=== PATIENT | male | born 1965 | race Caucasian/White ===

== ENCOUNTER 2018-08-27 17:34 | Inpatient (IN) | payer OTHER ==
--- NOTE | 2018-08-27 17:59 | PDOC ---
Rapid Medical Evaluation Chief Complaint: Pain, Acute Time Seen by Provider: 08/27/18 17:55 Medical Evaluation: Allergies Allergy/AdvReac Type Severity Reaction Status Date / Time No Known Allergies Allergy Verified 08/27/18 17:45 Vital Signs Temp Pulse Resp BP Pulse Ox 99 F 107 H 20 157/105 H 99 08/27/18 17:43 08/27/18 17:43 08/27/18 17:43 08/27/18 17:43 08/27/18 17:43 08/27/18 17:55 Pt c/o: abd pain with nausea, went to [facility] w/u then d/c'd home. Pt states s/s continue and wants 2 nd opinion Pt on brief exam: afebrile, no abd tenderness Pt ordered for: cbc, comp, ua, lipase/amylase pt to proceed to the ED Discharge Disposition - Diagnosis Abdominal pain - Referrals Referrals: Roberto Ta MD [Primary Care Provider] - - Patient Instructions - Post Discharge Activity
[2018-08-27] MEDS ORDERED: LACTATED RINGERS SOLUTION 1,000 ML/1,000 ML INFUS.BAG IV STA (19:51)
[2018-08-27] MEDS ORDERED: MORPHINE SULFATE 2 MG/ML VIAL IVPUSH ONE (19:54)
[2018-08-27] MEDS ORDERED: LACTATED RINGERS SOLUTION 1,000 ML/1,000 ML INFUS.BAG IV SCH (20:00)
[2018-08-27] MEDS ORDERED: MORPHINE SULFATE 2 MG/ML VIAL ONE ×2 (20:09→23:16)
[2018-08-27 20:14] LABS: BASO % 0.5 % (0-2.0); HEMATOCRIT 36.2 % (35.4-49); HEMOGLOBIN 12.2 GM/dL (11.7-16.9); LYMPH % 21.2 % (8-40); MCH 26.6 pg (25.7-33.7); MCHC 33.8 g/dl (32.0-35.9); MEAN CELL VOLUME 78.5 fl (80-96); MEAN PLT VOLUME 6.9 fl (7.5-11.1); MONO % 13.3 % (3.8-10.2); PLATELET COUNT 105 K/MM3 (134-434); RBC 4.61 M/mm3 (4.00-5.60); RDW 16.6 % (11.9-15.9); WHITE BLOOD COUNT 7.3 K/mm3 (4.0-10.0)
[2018-08-27] MEDS ORDERED: ONDANSETRON 4 MG/2 ML VIAL IVPB ONE (20:22)
[2018-08-27] MEDS ORDERED: PANTOPRAZOLE SODIUM 40 MG in SODIUM CHLORIDE 100 ML IVPB ONE (20:22)
[2018-08-27 20:32] LABS: INR 1.03 (0.83-1.09); PROTHROMBIN TIME (PATIENT) 12.1 SEC (9.7-13.0)
--- NOTE | 2018-08-27 20:32 | PDOC ---
Attending Attestation - Resident Resident Name: [place] - ED Attending Attestation I have performed the following: I have examined & evaluated the patient, The case was reviewed & discussed with the resident, I agree w/resident's findings & plan, Exceptions are as noted - HPI HPI: 08/27/18 20:28 52 M with h/o chronic pancreatitis presenting to ED with lower abdominal pain. Pt states it started several days ago. It radiates across his lower abdomen and is associated with nausea but no vomiting .Endorses one episode of nonbloody diarrhea. Pt state sthis pain is consistent with his usual pancreatitis flares. Denies F/C. Denies CP/SOB. States that he was at [facility] yesterday but discharged this morning. No advanced imaging was done. Pt states they did bloodwork and sent him home in pain. - Physicial Exam PE: 08/27/18 20:32 "GENERAL: Awake, alert, and fully oriented, in no acute distress. HEAD: No signs of trauma EYES: PERRLA, EOMI, sclera anicteric, conjunctiva clear ENT: Auricles normal inspection, hearing grossly normal, nares patent, oropharynx clear without exudates. Moist mucosa NECK: Nontender, no stepoffs, Normal ROM, supple, no lymphadenopathy, JVD, or masses LUNGS: Breath sounds equal, clear to auscultation bilaterally. No wheezes, and no crackles HEART: Regular rate and rhythm, normal S1 and S2, no murmurs, rubs or gallops ABDOMEN: + epigastric TTP, normoactive bowel sounds. No guarding, no rebound. No masses EXTREMITIES: Normal range of motion, no edema. No clubbing or cyanosis. No cords, erythema, or tenderness NEUROLOGICAL: Cranial nerves II through XII intact. 5/5 strength and sensation in all extremities, Normal speech, normal gait, normal cerebellar function SKIN: Warm, Dry, normal turgor, no rashes or lesions noted. - Medical Decision Making 08/27/18 20:32 52 M with epigastric pain + nausea, consistent with prior pancreatitis flares. - Labs, lipase - CT - IVF, zofran, pain control 08/27/18 22:56 CT shows peripancreatic fat stranding, suggesting possible mild pancreatitis Lipase 600s Labs otherwise wnl 08/28/18 00:42 Pt continues to have pain, will order additional pain meds and fluids Pt made ED obs at this time 08/28/18 01:37 Pt failed PO trial Will admit for pancreatitis flare
[2018-08-27 20:39] LABS: ALBUMIN 3.8 g/dl (3.4-5.0); ALK PHOS 42 U/L (45-117); ANION GAP 13 MMOL/L (8-16); BILIRUBIN,DIRECT 0.3 mg/dL (0.0-0.2); BILIRUBIN,TOTAL 0.8 mg/dL (0.2-1); BLOOD UREA NITROGEN 12 mg/dL (7-18); CALCIUM 8.7 mg/dL (8.5-10.1); CHLORIDE 100 mmol/L (98-107); CO2 23 mmol/L (21-32); CREATININE 0.7 mg/dL (0.55-1.3); GLUCOSE,RANDOM 87 mg/dL (74-106); POTASSIUM 4.5 mmol/L (3.5-5.1); SGOT/AST 58 U/L (15-37); SGPT/ALT 37 U/L (13-61); SODIUM 136 mmol/L (136-145); TOT PROT 7.6 g/dl (6.4-8.2)
--- NOTE | 2018-08-27 20:44 | PDOC ---
History of Present Illness - General Chief Complaint: Pain, Acute Stated Complaint: ABD PAIN Time Seen by Provider: 08/27/18 17:55 History Source: Patient Exam Limitations: Clinical Condition - History of Present Illness Initial Comments: 08/27/18 20:21 Pt. is a 52 y.o. M w/ PMHx. 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 Pt. states that the abdominal pain, nausea and vomiting started around 6 days ago with no identifiable cause. Pt. states that the abdominal pain is in the LLQ, suprapubic and RLQ quadrants and is convinced that it is because of pancreatitis. Pt. states that the diarrhea started ~24 hours ago and he has had 5-6 non-bloody, green, loose bowel movements. Pt. was seen at [facility] last night for abdominal pain and was worked up without CT Scan because Pt. had received too many before. He was "discharged" quickly from the hospital and sent home. Pt. states that "they dislike him there because he has gone there too often for abdominal pain because of pancreatitis." He says that he has been to [facility] ~12 times last year for pancreatitis. Pt. endorses dizziness, lightheadedness, worsening of unsteady gait, dry cough,fever, chills, decreased PO intake( has not taken any of his medications for the last 6 days), and leg weakness. Pt. has had a total of 4 stent placements in his pancreas with the last being 2 months ago at [facility]. Pt. denies changes urinary habits. Pt. states he has not passed stool because he has not eaten. the smell of food makes him gag, liquids go down but quickly come back up. Pt. endorses the feeling of acid in his throat. Pt. states his last drink was yesterday. He had 2 beers that he was not able to keep down after hearing that a family member had just passed. Pt. denies any shortness of breath, chest pain or any recent antibiotic use. CBC, CMP, CT Abdomen and Pelvis w/ contrast, Lipase, Amylase, and alcohol level were sent to evaluate for pancreatitis. 08/27/18 23:00 CT-AP appreciated will continue to hydrate the Pt. and manage pain. Will monitor nausea and aim to treat nausea by addressing pain and hydration. 08/28/18 00:18 Case signed off to Dr. Fiore Timing/Duration: 1 week Associated Symptoms: reports: cough, diaphoresis, fever/chills, loss of appetite , nausea/vomiting, weakness. denies: chest pain, shortness of breath, syncope Aspirin Received prior to arrival: Yes: no aspirin today Beta Jeanine Contraindications(Core Measure): Yes: Not Prescribed Past History - Past Medical History Allergies/Adverse Reactions: Allergies Allergy/AdvReac Type Severity Reaction Status Date / Time No Known Allergies Allergy Verified 08/27/18 17:45 Home Medications: Ambulatory Orders Acamprosate Calcium [Campral -] 333 mg PO BID 08/27/18 Amantadine HCl [Amantadine] 100 mg PO QID 08/27/18 Buspirone HCl 15 mg PO HS 08/27/18 Cyclobenzaprine HCl [Flexeril 10 mg] 10 mg PO BID 08/27/18 Cyproheptadine [Periactin -] 4 mg PO Q12H 08/27/18 Doxazosin Mesylate [Cardura -] 2 mg PO HS 08/27/18 Ferrous Sulfate [Feosol] 325 mg PO TID 08/27/18 Folic Acid 1 mg PO DAILY 08/27/18 Lamotrigine [Lamictal -] 25 mg PO BID 08/27/18 Lamotrigine [Lamictal -] 100 mg PO HS 08/27/18 Lipase/Protease/Amylase [Erika Woods 36,000 Units Capsule] 2 each PO BID 08/27/18 Ranitidine [Zantac -] 150 mg PO DAILY 08/27/18 Venlafaxine HCl [Effexor -] 225 mg PO DAILY 08/27/18 Zolpidem Tartrate [Ambien] 10 mg PO HS 08/27/18 Anemia: Yes COPD: No GI Disorders: Yes (chr pancreatitis) Psychiatric Problems: Yes (chr depression, bipolar) Seizures: Yes (silent) Other medical history: cerebellar ataxia, Wernicke-Korsakoff syndrome - Surgical History Cholecystectomy: Yes (2003) GI Surgery: Yes (metal stent pancreas 06/03 (at [facility] - Suicide/Smoking/Psychosocial Hx Smoking History: Unknown if ever smoked Review of Systems - Review of Systems Able to Perform ROS?: Yes Is the patient limited Spanish proficient: No Constitutional: Yes: Chills, Diaphoresis, Fever, Loss of Appetite, Night Sweats , Weakness HEENTM: Yes: Difficulty Swallowing Respiratory: Yes: Cough. No: Shortness of Breath, Wheezing, Productive cough, Hemoptysis Cardiac (ROS): No: Symptoms Reported, Chest Pain, Edema, Lightheadedness, Palpitations, Chest Tightness ABD/GI: Yes: Symptoms Reported, Diarrhea, Difficulty Swallowing, Nausea, Poor Appetite, Poor Fluid Intake, Vomiting, Indigestion. No: Blood Streaked Bowels, Constipated, Rectal Bleeding, Tarry Stools : No: Symptoms Reported, Burning, Dysuria, Discharge, Frequency, Flank Pain, Hematuria, Incontinence, Pain, Urgency Musculoskeletal: No: Symptoms Reported Integumentary: No: Symptoms Reported Neurological: Yes: Pre-Existing Deficit, Tremors, Weakness, Unsteady Gait, Ataxia, Dizziness Psychiatric: Yes: Depression, Stressors Endocrine: No: Symptoms Reported Hematologic/Lymphatic: No: Symptoms Reported *Physical Exam - Vital Signs Last Vital Signs Temp Pulse Resp BP Pulse Ox 99 F 107 H 20 157/105 H 99 08/27/18 17:43 08/27/18 17:43 08/27/18 17:43 08/27/18 17:43 08/27/18 17:43 - Physical Exam General Appearance: Yes: Nourished, Appropriately Dressed, Apparent Distress, Moderate Distress, Obese. No: Alcohol on Breath HEENT: positive: MARK, Normal ENT Inspection, Normal Voice, Symmetrical, Pharynx Normal, Hearing Grossly Normal. negative: Pharyngeal Erythema, Tonsillar Exudate, Tonsillar Erythema, Rhinorrhea Neck: positive: Trachea midline, Supple. negative: Tender, Carotid bruit Respiratory/Chest: positive: Lungs Clear, Normal Breath Sounds. negative: Respiratory Distress, Accessory Muscle Use, Labored Respiration, Crackles, Rales , Wheezing Cardiovascular: positive: Regular Rhythm, Regular Rate, S1, S2. negative: Edema , JVD, Murmur Vascular Pulses: Dorsalis-Pedis (R): 2+ (2+ posterior tibial), Doralis-Pedis (L) : 2+ (2+ posterior tibial ) Gastrointestinal/Abdominal: positive: Normal Bowel Sounds, Tender (RUQ tenderness), Soft, Protuberent, Tenderness. negative: Distended Male Genitalia: negative: CVAT Rectal Exam: positive: deferred Musculoskeletal: positive: Normal Inspection. negative: CVA Tenderness, Vertebral Tenderness Extremity: positive: Normal Capillary Refill, Normal Inspection, Normal Range of Motion. negative: Tender, Swelling, Calf Tenderness, Erythema, Inflammation Integumentary: positive: Normal Color, Warm, Moist. negative: Jaundice, Petechiae Neurologic: positive: Fully Oriented, Alert, Normal Response, Respond to painful stimul, Responsive. negative: Disoriented Moderate Sedation - Procedure Monitoring Vital Signs: Procedure Monitoring Vital Signs Temperature 99 F 08/27/18 17:43 Pulse Rate 107 H 08/27/18 17:43 Respiratory Rate 20 08/27/18 17:43 Blood Pressure 157/105 H 08/27/18 17:43 O2 Sat by Pulse Oximetry (%) 99 08/27/18 17:43 ED Treatment Course - LABORATORY CBC & Chemistry Diagram: 08/27/18 20:04 08/27/18 20:04 - ADDITIONAL ORDERS Additional order review: 08/27/18 20:04 RBC 4.61 MCV 78.5 L MCHC 33.8 RDW 16.6 H MPV 6.9 L Neutrophils % 65.0 Lymphocytes % 21.2 Monocytes % 13.3 H Eosinophils % 0.0 Basophils % 0.5 - RADIOLOGY Radiology Studies Ordered: Category Date Time Status ABDOMEN & PELVIS CT WITH CONTR [CT] Stat CT Scan 08/27/18 19:49 Ordered CHEST X-RAY PORTABLE* [RAD] Stat Radiology 08/27/18 19:49 Ordered - Medications Given in the ED: ED Medications Discontinued Medications Generic Name Dose Route Start Last Admin Trade Name Dwayneq PRN Reason Stop Dose Admin Morphine Sulfate 2 mg 08/27/18 19:54 08/27/18 20:15 Morphine Sulfate IVPUSH 08/27/18 19:55 2 mg ONCE ONE Administration *DC/Admit/Observation/Transfer Diagnosis at time of Disposition: Abdominal pain - Referrals Referrals: Roberto Ta MD [Staff Physician] - - Patient Instructions - Post Discharge Activity
[2018-08-27 21:03] LABS: AMYLASE 252 U/L (25-115); LIPASE 665 U/L (73-393)
[2018-08-27] MEDS ORDERED: FOLIC ACID INJECTION - 1 MG, THIAMINE HCL 100 MG, MULTIVIT INJECTION ADULT 10 ML in SOD... IVPB ONE (22:33)
[2018-08-27] MEDS ORDERED: morphine CARPU-JECT 2 MG/1 ML DISP.SYRIN IVPUSH ONE (23:14)
[2018-08-27] MEDS ORDERED: morphine CARPU-JECT 4 MG/1 ML DISP.SYRIN IVPUSH ONE (23:57)
[2018-08-28] MEDS ORDERED: morphine SULFATE 4 MG/ML VIAL ONE (00:08)
--- NOTE | 2018-08-28 00:33 | PDOC ---
*Physical Exam - Vital Signs Last Vital Signs Temp Pulse Resp BP Pulse Ox 98.5 F 99 H 19 173/101 H 96 08/27/18 23:54 08/27/18 23:54 08/27/18 23:54 08/27/18 23:54 08/27/18 23:54 ED Treatment Course - LABORATORY CBC & Chemistry Diagram: 08/27/18 20:04 08/27/18 20:04 - ADDITIONAL ORDERS Additional order review: Laboratory Results 08/27/18 08/27/18 20:04 20:04 PT with INR 12.10 INR 1.03 Sodium 136 Potassium 4.5 Chloride 100 Carbon Dioxide 23 Anion Gap 13 BUN 12 Creatinine 0.7 Creat Clearance w eGFR > 60 Random Glucose 87 Calcium 8.7 Total Bilirubin 0.8 Direct Bilirubin 0.3 H AST 58 H ALT 37 Alkaline Phosphatase 42 L Total Protein 7.6 Albumin 3.8 Total Amylase 252 H Lipase 665 H Alcohol, Quantitative 28.3 H 08/27/18 20:04 RBC 4.61 MCV 78.5 L MCHC 33.8 RDW 16.6 H MPV 6.9 L Neutrophils % 65.0 Lymphocytes % 21.2 Monocytes % 13.3 H Eosinophils % 0.0 Basophils % 0.5 - Medications Given in the ED: ED Medications Discontinued Medications Generic Name Dose Route Start Last Admin Trade Name Freq PRN Reason Stop Dose Admin Lactated Ringer's 1,000 ml in 1,000 mls @ 1,000 mls/hr 08/27/18 19:51 20:08 Lactated Ringers Solution IV 08/27/18 20:50 1,000 mls/hr ONCE STA Administration Pantoprazole Sodium 40 mg/ 100 mls @ 200 mls/hr 08/27/18 20:22 08/27/18 20:30 Sodium Chloride IVPB 08/27/18 20:51 200 mls/hr ONCE ONE Administration Morphine Sulfate 2 mg 08/27/18 19:54 08/27/18 20:15 Morphine Sulfate IVPUSH 08/27/18 19:55 2 mg ONCE ONE Administration Morphine Sulfate 2 mg 08/27/18 23:14 08/27/18 23:21 Morphine Injection - IVPUSH 08/27/18 23:15 2 mg ONCE ONE Administration Morphine Sulfate 4 mg 08/27/18 23:57 08/28/18 00:12 Morphine Injection - IVPUSH 08/27/18 23:58 4 mg ONCE ONE Administration Ondansetron HCl 4 mg 08/27/18 20:22 08/27/18 20:30 Zofran Injection IVPB 08/27/18 20:23 4 mg ONCE ONE Administration Medical Decision Making - Medical Decision Making Patient with continued abdominal pain. Tender to palpation diffusely. Still endorsing nausea. 1 episode of vomiting while in the ED. Discussed case with inpatient team who accepted patient for admission under Dr. Keyes *DC/Admit/Observation/Transfer Diagnosis at time of Disposition: Abdominal pain, Pancreatitis, chronic, Intractable pain - Discharge Dispostion Condition at time of disposition: Guarded Decision to Admit order: Yes - Referrals - Patient Instructions - Post Discharge Activity
[2018-08-28] MEDS ORDERED: LORazepam 2 MG/ML SDV VIAL ONE ×2 (01:17→03:31)
--- NOTE | 2018-08-28 01:33 | HP ---
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 Pt. states that the abdominal pain, nausea and vomiting started around 6 days ago. He is convinced its pancreatitis because of similar episodes in the past. Patient states that the diarrhea started yesterday and he has had 5-6 non-bloody , green, loose bowel movements. He says he has worsening tremors, which occur when he vomits. He says the tremors could be that he may be withdrawing from alcohol. He went to [facility] yesterday for abdominal pain but discharged him in ED. He says that he has been to [facility] at least 12 times last year for pancreatitis. He also endorses dizziness, lightheadedness, worsening of unsteady gait, dry cough,fever, chills, decreased PO intake( has not taken any of his medications for the last 6 days), and leg weakness. Pt. has had a total of 4 stent placements in his pancreas with the last being 2 months ago at [facility]. He states he cut down significantly on his drinking over the last year but drank heavily during new years. His last drink was today. He says he had 2 beers. He denies any shortness of breath, chest pain. ER course was notable for: (1) Ct: pancreatic fat stranging, suggesting mild pancreatitis (2) Lipase 665 (3) IV fluids, Morphine 8mg Recent Travel: denies PAST MEDICAL HISTORY: per hpi Social History: Drinks alcohol. says he is on and off Family History: Allergies No Known Allergies Allergy (Verified 08/27/18 17:45) HOME MEDICATIONS: Home Medications Medication Instructions Recorded Acamprosate Calcium [Campral -] 333 mg PO BID 08/27/18 Amantadine HCl [Amantadine] 100 mg PO QID 08/27/18 Buspirone HCl 15 mg PO HS 08/27/18 Cyclobenzaprine HCl [Flexeril 10 10 mg PO BID 08/27/18 mg] Cyproheptadine [Periactin -] 4 mg PO Q12H 08/27/18 Doxazosin Mesylate [Cardura -] 2 mg PO HS 08/27/18 Ferrous Sulfate [Feosol] 325 mg PO TID 08/27/18 Folic Acid 1 mg PO DAILY 08/27/18 Lamotrigine [Lamictal -] 25 mg PO BID 08/27/18 Lamotrigine [Lamictal -] 100 mg PO HS 08/27/18 Lipase/Protease/Amylase [Creon Dr 2 each PO BID 08/27/18 36,000 Units Capsule] Ranitidine [Zantac -] 150 mg PO DAILY 08/27/18 Venlafaxine HCl [Effexor -] 225 mg PO DAILY 08/27/18 Zolpidem Tartrate [Ambien] 10 mg PO HS 08/27/18 REVIEW OF SYSTEMS CONSTITUTIONAL: Absent: fever, chills, diaphoresis, generalized weakness, malaise, loss of appetite, weight change CARDIOVASCULAR: Absent: chest pain, syncope, palpitations, irregular heart rate, lightheadedness , peripheral edema RESPIRATORY: Absent: cough, shortness of breath, dyspnea with exertion, orthopnea, wheezing, stridor, hemoptysis GASTROINTESTINAL: abdominal pain, nausea, vomiting, diarrhea Absent: abdominal distension, constipation, melena, hematochezia GENITOURINARY: Absent: dysuria, frequency, urgency, hesitancy, hematuria, flank pain, genital pain HEMATOLOGIC/IMMUNOLOGIC: Absent: easy bleeding, easy bruising, lymphadenopathy, frequent infections NEUROLOGIC: Absent: focal weakness or paresthesias, dizziness, seizure, mental status changes, bladder or bowel incontinence PSYCHIATRIC: Absent: anxiety, depression, suicidal or homicidal ideation, hallucinations. PHYSICAL EXAMINATION Vital Signs - 24 hr 08/27/18 08/27/18 17:43 23:54 Temperature 99 F 98.5 F Pulse Rate 107 H Pulse Rate [ 99 H Right Radial] Respiratory 20 19 Rate Blood Pressure 157/105 H Blood Pressure 173/101 H [Left Arm] O2 Sat by Pulse 99 96 Oximetry (%) GENERAL: anxious, tremors HEAD: Normal with no signs of trauma. EYES: Pupils equal, round and reactive to light, extraocular movements intact, sclera anicteric EARS, NOSE, THROAT: oropharynx clear without exudates. dry mucous membranes. NECK: supple without lymphadenopathy, JVD, or masses. LUNGS: Breath sounds equal, clear to auscultation bilaterally. HEART: Regular rate and rhythm, normal S1 and S2 without murmur, rub or gallop. ABDOMEN: +BS, tenderness to palpation in all quadrants, worse on LLQ. No hepatomegaly soft, non distended. LOWER EXTREMITIES: 2+ pulses, warm, well-perfused. No calf tenderness. No peripheral edema. NEUROLOGICAL: Cranial nerves II-XII intact. Normal speech. Laboratory Results - last 24 hr 08/27/18 08/27/18 08/27/18 20:04 20:04 20:04 WBC 7.3 RBC 4.61 Hgb 12.2 Hct 36.2 MCV 78.5 L MCH 26.6 MCHC 33.8 RDW 16.6 H Plt Count 105 L MPV 6.9 L Absolute Neuts (auto) 4.8 Neutrophils % 65.0 Lymphocytes % 21.2 Monocytes % 13.3 H Eosinophils % 0.0 Basophils % 0.5 Nucleated RBC % 0 PT with INR 12.10 INR 1.03 Sodium 136 Potassium 4.5 Chloride 100 Carbon Dioxide 23 Anion Gap 13 BUN 12 Creatinine 0.7 Creat Clearance w eGFR > 60 Random Glucose 87 Calcium 8.7 Total Bilirubin 0.8 Direct Bilirubin 0.3 H AST 58 H ALT 37 Alkaline Phosphatase 42 L Total Protein 7.6 Albumin 3.8 Total Amylase 252 H Lipase 665 H Alcohol, Quantitative 28.3 H ASSESSMENT/PLAN: 52 yo M w/ PMHx of cerebellar ataxia, peripheral neuropathy, GERD, chronic pancreatitis, 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 #Abdominal Pain/nausea/vomiting -secondary to Pancreatitis likely from alcohol abuse -NPO -IV fluids -GI consult: Dr. German -Metoclopramide for Nausea -repeat EKG in AM. QTC 473 -obtain records from [facility] (where he has his stents placed) #Uncontrolled HTN -Med-rec -Start PRN hydralazine -monitor #Hx of Alcohol Abuse -Calculated CIWA 9 -Ativan 1mg -Monitor for withdrawals -thiamine -folic acid #Hx of Seizures -cont. home meds -seizure precautions -med-rec #Thrombocytopenia -Likely from alcohol use #Hx of Bipolar -med rec -cont home meds #Cerebellar ataxia -cont. home meds #peripheral neuropathy -cont. home meds #DVT- scds - thrombocytopenic #FEN- LR @ 120 monitor julita NPO Dispo: Obs Visit type - Emergency Visit Emergency Visit: Yes Care time: The patient presented to the Emergency Department on the above date and was hospitalized for further evaluation of their emergent condition. - New Patient This patient is new to me today: Yes Date on this admission: 08/28/18 - Critical Care Critical Care patient: No
[2018-08-28] MEDS ORDERED: diazePAM CARPU-JECT 10 MG/2 ML DISP.SYRIN IVPUSH ONE (01:46)
--- NOTE | 2018-08-28 01:52 | PN ---
Teaching Attending Note Name of Resident: Zita Byers ATTENDING PHYSICIAN STATEMENT I saw and evaluated the patient. I reviewed the resident's note and discussed the case with the resident. I agree with the resident's findings and plan as documented. SUBJECTIVE: Seen and examined; please see resident note for further historical information. He is presenting to the medicine service with 6 days of nausea, vomiting, diarrhea, abdominal pain. He is coming to our service from [facility] and has been there nearly the 8 hours. He has had the sx for days with the pain, nausea, vomitting accompanied by anorexia. This is similar to the pain he gets with the chronic pancreatitis. He was at [facility] at least 12 times last year per the patient and he was there earlier this week and was sent home; he relays social issues surround his care at [facility] that complicate his followup. He follows with Dr. Betancourt from [facility] for pancreatic stenting; he has had multiple stents and the last one was back in may and is scheduled to be exchanged in mid-september. He tells me these symptoms were not like what drove him to get stents in the first place; they're aparently done 'because of stones. ' Furthermore the patient thinks that his symptoms are due to excessive EtOH consumption. He has been binging all week and his last drink was this AM. This feels like when he put himself into an episode of pancreatitis from alcohol before 10 sys ROS done and negative aside from HPI PMH and PSH reviewed Social history reviewed FH asked and noncontributory Medication list reviewed; he hasn't taken his home meds in almost a week and has questionable compliance at baseline. He is on calcium, amantadine, flexeril , cyproheptadine, iron, folic acid, lamotrigine, creon, ranitidine, venlafaxine , zolpidem OBJECTIVE: VS, labs, imaging reviewed NAD, AAO, Resting comfortably in bed RRR s1/2 no mgr NC AT EOMI PERRLA Lungs CTAB w/ sym exp Tender and mildly distended not tympanic with +BS CN2-12 wnl; slightly tremulous, no asterixis. No fnd Normal mood, appropriate behavior. Somewhat anxious. Labs show plts 105 with positive alcohol 28.3; lipase 665 elevated AST mildly at 58. Microcytosis without anemia noted. BMP unremarkable. EKG reviewed; QTc <[address] abdomen/pelvis shows biliary stent with .5x.3cm intraductal calcification intraductal vs. parynchymas with a .5cm dilation of the main duct. Mild acute pancreatitis noted with hepatic steatosis seen. ASSESSMENT AND PLAN: Presents with acute on chronic pancreatitis (has biliary stents in with Dr. Betancourt) after binge drinking; scheduled to have stents exchanged mid-Sep. 1) Acute on Chronic Pancreatitis -Evidenced by imaging with positive history, positive lipase. Likely triggered by EtOH. He has stenting done which is likely the explanation for the imaging findings and is scheduled for exchange of stent next month; he is a patient of Dr. Betancourt -Admit to med surg; NPO and IVF with LR@120cc/hr and monitoring BMP, strict Is and Os. Consulting GI. Advancing diet as tolerated. -Pain control with PRN Dilaudid, PRN IV APAP. -Obtain old records from [facility] 2) Uncontrolled HTN -No documented meds for BP but poor historian and we have to call the pharmacy to ensure; either way he hasn't taken his meds in days -PRN hydralazine to keep SBP <160; reconciliation of home meds pending 3) Alcohol Abuse -CIWA with PRN ativan; given 5 IV valium in the ER 4) Thrombocytopenia -Likely due to EtOH; checking HIV and HCV Ab to be complete -SCDs for DVT px 5) Cerebellar Ataxia -Continue home meds 6) Peripheral Neuropathy -Continue home meds; monitor for sx 7) GERD -IV PPI for now 8) Wernicke-Korsakoff Syndrome -Continue home supplements; at baseline. Monitor. On thiamine and folate with the CIWA protocol. 9) Vertigo -No sx; monitor 10) Hx Seizures -Reconcile home meds FENA -LR@120cc/hr -PRN replete -NPO -As tolerated Full Code
[2018-08-28] MEDS ORDERED: LORazepam 2 MG/ML SDV VIAL IVPUSH ONE (02:10)
[2018-08-28] MEDS ORDERED: hydrALAZINE HCL 20 MG/ML VIAL IVPUSH PRN (02:11)
[2018-08-28] MEDS: LACTATED RINGERS SOLUTION 1,000 ML/1,000 ML INFUS.BAG IV SCH ×3 (02:41→16:34)
[2018-08-28] MEDS ORDERED: LORazepam 2 MG/ML SDV VIAL IVPUSH PRN (06:00)
[2018-08-28] MEDS ORDERED: hydrALAZINE HCL 20 MG/ML VIAL ONE (06:34)
[2018-08-28] MEDS ORDERED: METOCLOPRAMIDE HCL INJECTION 10 MG/2 ML VIAL ONE ×2 (06:34→14:27)
[2018-08-28] MEDS: METOCLOPRAMIDE HCL INJECTION 10 MG/2 ML VIAL IVPUSH PRN ×3 (06:48→18:28)
[2018-08-28 07:49] LABS: ALBUMIN 3.3 g/dl (3.4-5.0); ALK PHOS 36 U/L (45-117); ANION GAP 10 MMOL/L (8-16); BLOOD UREA NITROGEN 7 mg/dL (7-18); CALCIUM 8.2 mg/dL (8.5-10.1); CHLORIDE 95 mmol/L (98-107); CO2 28 mmol/L (21-32); CREATININE 0.5 mg/dL (0.55-1.3); GLUCOSE,RANDOM 72 mg/dL (74-106); PHOSPHOROUS 1.9 mg/dL (2.5-4.9); POTASSIUM 3.3 mmol/L (3.5-5.1); SGOT/AST 39 U/L (15-37); SGPT/ALT 31 U/L (13-61); SODIUM 133 mmol/L (136-145); TOT PROT 6.5 g/dl (6.4-8.2)
[2018-08-28] MEDS: LIPASE/PROTEASE/AMYLASE 36,000 UNIT CAPSULE PO SCH ×2 (08:00→17:09)
[2018-08-28] MEDS: FERROUS SO4 325 MG TABLET (FP) PO SCH ×3 (08:00→17:09)
[2018-08-28 08:07] LABS: BASO % 0.2 % (0-2.0); HEMATOCRIT 34.4 % (35.4-49); HEMOGLOBIN 11.5 GM/dL (11.7-16.9); LYMPH % 18.1 % (8-40); MCH 26.7 pg (25.7-33.7); MCHC 33.5 g/dl (32.0-35.9); MEAN CELL VOLUME 79.6 fl (80-96); MEAN PLT VOLUME 7.8 fl (7.5-11.1); MONO % 11.5 % (3.8-10.2); NEUT % 70.2 % (42.8-82.8); PLATELET COUNT 87 K/MM3 (134-434); RBC 4.32 M/mm3 (4.00-5.60); RDW 16.4 % (11.9-15.9); WHITE BLOOD COUNT 7.4 K/mm3 (4.0-10.0)
--- NOTE | 2018-08-28 08:38 | EKG ---
Test Reason : Blood Pressure : / mmHG Vent. Rate : 111 BPM Atrial Rate : 111 BPM P-R Int : 140 ms QRS Dur : 074 ms QT Int : 348 ms P-R-T Axes : 034 035 039 degrees QTc Int : 473 ms SINUS TACHYCARDIA OTHERWISE NORMAL ECG WHEN COMPARED WITH ECG OF 03-APR-2007 17:42, NO SIGNIFICANT CHANGE WAS FOUND Confirmed by SCOTTY RENDON MD ([id number]) on 08/28/2018 8:37:58 AM Referred By: Confirmed By:SCOTTY RENDON MD
--- NOTE | 2018-08-28 08:42 | EKG ---
Test Reason : Blood Pressure : / mmHG Vent. Rate : 101 BPM Atrial Rate : 101 BPM P-R Int : 140 ms QRS Dur : 084 ms QT Int : 364 ms P-R-T Axes : 033 046 046 degrees QTc Int : 471 ms SINUS TACHYCARDIA OTHERWISE NORMAL ECG WHEN COMPARED WITH ECG OF 27-AUG-2018 20:24, NO SIGNIFICANT CHANGE WAS FOUND Confirmed by SCOTTY RENDON MD ([id number]) on 08/28/2018 8:42:38 AM Referred By: Confirmed By:SCOTTY RENDON MD
[2018-08-28] MEDS ORDERED: POTASSIUM PHOSPHATE 16 MM in SODIUM CHLORIDE 250 ML IVPB ONE (09:04)
[2018-08-28] MEDS: PANTOPRAZOLE SODIUM 40 MG VIAL IVPUSH SCH (10:03)
[2018-08-28] MEDS: ACAMPROSATE CALCIUM 333 MG TABLET.DR PO SCH ×2 (10:04→22:22)
[2018-08-28] MEDS: FOLIC ACID 1 MG TABLET (FP) PO SCH (10:04)
[2018-08-28] MEDS: AMANTADINE HCL 100 MG TABLET PO SCH ×4 (10:04→22:22)
[2018-08-28] MEDS: VENLAFAXINE HCL 75 MG E.R. CAPSULES (FP) PO SCH (10:04)
[2018-08-28] MEDS: THIAMINE HCL 200 MG/2 ML VIAL IVPB SCH (10:04)
--- NOTE | 2018-08-28 10:25 | CON.GI ---
Consult Consult Specialty:: GI: For Dr. Betancourt Referred by:: Hospitalist Service Reason for Consultation:: Abdominal pain - History of Present Illness Chief Complaint: Abdominal pain History of Present Illness: 52M admitted for evaluation of nausea and abdomional pain. Describes pain as starting this week, went to the [facility] ER for pain and was discharged. He states that he has been evaluated by Dr. Betancourt in office, who performed EGD/ Colonoscopy on him last year at [facility] for evaluation of anemia. He alludes to having multiple "pancreatic stents" placed in the past with Dr. Betancourt, the last being placed at [facility] this past June (metal stent). It is unclear why the stent was placed. Currently, CT scan in the ER revealed a biliary stent, a 5mm stone in the head of the pancreas (? intraductal vs. parenchymal) haziness around the head of the pancreas possibly consistent with mild acute pancreatitis , Dilated pancreatic duct and fatty liver. He is an alcoholic and has been drinking regularly this past week. He states that his last drink was yesterday and he had 2 beers. - History Source History Provided By: Patient, Medical Record Limitations to Obtaining History: Poor Historian - Past Medical History SMOKE CHASER: Yes: Other (Cerebellar ataxia) Gastrointestinal: Yes: GERD, Pancreatitis (acute and chronic) - Past Surgical History Additional Surgical History: Chlecystectomy, biliary stenting - Alcohol/Substance Use Hx Alcohol Use: Yes History of Substance Use: reports: None - Smoking History Smoking history: Never smoked - Social History Usual Living Arrangement: Alone Place of : [facility] History of Recent Travel: No Home Medications - Allergies Allergies/Adverse Reactions: Allergies Allergy/AdvReac Type Severity Reaction Status Date / Time No Known Allergies Allergy Verified 08/27/18 17:45 - Home Medications Home Medications: Ambulatory Orders Acamprosate Calcium [Campral -] 333 mg PO BID 08/27/18 Amantadine HCl [Amantadine] 100 mg PO QID 08/27/18 Buspirone HCl 15 mg PO HS 08/27/18 Cyclobenzaprine HCl [Flexeril 10 mg] 10 mg PO BID 08/27/18 Cyproheptadine [Periactin -] 4 mg PO Q12H 08/27/18 Doxazosin Mesylate [Cardura -] 2 mg PO HS 08/27/18 Ferrous Sulfate [Feosol] 325 mg PO TID 08/27/18 Folic Acid 1 mg PO DAILY 08/27/18 Lamotrigine [Lamictal -] 25 mg PO BID 08/27/18 Lamotrigine [Lamictal -] 100 mg PO HS 08/27/18 Lipase/Protease/Amylase [Erika Woods 36,000 Units Capsule] 2 each PO BID 08/27/18 Ranitidine [Zantac -] 150 mg PO DAILY 08/27/18 Venlafaxine HCl [Effexor -] 225 mg PO DAILY 08/27/18 Zolpidem Tartrate [Ambien] 10 mg PO HS 08/27/18 Family Disease History - Family Disease History Other Family History: Patient does not know biological family. He is an adoptee Review of Systems - Review of Systems Constitutional: denies: Fever Cardiovascular: denies: Chest Pain Respiratory: denies: SOB Gastrointestinal: reports: Abdominal Pain, Diarrhea, Indigestion, Nausea. denies: Dysphagia, Rectal Bleeding, Vomiting, Vomiting Blood Physical Exam-GI Vital Signs: Vital Signs Temperature 98.2 F 08/28/18 09:10 Pulse Rate 93 H 08/28/18 09:10 Respiratory Rate 18 08/28/18 09:10 Blood Pressure 140/81 08/28/18 09:10 O2 Sat by Pulse Oximetry (%) 99 08/28/18 06:32 Constitutional: Yes: Calm Eyes: Yes: Sclera Icterus Cardiovascular: Yes: Regular Rate and Rhythm Respiratory: Yes: CTA Bilaterally Gastrointestinal Inspection: No: Distention ...Auscultate: Yes: Normoactive Bowel Sounds ...Palpate: Yes: Soft, Tenderness (TTP mid abdomen). No: Guarding, Tenderness, Rebound ...Percussion: No: Tympanitic Edema: No (No LE edemaq) Labs: CBC, BMP 08/28/18 07:09 08/28/18 07:09 INR, PTT INR 1.03 (0.83-1.09) 08/27/18 20:04 Problem List - Problems (1) Abdominal pain Assessment/Plan: Possible acute on chronic pancreatitis. Explained this to Mr. Norwood. Advised that he needs to completely abstain from alcohol as part of the main part of his treatment. Unclear why a metal biliary stent was placed at [facility]. This will need to be investigated further. Dr. Betancourt may have records regarding this. It seems to be functioning based on blood work. For now: NPO IV hydration His PMD is Dr. Lam @ [facility]. Will need follow-up with him Is due to have stent ? removed (metal stents generally cannot be removed) at [facility] in 10/05 per the patient Drs. Betancourt/Daniel resume coverage 08/30/18 Code(s): R10.9 - UNSPECIFIED ABDOMINAL PAIN
[2018-08-28] MEDS: KCL 10 MEQ IVPB 10 MEQ/100 ML INFUS.BAG IVPB SCH ×2 (10:46→11:46)
--- NOTE | 2018-08-28 10:49 | PN ---
Progress Note, Physician Chief Complaint: Mr Norwood complains of abdominal pain. Denies cp, sob, n/v. - Current Medication List Current Medications: Active Medications Acamprosate (Campral -) 333 mg PO BID [facility] Last Admin: 08/28/18 10:04 Dose: Not Given Amantadine HCl (Symmetrel -) 100 mg PO QID [facility] Last Admin: 08/28/18 10:04 Dose: Not Given Doxazosin Mesylate (Cardura -) 2 mg PO HS [facility] Ferrous Sulfate (Feosol -) 325 mg PO TIDCM [facility] Last Admin: 08/28/18 08:00 Dose: Not Given Folic Acid (Folic Acid -) 1 mg PO DAILY [facility] Last Admin: 08/28/18 10:04 Dose: Not Given Hydralazine HCl (Apresoline Injection -) 10 mg IVPUSH Q6H PRN PRN Reason: HYPERTENSION Last Admin: 08/28/18 06:48 Dose: 10 mg Lactated Ringer's (Lactated Ringers Solution) 1,000 ml in 1,000 mls @ 120 mls/ hr IV ASDIR [facility] Last Admin: 08/28/18 02:41 Dose: 120 mls/hr Potassium Chloride (Potassium Chloride 10 Meq Premix Ivpb -) 10 meq in 100 mls @ 100 mls/hr IVPB Q60M [facility] Stop: 08/28/18 11:14 Potassium Phosphate 16 mm/ (Sodium Chloride) 255.3333 mls @ 62.5 mls/hr IVPB ONCE ONE Stop: 08/28/18 13:09 Lorazepam (Ativan Injection -) 1 mg IVPUSH Q6H PRN PRN Reason: ANXIETY Metoclopramide HCl (Reglan Injection -) 10 mg IVPUSH Q6H PRN PRN Reason: NAUSEA AND/OR VOMITING Last Admin: 08/28/18 06:48 Dose: 10 mg Morphine Sulfate (Morphine Injection -) 1 mg IVPUSH Q4H PRN PRN Reason: PAIN LEVEL 6-10 Pancrelipase (Creon Dr 36,000 Units Capsule) 2 cap PO BIDWM [facility] Last Admin: 08/28/18 08:00 Dose: Not Given Pantoprazole Sodium (Protonix Iv) 40 mg IVPUSH DAILY [facility] Last Admin: 08/28/18 10:03 Dose: 40 mg Thiamine HCl (Vitamin B1 Injection -) 200 mg IVPB DAILY [facility] Last Admin: 08/28/18 10:04 Dose: 200 mg Venlafaxine HCl (Effexor Xr -) 225 mg PO DAILY [facility] Last Admin: 08/28/18 10:04 Dose: Not Given - Objective Vital Signs: Vital Signs Temperature 36.8 C 08/28/18 09:10 Pulse Rate 93 H 08/28/18 09:10 Respiratory Rate 18 08/28/18 09:10 Blood Pressure 140/81 08/28/18 09:10 O2 Sat by Pulse Oximetry (%) 99 08/28/18 06:32 Constitutional: Yes: Well Nourished, No Distress, Calm Cardiovascular: Yes: Regular Rate and Rhythm. No: Gallop, Murmur, Rub Respiratory: Yes: Regular, CTA Bilaterally. No: Rales, Rhonchi, Wheezes Gastrointestinal: Yes: Normal Bowel Sounds, Soft, Tenderness (slight). No: Distention Extremities: Yes: WNL Edema: No Labs: CBC, BMP 08/28/18 07:09 08/28/18 07:09 INR, PTT INR 1.03 (0.83-1.09) 08/27/18 20:04 Problem List - Problems (1) Acute alcoholic pancreatitis Assessment/Plan: -appreciate GI assistance -continue npo -continue IVF -monitor lipase -pain control with morphine Code(s): K85.20 - ALCOHOL INDUCED ACUTE PANCREATITIS WITHOUT NECROSIS OR INFCT Qualifiers: Acute pancreatitis complication: no infection or necrosis Qualified Code(s) : K85.20 - Alcohol induced acute pancreatitis without necrosis or infection (2) Pancreatitis, chronic Assessment/Plan: -with stent placement, possible removal next month -npo currently -restart pancreatic enzymes when taking po -counselled on cessation of alcohol Code(s): K86.1 - OTHER CHRONIC PANCREATITIS Qualifiers: Pancreatitis type: alcohol induced Qualified Code(s): K86.0 - Alcohol- induced chronic pancreatitis (3) Alcohol dependence with withdrawal Assessment/Plan: -uncomplicated -continue hydration -continue prn ativan Code(s): F10.239 - ALCOHOL DEPENDENCE WITH WITHDRAWAL, UNSPECIFIED (4) HTN (hypertension) Assessment/Plan: -hydralazine prn while npo -restart cardura when tolerating po Code(s): I10 - ESSENTIAL (PRIMARY) HYPERTENSION (5) Hypophosphatemia Assessment/Plan: -replace Code(s): E83.39 - OTHER DISORDERS OF PHOSPHORUS METABOLISM (6) Hypokalemia Assessment/Plan: -replace Code(s): E87.6 - HYPOKALEMIA
[2018-08-28] MEDS ORDERED: MORPHINE SULFATE 2 MG/ML VIAL ONE (14:28)
[2018-08-28] MEDS: MORPHINE SULFATE 2 MG/ML VIAL IVPUSH PRN ×3 (14:40→22:29)
[2018-08-28] MEDS: DOXAZOSIN MESYLATE 2 MG TABLET (FP) PO SCH (22:22)
[2018-08-29] MEDS: LACTATED RINGERS SOLUTION 1,000 ML/1,000 ML INFUS.BAG IV SCH ×2 (02:43→20:00)
[2018-08-29] MEDS: MORPHINE SULFATE 2 MG/ML VIAL IVPUSH PRN ×5 (02:44→20:24)
[2018-08-29] MEDS: METOCLOPRAMIDE HCL INJECTION 10 MG/2 ML VIAL IVPUSH PRN ×3 (02:49→17:31)
[2018-08-29 08:32] LABS: BASO % 0.5 % (0-2.0); EOS % 0.1 % (0-4.5); HEMATOCRIT 33.6 % (35.4-49); HEMOGLOBIN 10.7 GM/dL (11.7-16.9); LYMPH % 13.1 % (8-40); MCH 25.4 pg (25.7-33.7); MCHC 31.7 g/dl (32.0-35.9); MEAN CELL VOLUME 80.1 fl (80-96); MEAN PLT VOLUME 7.9 fl (7.5-11.1); MONO % 8.8 % (3.8-10.2); NEUT % 77.5 % (42.8-82.8); PLATELET COUNT 73 K/MM3 (134-434); RDW 16.1 % (11.9-15.9)
[2018-08-29] MEDS: FERROUS SO4 325 MG TABLET (FP) PO SCH ×3 (08:35→17:30)
[2018-08-29] MEDS: LIPASE/PROTEASE/AMYLASE 36,000 UNIT CAPSULE PO SCH ×2 (08:35→17:30)
[2018-08-29 08:57] LABS: AMYLASE 711 U/L (25-115); LIPASE 10355 U/L (73-393)
[2018-08-29 09:17] LABS: ALBUMIN 2.9 g/dl (3.4-5.0); ALK PHOS 31 U/L (45-117); ANION GAP 11 MMOL/L (8-16); BILIRUBIN,DIRECT 0.3 mg/dL (0.0-0.2); BILIRUBIN,TOTAL 0.9 mg/dL (0.2-1); BLOOD UREA NITROGEN 7 mg/dL (7-18); CALCIUM 8.3 mg/dL (8.5-10.1); CHLORIDE 96 mmol/L (98-107); CO2 26 mmol/L (21-32); CREATININE 0.5 mg/dL (0.55-1.3); GLUCOSE,RANDOM 80 mg/dL (74-106); MAGNESIUM 1.9 mg/dL (1.8-2.4); SGOT/AST 35 U/L (15-37); SGPT/ALT 27 U/L (13-61); SODIUM 133 mmol/L (136-145)
[2018-08-29 09:19] LABS: POTASSIUM 2.9 mmol/L (3.5-5.1)
[2018-08-29] MEDS: ACAMPROSATE CALCIUM 333 MG TABLET.DR PO SCH ×3 (09:35→21:59)
[2018-08-29] MEDS: FOLIC ACID 1 MG TABLET (FP) PO SCH ×2 (09:35→11:26)
[2018-08-29] MEDS: VENLAFAXINE HCL 75 MG E.R. CAPSULES (FP) PO SCH ×2 (09:35→11:28)
[2018-08-29] MEDS: AMANTADINE HCL 100 MG TABLET PO SCH ×5 (09:35→22:00)
[2018-08-29] MEDS: PANTOPRAZOLE SODIUM 40 MG VIAL IVPUSH SCH (09:47)
[2018-08-29] MEDS ORDERED: PT OWN MED DRAWER 7, Y5N ONE ×5 (11:19→20:22)
[2018-08-29] MEDS: THIAMINE HCL 200 MG/2 ML VIAL IVPB SCH (11:24)
[2018-08-29] MEDS: KCL 10 MEQ IVPB 10 MEQ/100 ML INFUS.BAG IVPB SCH ×3 (11:36→14:26)
--- NOTE | 2018-08-29 12:16 | PN ---
Progress Note, Physician Chief Complaint: Mr Norwood says the pain is improving. No nausea and appetite is returning. Requesting trial of liquids. No cp or sob. - Current Medication List Current Medications: Active Medications Acamprosate (Campral -) 333 mg PO BID [facility] Last Admin: 08/29/18 11:28 Dose: 333 mg Amantadine HCl (Symmetrel -) 100 mg PO QID [facility] Last Admin: 08/29/18 11:27 Dose: 100 mg Doxazosin Mesylate (Cardura -) 2 mg PO HS [facility] Last Admin: 08/28/18 22:22 Dose: Not Given Ferrous Sulfate (Feosol -) 325 mg PO TIDCM [facility] Last Admin: 08/29/18 11:26 Dose: 325 mg Folic Acid (Folic Acid -) 1 mg PO DAILY [facility] Last Admin: 08/29/18 11:26 Dose: 1 mg Hydralazine HCl (Apresoline Injection -) 10 mg IVPUSH Q6H PRN PRN Reason: HYPERTENSION Last Admin: 08/28/18 06:48 Dose: 10 mg Lactated Ringer's (Lactated Ringers Solution) 1,000 ml in 1,000 mls @ 120 mls/ hr IV ASDIR [facility] Last Admin: 08/29/18 02:43 Dose: 120 mls/hr Potassium Chloride (Potassium Chloride 10 Meq Premix Ivpb -) 10 meq in 100 mls @ 100 mls/hr IVPB Q60M [facility] Stop: 08/29/18 13:59 Last Admin: 08/29/18 11:36 Dose: 100 mls/hr Lorazepam (Ativan Injection -) 1 mg IVPUSH Q6H PRN PRN Reason: ANXIETY Metoclopramide HCl (Reglan Injection -) 10 mg IVPUSH Q6H PRN PRN Reason: NAUSEA AND/OR VOMITING Last Admin: 08/29/18 09:48 Dose: 10 mg Morphine Sulfate (Morphine Sulfate) 1 mg IVPUSH Q4H PRN PRN Reason: PAIN LEVEL 6-10 Last Admin: 08/29/18 11:39 Dose: 1 mg Pancrelipase (Creon Dr 36,000 Units Capsule) 2 cap PO BIDWM [facility] Last Admin: 08/29/18 08:35 Dose: Not Given Pantoprazole Sodium (Protonix Iv) 40 mg IVPUSH DAILY [facility] Last Admin: 08/29/18 09:47 Dose: 40 mg Thiamine HCl (Vitamin B1 Injection -) 200 mg IVPB DAILY [facility] Last Admin: 08/29/18 11:24 Dose: 200 mg Venlafaxine HCl (Effexor Xr -) 225 mg PO DAILY [facility] Last Admin: 08/29/18 11:28 Dose: 225 mg - Objective Vital Signs: Vital Signs Temperature 37.0 C 08/29/18 08:48 Pulse Rate 86 08/29/18 08:48 Respiratory Rate 16 08/29/18 08:48 Blood Pressure 140/80 08/29/18 08:48 O2 Sat by Pulse Oximetry (%) 100 08/29/18 10:00 Constitutional: Yes: Well Nourished, No Distress, Calm Cardiovascular: Yes: Regular Rate and Rhythm. No: Gallop, Murmur, Rub Respiratory: Yes: Regular, CTA Bilaterally. No: Rales, Rhonchi, Wheezes Gastrointestinal: Yes: Normal Bowel Sounds, Soft. No: Distention, Tenderness Extremities: Yes: WNL Edema: No Labs: CBC, BMP 08/29/18 07:00 08/29/18 07:00 INR, PTT INR 1.03 (0.83-1.09) 08/27/18 20:04 Problem List - Problems (1) Acute alcoholic pancreatitis Code(s): K85.20 - ALCOHOL INDUCED ACUTE PANCREATITIS WITHOUT NECROSIS OR INFCT Qualifiers: Acute pancreatitis complication: no infection or necrosis Qualified Code(s) : K85.20 - Alcohol induced acute pancreatitis without necrosis or infection (2) Pancreatitis, chronic Code(s): K86.1 - OTHER CHRONIC PANCREATITIS Qualifiers: Pancreatitis type: alcohol induced Qualified Code(s): K86.0 - Alcohol- induced chronic pancreatitis (3) Alcohol dependence with withdrawal Code(s): F10.239 - ALCOHOL DEPENDENCE WITH WITHDRAWAL, UNSPECIFIED (4) HTN (hypertension) Code(s): I10 - ESSENTIAL (PRIMARY) HYPERTENSION (5) Hypophosphatemia Code(s): E83.39 - OTHER DISORDERS OF PHOSPHORUS METABOLISM (6) Hypokalemia Code(s): E87.6 - HYPOKALEMIA Assessment/Plan (1) Acute alcoholic pancreatitis Assessment/Plan: -lipase worsened, but clinically patient improving -case d/w GI -advance diet to clears -if tolerates today, advance further -continue IVF Code(s): K85.20 - ALCOHOL INDUCED ACUTE PANCREATITIS WITHOUT NECROSIS OR INFCT Qualifiers: Acute pancreatitis complication: no infection or necrosis Qualified Code(s) : K85.20 - Alcohol induced acute pancreatitis without necrosis or infection (2) Pancreatitis, chronic Assessment/Plan: -with stent placement, possible removal next month -as above Code(s): K86.1 - OTHER CHRONIC PANCREATITIS Qualifiers: Pancreatitis type: alcohol induced Qualified Code(s): K86.0 - Alcohol- induced chronic pancreatitis (3) Alcohol dependence with withdrawal Assessment/Plan: -uncomplicated -continue hydration -continue prn ativan Code(s): F10.239 - ALCOHOL DEPENDENCE WITH WITHDRAWAL, UNSPECIFIED (4) HTN (hypertension) Assessment/Plan: -restart cardura Code(s): I10 - ESSENTIAL (PRIMARY) HYPERTENSION (5) Hypophosphatemia Assessment/Plan: -replaced Code(s): E83.39 - OTHER DISORDERS OF PHOSPHORUS METABOLISM (6) Hypokalemia Assessment/Plan: -replace Code(s): E87.6 - HYPOKALEMIA
--- NOTE | 2018-08-29 12:35 | PN ---
GI Progress Note Subjective: Still with some pain, but overall states feeling much better - Objective Vital Signs: Vital Signs Temperature 98.6 F 08/29/18 08:48 Pulse Rate 86 08/29/18 08:48 Respiratory Rate 16 08/29/18 08:48 Blood Pressure 140/80 08/29/18 08:48 O2 Sat by Pulse Oximetry (%) 100 08/29/18 10:00 Constitutional: Calm Eyes: No: Sclera Icterus Cardiovascular: Yes: Regular Rate and Rhythm Respiratory: Yes: CTA Bilaterally Gastrointestinal Inspection: No: Distention ...Auscultate: Yes: Normoactive Bowel Sounds ...Palpate: Yes: Tenderness (mild TTP mid abdomen) ...Percussion: No: Tympanitic Edema: No (No LE edema) Neurological: Yes: Alert Labs: CBC, BMP 08/29/18 07:00 08/29/18 07:00 INR, PTT INR 1.03 (0.83-1.09) 08/27/18 20:04 Hepatic Panel Total Bilirubin 0.9 mg/dL (0.2-1) 08/29/18 07:00 Direct Bilirubin 0.3 mg/dL (0.0-0.2) H 08/29/18 07:00 AST 35 U/L (15-37) 08/29/18 07:00 ALT 27 U/L (13-61) 08/29/18 07:00 Alkaline Phosphatase 31 U/L (45-117) L 08/29/18 07:00 Albumin 2.9 g/dl (3.4-5.0) L 08/29/18 07:00 Problem List - Problems (1) Abdominal pain Assessment/Plan: Clinically improved: Suspect mild acute on chronic pancreatitis in setting of active etoh use Advanced to clears. Continue to monitor. If improved, advance diet further in AM Did discuss the biliary stent again with Mr. Norwood. He does recall being told that the stent was metal and that it was going to be removed in Sep at [facility] Dr. Sanchez resumes care 08/30 Code(s): R10.9 - UNSPECIFIED ABDOMINAL PAIN
[2018-08-29] MEDS: DOXAZOSIN MESYLATE 2 MG TABLET (FP) PO SCH (21:58)
[2018-08-30] MEDS: MORPHINE SULFATE 2 MG/ML VIAL IVPUSH PRN ×6 (00:32→23:03)
[2018-08-30] MEDS: METOCLOPRAMIDE HCL INJECTION 10 MG/2 ML VIAL IVPUSH PRN ×3 (00:33→19:05)
[2018-08-30] MEDS: LACTATED RINGERS SOLUTION 1,000 ML/1,000 ML INFUS.BAG IV SCH ×2 (03:00→15:32)
[2018-08-30 07:22] LABS: BASO % 0.2 % (0-2.0); EOS % 0.5 % (0-4.5); HEMATOCRIT 33.1 % (35.4-49); HEMOGLOBIN 10.6 GM/dL (11.7-16.9); MCH 25.3 pg (25.7-33.7); MONO % 7.1 % (3.8-10.2); NEUT % 74.2 % (42.8-82.8); PLATELET COUNT 74 K/MM3 (134-434); RBC 4.19 M/mm3 (4.00-5.60); RDW 15.8 % (11.9-15.9); WHITE BLOOD COUNT 8.4 K/mm3 (4.0-10.0)
[2018-08-30] MEDS ORDERED: PT OWN MED DRAWER 7, Y5N ONE ×4 (08:21→20:54)
[2018-08-30] MEDS: LIPASE/PROTEASE/AMYLASE 36,000 UNIT CAPSULE PO SCH ×2 (08:32→17:15)
[2018-08-30] MEDS: FERROUS SO4 325 MG TABLET (FP) PO SCH ×3 (08:32→17:15)
[2018-08-30 08:34] LABS: ALBUMIN 2.9 g/dl (3.4-5.0); ALK PHOS 31 U/L (45-117); ANION GAP 12 MMOL/L (8-16); BILIRUBIN,DIRECT 0.3 mg/dL (0.0-0.2); BILIRUBIN,TOTAL 0.8 mg/dL (0.2-1); BLOOD UREA NITROGEN 5 mg/dL (7-18); CALCIUM 8.3 mg/dL (8.5-10.1); CHLORIDE 93 mmol/L (98-107); CO2 26 mmol/L (21-32); CREATININE 0.4 mg/dL (0.55-1.3); GLUCOSE,RANDOM 78 mg/dL (74-106); LIPASE 4947 U/L (73-393); MAGNESIUM 1.6 mg/dL (1.8-2.4); PHOSPHOROUS 2.7 mg/dL (2.5-4.9); SGOT/AST 27 U/L (15-37); SGPT/ALT 23 U/L (13-61); SODIUM 131 mmol/L (136-145)
[2018-08-30 08:41] LABS: POTASSIUM 2.6 mmol/L (3.5-5.1)
[2018-08-30] MEDS: KCL 10 MEQ IVPB 10 MEQ/100 ML INFUS.BAG IVPB SCH ×4 (10:02→23:02)
[2018-08-30] MEDS: PANTOPRAZOLE SODIUM 40 MG VIAL IVPUSH SCH (10:07)
[2018-08-30] MEDS: FOLIC ACID 1 MG TABLET (FP) PO SCH (10:51)
[2018-08-30] MEDS: VENLAFAXINE HCL 75 MG E.R. CAPSULES (FP) PO SCH (10:52)
[2018-08-30] MEDS: ACAMPROSATE CALCIUM 333 MG TABLET.DR PO SCH ×2 (10:52→21:59)
[2018-08-30] MEDS: AMANTADINE HCL 100 MG TABLET PO SCH ×4 (10:53→21:58)
--- NOTE | 2018-08-30 11:45 | PN ---
GI Progress Note Subjective: GI NOte: Preston tells me that his pain got worse after he tried clear liquids today. He confirmed that Dr Carlin Ervin inserted his metallic stent at [facility] and his intent was to remove it in September. I reiterated the need to absolutely abstain from alcohol. He does belong to AA and I advised him to call his contact to update him as to his status. Amylase did rise yesterday but is coming down. - Objective Vital Signs: Vital Signs Temperature 98.6 F 08/30/18 06:46 Pulse Rate 91 H 08/30/18 06:46 Respiratory Rate 08/30/18 06:46 Blood Pressure 116/75 08/30/18 06:46 O2 Sat by Pulse Oximetry (%) 100 08/29/18 18:00 Laboratory Tests 08/27/18 08/29/18 08/30/18 20:04 07:00 06:45 WBC 8.4 Sodium Potassium Total Bilirubin Direct Bilirubin AST ALT Alkaline Phosphatase Albumin Lipase 665 H 08228 H 08/30/18 06:45 WBC Sodium 131 L Potassium 2.6 L* Total Bilirubin 0.8 Direct Bilirubin 0.3 H AST 27 ALT 23 Alkaline Phosphatase 31 L Albumin 2.9 L Lipase 4947 H Constitutional: Anxious Eyes: Yes: Conjunctiva Clear Gastrointestinal Inspection: Yes: Distention ...Auscultate: Yes: Hypoactive Bowel Sounds ...Palpate: Yes: Soft, Other (no localizing tenderness) Labs: CBC, BMP 08/30/18 06:45 08/30/18 06:45 INR, PTT INR 1.03 (0.83-1.09) 08/27/18 20:04 Problem List - Problems (1) Acute alcoholic pancreatitis Assessment/Plan: Given the pain will not advance diet as yet. Will check CRP tomorrow. KCl being replaced Code(s): K85.20 - ALCOHOL INDUCED ACUTE PANCREATITIS WITHOUT NECROSIS OR INFCT Qualifiers: Acute pancreatitis complication: no infection or necrosis Qualified Code(s) : K85.20 - Alcohol induced acute pancreatitis without necrosis or infection (2) Abdominal pain Code(s): R10.9 - UNSPECIFIED ABDOMINAL PAIN (3) Alcohol dependence with withdrawal Code(s): F10.239 - ALCOHOL DEPENDENCE WITH WITHDRAWAL, UNSPECIFIED (4) Pancreatitis, chronic Code(s): K86.1 - OTHER CHRONIC PANCREATITIS Qualifiers: Pancreatitis type: alcohol induced Qualified Code(s): K86.0 - Alcohol- induced chronic pancreatitis (5) Ataxia Code(s): R27.0 - ATAXIA, UNSPECIFIED (6) Bipolar 1 disorder Code(s): F31.9 - BIPOLAR DISORDER, UNSPECIFIED (7) Seizure Code(s): R56.9 - UNSPECIFIED CONVULSIONS (8) Wernicke-Korsakoff syndrome (alcoholic) Code(s): F10.96 - ALCOHOL USE, UNSP W ALCOH-INDUCE PERSIST AMNESTIC DISORDER (9) Depression Code(s): F32.9 - MAJOR DEPRESSIVE DISORDER, SINGLE EPISODE, UNSPECIFIED (10) History of biliary stent insertion Code(s): Z98.890 - OTHER SPECIFIED POSTPROCEDURAL STATES
[2018-08-30] MEDS ORDERED: MAGNESIUM 2GM/50ML STERILE WATER IVPB IVPB ONE (14:00)
[2018-08-30] MEDS: THIAMINE HCL 200 MG/2 ML VIAL IVPB SCH (14:03)
[2018-08-30] MEDS ORDERED: MAGNESIUM SULF 50% (8.12 MEQ/2 ML-1 GM VIAL) IVPB ONE ×2 (15:15→15:30)
--- NOTE | 2018-08-30 16:24 | PN ---
Progress Note, Physician Chief Complaint: Mr Norwood complains of abdominal pain with eating. Denies cp or sob. - Current Medication List Current Medications: Active Medications Acamprosate (Campral -) 333 mg PO BID [facility] Last Admin: 08/30/18 10:52 Dose: 333 mg Amantadine HCl (Symmetrel -) 100 mg PO QID [facility] Last Admin: 08/30/18 15:06 Dose: 100 mg Doxazosin Mesylate (Cardura -) 2 mg PO HS [facility] Last Admin: 08/29/18 21:58 Dose: 2 mg Ferrous Sulfate (Feosol -) 325 mg PO TIDCM [facility] Last Admin: 08/30/18 11:47 Dose: Not Given Folic Acid (Folic Acid -) 1 mg PO DAILY [facility] Last Admin: 08/30/18 10:51 Dose: 1 mg Hydralazine HCl (Apresoline Injection -) 10 mg IVPUSH Q6H PRN PRN Reason: HYPERTENSION Last Admin: 08/28/18 06:48 Dose: 10 mg Lactated Ringer's (Lactated Ringers Solution) 1,000 ml in 1,000 mls @ 120 mls/ hr IV ASDIR [facility] Last Admin: 08/30/18 15:32 Dose: 120 mls/hr Lorazepam (Ativan Injection -) 1 mg IVPUSH Q6H PRN PRN Reason: ANXIETY Metoclopramide HCl (Reglan Injection -) 10 mg IVPUSH Q6H PRN PRN Reason: NAUSEA AND/OR VOMITING Last Admin: 08/30/18 08:55 Dose: 10 mg Morphine Sulfate (Morphine Sulfate) 1 mg IVPUSH Q4H PRN PRN Reason: PAIN LEVEL 6-10 Last Admin: 08/30/18 14:03 Dose: 1 mg Pancrelipase (Creon Dr 36,000 Units Capsule) 2 cap PO BIDWM [facility] Last Admin: 08/30/18 08:32 Dose: Not Given Pantoprazole Sodium (Protonix Iv) 40 mg IVPUSH DAILY [facility] Last Admin: 08/30/18 10:07 Dose: 40 mg Thiamine HCl (Vitamin B1 Injection -) 200 mg IVPB DAILY [facility] Last Admin: 08/30/18 14:03 Dose: 200 mg Venlafaxine HCl (Effexor Xr -) 225 mg PO DAILY [facility] Last Admin: 08/30/18 10:52 Dose: 225 mg - Objective Vital Signs: Vital Signs Temperature 36.9 C 08/30/18 14:25 Pulse Rate 86 08/30/18 14:25 Respiratory Rate 20 08/30/18 10:00 Blood Pressure 119/77 08/30/18 14:25 O2 Sat by Pulse Oximetry (%) 100 08/29/18 18:00 Constitutional: Yes: Well Nourished, No Distress, Calm Cardiovascular: Yes: Regular Rate and Rhythm. No: Gallop, Murmur, Rub Respiratory: Yes: Regular, CTA Bilaterally. No: Rales, Rhonchi, Wheezes Gastrointestinal: Yes: Normal Bowel Sounds, Soft, Distention. No: Tenderness Extremities: Yes: WNL Edema: No Labs: CBC, BMP 08/30/18 06:45 08/30/18 06:45 INR, PTT INR 1.03 (0.83-1.09) 08/27/18 20:04 Problem List - Problems (1) Acute alcoholic pancreatitis Code(s): K85.20 - ALCOHOL INDUCED ACUTE PANCREATITIS WITHOUT NECROSIS OR INFCT Qualifiers: Acute pancreatitis complication: no infection or necrosis Qualified Code(s) : K85.20 - Alcohol induced acute pancreatitis without necrosis or infection (2) Pancreatitis, chronic Code(s): K86.1 - OTHER CHRONIC PANCREATITIS Qualifiers: Pancreatitis type: alcohol induced Qualified Code(s): K86.0 - Alcohol- induced chronic pancreatitis (3) Alcohol dependence with withdrawal Code(s): F10.239 - ALCOHOL DEPENDENCE WITH WITHDRAWAL, UNSPECIFIED (4) HTN (hypertension) Code(s): I10 - ESSENTIAL (PRIMARY) HYPERTENSION (5) Hypophosphatemia Code(s): E83.39 - OTHER DISORDERS OF PHOSPHORUS METABOLISM (6) Hypokalemia Code(s): E87.6 - HYPOKALEMIA Assessment/Plan (1) Acute alcoholic pancreatitis Assessment/Plan: -lipase improved, but clinically worsened -appreciate GI assistance -made npo again -continue IVF currently -monitor for improvement Code(s): K85.20 - ALCOHOL INDUCED ACUTE PANCREATITIS WITHOUT NECROSIS OR INFCT Qualifiers: Acute pancreatitis complication: no infection or necrosis Qualified Code(s) : K85.20 - Alcohol induced acute pancreatitis without necrosis or infection (2) Pancreatitis, chronic Assessment/Plan: -with stent placement, possible removal next month -as above Code(s): K86.1 - OTHER CHRONIC PANCREATITIS Qualifiers: Pancreatitis type: alcohol induced Qualified Code(s): K86.0 - Alcohol- induced chronic pancreatitis (3) Alcohol dependence with withdrawal Assessment/Plan: -uncomplicated -continue hydration -continue prn ativan Code(s): F10.239 - ALCOHOL DEPENDENCE WITH WITHDRAWAL, UNSPECIFIED (4) HTN (hypertension) Assessment/Plan: -restarted cardura Code(s): I10 - ESSENTIAL (PRIMARY) HYPERTENSION (5) Hypophosphatemia Assessment/Plan: -replaced Code(s): E83.39 - OTHER DISORDERS OF PHOSPHORUS METABOLISM (6) Hypokalemia Assessment/Plan: -replace -check potassium this evening -replace further if needed Code(s): E87.6 - HYPOKALEMIA
[2018-08-30 21:19] LABS: ANION GAP 12 MMOL/L (8-16); BLOOD UREA NITROGEN 6 mg/dL (7-18); CALCIUM 8.2 mg/dL (8.5-10.1); CHLORIDE 96 mmol/L (98-107); CO2 25 mmol/L (21-32); CREATININE 0.4 mg/dL (0.55-1.3); GLUCOSE,RANDOM 82 mg/dL (74-106); SODIUM 133 mmol/L (136-145)
[2018-08-30 21:50] LABS: POTASSIUM 2.8 mmol/L (3.5-5.1)
[2018-08-30] MEDS: DOXAZOSIN MESYLATE 2 MG TABLET (FP) PO SCH (21:58)
[2018-08-30] MEDS ORDERED: KCL 10 MEQ IVPB 10 MEQ/100 ML INFUS.BAG IVPB SCH (22:30)
[2018-08-31] MEDS: KCL 10 MEQ IVPB 10 MEQ/100 ML INFUS.BAG IVPB SCH ×5 (01:00→13:18)
[2018-08-31] MEDS: LACTATED RINGERS SOLUTION 1,000 ML/1,000 ML INFUS.BAG IV SCH ×2 (02:00→13:57)
[2018-08-31] MEDS ORDERED: MORPHINE SULFATE 2 MG/ML VIAL IVPUSH ONE (02:00)
[2018-08-31] MEDS: MORPHINE SULFATE 2 MG/ML VIAL IVPUSH PRN ×4 (04:17→16:18)
[2018-08-31] MEDS: METOCLOPRAMIDE HCL INJECTION 10 MG/2 ML VIAL IVPUSH PRN ×2 (04:18→16:15)
[2018-08-31] MEDS: FERROUS SO4 325 MG TABLET (FP) PO SCH ×3 (08:06→16:38)
[2018-08-31] MEDS: LIPASE/PROTEASE/AMYLASE 36,000 UNIT CAPSULE PO SCH ×2 (08:06→16:38)
[2018-08-31 08:31] LABS: BASO % 0.1 % (0-2.0); EOS % 0.3 % (0-4.5); HEMATOCRIT 31.1 % (35.4-49); HEMOGLOBIN 10.6 GM/dL (11.7-16.9); LYMPH % 10.9 % (8-40); MCH 26.9 pg (25.7-33.7); MCHC 34.2 g/dl (32.0-35.9); MEAN CELL VOLUME 78.8 fl (80-96); MEAN PLT VOLUME 7.9 fl (7.5-11.1); MONO % 9.6 % (3.8-10.2); NEUT % 79.1 % (42.8-82.8); PLATELET COUNT 120 K/MM3 (134-434); RBC 3.95 M/mm3 (4.00-5.60); RDW 15.9 % (11.9-15.9); WHITE BLOOD COUNT 6.8 K/mm3 (4.0-10.0)
[2018-08-31 09:18] LABS: ALBUMIN 2.7 g/dl (3.4-5.0); ALK PHOS 31 U/L (45-117); AMYLASE 345 U/L (25-115); ANION GAP 12 MMOL/L (8-16); BILIRUBIN,TOTAL 0.6 mg/dL (0.2-1); BLOOD UREA NITROGEN 7 mg/dL (7-18); CALCIUM 8.5 mg/dL (8.5-10.1); CHLORIDE 96 mmol/L (98-107); CO2 25 mmol/L (21-32); CREATININE 0.5 mg/dL (0.55-1.3); GLUCOSE,RANDOM 83 mg/dL (74-106); LIPASE 4946 U/L (73-393); MAGNESIUM 1.9 mg/dL (1.8-2.4); SGOT/AST 18 U/L (15-37); SGPT/ALT 20 U/L (13-61); SODIUM 132 mmol/L (136-145); TOT PROT 6.2 g/dl (6.4-8.2)
[2018-08-31] MEDS ORDERED: PT OWN MED DRAWER 7, Y5N ONE ×2 (09:24→21:43)
[2018-08-31] MEDS: PANTOPRAZOLE SODIUM 40 MG VIAL IVPUSH SCH (09:27)
[2018-08-31] MEDS: VENLAFAXINE HCL 75 MG E.R. CAPSULES (FP) PO SCH (09:27)
[2018-08-31] MEDS: AMANTADINE HCL 100 MG TABLET PO SCH ×3 (09:27→17:11)
[2018-08-31] MEDS: THIAMINE HCL 200 MG/2 ML VIAL IVPB SCH (09:27)
[2018-08-31] MEDS: ACAMPROSATE CALCIUM 333 MG TABLET.DR PO SCH ×2 (09:27→21:45)
[2018-08-31] MEDS: FOLIC ACID 1 MG TABLET (FP) PO SCH (09:27)
--- NOTE | 2018-08-31 13:59 | PN ---
Physical Exam: SUBJECTIVE: Patient seen and examined by me at bedside. Patient unable to tolerate PO. Reports took sips of water with his medications and still had midepigastric pain. Requesting something for the pain with the morphine. Otherwise, patient denies any diarrhea, fever, chills, nausea, vomiting, chest pain, shortness of breath, dysuria, hematuria. OBJECTIVE: Vital Signs Period Temp Pulse Resp BP Sys/Barfield Pulse Ox Last 24 Hr 98.2 F-98.6 F 86-93 20-20 106-119/64-78 97 GENERAL: The patient is awake, alert, and fully oriented, in no acute distress. EYES: Sclera anicteric, conjunctiva clear. ENT: Moist mucous membranes. LUNGS: Breath sounds equal, clear to auscultation bilaterally, no wheezes, no crackles, no accessory muscle use. HEART: Regular rate and rhythm, S1, S2 without murmur, rub or gallop. ABDOMEN: Soft, mild tenderness upon palpation of midepigastric region, nondistended, normoactive bowel sounds, no guarding or rebound EXTREMITIES: No peripheral edema. Laboratory Results - last 24 hr 08/30/18 08/31/18 08/31/18 19:30 07:38 07:38 WBC 6.8 RBC 3.95 L Hgb 10.6 L Hct 31.1 L MCV 78.8 L MCH 26.9 MCHC 34.2 RDW 15.9 Plt Count 120 L D MPV 7.9 Absolute Neuts (auto) 5.4 Neutrophils % 79.1 Lymphocytes % 10.9 D Monocytes % 9.6 Eosinophils % 0.3 Basophils % 0.1 Nucleated RBC % 0 Sodium 133 L 132 L Potassium 2.8 L* 3.0 L Chloride 96 L 96 L Carbon Dioxide 25 25 Anion Gap 12 12 BUN 6 L 7 Creatinine 0.4 L 0.5 L Creat Clearance w eGFR > 60 > 60 Random Glucose 82 83 Calcium 8.2 L 8.5 Phosphorus 3.0 Magnesium 1.9 Total Bilirubin 0.6 AST 18 ALT 20 Alkaline Phosphatase 31 L C-Reactive Protein 14.7 H Total Protein 6.2 L Albumin 2.7 L Total Amylase 345 H Lipase 4946 H Active Medications Generic Name Dose Route Start Last Admin Trade Name Freq PRN Reason Stop Dose Admin Acamprosate 333 mg 08/28/18 10:00 08/31/18 09:27 Campral - PO 333 mg BID JUNE Administration Amantadine HCl 100 mg 08/28/18 10:00 08/31/18 09:27 Symmetrel - PO 100 mg QID JUNE Administration Doxazosin Mesylate 2 mg 08/28/18 22:00 08/30/18 21:58 Cardura - PO 2 mg HS JUNE Administration Ferrous Sulfate 325 mg 08/28/18 08:00 08/31/18 12:10 Feosol - PO Not Given TIDCM JUNE Folic Acid 1 mg 08/28/18 10:00 08/31/18 09:27 Folic Acid - PO 1 mg DAILY [facility]E Administration Hydralazine HCl 10 mg 08/28/18 02:11 08/28/18 06:48 Apresoline Injection - IVPUSH 10 mg Q6H PRN Administration HYPERTENSION Lactated Ringer's 1,000 ml in 1,000 mls @ 120 mls/hr 08/28/18 01:44 08/31/18 02:00 Lactated Ringers Solution IV 120 mls/hr ASDIR JUNE Administration Potassium Chloride 10 meq in 100 mls @ 100 mls/hr 08/31/18 11:15 08/31/18 13: 18 Potassium Chloride 10 Meq Premix Ivpb - IVPB 08/31/18 14:14 100 mls/hr Q60M JUNE Administration Lorazepam 1 mg 08/28/18 06:00 Ativan Injection - IVPUSH Q6H PRN ANXIETY Metoclopramide HCl 10 mg 08/28/18 01:43 08/31/18 04:18 Reglan Injection - IVPUSH 10 mg Q6H PRN Administration NAUSEA AND/OR VOMITING Morphine Sulfate 1 mg 08/28/18 10:43 08/31/18 12:14 Morphine Sulfate IVPUSH 1 mg Q4H PRN Administration PAIN LEVEL 6-10 Pancrelipase 2 cap 08/28/18 08:00 08/31/18 08:06 Erika Woods 36,000 Units Capsule PO Not Given BIDWM [facility]UNE Pantoprazole Sodium 40 mg 08/28/18 10:00 08/31/18 09:27 Protonix Iv IVPUSH 40 mg DAILY [facility] Administration Thiamine HCl 200 mg 08/28/18 10:00 08/31/18 09:27 Vitamin B1 Injection - IVPB 200 mg DAILY [facility]E Administration Venlafaxine HCl 225 mg 08/28/18 10:00 08/31/18 09:27 Effexor Xr - PO 225 mg DAILY [facility] Administration ASSESSMENT/PLAN: Patient is a 52 year old male with a significant PMHx of EtOH abuse and chronic pancreatitis who presented with diffuse abdominal pain associated with nausea, vomiting, and diarrhea. Patient was found to have Acute Pancreatitis. Patient admitted for further monitoring and management. #Acute Alcoholic Pancreatitis -Patient still unable to tolerate PO -Will remain NPO -Continue IV hydration with LR @120mls/hr -Reglan for Nausea and vomiting -Continue Morphine Sulfate Q4H PRN for pain -Continue Creon -Lipase Improving from initial presentation but remains stable today -CRP ordered today and it's elevated. Will continue to monitor #HypoKalemia -Improved today to 3.0 -Will continue with potassium chloride. Was given three runs of potassium today. #Chronic Pancreatitis -Currently has Stent placed from [facility] by Dr. Carlin Ervin. Scheduled to have it removed there in September -Counseled the patient on the importance for alcohol cessation. #Alcohol Abuse -Continue Campral 333mg BID -Continue to monitor for any withdrawal activities. Ativan PRN -Continue Thiamine and Folic Acid -Will need rehab once patient is discharged #HTN -Currently controlled -Continue Cardura 2mg HS -Continue Hydralazine PRN -Continue to monitor BP F/E/N -IV LR @120mls/hr -Hypokalemia. Replete and repeat -NPO Prophylaxis -SCD's for DVT -Protonix 40mg IV for GI Disposition -Full code -Still unable to tolerate PO. Will remain inpatient until patient can tolerate PO. Meaghan Byers [id number] Visit type - Emergency Visit Emergency Visit: Yes ED Registration Date: 08/29/18 Care time: The patient presented to the Emergency Department on the above date and was hospitalized for further evaluation of their emergent condition. - New Patient This patient is new to me today: Yes Date on this admission: 08/31/18 - Critical Care Critical Care patient: No
--- NOTE | 2018-08-31 16:56 | PN ---
Teaching Attending Note Name of Resident: Meaghan Byers ATTENDING PHYSICIAN STATEMENT I saw and evaluated the patient. I reviewed the resident's note and discussed the case with the resident. I agree with the resident's findings and plan as documented. SUBJECTIVE: Mr Norwood complains of abdominal pain. Denies cp and sob. Asks why morphine was decreased when he only takes it when he needs it and refuses it when he doesn't, but morphine is prn and he states nursing comes and asks him every four hours if he needs it. Nursing is not asking patient if he needs it and while d/w RN patient called and asked when he was due for his next dose. Staff says patient does this quite frequently. OBJECTIVE: Last Vital Signs Temp Pulse Resp BP Pulse Ox 37.1 C 84 20 113/78 97 08/31/18 14:39 08/31/18 14:39 08/31/18 08:53 08/31/18 08:53 08/30/18 21:00 Gen: nad Pulm: ctab w/o w/r/r CV: rrr w/o m/r/g Abd: +bs, soft, distention, tenderness to palpation in epigastric region. More pronounced when patient is not distracted Ext: no c/c/e CBC, BMP 08/31/18 07:38 08/31/18 07:38 ASSESSMENT AND PLAN: (1) Acute alcoholic pancreatitis Assessment/Plan: -lipase is currently stable, but still elevated -patient complains of pain that is unchanged -also note some discrepancies in physical exam -still concerned that patient has active pancreatitis so will maintain npo and IVF -continue morphine at current rate, will not increase -will be cognizant of possibility of secondary gain -will follow GI recommendations on advancing diet Code(s): K85.20 - ALCOHOL INDUCED ACUTE PANCREATITIS WITHOUT NECROSIS OR INFCT Qualifiers: Acute pancreatitis complication: no infection or necrosis Qualified Code(s) : K85.20 - Alcohol induced acute pancreatitis without necrosis or infection (2) Pancreatitis, chronic Assessment/Plan: -with stent placement, possible removal next month -as above Code(s): K86.1 - OTHER CHRONIC PANCREATITIS Qualifiers: Pancreatitis type: alcohol induced Qualified Code(s): K86.0 - Alcohol- induced chronic pancreatitis (3) Alcohol dependence with withdrawal Assessment/Plan: -uncomplicated -continue hydration -can stop ativan Code(s): F10.239 - ALCOHOL DEPENDENCE WITH WITHDRAWAL, UNSPECIFIED (4) HTN (hypertension) Assessment/Plan: -continue cardura Code(s): I10 - ESSENTIAL (PRIMARY) HYPERTENSION (5) Hypophosphatemia Assessment/Plan: -replaced Code(s): E83.39 - OTHER DISORDERS OF PHOSPHORUS METABOLISM (6) Hypokalemia Assessment/Plan: -replace -closely follow Code(s): E87.6 - HYPOKALEMIA Problem List - Problems (1) Acute alcoholic pancreatitis Code(s): K85.20 - ALCOHOL INDUCED ACUTE PANCREATITIS WITHOUT NECROSIS OR INFCT Qualifiers: Acute pancreatitis complication: no infection or necrosis Qualified Code(s) : K85.20 - Alcohol induced acute pancreatitis without necrosis or infection (2) Pancreatitis, chronic Code(s): K86.1 - OTHER CHRONIC PANCREATITIS Qualifiers: Pancreatitis type: alcohol induced Qualified Code(s): K86.0 - Alcohol- induced chronic pancreatitis (3) Alcohol dependence with withdrawal Code(s): F10.239 - ALCOHOL DEPENDENCE WITH WITHDRAWAL, UNSPECIFIED (4) HTN (hypertension) Code(s): I10 - ESSENTIAL (PRIMARY) HYPERTENSION (5) Hypophosphatemia Code(s): E83.39 - OTHER DISORDERS OF PHOSPHORUS METABOLISM (6) Hypokalemia Code(s): E87.6 - HYPOKALEMIA
[2018-08-31 18:20] VITALS: BMI 26.3
--- NOTE | 2018-08-31 20:33 | PN ---
GI Progress Note Subjective: GI NOte: I retrieved some data from previous ERCPs and placed them into the chart. Preston now tells me that the metallic stent was placed to dilate his pancreatic duct and that there were no new pancreatic or bile duet stones removed by Dr Ervin ( the CT suggest that it is in the common bile duct however). I believe his pain may be stent related rather than pancreatitis at ths point. He is hungry and would like to eat. I have told him that I will stop his parenteral analgesic and start Percocet and attempt to advance his diet. If his pain flares then a CT max be repeated to exclude pancreatic necrosis or pseudocyst or stent migration. If so he will need ot be transferred to [facility]. I also advised him to got to the [facility] ER should he flare in niesha future as he requires more sophisticated measures that only a tertiary care center can provide. I have also reiterated the need to absolutely abstain from alcohol. - Objective Vital Signs: Vital Signs Temperature 98.7 F 08/31/18 14:39 Pulse Rate 84 08/31/18 14:39 Respiratory Rate 20 08/31/18 08:53 Blood Pressure 113/78 08/31/18 08:53 O2 Sat by Pulse Oximetry (%) 97 08/30/18 21:00 Laboratory Tests 08/29/18 08/30/18 08/31/18 07:00 06:45 07:38 Total Bilirubin 0.6 C-Reactive Protein 14.7 H Total Amylase 711 H 345 H Lipase 75980 H 4947 H 4946 H Constitutional: Calm ...Auscultate: Yes: Normoactive Bowel Sounds ...Palpate: Yes: Soft, Other (nontender !!) Labs: CBC, BMP 08/31/18 07:38 08/31/18 07:38 INR, PTT INR 1.03 (0.83-1.09) 08/27/18 20:04 Assessment/Plan Resolved acute alcoholic pancreatitis superimposed on chronic pancreatitis vs pseudocyst, necrosis or stent migration Will stop parenteral narcotics and start clear liquids. If tolerated can advance diet, If pain flares then repeat CT Problem List - Problems (1) Acute alcoholic pancreatitis Code(s): K85.20 - ALCOHOL INDUCED ACUTE PANCREATITIS WITHOUT NECROSIS OR INFCT Qualifiers: Acute pancreatitis complication: no infection or necrosis Qualified Code(s) : K85.20 - Alcohol induced acute pancreatitis without necrosis or infection (2) Abdominal pain Code(s): R10.9 - UNSPECIFIED ABDOMINAL PAIN (3) Alcohol dependence with withdrawal Code(s): F10.239 - ALCOHOL DEPENDENCE WITH WITHDRAWAL, UNSPECIFIED (4) Pancreatitis, chronic Code(s): K86.1 - OTHER CHRONIC PANCREATITIS Qualifiers: Pancreatitis type: alcohol induced Qualified Code(s): K86.0 - Alcohol- induced chronic pancreatitis (5) Ataxia Code(s): R27.0 - ATAXIA, UNSPECIFIED (6) Bipolar 1 disorder Code(s): F31.9 - BIPOLAR DISORDER, UNSPECIFIED (7) Seizure Code(s): R56.9 - UNSPECIFIED CONVULSIONS (8) Wernicke-Korsakoff syndrome (alcoholic) Code(s): F10.96 - ALCOHOL USE, UNSP W ALCOH-INDUCE PERSIST AMNESTIC DISORDER (9) Depression Code(s): F32.9 - MAJOR DEPRESSIVE DISORDER, SINGLE EPISODE, UNSPECIFIED (10) History of biliary stent insertion Code(s): Z98.890 - OTHER SPECIFIED POSTPROCEDURAL STATES
[2018-08-31] MEDS: PANTOPRAZOLE 40 MG TABLET (FP) PO SCH (21:45)
[2018-08-31] MEDS: DOXAZOSIN MESYLATE 2 MG TABLET (FP) PO SCH (21:45)
[2018-09-01] MEDS: METOCLOPRAMIDE HCL INJECTION 10 MG/2 ML VIAL IVPUSH PRN (04:36)
[2018-09-01 07:34] LABS: BASO % 0.2 % (0-2.0); EOS % 0.2 % (0-4.5); HEMATOCRIT 31.4 % (35.4-49); HEMOGLOBIN 10.8 GM/dL (11.7-16.9); LYMPH % 8.4 % (8-40); MCH 27.1 pg (25.7-33.7); MCHC 34.2 g/dl (32.0-35.9); MEAN CELL VOLUME 79.1 fl (80-96); MEAN PLT VOLUME 7.3 fl (7.5-11.1); MONO % 13.6 % (3.8-10.2); NEUT % 77.6 % (42.8-82.8); PLATELET COUNT 145 K/MM3 (134-434); RBC 3.98 M/mm3 (4.00-5.60); RDW 16.4 % (11.9-15.9); WHITE BLOOD COUNT 8.2 K/mm3 (4.0-10.0)
[2018-09-01] MEDS ORDERED: PT OWN MED DRAWER 7, Y5N ONE ×6 (07:57→21:54)
[2018-09-01] MEDS: LIPASE/PROTEASE/AMYLASE 36,000 UNIT CAPSULE PO SCH ×2 (07:58→18:06)
[2018-09-01 08:16] LABS: ALBUMIN 2.8 g/dl (3.4-5.0); ALBUMIN 2.9 g/dl (3.4-5.0); ALK PHOS 35 U/L (45-117); ANION GAP 11 MMOL/L (8-16); BILIRUBIN,DIRECT 0.3 mg/dL (0.0-0.2); BILIRUBIN,TOTAL 0.7 mg/dL (0.2-1); BLOOD UREA NITROGEN 8 mg/dL (7-18); CALCIUM 8.7 mg/dL (8.5-10.1); CHLORIDE 93 mmol/L (98-107); CO2 25 mmol/L (21-32); CREATININE 0.4 mg/dL (0.55-1.3); GLUCOSE,RANDOM 85 mg/dL (74-106); MAGNESIUM 1.8 mg/dL (1.8-2.4); PHOSPHOROUS 3.6 mg/dL (2.5-4.9); SGOT/AST 16 U/L (15-37); SGPT/ALT 21 U/L (13-61); SODIUM 129 mmol/L (136-145); TOT PROT 6.5 g/dl (6.4-8.2); TOT PROT 6.6 g/dl (6.4-8.2)
[2018-09-01] MEDS ORDERED: MAGNESIUM SULF 50% (8.12 MEQ/2 ML-1 GM VIAL) IVPB ONE (08:30)
[2018-09-01] MEDS: KCL 10 MEQ IVPB 10 MEQ/100 ML INFUS.BAG IVPB SCH ×3 (09:27→11:28)
[2018-09-01] MEDS ORDERED: THIAMINE HCL 100 MG TABLET (FP) PO SCH (10:00)
[2018-09-01] MEDS: ACAMPROSATE CALCIUM 333 MG TABLET.DR PO SCH ×2 (10:15→21:55)
[2018-09-01] MEDS: VENLAFAXINE HCL 75 MG E.R. CAPSULES (FP) PO SCH (10:15)
[2018-09-01] MEDS: FOLIC ACID 1 MG TABLET (FP) PO SCH (10:15)
[2018-09-01] MEDS: PANTOPRAZOLE 40 MG TABLET (FP) PO SCH ×2 (10:16→21:55)
[2018-09-01] MEDS: LACTATED RINGERS SOLUTION 1,000 ML/1,000 ML INFUS.BAG IV SCH ×2 (10:17→18:10)
[2018-09-01] MEDS: AMANTADINE HCL 100 MG TABLET PO SCH ×4 (10:19→21:52)
--- NOTE | 2018-09-01 12:31 | PN ---
Progress Note (short form) - Note Progress Note: GI NOte: Nursing informs me that pain recurred after lunch and . Labs are improving however. NO vomiting. NO fever but CRP is up. Will order CT scan to look for pancreatitis, pseudocyst, necrosis, abscess and stent migration to guide further management. Problem List - Problems (1) Acute alcoholic pancreatitis Code(s): K85.20 - ALCOHOL INDUCED ACUTE PANCREATITIS WITHOUT NECROSIS OR INFCT Qualifiers: Acute pancreatitis complication: no infection or necrosis Qualified Code(s) : K85.20 - Alcohol induced acute pancreatitis without necrosis or infection (2) Abdominal pain Code(s): R10.9 - UNSPECIFIED ABDOMINAL PAIN (3) Alcohol dependence with withdrawal Code(s): F10.239 - ALCOHOL DEPENDENCE WITH WITHDRAWAL, UNSPECIFIED (4) Pancreatitis, chronic Code(s): K86.1 - OTHER CHRONIC PANCREATITIS Qualifiers: Pancreatitis type: alcohol induced Qualified Code(s): K86.0 - Alcohol- induced chronic pancreatitis (5) Ataxia Code(s): R27.0 - ATAXIA, UNSPECIFIED (6) Bipolar 1 disorder Code(s): F31.9 - BIPOLAR DISORDER, UNSPECIFIED (7) Seizure Code(s): R56.9 - UNSPECIFIED CONVULSIONS (8) Wernicke-Korsakoff syndrome (alcoholic) Code(s): F10.96 - ALCOHOL USE, UNSP W ALCOH-INDUCE PERSIST AMNESTIC DISORDER (9) Depression Code(s): F32.9 - MAJOR DEPRESSIVE DISORDER, SINGLE EPISODE, UNSPECIFIED (10) History of biliary stent insertion Code(s): Z98.890 - OTHER SPECIFIED POSTPROCEDURAL STATES
--- NOTE | 2018-09-01 13:25 | PN ---
Teaching Attending Note Name of Resident: Meaghan Byers ATTENDING PHYSICIAN STATEMENT I saw and evaluated the patient. I reviewed the resident's note and discussed the case with the resident. I agree with the resident's findings and plan as documented with exceptions below. SUBJECTIVE: patient seen and examined. intermittent abdominal pain, had some pain and nausea with liquids this AM but able to keep it down. OBJECTIVE: Vital Signs Period Temp Pulse Resp BP Sys/Barfield Pulse Ox Last 24 Hr 98.3 F-98.7 F 81-94 20-20 106-156/69-99 Intake & Output 08/29/18 08/30/18 08/31/18 09/01/18 23:59 23:59 23:59 23:59 Intake Total 2950 3535 2040 250 Output Total 2000 700 700 600 Balance 950 2835 1340 -350 Weight 163 lb General: sitting in bed in no acute distress Chest: CTAB, no rales or wheezing Abdomen:Soft, NT throughout, ND, positive bowel sounds Extremities: no edema Home Medications Medication Instructions Recorded Acamprosate Calcium [Campral -] 333 mg PO BID 08/27/18 Amantadine HCl [Amantadine] 100 mg PO QID 08/27/18 Buspirone HCl 15 mg PO HS 08/27/18 Cyclobenzaprine HCl [Flexeril 10 10 mg PO BID 08/27/18 mg] Cyproheptadine [Periactin -] 4 mg PO Q12H 08/27/18 Doxazosin Mesylate [Cardura -] 2 mg PO HS 08/27/18 Ferrous Sulfate [Feosol] 325 mg PO TID 08/27/18 Folic Acid 1 mg PO DAILY 08/27/18 Lamotrigine [Lamictal -] 25 mg PO BID 08/27/18 Lamotrigine [Lamictal -] 100 mg PO HS 08/27/18 Lipase/Protease/Amylase [Creon Dr 2 each PO BID 08/27/18 36,000 Units Capsule] Ranitidine [Zantac -] 150 mg PO DAILY 08/27/18 Venlafaxine HCl [Effexor -] 225 mg PO DAILY 08/27/18 Zolpidem Tartrate [Ambien] 10 mg PO HS 08/27/18 Active Medications Acamprosate (Campral -) 333 mg PO BID [facility] Last Admin: 09/01/18 10:15 Dose: 333 mg Amantadine HCl (Symmetrel -) 100 mg PO QID [facility] Last Admin: 09/01/18 10:19 Dose: 100 mg Doxazosin Mesylate (Cardura -) 2 mg PO HS [facility] Last Admin: 08/31/18 21:45 Dose: 2 mg Folic Acid (Folic Acid -) 1 mg PO DAILY [facility] Last Admin: 09/01/18 10:15 Dose: 1 mg Hydralazine HCl (Apresoline Injection -) 10 mg IVPUSH Q6H PRN PRN Reason: HYPERTENSION Last Admin: 08/28/18 06:48 Dose: 10 mg Lactated Ringer's (Lactated Ringers Solution) 1,000 ml in 1,000 mls @ 120 mls/ hr IV ASDIR [facility] Last Admin: 09/01/18 10:17 Dose: 120 mls/hr Metoclopramide HCl (Reglan Injection -) 10 mg IVPUSH Q6H PRN PRN Reason: NAUSEA AND/OR VOMITING Last Admin: 09/01/18 04:36 Dose: 10 mg Oxycodone/Acetaminophen (Percocet 5/325 -) 2 combo PO Q4H PRN PRN Reason: PAIN LEVEL 4 - 6 Last Admin: 09/01/18 10:19 Dose: 2 combo Pancrelipase (Creon Dr 36,000 Units Capsule) 2 cap PO BIDWM [facility] Last Admin: 09/01/18 07:58 Dose: 2 cap Pantoprazole Sodium (Protonix -) 40 mg PO BID [facility] Last Admin: 09/01/18 10:16 Dose: 40 mg Thiamine HCl (Vitamin B1 -) 100 mg PO DAILY [facility] Last Admin: 09/01/18 10:14 Dose: 100 mg Venlafaxine HCl (Effexor Xr -) 225 mg PO DAILY [facility] Last Admin: 09/01/18 10:15 Dose: 225 mg Laboratory Results - last 24 hr 08/28/18 08/31/18 09/01/18 09:40 07:38 06:00 WBC RBC Hgb Hct MCV MCH MCHC RDW Plt Count MPV Absolute Neuts (auto) Neutrophils % Lymphocytes % Monocytes % Eosinophils % Basophils % Nucleated RBC % Sodium 129 L Potassium 3.0 L Chloride 93 L Carbon Dioxide 25 Anion Gap 11 BUN 8 Creatinine 0.4 L Creat Clearance w eGFR > 60 Random Glucose 85 Calcium 8.7 Phosphorus 3.6 Magnesium 1.8 Total Bilirubin 0.7 Direct Bilirubin AST 16 ALT 21 Alkaline Phosphatase 35 L C-Reactive Protein Total Protein 6.6 Albumin 2.8 L Total Amylase Lipase Tumor Marker AFP 1.9 Hep C Ab Diagnostic <0.1 HIV Genotype Non reactive 09/01/18 09/01/18 06:00 06:00 WBC 8.2 RBC 3.98 L Hgb 10.8 L Hct 31.4 L MCV 79.1 L MCH 27.1 MCHC 34.2 RDW 16.4 H Plt Count 145 D MPV 7.3 L Absolute Neuts (auto) 6.4 Neutrophils % 77.6 Lymphocytes % 8.4 D Monocytes % 13.6 H Eosinophils % 0.2 Basophils % 0.2 Nucleated RBC % 0 Sodium Potassium Chloride Carbon Dioxide Anion Gap BUN Creatinine Creat Clearance w eGFR Random Glucose Calcium Phosphorus Magnesium Total Bilirubin 1.0 Direct Bilirubin 0.3 H AST 12 L ALT 20 Alkaline Phosphatase 35 L C-Reactive Protein 16.4 H Total Protein 6.5 Albumin 2.9 L Total Amylase 227 H Lipase 3187 H Tumor Marker AFP Hep C Ab Diagnostic HIV Genotype CT A/P results noted ASSESSMENT AND PLAN: 52 yo M w/ PMHx of cerebellar ataxia, peripheral neuropathy, GERD, chronic pancreatitis, 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 -Wenicke/korsakoff syndrome -Peripheral neuropathy -Cerebellar ataxia -Depression -Bipolar disorder -Seizure disorder Plan: GI input noted. for repeat CT A/P supportive treatment with IVF, pain control, anti-emetics. Replete K/Mg. NO further s/s concerning for withdrawal, d/c ativan. Folate/thiamine Continue venlafaxine/amantadine. Resume lamictal. Continue doxazocin. Seizure precautions. DVTPPX SCDs, start heparin if platelets continue to improve over next 24-48 hours. Dispo possible transfer to [facility] pending repeat CT A/P and clinical course. Plan discussed with patient in detail, all questions answered.
[2018-09-01] MEDS ORDERED: HYDROCHLOROTHIAZIDE 25 MG TABLET (FP) PO SCH (15:45)
--- NOTE | 2018-09-01 15:47 | PN ---
Physical Exam: SUBJECTIVE: Patient seen and examined by me at bedside. No acute events overnight. Patient still reports abdominal pain after PO intake. However, no vomiting. Otherwise, patient denies any diarrhea, fever, chills, nausea, vomiting, chest pain, shortness of breath, dysuria, hematuria. OBJECTIVE: Vital Signs Period Temp Pulse Resp BP Sys/Barfield Pulse Ox Last 24 Hr 98.2 F-98.6 F 81-94 20-20 106-156/69-99 GENERAL: The patient is awake, alert, and fully oriented, in no acute distress. EYES: Sclera anicteric, conjunctiva clear. ENT: Moist mucous membranes. LUNGS: Breath sounds equal, clear to auscultation bilaterally, no wheezes, no crackles, no accessory muscle use. HEART: Regular rate and rhythm, S1, S2 without murmur, rub or gallop. ABDOMEN: Soft, non-tender, nondistended, normoactive bowel sounds, no guarding or rebound EXTREMITIES: No peripheral edema. Laboratory Results - last 24 hr 09/01/18 06:00 09/01/18 06:00 Active Medications Generic Name Dose Route Start Last Admin Trade Name Freq PRN Reason Stop Dose Admin Acamprosate 333 mg 08/28/18 10:00 09/01/18 10:15 Campral - PO 333 mg BID JUNE Administration Amantadine HCl 100 mg 08/28/18 10:00 09/01/18 14:27 Symmetrel - PO 100 mg QID JUNE Administration Doxazosin Mesylate 2 mg 08/28/18 22:00 08/31/18 21:45 Cardura - PO 2 mg HS JUNE Administration Folic Acid 1 mg 08/28/18 10:00 09/01/18 10:15 Folic Acid - PO 1 mg DAILY JUNE Administration Hydralazine HCl 10 mg 08/28/18 02:11 08/28/18 06:48 Apresoline Injection - IVPUSH 10 mg Q6H PRN Administration HYPERTENSION Hydrochlorothiazide 25 mg 09/02/18 10:00 Hctz - PO DAILY JUNE Lactated Ringer's 1,000 ml in 1,000 mls @ 120 mls/hr 08/28/18 01:44 09/01/18 10:17 Lactated Ringers Solution IV 120 mls/hr ASDIR JUNE Administration Lamotrigine 25 mg 09/01/18 22:00 Lamictal - PO BID JUNE Lamotrigine 100 mg 09/01/18 22:00 Lamictal - PO HS JUNE Metoclopramide HCl 10 mg 08/28/18 01:43 09/01/18 04:36 Reglan Injection - IVPUSH 10 mg Q6H PRN Administration NAUSEA AND/OR VOMITING Non-Formulary Medication 15 mg 09/01/18 22:00 Buspirone Hcl [Buspirone Hcl] PO HS JUNE Oxycodone/Acetaminophen 2 combo 08/31/18 20:42 09/01/18 10:19 Percocet 5/325 - PO 2 combo Q4H PRN Administration PAIN LEVEL 4 - 6 Pancrelipase 2 cap 08/28/18 08:00 09/01/18 07:[address] 36,000 Units Capsule PO 2 cap BIDWM JUNE Administration Pantoprazole Sodium 40 mg 08/31/18 22:00 09/01/18 10:16 Protonix - PO 40 mg BID JUNE Administration Ropinirole HCl 0.25 mg 09/01/18 14:15 Requip - PO DAILY JUNE Thiamine HCl 100 mg 09/01/18 10:00 09/01/18 10:14 Vitamin B1 - PO 100 mg DAILY JUNE Administration Venlafaxine HCl 225 mg 08/28/18 10:00 09/01/18 10:15 Effexor Xr - PO 225 mg DAILY JUNE Administration ASSESSMENT/PLAN: Patient is a 52 year old male with a significant PMHx of EtOH abuse and chronic pancreatitis who presented with diffuse abdominal pain associated with nausea, vomiting, and diarrhea. Patient was found to have Acute Pancreatitis. Patient admitted for further monitoring and management. #Acute Alcoholic Pancreatitis -Still reports abdominal pain with liquid diet but no vomiting -CRP worsening -Appreciate GI input. Repeat CT A/P ordered to rule out pancreatitis, necrosis , pseudocyst, or abscess -Continue IV hydration with LR @120mls/hr -Reglan for Nausea and vomiting -Continue Morphine Sulfate Q4H PRN for pain -Continue Creon -Lipase Improving #HypoKalemia -Stable to 3.0 -Magnesium repleted -3 runs of potassium ordered #Chronic Pancreatitis -Currently has Stent placed from [facility] by Dr. Carlin Ervin. Scheduled to have it removed there in September -Counseled the patient on the importance for alcohol cessation. -Repeat CT A/P #Alcohol Abuse -Continue Campral 333mg BID -Continue to monitor for any withdrawal activities. -Continue Thiamine and Folic Acid -Will need rehab once patient is discharged #Seizure Disorder -Medications reconciled -Resume home medication Lamictal 125mg BID #HTN -Currently controlled -Continue Cardura 2mg HS -Continue Hydralazine PRN -Continue to monitor BP F/E/N -IV LR @120mls/hr -Hypokalemia. Replete and repeat -Liquid diet Prophylaxis -SCD's for DVT -Protonix 40mg IV for GI Disposition -Full code -Still unable to tolerate PO. Will remain inpatient until patient can tolerate PO. Meaghan Byers [id number] Visit type - Emergency Visit Emergency Visit: Yes ED Registration Date: 08/29/18 Care time: The patient presented to the Emergency Department on the above date and was hospitalized for further evaluation of their emergent condition. - New Patient This patient is new to me today: No - Critical Care Critical Care patient: No
[2018-09-01] MEDS: rOPINIRole HCL 0.25 MG TABLET PO SCH (18:08)
[2018-09-01] MEDS: DOXAZOSIN MESYLATE 2 MG TABLET (FP) PO SCH (21:55)
[2018-09-01] MEDS ORDERED: lamoTRIgine 100 MG TABLET (FP) PO SCH (22:00)
[2018-09-01] MEDS ORDERED: busPIRone HCL 5 MG TABLET PO SCH (22:00)
[2018-09-01] MEDS ORDERED: MEROPENEM 1 GM in DEXTROSE 5%-WATER 100 ML IVPB ONE (23:41)
--- NOTE | 2018-09-01 23:49 | CONSULT ---
Consult Consult Specialty:: General Surgery - History Source History Provided By: Patient, Medical Record Limitations to Obtaining History: No Limitations - Past Medical History ANALYTICS ARCHITECT: Yes: Other (Cerebellar ataxia) Gastrointestinal: Yes: GERD, Pancreatitis (acute and chronic) - Past Surgical History Additional Surgical History: Chlecystectomy, biliary stenting - Alcohol/Substance Use Hx Alcohol Use: Yes History of Substance Use: reports: None - Smoking History Smoking history: Never smoked - Social History Usual Living Arrangement: Alone History of Recent Travel: No Home Medications - Allergies Allergies/Adverse Reactions: Allergies Allergy/AdvReac Type Severity Reaction Status Date / Time No Known Allergies Allergy Verified 08/27/18 17:45 - Home Medications Home Medications: Ambulatory Orders Acamprosate Calcium [Campral -] 333 mg PO BID 08/27/18 Amantadine HCl [Amantadine] 120 mg PO QID 08/27/18 Buspirone HCl 15 mg PO HS 08/27/18 Cyclobenzaprine HCl [Flexeril 10 mg] 10 mg PO BID 08/27/18 Cyproheptadine [Periactin -] 4 mg PO Q12H 08/27/18 Doxazosin Mesylate [Cardura -] 2 mg PO HS 08/27/18 Ferrous Sulfate [Feosol] 325 mg PO TID 08/27/18 Folic Acid 1 mg PO DAILY 08/27/18 Lamotrigine [Lamictal -] 25 mg PO BID 08/27/18 Lamotrigine [Lamictal -] 100 mg PO HS 08/27/18 Lipase/Protease/Amylase [Erika Dr 36,000 Units Capsule] 2 each PO BID 08/27/18 Ranitidine [Zantac -] 150 mg PO BID 08/27/18 Venlafaxine HCl [Effexor -] 225 mg PO DAILY 08/27/18 Zolpidem Tartrate [Ambien] 10 mg PO HS 08/27/18 Hydrochlorothiazide [Hctz -] 25 mg PO DAILY 09/01/18 Pantoprazole Sodium [Protonix] 40 mg PO DAILY 09/01/18 Ropinirole HCl 0.25 mg PO DAILY 09/01/18 Family Disease History - Family Disease History Other Family History: Patient does not know biological family. He is an adoptee Physical Exam Vital Signs: Vital Signs Temperature 98.2 F 09/01/18 22:21 Pulse Rate 81 09/01/18 22:21 Respiratory Rate 20 09/01/18 22:21 Blood Pressure 148/84 09/01/18 22:21 O2 Sat by Pulse Oximetry (%) 97 08/30/18 21:00 Labs: CBC, BMP 09/01/18 06:00 09/01/18 06:00 Problem List - Problems (1) Acute alcoholic pancreatitis Assessment/Plan: 52yo male pancreatitis which is chemically resolving new imaging was reviewed, pseudocyst is identified but has no stigmata to suggest that is is infected. I would recommended that he be monitored by CT for 12months. no acute surgical intervention is indicated alcohol cessation NPO and IVF hydration serial exams serial labs Thank you for the opportunity to participate in the care of this patient. Code(s): K85.20 - ALCOHOL INDUCED ACUTE PANCREATITIS WITHOUT NECROSIS OR INFCT Qualifiers: Acute pancreatitis complication: no infection or necrosis Qualified Code(s) : K85.20 - Alcohol induced acute pancreatitis without necrosis or infection (2) Alcohol dependence with withdrawal Code(s): F10.239 - ALCOHOL DEPENDENCE WITH WITHDRAWAL, UNSPECIFIED (3) Depression Code(s): F32.9 - MAJOR DEPRESSIVE DISORDER, SINGLE EPISODE, UNSPECIFIED (4) HTN (hypertension) Code(s): I10 - ESSENTIAL (PRIMARY) HYPERTENSION (5) Wernicke-Korsakoff syndrome (alcoholic) Code(s): F10.96 - ALCOHOL USE, UNSP W ALCOH-INDUCE PERSIST AMNESTIC DISORDER
[2018-09-02 05:24] LABS: HBSAG SCREEN Negative (Negative); HEP B CORE AB, TOT Positive (Negative); HEPATITIS B CORE ANTIBODY,IGM Negative (Negative)
[2018-09-02] MEDS ORDERED: oxyCODONE HCL 5 MG TABLET PO PRN (05:30)
[2018-09-02] MEDS ORDERED: ACETAMINOPHEN 325 MG TABLET (FP) PO PRN (05:30)
[2018-09-02] MEDS ORDERED: lamoTRIgine 25 MG TABLET PO SCH (06:00)
[2018-09-02] MEDS ORDERED: PT OWN MED DRAWER 7, Y5N ONE ×2 (06:05→09:49)
[2018-09-02 07:21] LABS: BASO % 0.2 % (0-2.0); EOS % 0.8 % (0-4.5); HEMATOCRIT 31.6 % (35.4-49); HEMOGLOBIN 10.7 GM/dL (11.7-16.9); LYMPH % 14.2 % (8-40); MCH 26.8 pg (25.7-33.7); MCHC 33.8 g/dl (32.0-35.9); MEAN CELL VOLUME 79.2 fl (80-96); MEAN PLT VOLUME 7.3 fl (7.5-11.1); NEUT % 65.8 % (42.8-82.8); PLATELET COUNT 191 K/MM3 (134-434); RBC 3.99 M/mm3 (4.00-5.60); RDW 16.2 % (11.9-15.9); WHITE BLOOD COUNT 6.9 K/mm3 (4.0-10.0)
[2018-09-02 07:39] LABS: ALBUMIN 2.9 g/dl (3.4-5.0); ALK PHOS 33 U/L (45-117); AMYLASE 115 U/L (25-115); ANION GAP 12 MMOL/L (8-16); BILIRUBIN,TOTAL 0.5 mg/dL (0.2-1); BLOOD UREA NITROGEN 6 mg/dL (7-18); CALCIUM 8.6 mg/dL (8.5-10.1); CHLORIDE 94 mmol/L (98-107); CO2 26 mmol/L (21-32); CREATININE 0.5 mg/dL (0.55-1.3); GLUCOSE,RANDOM 80 mg/dL (74-106); LIPASE 1193 U/L (73-393); MAGNESIUM 1.7 mg/dL (1.8-2.4); PHOSPHOROUS 3.2 mg/dL (2.5-4.9); SGOT/AST 16 U/L (15-37); SGPT/ALT 18 U/L (13-61); SODIUM 132 mmol/L (136-145); TOT PROT 6.6 g/dl (6.4-8.2)
[2018-09-02] MEDS ORDERED: MAGNESIUM SULF 50% (8.12 MEQ/2 ML-1 GM VIAL) IVPB SCH (07:52)
[2018-09-02] MEDS ORDERED: KCL 10 MEQ IVPB 10 MEQ/100 ML INFUS.BAG IVPB SCH (08:00)
[2018-09-02] MEDS: FOLIC ACID 1 MG TABLET (FP) PO SCH (09:50)
[2018-09-02] MEDS: rOPINIRole HCL 0.25 MG TABLET PO SCH (09:50)
[2018-09-02] MEDS: PANTOPRAZOLE 40 MG TABLET (FP) PO SCH (09:51)
[2018-09-02] MEDS: ACAMPROSATE CALCIUM 333 MG TABLET.DR PO SCH (09:52)
[2018-09-02] MEDS: VENLAFAXINE HCL 75 MG E.R. CAPSULES (FP) PO SCH (09:52)
[2018-09-02] MEDS: LIPASE/PROTEASE/AMYLASE 36,000 UNIT CAPSULE PO SCH (09:55)
[2018-09-02] MEDS: AMANTADINE HCL 100 MG TABLET PO SCH (09:58)
[2018-09-02] MEDS ORDERED: HYDROCHLOROTHIAZIDE 25 MG TABLET (FP) PO SCH (10:00)
--- NOTE | 2018-09-02 12:19 | DS ---
Physical Exam: SUBJECTIVE: Patient seen and examined by me at bedside. No acute events overnight. Patient still reports some abdominal pain after PO intake but is tolerating it better Otherwise, patient denies any diarrhea, fever, chills, nausea, vomiting, chest pain, shortness of breath, dysuria, hematuria. OBJECTIVE: Vital Signs Period Temp Pulse Resp BP Sys/Barfield Pulse Ox Last 24 Hr 98.2 F-98.2 F 75-86 20-20 119-148/75-84 PHYSICAL EXAM GENERAL: The patient is awake, alert, and fully oriented, in no acute distress. EYES: Sclera anicteric, conjunctiva clear. ENT: Moist mucous membranes. LUNGS: Breath sounds equal, clear to auscultation bilaterally, no wheezes, no crackles, no accessory muscle use. HEART: Regular rate and rhythm, S1, S2 without murmur, rub or gallop. ABDOMEN: Soft, non-tender, nondistended, normoactive bowel sounds, no guarding or rebound EXTREMITIES: No peripheral edema. LABS Laboratory Results - last 24 hr 09/01/18 09/02/18 09/02/18 06:00 06:30 06:30 WBC 6.9 RBC 3.99 L Hgb 10.7 L Hct 31.6 L MCV 79.2 L MCH 26.8 MCHC 33.8 RDW 16.2 H Plt Count 191 D MPV 7.3 L Absolute Neuts (auto) 4.5 Neutrophils % 65.8 Lymphocytes % 14.2 D Monocytes % 19.0 H Eosinophils % 0.8 D Basophils % 0.2 Nucleated RBC % 0 Sodium 132 L Potassium 3.0 L Chloride 94 L Carbon Dioxide 26 Anion Gap 12 BUN 6 L Creatinine 0.5 L Creat Clearance w eGFR > 60 Random Glucose 80 Calcium 8.6 Phosphorus 3.2 Magnesium 1.7 L Total Bilirubin 0.5 AST 16 ALT 18 Alkaline Phosphatase 33 L C-Reactive Protein 17.6 H Total Protein 6.6 Albumin 2.9 L Total Amylase 115 Lipase 1193 H Hepatitis A Ab Total Negative Hep Bs Antigen Negative Hep Bs Antibody Non reactive Hep B Core Total Ab Positive H Hep B Core IgM Ab Negative Home Medications Medication Instructions Recorded Acamprosate Calcium [Campral -] 333 mg PO BID 08/27/18 Amantadine HCl [Amantadine] 120 mg PO QID 08/27/18 Buspirone HCl 15 mg PO HS 08/27/18 Cyproheptadine [Periactin -] 4 mg PO Q12H 08/27/18 Doxazosin Mesylate [Cardura -] 2 mg PO HS 08/27/18 Ferrous Sulfate [Feosol] 325 mg PO TID 08/27/18 Folic Acid 1 mg PO DAILY 08/27/18 Lamotrigine [LaMICtal -] 100 mg PO HS 08/27/18 Lamotrigine [Lamictal -] 25 mg PO BID 08/27/18 Lipase/Protease/Amylase [Creon Dr 2 each PO BID 08/27/18 36,000 Units Capsule] Ranitidine [Zantac -] 150 mg PO BID 08/27/18 Venlafaxine HCl [Effexor -] 225 mg PO DAILY 08/27/18 Pantoprazole Sodium [Protonix] 40 mg PO DAILY 09/01/18 Ropinirole HCl 0.25 mg PO DAILY 09/01/18 Acetaminophen [Tylenol .Regular 650 mg PO Q4H PRN tablet 09/02/18 Strength -] Metoclopramide HCl Injection 10 mg IVPUSH Q6H PRN vial 09/02/18 [Reglan Injection -] Thiamine HCl [Vitamin B1 -] 100 mg PO DAILY tablet 09/02/18 hydrALAZINE INJECTION [Apresoline 10 mg IVPUSH Q6H PRN vial 09/02/18 Injection -] Active Medications Generic Name Dose Route Start Last Admin Trade Name Freq PRN Reason Stop Dose Admin Acamprosate 333 mg 08/28/18 10:00 09/02/18 09:52 Campral - PO 333 mg BID JUNE Administration Acetaminophen 650 mg 09/02/18 05:30 09/02/18 05:59 Tylenol - PO 09/05/18 05:29 650 mg Q4H PRN Administration PAIN LEVEL 4 - 6 Amantadine HCl 100 mg 08/28/18 10:00 09/02/18 09:58 Symmetrel - PO 100 mg QID JUNE Administration Buspirone HCl 15 mg 09/01/18 22:00 09/01/18 22:00 Buspar - PO 15 mg HS JUNE Administration Doxazosin Mesylate 2 mg 08/28/18 22:00 09/01/18 21:55 Cardura - PO 2 mg HS JUNE Administration Folic Acid 1 mg 08/28/18 10:00 09/02/18 09:50 Folic Acid - PO 1 mg DAILY JUNE Administration Hydralazine HCl 10 mg 08/28/18 02:11 08/28/18 06:48 Apresoline Injection - IVPUSH 10 mg Q6H PRN Administration HYPERTENSION Lactated Ringer's 1,000 ml in 1,000 mls @ 120 mls/hr 08/28/18 01:44 09/01/18 18:10 Lactated Ringers Solution IV 120 mls/hr ASDIR JUNE Administration Lamotrigine 25 mg 09/02/18 06:00 09/02/18 06:18 Lamictal - PO 25 mg 0600,1400 JUNE Administration Lamotrigine 100 mg 09/01/18 22:00 09/01/18 21:55 Lamictal - PO 100 mg HS JUNE Administration Metoclopramide HCl 10 mg 08/28/18 01:43 09/01/18 04:36 Reglan Injection - IVPUSH 10 mg Q6H PRN Administration NAUSEA AND/OR VOMITING Oxycodone HCl 10 mg 09/02/18 05:30 09/02/18 06:00 Roxicodone - PO 10 mg Q4H PRN Administration PAIN LEVEL 4 - 6 Pancrelipase 2 cap 08/28/18 08:00 09/02/18 09:55 Erika Woods 36,000 Units Capsule PO 2 cap BIDWM JUNE Administration Pantoprazole Sodium 40 mg 08/31/18 22:00 09/02/18 09:51 Protonix - PO 40 mg BID JUNE Administration Ropinirole HCl 0.25 mg 09/01/18 14:15 09/02/18 09:50 Requip - PO 0.25 mg DAILY JUNE Administration Thiamine HCl 100 mg 09/01/18 10:00 09/01/18 10:14 Vitamin B1 - PO 100 mg DAILY JUNE Administration Venlafaxine HCl 225 mg 08/28/18 10:00 09/02/18 09:52 Effexor Xr - PO 225 mg DAILY JUNE Administration PRE-HOSPITAL COURSE: Patient is a 52 year old male with a PMHx of chronic pancreatitis, alcohol abuse , cerebellar ataxia, peripheral neuropathy, GERD, wernicke-Korsakoff syndrome(2/ 2 EtOH abuse), bipolar disorder, vertigo, silent seizures and depression who presented to the ED with diffuse abdominal pain associated with nausea, vomiting , and diarrhea. Patient reports the symptoms started 6 days prior and it was similar symptoms to his previous pancreatitis episodes. In the ED, CT Abdomen was done and revealed pancreatic fat stranging with Lipase level >10,000, suggesting pancreatitis. Patient was then admitted for further monitoring and management. Of note, patient reports having multiple "pancreatic stents" placed in the past at [facility] and scheduled to have them removed at [facility] September 2018. HOSPITAL COURSE: Patient was started on IV Lactated Ringers, placed on NPO and was given pain medications. Patient however did not improve and was unable to tolerate PO. Further lab work was done which revealed elevated CRP and continues to increase despite management. Patient also continued to complain of abdominal pain. CT Abdomen done and revealed a fluid collection at the pancreatic head with edema, concerning for possible forming abscess vs. Pseudocyst. GI was made aware of the findings and spoke to patient's GI physician at [facility] and recommended transfer to [facility]. Patient was accepted for [facility] by Dr. Carlin Ervin for further evaluation, monitoring and management. Date of Admission:08/29/18 Date of Discharge: 09/02/18 Minutes to complete discharge: 45 Discharge Summary Reason For Visit: INTRACTABLE PAIN CHRONIC PANCREATITIS ABD PAIN Current Active Problems Abdominal pain (Acute) Acute alcoholic pancreatitis (Acute) Alcohol dependence with withdrawal (Acute) Ataxia (Acute) Bipolar 1 disorder (Acute) Depression (Acute) HTN (hypertension) (Acute) History of biliary stent insertion (Acute) Hypokalemia (Acute) Hypophosphatemia (Acute) Intractable pain (Acute) Pancreatitis, chronic (Acute) Seizure (Acute) Wernicke-Korsakoff syndrome (alcoholic) (Acute) Condition: Guarded - Instructions Diet, Activity, Other Instructions: RECOMMENDATIONS: -You were seen here for abdominal pain and found to have inflammation and infection of the pancreas. Your symptoms minimally improved and Cat scan revealed a possible infectious cause. You will be transferred to a tertiary center ([facility]) and will be seen by the specialist, Dr. Carlin Ervin, for further management. Referrals: Roberto Ta MD [Staff Physician] - Disposition: TRANSFER ACUTE CARE/OTHER HOSP - Home Medications Comprehensive Discharge Medication List: Ambulatory Orders Acamprosate Calcium [Campral -] 333 mg PO BID 08/27/18 Amantadine HCl [Amantadine] 120 mg PO QID 08/27/18 Buspirone HCl 15 mg PO HS 08/27/18 Cyproheptadine [Periactin -] 4 mg PO Q12H 08/27/18 Doxazosin Mesylate [Cardura -] 2 mg PO HS 08/27/18 Ferrous Sulfate [Feosol] 325 mg PO TID 08/27/18 Folic Acid 1 mg PO DAILY 08/27/18 Lamotrigine [LaMICtal -] 100 mg PO HS 08/27/18 Lamotrigine [Lamictal -] 25 mg PO BID 08/27/18 Lipase/Protease/Amylase [Erika Dr 36,000 Units Capsule] 2 each PO BID 08/27/18 Ranitidine [Zantac -] 150 mg PO BID 08/27/18 Venlafaxine HCl [Effexor -] 225 mg PO DAILY 08/27/18 Pantoprazole Sodium [Protonix] 40 mg PO DAILY 09/01/18 Ropinirole HCl 0.25 mg PO DAILY 09/01/18 Acetaminophen [Tylenol .Regular Strength -] 650 mg PO Q4H PRN tablet 09/02/18 Metoclopramide HCl Injection [Reglan Injection -] 10 mg IVPUSH Q6H PRN vial Thiamine HCl [Vitamin B1 -] 100 mg PO DAILY tablet 09/02/18 hydrALAZINE INJECTION [Apresoline Injection -] 10 mg IVPUSH Q6H PRN vial This patient is new to me today: Yes Date on this admission: 09/02/18 Emergency Visit: No Critical Care patient: No - Discharge Referral Referred to [facility] Med P.C.: No
[2018-09-02] MEDS ORDERED: LACTATED RINGERS SOLUTION 1,000 ML/1,000 ML INFUS.BAG IV SCH (12:30)
--- NOTE | 2018-09-02 12:34 | PN ---
Teaching Attending Note Name of Resident: Meaghan Byers ATTENDING PHYSICIAN STATEMENT I saw and evaluated the patient. I reviewed the resident's note and discussed the case with the resident. I agree with the resident's findings and plan as documented with exceptions below. SUBJECTIVE: Patient seen and examined. Intermittent abdominal pain, no new fevers/chills. OBJECTIVE: Vital Signs Period Temp Pulse Resp BP Sys/Barfield Pulse Ox Last 24 Hr 98.2 F-98.2 F 75-86 20-20 119-148/75-84 Intake & Output 08/30/18 08/31/18 09/01/18 09/02/18 23:59 23:59 23:59 23:59 Intake Total 3535 2040 2085 0 Output Total 378 926 8227 Balance 2835 1340 985 0 Weight 163 lb General: sitting in bed in no acute distress Chest: CTAB, no rales or wheezing Abdomen:soft, NT currently no voluntary or involuntary guarding or rigidity Extremities: no edema Home Medications Medication Instructions Recorded Acamprosate Calcium [Campral -] 333 mg PO BID 08/27/18 Amantadine HCl [Amantadine] 120 mg PO QID 08/27/18 Buspirone HCl 15 mg PO HS 08/27/18 Cyproheptadine [Periactin -] 4 mg PO Q12H 08/27/18 Doxazosin Mesylate [Cardura -] 2 mg PO HS 08/27/18 Ferrous Sulfate [Feosol] 325 mg PO TID 08/27/18 Folic Acid 1 mg PO DAILY 08/27/18 Lamotrigine [LaMICtal -] 100 mg PO HS 08/27/18 Lamotrigine [Lamictal -] 25 mg PO BID 08/27/18 Lipase/Protease/Amylase [Creon Dr 2 each PO BID 08/27/18 36,000 Units Capsule] Ranitidine [Zantac -] 150 mg PO BID 08/27/18 Venlafaxine HCl [Effexor -] 225 mg PO DAILY 08/27/18 Pantoprazole Sodium [Protonix] 40 mg PO DAILY 09/01/18 Ropinirole HCl 0.25 mg PO DAILY 09/01/18 Acetaminophen [Tylenol .Regular 650 mg PO Q4H PRN tablet 09/02/18 Strength -] Metoclopramide HCl Injection 10 mg IVPUSH Q6H PRN vial 09/02/18 [Reglan Injection -] Thiamine HCl [Vitamin B1 -] 100 mg PO DAILY tablet 09/02/18 Active Medications Acamprosate (Campral -) 333 mg PO BID [facility] Last Admin: 09/02/18 09:52 Dose: 333 mg Acetaminophen (Tylenol -) 650 mg PO Q4H PRN PRN Reason: PAIN LEVEL 4 - 6 Stop: 09/05/18 05:29 Last Admin: 09/02/18 05:59 Dose: 650 mg Amantadine HCl (Symmetrel -) 100 mg PO QID [facility] Last Admin: 09/02/18 09:58 Dose: 100 mg Buspirone HCl (Buspar -) 15 mg PO [facility] Last Admin: 09/01/18 22:00 Dose: 15 mg Doxazosin Mesylate (Cardura -) 2 mg PO [facility] Last Admin: 09/01/18 21:55 Dose: 2 mg Folic Acid (Folic Acid -) 1 mg PO DAILY [facility] Last Admin: 09/02/18 09:50 Dose: 1 mg Hydralazine HCl (Apresoline Injection -) 10 mg IVPUSH Q6H PRN PRN Reason: HYPERTENSION Last Admin: 08/28/18 06:48 Dose: 10 mg Lactated Ringer's (Lactated Ringers Solution) 1,000 ml in 1,000 mls @ 120 mls/ [facility] Lamotrigine (Lamictal -) 25 mg PO 0600,1400 [facility] Last Admin: 09/02/18 06:18 Dose: 25 mg Lamotrigine (Lamictal -) 100 mg PO [facility] Last Admin: 09/01/18 21:55 Dose: 100 mg Metoclopramide HCl (Reglan Injection -) 10 mg IVPUSH Q6H PRN PRN Reason: NAUSEA AND/OR VOMITING Last Admin: 09/01/18 04:36 Dose: 10 mg Oxycodone HCl (Roxicodone -) 10 mg PO Q4H PRN PRN Reason: PAIN LEVEL 4 - 6 Last Admin: 09/02/18 06:00 Dose: 10 mg Pancrelipase (Creon Dr 36,000 Units Capsule) 2 cap PO BIDWM [facility] Last Admin: 09/02/18 09:55 Dose: 2 cap Pantoprazole Sodium (Protonix -) 40 mg PO BID [facility] Last Admin: 09/02/18 09:51 Dose: 40 mg Ropinirole HCl (Requip -) 0.25 mg PO DAILY [facility] Last Admin: 09/02/18 09:50 Dose: 0.25 mg Thiamine HCl (Vitamin B1 -) 100 mg PO DAILY [facility] Last Admin: 09/01/18 10:14 Dose: 100 mg Venlafaxine HCl (Effexor Xr -) 225 mg PO DAILY [facility] Last Admin: 09/02/18 09:52 Dose: 225 mg Laboratory Results - last 24 hr 09/01/18 09/02/18 09/02/18 06:00 06:30 06:30 WBC 6.9 RBC 3.99 L Hgb 10.7 L Hct 31.6 L MCV 79.2 L MCH 26.8 MCHC 33.8 RDW 16.2 H Plt Count 191 D MPV 7.3 L Absolute Neuts (auto) 4.5 Neutrophils % 65.8 Lymphocytes % 14.2 D Monocytes % 19.0 H Eosinophils % 0.8 D Basophils % 0.2 Nucleated RBC % 0 Sodium 132 L Potassium 3.0 L Chloride 94 L Carbon Dioxide 26 Anion Gap 12 BUN 6 L Creatinine 0.5 L Creat Clearance w eGFR > 60 Random Glucose 80 Calcium 8.6 Phosphorus 3.2 Magnesium 1.7 L Total Bilirubin 0.5 AST 16 ALT 18 Alkaline Phosphatase 33 L C-Reactive Protein 17.6 H Total Protein 6.6 Albumin 2.9 L Total Amylase 115 Lipase 1193 H Hepatitis A Ab Total Negative Hep Bs Antigen Negative Hep Bs Antibody Non reactive Hep B Core Total Ab Positive H Hep B Core IgM Ab Negative ASSESSMENT AND PLAN: 52 yo M w/ PMHx of cerebellar ataxia, peripheral neuropathy, GERD, chronic pancreatitis, 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 -Wenicke/korsakoff syndrome -Peripheral neuropathy -Cerebellar ataxia -Depression -Bipolar disorder -Seizure disorder Plan: GI input noted. Repeat CT A/p Noted, overnight patient received meropenem, was NPO and surgery consult placed. Discussed with Dr. Sanchez, he discussed the case with Dr. Carlin Ervin at [facility], patient accepted for transfer. transfer arranged. Plan for transfer to [facility] for further work up. Discussed with patient in detail, all questions answered. Patient agreable with the transfer.
[2018-09-02 12:39] VITALS: BP 127/78; PULSE 80; TEMP 98.4
== END 2018-09-02 14:46 | disposition short-term general hospital (02) | DRG 282 ==
LOC: JER 17:34 → JERBED 08-28 00:33 → J6S 08-28 15:28 → OBSVTOIN 08-29 11:47
PROVIDERS: ADMIT Internal Medicine; ATTEND Hospitalist
DX: K85.20 Alcohol induced acute pancreatitis without necrosis or infection (principal); I10 Essential (primary) hypertension; F10.239 Alcohol dependence with withdrawal, unspecified; K21.9 Gastro-esophageal reflux disease without esophagitis; E87.6 Hypokalemia; K86.0 Alcohol-induced chronic pancreatitis; F32.9 Major depressive disorder, single episode, unspecified; F31.9 Bipolar disorder, unspecified; G40.909 Epilepsy, unspecified, not intractable, without status epilepticus; E83.39 Other disorders of phosphorus metabolism; D69.6 Thrombocytopenia, unspecified; G62.9 Polyneuropathy, unspecified; R42 Dizziness and giddiness; Z98.890 Other specified postprocedural states; R27.0 Ataxia, unspecified; G31.2 Degeneration of nervous system due to alcohol
CPT/HCPCS: 36415; 71045-TC-FY; 74170-TC; 74177-TC; 80048; 80053; 80076; 80307; 82105; 82150; 82248; 83690; 83735; 84100; 85025; 85610; 86140; 86704; 86705; 86706; 86708; 86803; 87040; 87340; 87389; 87902; 93005; 93010; 99285-25; G0378; J7030; Q9967

== ENCOUNTER 2019-05-12 16:17 | Inpatient (IN) | payer OTHER ==
--- NOTE | 2019-05-12 16:26 | PDOC ---
Rapid Medical Evaluation Chief Complaint: Pain, Acute Time Seen by Provider: 05/12/19 16:23 Medical Evaluation: Allergies Allergy/AdvReac Type Severity Reaction Status Date / Time No Known Allergies Allergy Verified 08/27/18 17:45 05/12/19 16:24 53 year old male c/o abdominal pain reports has been drinking for the last 4 days. history of pancreatitis/ PE: patient alert ox3 A: abdominal pain P: labs patient to the ER for further management of care,. Discharge Disposition - Diagnosis Abdominal pain Qualifiers: Abdominal location: unspecified location Qualified Code(s): R10.9 - Unspecified abdominal pain - Referrals Referrals: Danny Lam [Primary Care Provider] - - Patient Instructions - Post Discharge Activity
[2019-05-12] MEDS ORDERED: LACTATED RINGERS SOLUTION 1000 ML INFUS.BAG IV ONE (16:44)
[2019-05-12] MEDS ORDERED: ONDANSETRON 4 MG/2 ML VIAL IVPUSH ONE ×2 (17:03→19:35)
[2019-05-12] MEDS ORDERED: FAMOTIDINE 20 MG/50 ML IVPB 20 MG/50 ML MG IVPB ONE ×3 (17:03→17:56)
--- NOTE | 2019-05-12 17:11 | PDOC ---
History of Present Illness - General Chief Complaint: Pain, Acute Stated Complaint: DIZZINESS AND STOMACH PAIN Time Seen by Provider: 05/12/19 16:23 History Source: Patient Exam Limitations: No Limitations - History of Present Illness Initial Comments: 05/12/19 17:05 Preston Norwood is a 53yM w PMHx pancreatitis, pseudogout, bipolar, depression, cerebellar ataxia, silent seizures, presenting w AB pain. Has progressively worsening RLQ/LLQ pain radiating to back bilaterally for past 4 days. Pain started after he started drinking 6 beers/day after 2 year abstinence after family difficulties. Associated nausea/non-bloody vomiting, subjective fevers/chills. Unable to take any meds for past 4 days. Had numerous stents placed in pancreatic duct in past for numerous past pancreatitis episodes. Denies chest pain/SOB, urinary/bowel movement changes. Denies suicidal /homicidal ideation. Past History - Past Medical History Allergies/Adverse Reactions: Allergies Allergy/AdvReac Type Severity Reaction Status Date / Time No Known Allergies Allergy Verified 05/12/19 16:27 Home Medications: Ambulatory Orders Acamprosate Calcium [Campral -] 333 mg PO BID 08/27/18 Amantadine HCl [Amantadine] 120 mg PO QID 08/27/18 Buspirone HCl 15 mg PO HS 08/27/18 Cyproheptadine [Periactin -] 4 mg PO Q12H 08/27/18 Doxazosin Mesylate [Cardura -] 2 mg PO HS 08/27/18 Ferrous Sulfate [Feosol] 325 mg PO TID 08/27/18 Folic Acid 1 mg PO DAILY 08/27/18 Lamotrigine [LaMICtal -] 100 mg PO HS 08/27/18 Lamotrigine [Lamictal -] 25 mg PO BID 08/27/18 Lipase/Protease/Amylase [Erika Woods 36,000 Units Capsule] 2 each PO BID 08/27/18 Ranitidine [Zantac -] 150 mg PO BID 08/27/18 Venlafaxine HCl [Effexor -] 225 mg PO DAILY 08/27/18 Pantoprazole Sodium [Protonix] 40 mg PO DAILY 09/01/18 Ropinirole HCl 0.25 mg PO DAILY 09/01/18 Acetaminophen [Tylenol .Regular Strength -] 650 mg PO Q4H PRN tablet 09/02/18 Metoclopramide HCl Injection [Reglan Injection -] 10 mg IVPUSH Q6H PRN vial Thiamine HCl [Vitamin B1 -] 100 mg PO DAILY tablet 09/02/18 Anemia: Yes Asthma: No Cancer: No Cardiac Disorders: No CVA: No COPD: No CHF: No Dementia: No Diabetes: No GI Disorders: Yes (Ch pancreatitis, GERD) Disorders: No HTN: No Hypercholesterolemia: No Liver Disease: No Psychiatric Problems: Yes (DEPRESSION,BIPOLAR) Seizures: Yes (silent) Thyroid Disease: No Other medical history: PERIPHERAL NEUROPATHY,CEREBELLAR ATAXIA,VERTIGO - Surgical History Abdominal Surgery: No Appendectomy: No Cardiac Surgery: No Cholecystectomy: Yes (2003) GI Surgery: Yes (metal stent pancreas 06/03 (at [facility])) Lung Surgery: No Neurologic Surgery: No Orthopedic Surgery: No - Immunization History Immunization Up to Date: Yes - Psycho Social/Smoking Cessation Hx Smoking History: Never smoked Have you smoked in the past 12 months: No Information on smoking cessation initiated: No Hx Alcohol Use: Yes Drug/Substance Use Hx: No Review of Systems - Review of Systems Constitutional: Yes: Chills, Fever HEENTM: No: Eye Pain, Nose Pain, Throat Pain, Mouth Pain Respiratory: No: Cough, Shortness of Breath Cardiac (ROS): No: Chest Pain, Palpitations, Syncope ABD/GI: Yes: Nausea, Vomiting. No: Abdominal Distended, Constipated, Diarrhea : No: Burning, Dysuria, Discharge, Flank Pain, Hematuria, Incontinence Musculoskeletal: No: Back Pain, Joint Pain, Muscle Pain, Muscle Weakness Integumentary: No: Bruising, Flushing, Lesions Neurological: No: Headache, Numbness, Paresthesia, Seizure, Tingling Psychiatric: Yes: Stressors. No: Anxiety, Depression Endocrine: No: Excessive Sweating, Flushing, Intolerance to Cold, Intolerance to Heat Hematologic/Lymphatic: No: Anemia, Blood Clots *Physical Exam - Vital Signs Last Vital Signs Temp Pulse Resp BP Pulse Ox 98.7 F 118 H 20 162/99 98 05/12/19 16:21 05/12/19 16:21 05/12/19 16:21 05/12/19 16:21 05/12/19 16:21 - Physical Exam General Appearance: Yes: Nourished, Appropriately Dressed, Mild Distress HEENT: positive: EOMI, MARK, Normal Voice, Hearing Grossly Normal. negative: Scleral Icterus (R), Scleral Icterus (L), Nasal Congestion, Rhinorrhea Respiratory/Chest: positive: Lungs Clear, Normal Breath Sounds. negative: Chest Tender, Respiratory Distress, Crackles, Rales, Rhonchi, Stridor, Wheezing Cardiovascular: positive: Regular Rhythm, S1, S2, Tachycardia. negative: Edema , Murmur Gastrointestinal/Abdominal: positive: Normal Bowel Sounds, Tender (mild tenderness RUQ LUQ), Flat, Soft. negative: Guarding, Mass Male Genitalia: positive: normal genitalia Musculoskeletal: negative: CVA Tenderness (R), CVA Tenderness (L) Extremity: positive: Delayed Capillary Refill (4s). negative: Pedal Edema, Swelling Integumentary: positive: Normal Color, Dry Neurologic: positive: Fully Oriented, Alert, Normal Mood/Affect, Normal Response , Responsive. negative: Sensory Deficit, Confused, Disoriented ED Treatment Course - LABORATORY CBC & Chemistry Diagram: 05/12/19 16:42 05/12/19 16:42 - RADIOLOGY Radiology Studies Ordered: Category Date Time Status ABDOMEN & PELVIS CT W/O CONTR [CT] Stat CT Scan 05/12/19 17:04 Ordered - Medications Given in the ED: ED Medications Discontinued Medications Generic Name Dose Route Start Last Admin Trade Name Freq PRN Reason Stop Dose Admin Lactated Ringer's 1,000 ml 05/12/19 16:44 05/12/19 17:04 Lactated Ringers Solution IV 05/12/19 16:45 1,000 ml ONCE ONE Administration Medical Decision Making - Medical Decision Making 05/12/19 17:41 CBC CMP lipase trop serum osmo CT AB 1L LR, 1L NS, 8 zofran, pepcid, 6 morphine, 2 ativan, folic acid, 10 reglan, 50mcg fentanyl WBC 10.7, Na 125, Cl 88, K 3.3 w normal Mg neg trop, normal lipase 135 EKG sinus tachycardia, HR 106, QTc 441, no ST changes Replete Na w fluids for hypovolemic hyponatremia (delayed cap refill, dry despite normal sOSMO 284), [address] shows pneumobilia in central intrahepatic bile ducts, mild stranding around pancreatic head, dilation of pancreatic duct w air pockets Preston Norwood is a 53yM w PMHx pancreatitis, pseudogout, bipolar, depression, cerebellar ataxia, silent seizures, presenting w AB pain after drinking likely d/t chronic pancreatitis (mild pancreas stranding on CT, dilated pancreatic duct w air despite normal lipase). ACS ruled out (no ST changes, neg trop). Given 1L LR, 2L NS, 8 zofran, pepcid, 6 morphine, 2 ativan, folic acid, 10 reglan, 50mcg fentanyl with minimal AB relief. Low Na 125 - hypovolemic hyponatremia d/t vomiting, K 3.3 w normal Mg - repleted electrolytes w 2L NS and [address] shows pneumobilia in central intrahepatic bile ducts, mild stranding around pancreatic head, dilation of pancreatic duct w air pockets Consulted Dr Chandler Jones general surgery - low concern for emergent surgery to address pancreatic stranding, air in pancreatic ducts given complicated hx pancreatic sx Consulted Dr Mulligan internal combustion engineer for Dr Arcadio Jones pancreas/biliary - chart review revealed pneumobilia is new, many ERCP/ stents in past, no past hx spincterotomy, past air in dilated pancreatic duct. Low concern for any emergent intervention, advised to call Dr Carlin Ervin tomorrow 9am for his input , primarily managed [place]) Admitted Dr Chantal hinds for chronic pancreatitis with mild pancreatic head stranding causing intractable abdominal pain and inability to maintain oral hydration, pneumobilia, hyponatremia (severe electrolyte abnormalities) 2/2 dehydration, alcohol withdrawal Discharge - Discharge Information Problems reviewed: Yes Clinical Impression/Diagnosis: Hyponatremia, Pneumobilia Abdominal pain Qualifiers: Abdominal location: upper abdomen, unspecified Qualified Code(s): R10.10 - Upper abdominal pain, unspecified Alcohol withdrawal Qualifiers: Complication of substance-induced condition: uncomplicated Qualified Code(s): F10.230 - Alcohol dependence with withdrawal, uncomplicated Pancreatitis, chronic Qualifiers: Pancreatitis type: alcohol induced Qualified Code(s): K86.0 - Alcohol-induced chronic pancreatitis Condition: Improved - Follow up/Referral Referrals: Danny Lam [Primary Care Provider] - - Patient Discharge Instructions - Post Discharge Activity
[2019-05-12 17:14] LABS: BASO % 0.1 % (0-2.0); HEMOGLOBIN 13.8 GM/dL (11.7-16.9); LYMPH % 12.5 % (8-40); MCH 27.2 pg (25.7-33.7); MEAN CELL VOLUME 82.7 fl (80-96); MEAN PLT VOLUME 8.2 fl (7.5-11.1); MONO % 9.1 % (3.8-10.2); NEUT % 78.3 % (42.8-82.8); PLATELET COUNT 134 K/MM3 (134-434); RBC 5.08 M/mm3 (4.00-5.60); RDW 17.1 % (11.9-15.9); WHITE BLOOD COUNT 10.7 K/mm3 (4.0-10.0)
[2019-05-12] MEDS ORDERED: morphine CARPU-JECT 4 MG/1 ML DISP.SYRIN IVPUSH ONE ×2 (17:23→19:35)
[2019-05-12] MEDS ORDERED: SODIUM CHLORIDE 0.9% 1000 ML INFUS.BAG IV ONE (17:23)
--- NOTE | 2019-05-12 17:34 | PDOC ---
Documentation entered by Mi Barahona SCRIBE, acting as scribe for Eulalia Gupta DO. Eulalia Gupta DO: This documentation has been prepared by the erick, Mi Barahona SCRIBE, under my direction and personally reviewed by me in its entirety. I confirm that the documentation accurately reflects all work, treatment, procedures, and medical decision making performed by me. Attending Attestation - Resident Resident Name: JarrettJosef - ED Attending Attestation I have performed the following: I have examined & evaluated the patient, The case was reviewed & discussed with the resident, I agree w/resident's findings & plan, Exceptions are as noted - HPI HPI: 05/12/19 18:26 The patient is a 53-year-old male with a past medical history significant for Cerebellar ataxia, peripheral neuropathy, Chronic pancreatitis, Wernicke Korsakoff syndrome, depression (f/u with Psychiatrist), silent seizures who presents to the emergency department with abdominal pain and vomiting. The patient reports 2 years sobriety from alcohol. The patient reports 4 days ago he went to visit family in [place], which he described as a stressful event. The patient reports since the trip, hes been drinking 6 packs a day. The patient reports associated symptoms of abdominal pain and vomiting. The patient reports hes been having episodes of watery/yellowish emesis, secondary to which hes hasnt been compliant with his medications. The patient reports he hasnt been to sleep laying down secondary to acid reflux. Denies suicidal or homicidal ideation. Allergies: NKDA PCP: Dr. Danny Lam GI: Sara Madrigal NP GI: Dr. Carlin Ervin. - Physicial Exam PE: 05/12/19 18:26 Constitutional: Awake, alert, oriented. No acute distress. Head: Normocephalic. Atraumatic Eyes: PERRL. EOMI. Conjunctivae are not pale. ENT: +Tongue fasciculation. Mucous membranes are dry and intact. Posterior pharynx without exudate or erythema. Uvula midline. Neck: Supple. Full ROM. No lymphadenopathy. Cardiovascular: Regular rate. +tachycardia. S1, S2 regular. Pulmonary/Chest: No evidence of respiratory distress. Clear to auscultation bilaterally No wheezing, rales or rhonchi. Abdominal: +epigastric and periumbilical tenderness. No peritoneal signs. Soft and nondistended. No rebound, guarding or rigidity. Good bowel sounds. Back: No CVA tenderness. Musculoskeletal: No edema. No cyanosis. No clubbing. Full range of motion in all extremities. Skin: Skin is warm and dry. No petechiae. No purpura. Neurological: +Hand tremors. Alert and oriented to person, place, and time. Cranial nerves II-XII are grossly intact. Normal speech. Strength is grossly symmetric. No sensory deficits. Psychiatric: Good eye contact. Normal interaction, affect and behavior. - Critical Care Time Total Critical Care Time: 35 Critical Care Statement: The care of this patient involved high complexity decision making to prevent further life threatening deterioration of the patient 's condition and/or to evaluate & treat vital organ system(s) failure or risk of failure. - Medical Decision Making 05/12/19 17:25 I, Dr. Eulalia Gupta, DO, attest that this document has been prepared under my direction and personally reviewed by me in its entirety. I further attest, that it accurately reflects all work, treatment, procedures and medical decision -making performed by me. a/p: 53yo male with hx of chronic pancreatitis and alcohol abuse -pt states family issues recently - after a fam visit to [place] and stress he returned early from his trip to drink a six pack a day for 4 days -states he has not been taking his meds -when he doesn't drink he has nausea and vomiting, when he lays flat feels acid in the back of his mouth -pt c/o abd pain -states hx pmd, pancreatitis gi specialist are at [facility] -no seizures -pt also with mild alcohol withdrawal -concern for pancreatitis, alcohol abuse, gastritis -will send labs, ekg, cxr, ct abd/pelvis -lipase -ativan, ivf hydration, banana bag, pain control, nausea control 05/12/19 18:30 sodium 125 cl 88 k 3.3 mag added lipase pending 05/12/19 18:49 trop neg lipase 135 05/12/19 20:[address] Carlin Ervin ([facility]) at [phone]. 05/12/19 20:36 Waiting for call back from Dr. Marcy Mulligan. 05/12/19 20:42 ct findings of air in pancreas and pneumobilia discussed with Dr. Astudillo - states if pt had sphincterotomy he may have chronic pneumobilia call placed to pts gi Dr. Ervin to discuss air in pancreas given hx of stents in pancreas will replace K 05/12/19 21:28 resident discussed the case with GI from [facility]- no hx of pneumobilia not concerned about air in pancreas- seen on prior ct imaging pt with hyponatremia, pt with pneumobilia, pt with etoh withdrawal, abd pain, chronic pancreatitis - will admit here will have surgery and gi eval patient in the AM 05/12/19 22:59 resident discussed the case with [facility] pt with intractable abd pain pt with nausea, etoh withdrawal 05/12/19 23:00 pt will be admitted to [facility] Heart Score/ECG Review - ECG Intrepretation Comment:: 05/12/19 17:34 sinus tach at 106, nl axis, nl interval, no acute st/t wave findings
[2019-05-12] MEDS ORDERED: FOLIC ACID INJECTION - 1 MG, THIAMINE HCL 100 MG, MULTIVIT INJECTION ADULT 10 ML in SOD... IVPB ONE (17:35)
[2019-05-12] MEDS ORDERED: ONDANSETRON 4 MG/2 ML VIAL ONE ×2 (17:42→19:40)
[2019-05-12] MEDS ORDERED: morphine SULFATE 4 MG/ML VIAL ONE (17:42)
[2019-05-12] MEDS ORDERED: LORazepam 2 MG/ML SDV VIAL ONE (17:42)
[2019-05-12 17:59] LABS: ALBUMIN 3.9 g/dl (3.4-5.0); ALK PHOS 42 U/L (45-117); ANION GAP 13 MMOL/L (8-16); BILIRUBIN,TOTAL 0.8 mg/dL (0.2-1); BLOOD UREA NITROGEN 7.3 mg/dL (7-18); CALCIUM 9.2 mg/dL (8.5-10.1); CHLORIDE 88 mmol/L (98-107); CO2 25 mmol/L (21-32); CREATININE 0.7 mg/dL (0.55-1.3); GLUCOSE,RANDOM 107 mg/dL (74-106); POTASSIUM 3.3 mmol/L (3.5-5.1); SGOT/AST 52 U/L (15-37); SGPT/ALT 45 U/L (13-61); SODIUM 125 mmol/L (136-145); TOT PROT 7.8 g/dl (6.4-8.2)
[2019-05-12 18:33] LABS: LIPASE 135 U/L (73-393)
[2019-05-12] MEDS ORDERED: MORPHINE SULFATE 2 MG/ML VIAL ONE (19:40)
[2019-05-12] MEDS ORDERED: KCL 10 MEQ IVPB 10 MEQ/100 ML INFUS.BAG IVPB SCH (20:45)
[2019-05-12] MEDS ORDERED: KCL 10 MEQ IVPB 10 MEQ/100 ML INFUS.BAG IVPB ONE (21:29)
[2019-05-12] MEDS ORDERED: SODIUM CHLORIDE 0.9% 500 ML INFUS.BAG IV ONE (21:47)
[2019-05-12] MEDS ORDERED: METOCLOPRAMIDE HCL INJECTION 10 MG/2 ML VIAL IVPB ONE (22:03)
[2019-05-12] MEDS ORDERED: fentaNYL CITRATE/PF 1,000 MCG/20 ML AMPUL IVPUSH ONE (22:03)
[2019-05-12] MEDS ORDERED: METOCLOPRAMIDE HCL INJECTION 10 MG/2 ML VIAL ONE (22:36)
--- NOTE | 2019-05-12 22:59 | PN ---
Teaching Attending Note Name of Resident: Eneida Heredia ATTENDING PHYSICIAN STATEMENT I saw and evaluated the patient. I reviewed the resident's note and discussed the case with the resident. I agree with the resident's findings and plan as documented. SUBJECTIVE: Patient is a 53 year old man with a PMH of Cerebellar ataxia, Pseudogout, Peripheral neuropathy, Chronic pancreatitis, Wernicke Korsakoff syndrome, Depression (f/u with Psychiatrist) and Silent seizures who presents to the ER with abdominal pain and vomiting. The patient reports 2 years of sobriety from alcohol. The patient reports 4 days ago he went to visit family in [place], which he described as a stressful event. The patient reports since the trip, he s been drinking 6 packs a day. The patient reports associated symptoms of abdominal pain and vomiting. The patient reports hes been having episodes of watery/yellowish emesis, secondary to which hes hasnt been compliant with his medications. Had numerous stents placed in pancreatic duct in past for numerous past pancreatitis episodes. Denies chest pain/SOB, urinary/bowel movement changes. The patient reports he hasnt been able to sleep laying down secondary to acid reflux. Denies suicidal or homicidal ideation. OBJECTIVE: Alert and tremulous Vital Signs Period Temp Pulse Resp BP Sys/Barfield Pulse Ox Last 24 Hr 98.5 F-98.7 F 89-118 20 137-162/87-99 95-99 HEENT: No Jaundice, eye redness or discharge, PERRLA, EOMI. Tongue fasciculations; Normocephalic, atraumatic. External ears are normal and hearing is grossly intact. No nasal discharge. Neck: Supple, nontender. No palpable adenopathy or thyromegaly. No JVD Chest: Good effort. Clear to auscultation and percussion. Heart: Regular. No S3, rub or murmur Abdomen: Not distended, soft, epigastric and periumblical tenderness; no HSM. No rebound or guarding. Normal bowel sounds. Ext: Peripheral pulses intact. No leg edema. Skin: Warm and dry. No petechiae, rash or ecchymosis. Neuro: Alert. Oriented x3. Tremulous; CN 2-12 grossly intact. Sensation grossly intact in all four extremities and DTR are symmetric. Psych: Appropriate mood and affect. Good insight. Current Medications Generic Name Dose Route Start Last Admin Trade Name Freq PRN Reason Stop Dose Admin Folic Acid 1 mg/ Thiamine HCl 1,000 mls @ 125 mls/hr 05/12/19 17:35 05/12/19 18:18 100 mg/ Multivitamins/Minerals IVPB 05/13/19 01:34 Not Given 10 ml/ Sodium Chloride ONCE ONE Home Medications Medication Instructions Recorded Acamprosate Calcium [Campral -] 333 mg PO BID 08/27/18 Amantadine HCl [Amantadine] 120 mg PO QID 08/27/18 Buspirone HCl 15 mg PO HS 08/27/18 Cyproheptadine [Periactin -] 4 mg PO Q12H 08/27/18 Doxazosin Mesylate [Cardura -] 2 mg PO HS 08/27/18 Ferrous Sulfate [Feosol] 325 mg PO TID 08/27/18 Folic Acid 1 mg PO DAILY 08/27/18 Lamotrigine [LaMICtal -] 100 mg PO HS 08/27/18 Lamotrigine [Lamictal -] 25 mg PO BID 08/27/18 Lipase/Protease/Amylase [Creon Dr 2 each PO BID 08/27/18 36,000 Units Capsule] Ranitidine [Zantac -] 150 mg PO BID 08/27/18 Venlafaxine HCl [Effexor -] 225 mg PO DAILY 08/27/18 Pantoprazole Sodium [Protonix] 40 mg PO DAILY 09/01/18 Ropinirole HCl 0.25 mg PO DAILY 09/01/18 Acetaminophen [Tylenol .Regular 650 mg PO Q4H PRN tablet 09/02/18 Strength -] Metoclopramide HCl Injection 10 mg IVPUSH Q6H PRN vial 09/02/18 [Reglan Injection -] Thiamine HCl [Vitamin B1 -] 100 mg PO DAILY tablet 09/02/18 Abnormal Lab Results 05/12/19 05/12/19 16:42 16:42 WBC 10.7 H RDW 17.1 H Absolute Neuts (auto) 8.3 H Sodium 125 L Potassium 3.3 L Chloride 88 L Random Glucose 107 H AST 52 H Alkaline Phosphatase 42 L ASSESSMENT AND PLAN: 1. Exacerbation of chronic pancreatitis - CT scan of abdomen/pelvis with IV contrast showed pneumobilia in central intrahepatic bile ducts, mild stranding around pancreatic head, dilation of pancreatic duct with air pockets. ER staff consulted Dr Chandler Jones general surgery - low concern for emergent surgery to address pancreatic stranding, air in pancreatic ducts given complicated history of pancreatic surgery. ER staff also consulted Dr Mulligan extrusion die template maker for Dr Arcadio Jones pancreas/biliary - chart review revealed pneumobilia is new. Patient has had many ERCP/stents in past, no past hx spincterotomy, past air in dilated pancreatic duct. Low concern for any emergent intervention - were advised to call Dr Carlin Ervin tomorrow 9am for his input ([phone], primarily managed [place]). No acute abnormality on CXR. EKG shows sinus tachyardia with no significant ST-T wave changes. Will continue IV LR after banana bag, protonix IV, IV zofran and use morphine for pain control. Hyponatremia likely multifactorial including excess free water ingestion from beer with no commensurate solute intake and ADH secretion induced by nausea and vomiting. Will continue IV sodium replacement and monitor serum sodium q 4 hours to avoid rapid correction. Hypokalemia likely due to vomiting - will give IV KCL and check Mg+. 2. Alcohol withdrawal - Will implement [facility] librium alcohol withdrawal protocol and do neurochecks. Implement seizure, fall and aspiration precautions. Treat with thiamine and folic acid and monitor electrolytes (Ca,Mg,K,P). Counseled patient about abstaining from alcohol. Will consult correctional casework specialist and refer to alcohol detox upon discharge. Will continue comprehensive care for all of patients comorbid conditions. 3. DVT prophylaxis - Lovenox 40 mg SQ q 24 hours. 4. Advance directives - Full code
[2019-05-13] MEDS ORDERED: LORazepam 1 MG TABLET PO PRN ×2 (00:37→02:47)
[2019-05-13] MEDS ORDERED: FOLIC ACID 1 MG TABLET (FP) PO ONE (00:54)
--- NOTE | 2019-05-13 01:47 | HP ---
CHIEF COMPLAINT: abdominal pain PCP:Dr. Lam HISTORY OF PRESENT ILLNESS: 53 y.o. M PMH chronic pancreatitis 2/2 chronic EtOH abuse, pseudogout, bipolar d /o, depression, cerebellar ataxia, seizure d/o, peripheral neuropathy, Wernicke korsikoff, GERD presenting with 8/10 midepigastric pain radiating to his back. Pain has been present for about 4 days and started as a 2/10 in intensity. The patient says he was visiting family in [place] 4 days ago when he had a fight with his family members- pt booked a flight home early because he was so upset and subsequently started drinking on the plane. He had 2 [place] iced teas on the flight and then had a 6 pack of beers when he got home later that day. He then kept drinking a 6 pack of beer per day however he says he was in so much pain that he could not eat, drink any water, or swallow his medications. Patient has also had severe nausea and NBNB emesis, 6-7 episodes per day for the last 4 days. On ROS denies CP/ SOB/ PIZANO/ fevers/ chills/ diaphoresis/ myalgias/ changes in bowel movements. ER course was notable for: (1) reglan 10mg, zofran 4mg, pepcid 20mg IV (2) fentanyl 50mcg, morphine 2mg, ativan 2mg (3) 1L NS bolus, 1 banana bag, 1L LR; KCl 10mEQ IV Recent Travel: [place] returned 4 days ago PAST MEDICAL HISTORY: as per HPI PAST SURGICAL HISTORY: cholecystectomy, ERCP x 5 pancreatic stent placements Social History: Lives w/ roommates. No great support system. On disability. Smoking:denies Alcohol: says he hasnt drank in 2 years and only started 4d ago d/t family stressors Drugs: Denies Allergies No Known Allergies Allergy (Verified 05/12/19 16:27) HOME MEDICATIONS: Home Medications Medication Instructions Recorded Acamprosate Calcium [Campral -] 333 mg PO BID 08/27/18 Amantadine HCl [Amantadine] 120 mg PO QID 08/27/18 Buspirone HCl 15 mg PO HS 08/27/18 Cyproheptadine [Periactin -] 4 mg PO Q12H 08/27/18 Doxazosin Mesylate [Cardura -] 2 mg PO HS 08/27/18 Ferrous Sulfate [Feosol] 325 mg PO TID 08/27/18 Folic Acid 1 mg PO DAILY 08/27/18 Lamotrigine [LaMICtal -] 100 mg PO HS 08/27/18 Lamotrigine [Lamictal -] 25 mg PO BID 08/27/18 Lipase/Protease/Amylase [Creon Dr 2 each PO BID 08/27/18 36,000 Units Capsule] Ranitidine [Zantac -] 150 mg PO BID 08/27/18 Venlafaxine HCl [Effexor -] 225 mg PO DAILY 08/27/18 Pantoprazole Sodium [Protonix] 40 mg PO DAILY 09/01/18 Ropinirole HCl 0.25 mg PO DAILY 09/01/18 Acetaminophen [Tylenol .Regular 650 mg PO Q4H PRN tablet 09/02/18 Strength -] Metoclopramide HCl Injection 10 mg IVPUSH Q6H PRN vial 09/02/18 [Reglan Injection -] Thiamine HCl [Vitamin B1 -] 100 mg PO DAILY tablet 09/02/18 REVIEW OF SYSTEMS CONSTITUTIONAL: Absent: fever, chills, diaphoresis, generalized weakness, malaise, loss of appetite, weight change HEENT: Absent: rhinorrhea, nasal congestion, throat pain, throat swelling, difficulty swallowing, mouth swelling, ear pain, eye pain, visual changes CARDIOVASCULAR: Absent: chest pain, syncope, palpitations, irregular heart rate, lightheadedness , peripheral edema RESPIRATORY: Absent: cough, shortness of breath, dyspnea with exertion, orthopnea, wheezing, stridor, hemoptysis GASTROINTESTINAL: Absent: abdominal pain, abdominal distension, nausea, vomiting, diarrhea, constipation, melena, hematochezia GENITOURINARY: Absent: dysuria, frequency, urgency, hesitancy, hematuria, flank pain, genital pain MUSCULOSKELETAL: Absent: myalgia, arthralgia, joint swelling, back pain, neck pain SKIN: Absent: rash, itching, pallor HEMATOLOGIC/IMMUNOLOGIC: Absent: easy bleeding, easy bruising, lymphadenopathy, frequent infections ENDOCRINE: Absent: unexplained weight gain, unexplained weight loss, heat intolerance, cold intolerance NEUROLOGIC: Absent: headache, focal weakness or paresthesias, dizziness, unsteady gait, seizure, mental status changes, bladder or bowel incontinence PSYCHIATRIC: Absent: anxiety, depression, suicidal or homicidal ideation, hallucinations. PHYSICAL EXAMINATION Vital Signs - 24 hr 05/12/19 05/12/19 05/12/19 16:21 17:05 21:16 Temperature 98.7 F 98.5 F Pulse Rate 118 H Pulse Rate [ 89 Right Apical] Respiratory 20 Rate Blood Pressure 162/99 Blood Pressure 137/87 [Left Arm] O2 Sat by Pulse 98 99 95 Oximetry (%) GENERAL: AOX3. In mild distress d/t pain. HEENT: NCAT. MMM. No scleral icterus. No conjunctival injection. LUNGS: Breath sounds equal, clear to auscultation bilaterally. No wheezes, and no crackles. No accessory muscle use. HEART: Regular rate and rhythm, normal S1 and S2 without murmur, rub or gallop. ABDOMEN: + tenderness in all quadrants. Soft, not distended, normoactive bowel sounds. No organomegaly. EXTR: 2+ pulses present b/l UE & LE. No LE edema present. NEUROLOGICAL: Cranial nerves II-XII intact. Motor strength 5/5. Sensory intact b/l UE & LE. PSYCHIATRIC: Good mood affect appropriate to stated mood. Denies AVH. Denies suicidal/ homicidal ideations. SKIN: No rashes/ lesions present on skin Laboratory Results - last 24 hr 05/12/19 05/12/19 05/12/19 16:42 16:42 19:30 WBC 10.7 H RBC 5.08 Hgb 13.8 Hct 42.0 D MCV 82.7 MCH 27.2 MCHC 33.0 RDW 17.1 H Plt Count 134 D MPV 8.2 D Absolute Neuts (auto) 8.3 H Neutrophils % 78.3 Lymphocytes % 12.5 Monocytes % 9.1 Eosinophils % 0.0 D Basophils % 0.1 Nucleated RBC % 0 Sodium 125 L Potassium 3.3 L Chloride 88 L Carbon Dioxide 25 Anion Gap 13 BUN 7.3 Creatinine 0.7 Est GFR (CKD-EPI)AfAm 124.00 Est GFR (CKD-EPI)NonAf 106.99 Random Glucose 107 H Serum Osmolality 284 Calcium 9.2 Magnesium 2.0 Total Bilirubin 0.8 AST 52 H ALT 45 Alkaline Phosphatase 42 L Creatine Kinase 284 Creatine Kinase Index CK-MB (CK-2) 2.8 Troponin I < 0.02 Total Protein 7.8 Albumin 3.9 Lipase 135 ASSESSMENT/PLAN: 53 y.o. M PMH chronic pancreatitis 2/2 chronic EtOH abuse, pseudogout, bipolar d /o, depression, cerebellar ataxia, seizure d/o, peripheral neuropathy, Wernicke korsikoff, GERD presenting with abdominal pain. #Acute on chronic pancreatitis -Tachycardic, mild leukocytosis -CT abd/ pel w/ contrast shows pneumobilia within the central intrahepatic bile ducts, mesenteric straing surrounding pancreatic head and fatty liver -Pain controlled w/ morphine -Consulted Dr. Astudillo- no immediate need for surgical intervention at this time -F/u Dr. Betancourt (GI) recs -C/w zofran PRN for nausea -NPO #EtOH withdrawal -S/p 1 banana bag in ED -Thiamine, folic acid supplementation -S/p 2mg ativan in ED -Daily CIWAs (CIWA 6, post- ativan administration) -Librium protocol -Fall precautions, aspiration precautions #Hyponatremia -Patient has been nauseous, vomiting 6-7x/ day -Received 1L bolus NS in ED -Trend BMP q4h to monitor Na #Hypokalemia -Patient has been vomiting -Received 10mEQ KCL IV -Trend BMP -Mg 2.0 #FEN -No standing fluids -Hyponatremic, hypokalemic- repleted -NPO #DVT PPX -LVX 40mg SQ daily Visit type - Emergency Visit Emergency Visit: Yes ED Registration Date: 05/12/19 Care time: The patient presented to the Emergency Department on the above date and was hospitalized for further evaluation of their emergent condition. - New Patient This patient is new to me today: Yes Date on this admission: 05/13/19 - Critical Care Critical Care patient: No ATTENDING PHYSICIAN STATEMENT I saw and evaluated the patient. I reviewed the resident's note and discussed the case with the resident. I agree with the resident's findings and plan as documented. SUBJECTIVE: OBJECTIVE: ASSESSMENT AND PLAN:
[2019-05-13 02:25] LABS: BLOOD UREA NITROGEN 4.4 mg/dL (7-18); CALCIUM 7.9 mg/dL (8.5-10.1); CREATININE 0.6 mg/dL (0.55-1.3); POTASSIUM 3.1 mmol/L (3.5-5.1)
[2019-05-13 03:01] VITALS: BMI 28.5
[2019-05-13] MEDS: MORPHINE SULFATE 2 MG/ML VIAL IM PRN ×2 (03:18→10:23)
[2019-05-13] MEDS: ONDANSETRON 4 MG/2 ML VIAL IVPUSH PRN ×3 (03:19→20:08)
[2019-05-13] MEDS ORDERED: chlordiazePOXIDE HCL 25 MG CAPSULE PO PRN (03:54)
[2019-05-13] MEDS: chlordiazePOXIDE HCL 25 MG CAPSULE PO SCH ×2 (06:13→10:22)
[2019-05-13] MEDS ORDERED: PNEUMOC 13-VAL CONJ-DIP CRM/PF 0.5 ML DISP.SYRIN IM ONE (06:14)
[2019-05-13] MEDS: KCL 10 MEQ IVPB 10 MEQ/100 ML INFUS.BAG IVPB SCH ×3 (09:13→13:41)
[2019-05-13] MEDS: ENOXAPARIN NA (PORCINE) 40 MG/0.4 ML DISP.SYRIN SQ SCH (09:16)
[2019-05-13] MEDS: THIAMINE HCL 200 MG/2 ML VIAL IVPB SCH (09:18)
[2019-05-13] MEDS ORDERED: CALCIUM GLUCONATE 10% - 1,000 MG/10 ML VIAL IVPB ONE (09:29)
[2019-05-13] MEDS ORDERED: PT OWN MED DRAWER 7, Y5N ONE ×2 (10:49→21:36)
[2019-05-13] MEDS ORDERED: FLU VACCINE QUAD 60 MCG/0.5 ML (MDV 19-20) IM ONE (11:00)
[2019-05-13] MEDS ORDERED: PNEUMOCOCCAL 23 VACCINE 0.5 ML VIAL IM ONE (11:00)
[2019-05-13] MEDS ORDERED: chlordiazePOXIDE HCL 10 MG CAPSULE PO PRN (11:36)
[2019-05-13] MEDS ORDERED: MORPHINE SULFATE 2 MG/ML VIAL IVPUSH PRN (11:43)
--- NOTE | 2019-05-13 12:07 | PN ---
Teaching Attending Note Name of Resident: Chidi Avery ATTENDING PHYSICIAN STATEMENT I saw and evaluated the patient. I reviewed the resident's note and discussed the case with the resident. I agree with the resident's findings and plan as documented with exceptions below. SUBJECTIVE: Patient seen and examined. abdominal pain better. Reports binge drinking after returning from [place], 6 packs of beer daily. reports being clean prior to the same for 2 years. Currently abdominal pain better. reports some hunger. OBJECTIVE: Vital Signs Period Temp Pulse Resp BP Sys/Barfield Pulse Ox Last 24 Hr 98.2 F-98.7 F 69-118 20-22 130-162/86-99 95-99 Intake & Output 05/10/19 05/11/19 05/12/19 05/13/19 23:59 23:59 23:59 23:59 Intake Total 2100 10 Balance 2099 10 Weight 175 lb 177 lb General: sitting in bed in no acute distress Neck: soft, supple Chest: CTAb, no rales or wheezing Abdomen:Soft, RMQ paraumbilical, epigastric and minimal LUQ tenderness, no voluntary or involuntary guarding or rigidity, obese, pos bowel sounds Extremities: no edema Home Medications Medication Instructions Recorded Acamprosate Calcium [Campral -] 333 mg PO BID 08/27/18 Amantadine HCl [Amantadine] 120 mg PO QID 08/27/18 Buspirone HCl 15 mg PO HS 08/27/18 Cyproheptadine [Periactin -] 4 mg PO Q12H 08/27/18 Doxazosin Mesylate [Cardura -] 2 mg PO HS 08/27/18 Ferrous Sulfate [Feosol] 325 mg PO TID 08/27/18 Folic Acid 1 mg PO DAILY 08/27/18 Lamotrigine [LaMICtal -] 100 mg PO HS 08/27/18 Lamotrigine [Lamictal -] 25 mg PO BID 08/27/18 Lipase/Protease/Amylase [Creon Dr 2 each PO BID 08/27/18 36,000 Units Capsule] Ranitidine [Zantac -] 150 mg PO BID 08/27/18 Venlafaxine HCl [Effexor -] 225 mg PO DAILY 08/27/18 Pantoprazole Sodium [Protonix] 40 mg PO DAILY 09/01/18 Ropinirole HCl 0.25 mg PO DAILY 09/01/18 Acetaminophen [Tylenol .Regular 650 mg PO Q4H PRN tablet 09/02/18 Strength -] Metoclopramide HCl Injection 10 mg IVPUSH Q6H PRN vial 09/02/18 [Reglan Injection -] Thiamine HCl [Vitamin B1 -] 100 mg PO DAILY tablet 09/02/18 Active Medications Chlordiazepoxide HCl (Librium -) 10 mg PO Q4H PRN PRN Reason: WITHDRAWAL(CONT SUBST) Stop: 05/16/19 00:00 Enoxaparin Sodium (Lovenox -) 40 mg SQ DAILY [facility] Last Admin: 05/13/19 09:16 Dose: 40 mg Lamotrigine (Lamictal -) 25 mg PO BID [facility] Morphine Sulfate (Morphine Sulfate) 2 mg IVPUSH Q4H PRN PRN Reason: PAIN LEVEL 6-10 Ondansetron HCl (Zofran Injection) 4 mg IVPUSH Q4H PRN PRN Reason: NAUSEA AND/OR VOMITING Last Admin: 05/13/19 10:26 Dose: 4 mg Thiamine HCl (Vitamin B1 Injection -) 200 mg IVPB DAILY [facility] Last Admin: 05/13/19 09:18 Dose: 200 mg Laboratory Results - last 24 hr 05/12/19 05/12/19 05/12/19 16:42 16:42 19:30 WBC 10.7 H RBC 5.08 Hgb 13.8 Hct 42.0 D MCV 82.7 MCH 27.2 MCHC 33.0 RDW 17.1 H Plt Count 134 D MPV 8.2 D Absolute Neuts (auto) 8.3 H Neutrophils % 78.3 Lymphocytes % 12.5 Monocytes % 9.1 Eosinophils % 0.0 D Basophils % 0.1 Nucleated RBC % 0 PT with INR INR Sodium 125 L Potassium 3.3 L Chloride 88 L Carbon Dioxide 25 Anion Gap 13 BUN 7.3 Creatinine 0.7 Est GFR (CKD-EPI)AfAm 124.00 Est GFR (CKD-EPI)NonAf 106.99 Random Glucose 107 H Serum Osmolality 284 Calcium 9.2 Magnesium 2.0 Total Bilirubin 0.8 AST 52 H ALT 45 Alkaline Phosphatase 42 L Creatine Kinase 284 Creatine Kinase Index CK-MB (CK-2) 2.8 Troponin I < 0.02 Total Protein 7.8 Albumin 3.9 Lipase 135 05/13/19 05/13/19 01:50 12:30 WBC RBC Hgb Hct MCV MCH MCHC RDW Plt Count MPV Absolute Neuts (auto) Neutrophils % Lymphocytes % Monocytes % Eosinophils % Basophils % Nucleated RBC % PT with INR 12.90 INR 1.09 Sodium 138 Potassium 3.1 L Chloride 101 Carbon Dioxide 28 Anion Gap 9 BUN 4.4 L Creatinine 0.6 Est GFR (CKD-EPI)AfAm 132.11 Est GFR (CKD-EPI)NonAf 113.99 Random Glucose 100 Serum Osmolality Calcium 7.9 L Magnesium Total Bilirubin AST ALT Alkaline Phosphatase Creatine Kinase Creatine Kinase Index CK-MB (CK-2) Troponin I Total Protein Albumin Lipase CT A/P results reviewed ASSESSMENT AND PLAN: 52 yo M w/ PMHx of cerebellar ataxia, peripheral neuropathy, GERD, chronic pancreatitis, 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), bipolar disorder, vertigo, seizure disorder and depression, h/o biliary stent, S/p ?removal in 2018 at [facility] admitted with epigastric pain in the setting of alcohol binge -Acute on chronic pancreatitis, likely alcoholic -ETOH abuse/Binge, denies dependence -HYponatremia, suspect from hypovolumia with beer binge/lack of solute -Pancreatic ductal dilatation/Pneumobilia intrahepatic biliary duct -reported Biliary stent removal 08/2018 -Cerebellar ataxia -Peripheral neuropathy -GERD -Chronic pancreatitis -Wernicke/Korsakoff syndrome -Bipolar disorder -Seizure disorder -Depression Plan: Clinically improved, na stable. Start D5-1/2 NS with K. GI input/surgery input. Pain control Folate/thiamine. patient reports ETOH binge, but no dependence and being abstinent for last 2 years. Currently with no concerns for ETOH withdrawal. Place on librium prn. Will initiate detox protocol if withdrawal concerns noted inhouse. Seizure precautions, lamotrigine. DVTPPX lovenox Dispo pending clinical improvement. Discussed with patient.
[2019-05-13 12:57] LABS: INR 1.09 (0.83-1.09); PROTHROMBIN TIME (PATIENT) 12.9 SEC (9.7-13.0)
[2019-05-13 13:07] LABS: ALBUMIN 3.2 g/dl (3.4-5.0); BILIRUBIN,TOTAL 0.7 mg/dL (0.2-1); BLOOD UREA NITROGEN 5.3 mg/dL (7-18); CALCIUM 8.2 mg/dL (8.5-10.1); CREATININE 0.7 mg/dL (0.55-1.3); POTASSIUM 3.3 mmol/L (3.5-5.1); TOT PROT 6.4 g/dl (6.4-8.2)
[2019-05-13] MEDS: lamoTRIgine 25 MG TABLET PO SCH ×2 (13:43→22:04)
[2019-05-13] MEDS: FOLIC ACID 1 MG TABLET (FP) PO SCH (13:44)
--- NOTE | 2019-05-13 14:12 | EKG ---
Test Reason : Blood Pressure : / mmHG Vent. Rate : 106 BPM Atrial Rate : 106 BPM P-R Int : 144 ms QRS Dur : 076 ms QT Int : 332 ms P-R-T Axes : 043 023 049 degrees QTc Int : 441 ms POOR DATA QUALITY, INTERPRETATION MAY BE ADVERSELY AFFECTED SINUS TACHYCARDIA WHEN COMPARED WITH ECG OF 28-AUG-2018 07:01, NO SIGNIFICANT CHANGE WAS FOUND Confirmed by JOANNA HURTADO MD ([id number]) on 05/13/2019 2:12:17 PM Referred By: Confirmed By:JOANNA HURTADO MD
--- NOTE | 2019-05-13 14:27 | CON.GI ---
Consult Consult Specialty:: Gastroenterology Referred by:: Dr Josef Farias Reason for Consultation:: Pancreatitis - History of Present Illness Chief Complaint: abdominal pain History of Present Illness: 53M developed epigastric pain and vomiting after starting a alcohol binge of drinking a six pack of beer daily. He tells me that he returned from a tumultuous trip to meet with family in [place] to discuss a will which he had to terminate abruptly. He fell into depression and chose alcohol as a means by which to cope. He is bipolar and has chronic depression for which he is disabled. He has abused alcohol since the age of 12 but tells me that he has never developed alcoholic liver disease. He has a h/o chronic alcoholic pancreatitis and had been undergoing serial pancreatic stent insertions with my associate Dr Bteancourt. He had a metallic stent with Dr Ervin at [facility] after which his pancreatic duct was reported as being dilated enough that he would not require further stenting. He has been hospitalized at [facility] for pancreatitis x 3 within the past year since that stent was removed. He has had pseudocysts in the past. He denies any episodes of biliary pancreatitis but did have a lap choly. He reports that he has had several EGDs and colonoscopies with Dr Betancourt which were normal. The last colonoscopy was in 2017. 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, Seizure, Other (Cerebellar ataxia) Cardio/Vascular: Yes: HTN Gastrointestinal: Yes: GERD, Pancreatitis (acute and chronic alcoholic pancreatitis, s/p multiple PD stenting) Psych: Yes: Addictions (alcohol), Bipolar, Depression - Past Surgical History Past Surgical History: Yes: Cholecystectomy (laparoscopic), Colonoscopy, Upper Endoscopy - Alcohol/Substance Use Hx Alcohol Use: Yes (6 pack beer daily) History of Substance Use: reports: None - Smoking History Smoking history: Never smoked Have you smoked in the past 12 months: No - Social History Usual Living Arrangement: Alone ADL: Independent 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 Place of : [employer] History of Recent Travel: No Home Medications - Allergies Allergies/Adverse Reactions: Allergies Allergy/AdvReac Type Severity Reaction Status Date / Time No Known Allergies Allergy Verified 05/12/19 16:27 - Home Medications Home Medications: Ambulatory Orders Acamprosate Calcium [Campral -] 333 mg PO BID 08/27/18 Amantadine HCl [Amantadine] 120 mg PO QID 08/27/18 Buspirone HCl 15 mg PO HS 08/27/18 Cyproheptadine [Periactin -] 4 mg PO Q12H 08/27/18 Doxazosin Mesylate [Cardura -] 2 mg PO HS 08/27/18 Ferrous Sulfate [Feosol] 325 mg PO TID 08/27/18 Folic Acid 1 mg PO DAILY 08/27/18 Lamotrigine [LaMICtal -] 100 mg PO HS 08/27/18 Lamotrigine [Lamictal -] 25 mg PO BID 08/27/18 Lipase/Protease/Amylase [Creon Dr 36,000 Units Capsule] 2 each PO BID 08/27/18 Ranitidine [Zantac -] 150 mg PO BID 08/27/18 Venlafaxine HCl [Effexor -] 225 mg PO DAILY 08/27/18 Pantoprazole Sodium [Protonix] 40 mg PO DAILY 09/01/18 Ropinirole HCl 0.25 mg PO DAILY 09/01/18 Acetaminophen [Tylenol .Regular Strength -] 650 mg PO Q4H PRN tablet 09/02/18 Metoclopramide HCl Injection [Reglan Injection -] 10 mg IVPUSH Q6H PRN vial Thiamine HCl [Vitamin B1 -] 100 mg PO DAILY tablet 09/02/18 Family Medical History Other Family History: adopted Review of Systems - Review of Systems Constitutional: reports: No Symptoms Eyes: reports: No Symptoms HENT: reports: No Symptoms Neck: reports: No Symptoms Cardiovascular: reports: No Symptoms Respiratory: reports: No Symptoms Gastrointestinal: reports: Abdominal Pain, Vomiting Genitourinary: reports: No Symptoms Musculoskeletal: reports: No Symptoms Psychiatric: reports: Anxiety, Depression Physical Exam-GI Vital Signs: Vital Signs Temperature 97.8 F 05/13/19 13:45 Pulse Rate 96 H 05/13/19 13:45 Respiratory Rate 18 05/13/19 13:45 Blood Pressure 134/86 05/13/19 13:45 O2 Sat by Pulse Oximetry (%) 96 05/13/19 03:01 CBC,CMP WBC 10.7 K/mm3 (4.0-10.0) H 05/12/19 16:42 RBC 5.08 M/mm3 (4.00-5.60) 05/12/19 16:42 Hgb 13.8 GM/dL (11.7-16.9) 05/12/19 16:42 Hct 42.0 % (35.4-49) D 05/12/19 16:42 MCV 82.7 fl (80-96) 05/12/19 16:42 MCH 27.2 pg (25.7-33.7) 05/12/19 16:42 MCHC 33.0 g/dl (32.0-35.9) 05/12/19 16:42 RDW 17.1 % (11.9-15.9) H 05/12/19 16:42 Plt Count 134 K/MM3 (134-434) D 05/12/19 16:42 MPV 8.2 fl (7.5-11.1) D 05/12/19 16:42 Absolute Neuts (auto) 8.3 K/mm3 (1.5-8.0) H 05/12/19 16:42 Neutrophils % 78.3 % (42.8-82.8) 05/12/19 16:42 Lymphocytes % 12.5 % (8-40) 05/12/19 16:42 Monocytes % 9.1 % (3.8-10.2) 05/12/19 16:42 Eosinophils % 0.0 % (0-4.5) D 05/12/19 16:42 Basophils % 0.1 % (0-2.0) 05/12/19 16:42 Nucleated RBC % 0 % (0-0) 05/12/19 16:42 Sodium 137 mmol/L (136-145) 05/13/19 12:30 Potassium 3.3 mmol/L (3.5-5.1) L 05/13/19 12:30 Chloride 98 mmol/L (98-107) 05/13/19 12:30 Carbon Dioxide 31 mmol/L (21-32) 05/13/19 12:30 Anion Gap 8 MMOL/L (8-16) 05/13/19 12:30 BUN 5.3 mg/dL (7-18) L 05/13/19 12:30 Creatinine 0.7 mg/dL (0.55-1.3) 05/13/19 12:30 Est GFR (CKD-EPI)AfAm 124.00 05/13/19 12:30 Est GFR (CKD-EPI)NonAf 106.99 05/13/19 12:30 Random Glucose 86 mg/dL (74-106) 05/13/19 12:30 Serum Osmolality 284 mosm/kg (278-305) 05/12/19 19:30 Calcium 8.2 mg/dL (8.5-10.1) L 05/13/19 12:30 Magnesium 2.0 mg/dL (1.8-2.4) 05/12/19 16:42 Total Bilirubin 0.7 mg/dL (0.2-1) 05/13/19 12:30 AST 33 U/L (15-37) 05/13/19 12:30 ALT 35 U/L (13-61) 05/13/19 12:30 Alkaline Phosphatase 35 U/L (45-117) L 05/13/19 12:30 Creatine Kinase 284 U/L (26-308) 05/12/19 16:42 Creatine Kinase Index % (0.0-5.0) 05/12/19 16:42 CK-MB (CK-2) 2.8 ng/mL (0.5-3.6) 05/12/19 19:30 Troponin I < 0.02 ng/ml (0.00-0.05) 05/12/19 16:42 Total Protein 6.4 g/dl (6.4-8.2) 05/13/19 12:30 Albumin 3.2 g/dl (3.4-5.0) L 05/13/19 12:30 Lipase 135 U/L (73-393) 05/12/19 16:42 Current Medications Generic Name Dose Route Start Last Admin Trade Name Freq PRN Reason Stop Dose Admin Chlordiazepoxide HCl 10 mg 05/13/19 11:36 Librium - PO 05/16/19 00:00 Q4H PRN WITHDRAWAL(CONT SUBST) Enoxaparin Sodium 40 mg 05/13/19 10:00 05/13/19 09:16 Lovenox - SQ 40 mg DAILY UJ[facility] Administration Folic Acid 1 mg 05/13/19 13:15 05/13/19 13:44 Folic Acid - PO 1 mg DAILY JUNE Administration Potassium Chloride/Dextrose/Sod Cl 20 meq in 1,000 mls @ 100 mls/hr 05/13/19 13:15 D5-1/2ns+20 Meq Kcl - IV ASDIR JUNE Lamotrigine 25 mg 05/13/19 11:45 05/13/19 13:43 Lamictal - PO 25 mg BID JUNE Administration Morphine Sulfate 2 mg 05/13/19 11:43 Morphine Sulfate IVPUSH Q4H PRN PAIN LEVEL 6-10 Ondansetron HCl 4 mg 05/13/19 02:48 05/13/19 10:26 Zofran Injection IVPUSH 4 mg Q4H PRN Administration NAUSEA AND/OR VOMITING Pantoprazole Sodium 40 mg 05/13/19 13:15 Protonix Iv IVPUSH DAILY JUNE Thiamine HCl 200 mg 05/13/19 10:00 05/13/19 09:18 Vitamin B1 Injection - IVPB 200 mg DAILY JUNE Administration Constitutional: Yes: Anxious Eyes: Yes: Conjunctiva Clear HENT: Yes: Atraumatic Neck: Yes: Supple Cardiovascular: Yes: Regular Rate and Rhythm Respiratory: Yes: CTA Bilaterally Gastrointestinal Inspection: Yes: Scars (healed lap choly incisions) ...Auscultate: Yes: Normoactive Bowel Sounds ...Palpate: Yes: Soft, Other (nontender) ...Rectal Exam: Yes: Guaiac Negative (1+ prostate, brown g negative stool) Edema: No Peripheral Pulses WNL: Yes Neurological: Yes: Alert, Oriented Labs: CBC, BMP 05/12/19 16:42 05/13/19 12:30 INR, PTT INR 1.09 (0.83-1.09) 05/13/19 12:30 Laboratory Tests 05/12/19 05/13/19 16:42 12:30 Total Bilirubin 0.8 0.7 AST 52 H 33 ALT 45 35 Alkaline Phosphatase 42 L 35 L Lipase 135 Problem List - Problems (1) Chronic alcoholic pancreatitis Code(s): K86.0 - ALCOHOL-INDUCED CHRONIC PANCREATITIS (2) History of cholecystectomy Code(s): Z90.49 - ACQUIRED ABSENCE OF OTHER SPECIFIED PARTS OF DIGESTIVE TRACT (3) Abdominal pain Code(s): R10.9 - UNSPECIFIED ABDOMINAL PAIN Qualifiers: Abdominal location: upper abdomen, unspecified Qualified Code(s): R10.10 - Upper abdominal pain, unspecified (4) Hyponatremia Code(s): E87.1 - HYPO-OSMOLALITY AND HYPONATREMIA (5) Pneumobilia Code(s): K83.8 - OTHER SPECIFIED DISEASES OF BILIARY TRACT (6) Alcohol dependence with withdrawal Code(s): F10.239 - ALCOHOL DEPENDENCE WITH WITHDRAWAL, UNSPECIFIED (7) Ataxia Code(s): R27.0 - ATAXIA, UNSPECIFIED (8) Bipolar 1 disorder Code(s): F31.9 - BIPOLAR DISORDER, UNSPECIFIED (9) Depression Code(s): F32.9 - MAJOR DEPRESSIVE DISORDER, SINGLE EPISODE, UNSPECIFIED (10) HTN (hypertension) Code(s): I10 - ESSENTIAL (PRIMARY) HYPERTENSION (11) Seizure Code(s): R56.9 - UNSPECIFIED CONVULSIONS Assessment/Plan Assessment: - No imaging or chemical evidence of pancreatitis. Given the rapid resolution of symptoms I suspect that he has alcoholic gastritis rather than pancreatitis - Alcohol abuse. No signs of withdrawal at this point but must be watched. He did have a seizure in the past. Plan: - Clear liquids. Can advance diet as tolerated - If diet is tolerated can discharge. - Should be referred for alcoholism counseling. He has already attended many of these and can help to choose a site - He will followup with Dr Ervin at [facility] Dr Darline Call will be covering this weekend.
--- NOTE | 2019-05-13 14:45 | CONSULT ---
- Consultation REQUESTING PROVIDER: CONSULT REQUEST: We have been asked to surgically evaluate this patient for pancreatitis PCP:Khurram Jung MD HISTORY OF PRESENT ILLNESS: 53yo M presented to the ED with complaints abd pain with n/v x 4 days after "going on a 4 day alcohol dixon". Pt was found to have pancreatitis on CT scan. Pt has had multiple episodes of pancreatitis in the past, last episode was 6 months ago. Pt describes epigastric pain radiating to the back, but is improved with morphine. PMHx: Bipolar disorder, Depression, seizure disorder, etoh abuse, GERD PSHx: Cholecystectomy 2013 Home Medications Medication Instructions Recorded Acamprosate Calcium [Campral -] 333 mg PO BID 08/27/18 Amantadine HCl [Amantadine] 120 mg PO QID 08/27/18 Buspirone HCl 15 mg PO HS 08/27/18 Cyproheptadine [Periactin -] 4 mg PO Q12H 08/27/18 Doxazosin Mesylate [Cardura -] 2 mg PO HS 08/27/18 Ferrous Sulfate [Feosol] 325 mg PO TID 08/27/18 Folic Acid 1 mg PO DAILY 08/27/18 Lamotrigine [LaMICtal -] 100 mg PO HS 08/27/18 Lamotrigine [Lamictal -] 25 mg PO BID 08/27/18 Lipase/Protease/Amylase [Creon Dr 2 each PO BID 08/27/18 36,000 Units Capsule] Ranitidine [Zantac -] 150 mg PO BID 08/27/18 Venlafaxine HCl [Effexor -] 225 mg PO DAILY 08/27/18 Pantoprazole Sodium [Protonix] 40 mg PO DAILY 09/01/18 Ropinirole HCl 0.25 mg PO DAILY 09/01/18 Acetaminophen [Tylenol .Regular 650 mg PO Q4H PRN tablet 09/02/18 Strength -] Metoclopramide HCl Injection 10 mg IVPUSH Q6H PRN vial 09/02/18 [Reglan Injection -] Thiamine HCl [Vitamin B1 -] 100 mg PO DAILY tablet 09/02/18 Allergies Allergy/AdvReac Type Severity Reaction Status Date / Time No Known Allergies Allergy Verified 05/12/19 16:27 REVIEW OF SYSTEMS: CONSTITUTIONAL: Absent: fever, chills, diaphoresis, generalized weakness, malaise, loss of appetite, weight change CARDIOVASCULAR: Absent: chest pain, syncope, palpitations, irregular heart rate, lightheadedness , peripheral edema RESPIRATORY: Absent: cough, shortness of breath, dyspnea with exertion, wheezing, stridor, hemoptysis GASTROINTESTINAL: Absent: vomiting, diarrhea, constipation, melena, hematochezia PHYSICAL EXAM: GENERAL: Awake, alert, and fully oriented, in no acute distress. HEAD: Normal with no signs of trauma. EYES: PERRL, sclera anicteric, conjunctiva clear. NECK: Normal ROM ABDOMEN: Soft, nontender, not distended, normoactive bowel sounds, no guarding, no rebound, no masses. No organomegaly. NEUROLOGICAL: Normal speech, gait not observed. PSYCH: Cooperative. Good eye contact. Appropriate mood and affect. SKIN: Warm, dry, normal turgor, no rashes or lesions noted. Vital Signs Temperature 97.8 F 05/13/19 13:45 Pulse Rate 96 H 05/13/19 13:45 Respiratory Rate 18 05/13/19 13:45 Blood Pressure 134/86 05/13/19 13:45 O2 Sat by Pulse Oximetry (%) 96 05/13/19 03:01 Lab Results WBC 10.7 K/mm3 (4.0-10.0) H 05/12/19 16:42 RBC 5.08 M/mm3 (4.00-5.60) 05/12/19 16:42 Hgb 13.8 GM/dL (11.7-16.9) 05/12/19 16:42 Hct 42.0 % (35.4-49) D 05/12/19 16:42 MCV 82.7 fl (80-96) 05/12/19 16:42 MCHC 33.0 g/dl (32.0-35.9) 05/12/19 16:42 RDW 17.1 % (11.9-15.9) H 05/12/19 16:42 Plt Count 134 K/MM3 (134-434) D 05/12/19 16:42 Sodium 137 mmol/L (136-145) 05/13/19 12:30 Potassium 3.3 mmol/L (3.5-5.1) L 05/13/19 12:30 Chloride 98 mmol/L (98-107) 05/13/19 12:30 Carbon Dioxide 31 mmol/L (21-32) 05/13/19 12:30 Anion Gap 8 MMOL/L (8-16) 05/13/19 12:30 BUN 5.3 mg/dL (7-18) L 05/13/19 12:30 Creatinine 0.7 mg/dL (0.55-1.3) 05/13/19 12:30 Random Glucose 86 mg/dL (74-106) 05/13/19 12:30 Calcium 8.2 mg/dL (8.5-10.1) L 05/13/19 12:30 INR 1.09 (0.83-1.09) 05/13/19 12:30 A/P: Acute on chronic pancreatitis -no acute surgical intervention at this time. -medical management with IVF, NPO -GI consult Please contact surgical team if any changes.
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
[2019-05-13] MEDS ORDERED: ACETAMINOPHEN 325 MG TABLET (FP) PO PRN (15:10)
[2019-05-13] MEDS: PANTOPRAZOLE SODIUM 40 MG VIAL IVPUSH SCH (15:18)
[2019-05-13 15:55] LABS: URINE APPEARANCE CLEAR; URINE BILIRUBIN NEGATIVE (NEGATIVE); URINE COLOR YELLOW; URINE GLUCOSE (UA) NEGATIVE (NEGATIVE); URINE KETONE TRACE (NEGATIVE); URINE LEUK ESTERASE NEGATIVE (NEGATIVE); URINE NITRITE NEGATIVE (NEGATIVE); URINE PROTEIN NEGATIVE (NEGATIVE); URINE UROBILINOGEN 0.2 mg/dL (0.2-1.0)
[2019-05-13] MEDS: D5-1/2NS+20 MEQ KCL - 20 MEQ/1,000 ML INFUS.BAG IV SCH (17:10)
[2019-05-13 17:24] LABS: BLOOD UREA NITROGEN 5.3 mg/dL (7-18); CALCIUM 8.5 mg/dL (8.5-10.1); CREATININE 0.7 mg/dL (0.55-1.3); POTASSIUM 3.4 mmol/L (3.5-5.1)
[2019-05-13] MEDS ORDERED: chlordiazePOXIDE 5 MG CAPSULE ONE (20:06)
[2019-05-13] MEDS ORDERED: MORPHINE SULFATE 2 MG/ML VIAL IVPUSH ONE (22:11)
[2019-05-14] MEDS ORDERED: chlordiazePOXIDE HCL 25 MG CAPSULE PO SCH (05:00)
[2019-05-14] MEDS ORDERED: PT OWN MED DRAWER 7, Y5N ONE ×3 (06:25→10:02)
[2019-05-14 07:13] LABS: HEMOGLOBIN 13.3 GM/dL (11.7-16.9); MCHC 33.2 g/dl (32.0-35.9); MEAN CELL VOLUME 84.4 fl (80-96); MEAN PLT VOLUME 8.4 fl (7.5-11.1); PLATELET COUNT 105 K/MM3 (134-434); RBC 4.74 M/mm3 (4.00-5.60); RDW 17.1 % (11.9-15.9); WHITE BLOOD COUNT 4.6 K/mm3 (4.0-10.0)
[2019-05-14 07:44] LABS: ALBUMIN 3.3 g/dl (3.4-5.0); BILIRUBIN,TOTAL 0.8 mg/dL (0.2-1); BLOOD UREA NITROGEN 5.6 mg/dL (7-18); CALCIUM 8.5 mg/dL (8.5-10.1); CREATININE 0.7 mg/dL (0.55-1.3); MAGNESIUM 1.9 mg/dL (1.8-2.4); TOT PROT 6.7 g/dl (6.4-8.2)
--- NOTE | 2019-05-14 09:43 | PN ---
Physical Exam: SUBJECTIVE: Patient seen and examined, abdominal pain improved, did well with clears, want to have solid food. OBJECTIVE: Vital Signs Period Temp Pulse Resp BP Sys/Barfield Pulse Ox Last 24 Hr 97.8 F-98.5 F 69-96 18-20 115-136/83-93 99 Intake & Output 05/11/19 05/12/19 05/13/19 05/14/19 23:59 23:59 23:59 23:59 Intake Total 2100 460 1000 Output Total 1400 Balance 2100 -940 1000 Weight 175 lb 177 lb General: sitting in bed in no acute distress Neck: soft, supple CVS: S1S2 regular Chest: CTAb, no rales or wheezing Abdomen:Soft, non tender currently, non distended, no voluntary or involuntary guarding or rigidity, pos bowel sounds Extremities: no edema Psych: pleasant, co-operative Laboratory Results - last 24 hr 05/13/19 05/13/19 05/13/19 12:30 12:30 15:30 WBC RBC Hgb Hct MCV MCH MCHC RDW Plt Count MPV PT with INR 12.90 INR 1.09 Sodium 137 Potassium 3.3 L Chloride 98 Carbon Dioxide 31 Anion Gap 8 BUN 5.3 L Creatinine 0.7 Est GFR (CKD-EPI)AfAm 124.00 Est GFR (CKD-EPI)NonAf 106.99 Random Glucose 86 Calcium 8.2 L Phosphorus Magnesium Total Bilirubin 0.7 AST 33 ALT 35 Alkaline Phosphatase 35 L C-Reactive Protein Total Protein 6.4 Albumin 3.2 L Total Amylase Urine Color Yellow Urine Appearance Clear Urine pH 8.0 Ur Specific [place] 1.009 L Urine Protein Negative Urine Glucose (UA) Negative Urine Ketones Trace H Urine Blood Negative Urine Nitrite Negative Urine Bilirubin Negative Urine Urobilinogen 0.2 Ur Leukocyte Esterase Negative 05/13/19 05/14/19 05/14/19 16:00 06:15 06:15 WBC 4.6 RBC 4.74 Hgb 13.3 Hct 40.0 MCV 84.4 MCH 28.0 MCHC 33.2 RDW 17.1 H Plt Count 105 L D MPV 8.4 PT with INR INR Sodium 136 138 Potassium 3.4 L 3.0 L Chloride 98 100 Carbon Dioxide 31 29 Anion Gap 6 L 8 BUN 5.3 L 5.6 L Creatinine 0.7 0.7 Est GFR (CKD-EPI)AfAm 124.00 124.00 Est GFR (CKD-EPI)NonAf 106.99 106.99 Random Glucose 81 89 Calcium 8.5 8.5 Phosphorus 3.0 Magnesium 1.9 Total Bilirubin 0.8 AST 32 ALT 38 Alkaline Phosphatase 36 L C-Reactive Protein Total Protein 6.7 Albumin 3.3 L Total Amylase Urine Color Urine Appearance Urine pH Ur Specific [place] Urine Protein Urine Glucose (UA) Urine Ketones Urine Blood Urine Nitrite Urine Bilirubin Urine Urobilinogen Ur Leukocyte Esterase 05/14/19 06:15 WBC RBC Hgb Hct MCV MCH MCHC RDW Plt Count MPV PT with INR INR Sodium Potassium Chloride Carbon Dioxide Anion Gap BUN Creatinine Est GFR (CKD-EPI)AfAm Est GFR (CKD-EPI)NonAf Random Glucose Calcium Phosphorus Magnesium Total Bilirubin AST ALT Alkaline Phosphatase C-Reactive Protein 2.5 H Total Protein Albumin Total Amylase 59 Urine Color Urine Appearance Urine pH Ur Specific [place] Urine Protein Urine Glucose (UA) Urine Ketones Urine Blood Urine Nitrite Urine Bilirubin Urine Urobilinogen Ur Leukocyte Esterase Active Medications Generic Name Dose Route Start Last Admin Trade Name Freq PRN Reason Stop Dose Admin Acetaminophen 650 mg 05/13/19 15:10 05/13/19 20:08 Tylenol - PO 650 mg Q6H PRN Administration PAIN Chlordiazepoxide HCl 10 mg 05/13/19 11:36 05/13/19 20:09 Librium - PO 05/16/19 00:00 10 mg Q4H PRN Administration WITHDRAWAL(CONT SUBST) Enoxaparin Sodium 40 mg 05/13/19 10:00 05/13/19 09:16 Lovenox - SQ 40 mg DAILY JUNE Administration Folic Acid 1 mg 05/13/19 13:15 05/13/19 13:44 Folic Acid - PO 1 mg DAILY JUNE Administration Potassium Chloride/Dextrose/Sod Cl 20 meq in 1,000 mls @ 100 mls/hr 05/13/19 13:15 05/13/19 17:10 D5-1/2ns+20 Meq Kcl - IV 100 mls/hr ASDIR JUNE Administration Lamotrigine 25 mg 05/13/19 11:45 05/13/19 22:04 Lamictal - PO 25 mg BID JUNE Administration Ondansetron HCl 4 mg 05/13/19 02:48 05/13/19 20:08 Zofran Injection IVPUSH 4 mg Q4H PRN Administration NAUSEA AND/OR VOMITING Pantoprazole Sodium 40 mg 05/13/19 13:15 05/13/19 15:18 Protonix Iv IVPUSH 40 mg DAILY JUNE Administration Potassium Chloride 40 meq 05/14/19 09:38 K-Dur - PO 05/14/19 09:39 ONCE ONE Potassium Chloride 40 meq 05/14/19 12:00 K-Dur - PO 05/14/19 12:01 ONCE ONE Thiamine HCl 200 mg 05/13/19 10:00 05/13/19 09:18 Vitamin B1 Injection - IVPB 200 mg DAILY JUNE Administration ASSESSMENT/PLAN: 52 yo M w/ PMHx of cerebellar ataxia, peripheral neuropathy, GERD, chronic pancreatitis, 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), bipolar disorder, vertigo, seizure disorder and depression, h/o biliary stent, S/p ?removal in 2018 at [facility] admitted with epigastric pain in the setting of alcohol binge -Acute on chronic pancreatitis, likely alcoholic -ETOH abuse/Binge, denies dependence -HYponatremia, suspect from hypovolumia with beer binge/lack of solute -Hypokalemia -Pancreatic ductal dilatation/Pneumobilia intrahepatic biliary duct -Reported Biliary stent removal 08/2018 -Cerebellar ataxia -Peripheral neuropathy -GERD -Chronic pancreatitis -Wernicke/Korsakoff syndrome -Bipolar disorder -Seizure disorder -Depression Plan: Clinically improved, na stable. GI input/surgery input noted Advance to solid diet. Off morphine. No concerns for withdrawal. Dc prn librium Replete K. ETOH cessation counseling provided, patients reports having resources in the community and follow up with the same. Seizure precautions, lamotrigine. DVTPPX lovenox Dispo dc later today if tolerating diet well and no new concerns. Discussed with patient and nursing. Visit type - Emergency Visit Emergency Visit: Yes ED Registration Date: 05/12/19 Care time: The patient presented to the Emergency Department on the above date and was hospitalized for further evaluation of their emergent condition. - New Patient This patient is new to me today: No - Critical Care Critical Care patient: No - Discharge Referral Referred to [facility] Med P.C.: No
[2019-05-14] MEDS ORDERED: POTASSIUM CHLORIDE TABS 20 MEQ TABLET.ER (FP) PO ONE ×2 (09:45→14:00)
[2019-05-14] MEDS: THIAMINE HCL 200 MG/2 ML VIAL IVPB SCH (09:54)
[2019-05-14] MEDS: ENOXAPARIN NA (PORCINE) 40 MG/0.4 ML DISP.SYRIN SQ SCH (09:54)
[2019-05-14] MEDS: lamoTRIgine 25 MG TABLET PO SCH (09:55)
[2019-05-14] MEDS: FOLIC ACID 1 MG TABLET (FP) PO SCH (09:55)
[2019-05-14] MEDS: D5-1/2NS+20 MEQ KCL - 20 MEQ/1,000 ML INFUS.BAG IV SCH ×2 (09:56→13:36)
[2019-05-14] MEDS: PANTOPRAZOLE SODIUM 40 MG VIAL IVPUSH SCH (09:56)
[2019-05-14 13:11] VITALS: BP 137/74; PULSE 85; TEMP 98
--- NOTE | 2019-05-14 14:41 | DS ---
Physical Exam: SUBJECTIVE: Patient seen and examined, tolerating diet well, no abdominal pain or concerns overnight. OBJECTIVE: Vital Signs Period Temp Pulse Resp BP Sys/Barfield Pulse Ox Last 24 Hr 97.8 F-98.1 F 70-85 18-20 115-137/74-93 95-99 Intake & Output 05/11/19 05/12/19 05/13/19 05/14/19 23:59 23:59 23:59 23:59 Intake Total 2100 460 1240 Output Total 1400 Balance 2100 -940 1240 Weight 175 lb 177 lb PHYSICAL EXAM General: sitting in bed in no acute distress Neck: soft, supple CVS: S1S2 regular Chest: CTAb, no rales or wheezing Abdomen:Soft, non tender currently, non distended, no voluntary or involuntary guarding or rigidity, pos bowel sounds Extremities: no edema Psych: pleasant, co-operative LABS Laboratory Results - last 24 hr 05/13/19 05/13/19 05/14/19 15:30 16:00 06:15 WBC 4.6 RBC 4.74 Hgb 13.3 Hct 40.0 MCV 84.4 MCH 28.0 MCHC 33.2 RDW 17.1 H Plt Count 105 L D MPV 8.4 Sodium 136 Potassium 3.4 L Chloride 98 Carbon Dioxide 31 Anion Gap 6 L BUN 5.3 L Creatinine 0.7 Est GFR (CKD-EPI)AfAm 124.00 Est GFR (CKD-EPI)NonAf 106.99 Random Glucose 81 Calcium 8.5 Phosphorus Magnesium Total Bilirubin AST ALT Alkaline Phosphatase C-Reactive Protein Total Protein Albumin Total Amylase Urine Color Yellow Urine Appearance Clear Urine pH 8.0 Ur Specific [place] 1.009 L Urine Protein Negative Urine Glucose (UA) Negative Urine Ketones Trace H Urine Blood Negative Urine Nitrite Negative Urine Bilirubin Negative Urine Urobilinogen 0.2 Ur Leukocyte Esterase Negative 05/14/19 05/14/19 06:15 06:15 WBC RBC Hgb Hct MCV MCH MCHC RDW Plt Count MPV Sodium 138 Potassium 3.0 L Chloride 100 Carbon Dioxide 29 Anion Gap 8 BUN 5.6 L Creatinine 0.7 Est GFR (CKD-EPI)AfAm 124.00 Est GFR (CKD-EPI)NonAf 106.99 Random Glucose 89 Calcium 8.5 Phosphorus 3.0 Magnesium 1.9 Total Bilirubin 0.8 AST 32 ALT 38 Alkaline Phosphatase 36 L C-Reactive Protein 2.5 H Total Protein 6.7 Albumin 3.3 L Total Amylase 59 Urine Color Urine Appearance Urine pH Ur Specific [place] Urine Protein Urine Glucose (UA) Urine Ketones Urine Blood Urine Nitrite Urine Bilirubin Urine Urobilinogen Ur Leukocyte Esterase CT A/p: Comparison: Prior CT scan of the abdomen pelvis dated 09/01/2018 and 08/27/2018 There are residual minimal atelectatic changes in the dependent portion of the lower lobes and minimal pleural thickening. The heart is within normal limits in size. The liver is within normal limits in size with diffuse decreased attenuation. Interval removal of previously visualized biliary stent. Patient is status post cholecystectomy. Mild pneumobilia is present. Common bile duct is within normal limits in size without gross evidence of stone. The pancreas is within normal limits in size. Dilatation of the pancreatic duct measuring 6 mm with tiny air pockets seen at the level of the pancreatic body. Slightly heterogeneous enhancement of the pancreatic head without gross evidence of a collection or discrete mass on this exam. Previously noted small calcific density in the pancreatic head is no longer seen. Residual mild stranding around the pancreatic head is present. Partially distended stomach without wall thickening. Mild dilatation of the distal esophagus with an air-fluid level. The spleen and both adrenal glands appear unremarkable. Both kidneys are within normal limits in size and enhancement. There is mild dilatation of the renal pelvis, bilaterally likely an extrarenal pelvis. Mild dilatation of the right ureter without evidence of an obstructing stone. There is no evidence of small bowel obstruction. Normal-appearing terminal ileum and appendix. Limited evaluation of the colon due to lack of oral contrast and poor distention without gross wall thickening. Slightly over distended urinary bladder without wall thickening, measuring 13.9 cm in craniocaudal length. Perirectal and pericecal fat are clear. Normal size prostate gland. No free air, free fluid or gross enlarged lymph nodes are identified. Normal size and enhancement of the abdominal aorta down through its bifurcation Visualized osseous structures appear intact with moderate degenerative disc disease at L5-S1 level Impression : Fatty liver. Status post cholecystectomy. Pneumobilia within the central intrahepatic bile ducts. Interval removal of previously visualized biliary stent. The common bile duct is within normal limits in size without gross evidence of intraluminal stones. Previously visualized focal low-attenuation density in the pancreatic head is no longer seen. There remains mild mesenteric stranding around the pancreatic head that may be chronic. Please correlate with pancreatic enzymes to rule out pancreatitis. Dilatation of the pancreatic duct again seen with interval couple of air pockets seen within the duct at the level of the pancreatic body which is nonspecific. Mild dilatation of the right ureter without evidence of obstructing stone. There is no evidence of small bowel obstruction. Slightly over distended urinary bladder without intraluminal stones or wall thickening. L5-S1 moderate degenerative disc disease HOSPITAL COURSE: Date of Admission:05/12/19 Date of Discharge: 05/14/19 Minutes to complete discharge: 42 Discharge Summary Problems reviewed: Yes Reason For Visit: ALCOHOL WITHDRAWAL SYNDROME,HYPONATREMIA, -Acute on chronic pancreatitis, likely alcoholic -ETOH abuse/Binge, denies dependence -HYponatremia, suspect from hypovolumia with beer binge/lack of solute -Hypokalemia -Pancreatic ductal dilatation/Pneumobilia intrahepatic biliary duct -Reported Biliary stent removal 08/2018 -Cerebellar ataxia -Peripheral neuropathy -GERD -Chronic pancreatitis -Wernicke/Korsakoff syndrome -Bipolar disorder -Seizure disorder -Depression Hospital Course: 52 yo M w/ PMHx of cerebellar ataxia, peripheral neuropathy, GERD, chronic pancreatitis, 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 He was felt to have alcoholic gastritis rather than pancreatitis given no imaging or chemical evidence of pancreatitis. He was placed on aggressive fluids and pain control with rapid resolution of his symptoms. He is tolerating diet well prior to discharge. He was seen by surgery and gastroenterology with recommendations for conservative management. He was also noted hyponatremic that resolved with hydration. He will be discharged home in stable condition with outpatient PCP and gastroenterology follow up. Condition: Stable - Instructions Diet, Activity, Other Instructions: You were admitted with pancreatitis, which was likely from your alcohol. You improved with fluids and supportive treatment. you were seen by gastroenterology and surgery. MEDICATIONS: Continue all your home medications as before INSTRUCTIONS: Strictly advise alcohol cessation FOLLOW UP: With primary care physician in 1 week With your dietetics director in 1-2 weeks if you notice new fevers, severe pain, or any new concerns, please call 911 or come to the ED. Referrals: Danny Lam [Primary Care Provider] - Disposition: HOME - Home Medications Comprehensive Discharge Medication List: Ambulatory Orders Acamprosate Calcium [Campral -] 333 mg PO BID 08/27/18 Amantadine HCl [Amantadine] 120 mg PO QID 08/27/18 Buspirone HCl 15 mg PO HS 08/27/18 Cyproheptadine [Periactin -] 4 mg PO Q12H 08/27/18 Doxazosin Mesylate [Cardura -] 2 mg PO HS 08/27/18 Ferrous Sulfate [Feosol] 325 mg PO TID 08/27/18 Folic Acid 1 mg PO DAILY 08/27/18 Lamotrigine [LaMICtal -] 100 mg PO HS 08/27/18 Lamotrigine [Lamictal -] 25 mg PO BID 08/27/18 Lipase/Protease/Amylase [Erika Dr 36,000 Units Capsule] 3 each PO QID 08/27/18 Ranitidine [Zantac -] 150 mg PO BID 08/27/18 Venlafaxine HCl [Effexor -] 225 mg PO DAILY 08/27/18 Pantoprazole Sodium [Protonix] 40 mg PO DAILY 09/01/18 Ropinirole HCl 0.25 mg PO DAILY 09/01/18 Acetaminophen [Tylenol .Regular Strength -] 650 mg PO Q4H PRN tablet 09/02/18 Thiamine HCl [Vitamin B1 -] 100 mg PO DAILY tablet 09/02/18 Docusate Sodium [Colace] 100 mg PO TID PRN 05/14/19 Polyethylene Glycol 3350 [Miralax 119 gm Btl -] 17 gm PO DAILY PRN 05/14/19 This patient is new to me today: No Emergency Visit: Yes ED Registration Date: 05/12/19 Care time: The patient presented to the Emergency Department on the above date and was hospitalized for further evaluation of their emergent condition. Critical Care patient: No - Discharge Referral Referred to [facility] Med P.C.: No
[2019-05-15] MEDS ORDERED: chlordiazePOXIDE HCL 10 MG CAPSULE PO PRN
[2019-05-15] MEDS ORDERED: chlordiazePOXIDE HCL 10 MG CAPSULE PO SCH (05:00)
[2019-05-16] MEDS ORDERED: chlordiazePOXIDE HCL 10 MG CAPSULE PO SCH (05:00)
[2019-05-17] MEDS ORDERED: chlordiazePOXIDE HCL 10 MG CAPSULE PO ONE (05:00)
== END 2019-05-14 14:06 | disposition home or self-care (01) | DRG 282 ==
LOC: JER 16:17 → JERBED 21:30 → J4W 05-13 02:24
PROVIDERS: ADMIT Internal Medicine; ATTEND Hospitalist
DX: K85.20 Alcohol induced acute pancreatitis without necrosis or infection (principal); G62.9 Polyneuropathy, unspecified; F31.9 Bipolar disorder, unspecified; M11.20 Other chondrocalcinosis, unspecified site; E87.1 Hypo-osmolality and hyponatremia; K86.0 Alcohol-induced chronic pancreatitis; F10.230 Alcohol dependence with withdrawal, uncomplicated; F04 Amnestic disorder due to known physiological condition; K21.9 Gastro-esophageal reflux disease without esophagitis; E87.6 Hypokalemia; G40.909 Epilepsy, unspecified, not intractable, without status epilepticus; G11.9 Hereditary ataxia, unspecified; K86.89 Other specified diseases of pancreas
CPT/HCPCS: 36415; 71045-TC-FY; 74177-TC; 80048; 80053; 81003; 82150; 82550; 82553; 83690; 83735; 83930; 84100; 84484; 85025; 85027; 85610; 86140; 90732; 93005; 93010; 99284-25; G0008; G0009; J7030; Q2036

== ENCOUNTER 2019-07-15 13:52 | Inpatient (IN) | payer OTHER ==
[2019-07-15] MEDS ORDERED: SODIUM CHLORIDE 1,000 ML IV STA (14:10)
--- NOTE | 2019-07-15 14:10 | PDOC ---
Rapid Medical Evaluation Chief Complaint: Pain Time Seen by Provider: 07/15/19 14:08 Medical Evaluation: Allergies Allergy/AdvReac Type Severity Reaction Status Date / Time No Known Allergies Allergy Verified 07/15/19 14:06 Vital Signs Temp Pulse Resp BP Pulse Ox 98.5 F 102 H 18 149/96 98 07/15/19 14:02 07/15/19 14:02 07/15/19 14:02 07/15/19 14:02 07/15/19 14:02 07/15/19 14:09 Pt c/o: ruq pain x 1 week, no other complaints, hx pancreatitis, no etoh use recently Pt on brief exam: + tenderness to ruq, no cva tenderness, vss Pt ordered for: labs, urine, toradol, Pt to proceed to the ED Discharge Disposition - Diagnosis Abdominal pain - Referrals Referrals: Danny Lam [Primary Care Provider] - - Patient Instructions - Post Discharge Activity
[2019-07-15] MEDS ORDERED: MAG HYDROX/AL HYDROX/SIMETH 30 ML UNIT-DOSE CUP PO ONE (15:20)
[2019-07-15] MEDS ORDERED: FAMOTIDINE 20 MG/50 ML IVPB 20 MG/50 ML MG IVPB ONE ×2 (15:20→16:01)
[2019-07-15] MEDS ORDERED: ONDANSETRON 4 MG/2 ML VIAL IVPUSH ONE (15:32)
[2019-07-15] MEDS ORDERED: morphine CARPU-JECT 4 MG/1 ML DISP.SYRIN IVPUSH ONE ×2 (15:32→17:48)
[2019-07-15 15:35] LABS: BASO % 0.5 % (0-2.0); EOS % 0.5 % (0-4.5); HEMATOCRIT 40.9 % (35.4-49); HEMOGLOBIN 13.5 GM/dL (11.7-16.9); LYMPH % 15.7 % (8-40); MCH 27.5 pg (25.7-33.7); MEAN CELL VOLUME 83.2 fl (80-96); MEAN PLT VOLUME 7.3 fl (7.5-11.1); MONO % 7.1 % (3.8-10.2); NEUT % 76.2 % (42.8-82.8); PLATELET COUNT 297 K/MM3 (134-434); RBC 4.91 M/mm3 (4.00-5.60); RDW 15.7 % (11.9-15.9); WHITE BLOOD COUNT 11.2 K/mm3 (4.0-10.0)
[2019-07-15 15:36] LABS: PH,URINE 5.5 (5.0-8.0); URINE APPEARANCE CLEAR; URINE BILIRUBIN NEGATIVE (NEGATIVE); URINE COLOR YELLOW; URINE GLUCOSE (UA) NEGATIVE (NEGATIVE); URINE KETONE NEGATIVE (NEGATIVE); URINE LEUK ESTERASE NEGATIVE (NEGATIVE); URINE NITRITE NEGATIVE (NEGATIVE); URINE PROTEIN NEGATIVE (NEGATIVE); URINE UROBILINOGEN 0.2 mg/dL (0.2-1.0)
[2019-07-15] MEDS ORDERED: morphine SULFATE 4 MG/ML VIAL ONE ×2 (16:00→19:41)
[2019-07-15] MEDS ORDERED: ONDANSETRON 4 MG/2 ML VIAL ONE (16:01)
[2019-07-15] MEDS ORDERED: MAG HYDROX/AL HYDROX/SIMETH 30 ML UNIT-DOSE CUP ONE (16:01)
[2019-07-15 16:03] LABS: ALBUMIN 4.1 g/dl (3.4-5.0); BILIRUBIN,TOTAL 0.4 mg/dL (0.2-1); BLOOD UREA NITROGEN 8.2 mg/dL (7-18); CALCIUM 9.4 mg/dL (8.5-10.1); CREATININE 0.9 mg/dL (0.55-1.3); POTASSIUM 4.2 mmol/L (3.5-5.1)
--- NOTE | 2019-07-15 16:48 | PDOC ---
Documentation entered by Danielle Nash SCRIBE, acting as scribe for Romelia Obrien MD. Romelia Obrien MD: This documentation has been prepared by the Saad suarez Xhesika, SCRIBE, under my direction and personally reviewed by me in its entirety. I confirm that the documentation accurately reflects all work, treatment, procedures, and medical decision making performed by me. Attending Attestation - Resident Resident Name: Mic Harringtontte - HPI HPI: 07/15/19 16:13 The patient is a 53 year old male with a past medical history significant for etoh abuse, Cerebellar ataxia, peripheral neuropathy, Chronic pancreatitis, Wernicke Korsakoff syndrome, depression (f/u with Psychiatrist), silent seizures who presents to the emergency department with 3 days of RUQ and epigastric abdominal pain. The patient describes his abdominal pain as intermittent, sharp, pressure like sensation, associated with nausea, worsened with PO intake and exacerbated yesterday while eating Thanksgiving food. Patient reports his pain initially lasted 30 minutes before self resolving, however, since 3pm today the pain has been lasting 1hr before resolving then recurring again after 5 minutes. Patient notes he took Tylenol with no relief of symptoms. Patient reports no etoh abuse recently. Allergies: NKDA PCP: Dr. 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 No wheezes, and no crackles HEART: Regular rate and rhythm, normal S1 and S2, no murmurs, rubs or gallops ABDOMEN: + Right quadrant TTP worsened in the upper epigastrium. Soft, nondistended, normoactive bowel sounds. No guarding, no rebound. No masses EXTREMITIES: Normal range of motion, no edema. No clubbing or cyanosis. No cords, erythema, or tenderness NEUROLOGICAL: Cranial nerves II through XII grossly intact. Normal speech, normal gait SKIN: Warm, Dry, normal turgor, no rashes or lesions noted. - Medical Decision Making 07/18/19 07:11 Pt presents to the ED complaining of epigastric pain with nausea but without vomiting. + tenderness in the RUQ and epigastrium. Differential includes cholecystitis, pancreatitis, other biliary disease, less likely gastritis. Will check labs including LFT and lipase, check RUQ US and reassess. 07/18/19 07:11 07/18/19 07:12
--- NOTE | 2019-07-15 16:48 | PDOC ---
History of Present Illness - General Chief Complaint: Pain Stated Complaint: ABD PAIN Time Seen by Provider: 07/15/19 14:08 - History of Present Illness Initial Comments: 07/15/19 16:45 Mr. Norwood is a 53 y/o man with a pmhx of alcohol abuse, pseudogout, bipolar disorder, depression, cerebellar ataxia, seizure disorder, peripheral neuropathy , Wernicke korsikoff, GERD and chronic pancreatitis who presents to the ED today complaining of epigastric and RUQ abdominal pain. Per the pt he was just hospitalized recently (at the end of April) for an acute episode of pancreatitis. The patient states his abdominal pain feels exactly like his last episode of pancreatitis. He states the pain is worse with eating or drinking. The patient denies having drunk any alcoholic beverages in the recent past and attibuted his most recent bouts of pancreatitis to "stones" On ROS denies CP/ SOB/ PIZANO/ fevers/ chills/ diaphoresis/ myalgias/ changes in bowel movements. 07/15/19 16:52 Past History - Travel Traveled outside of the country in the last 30 days: No Close contact w/someone who was outside of country & ill: No - Past Medical History Allergies/Adverse Reactions: Allergies Allergy/AdvReac Type Severity Reaction Status Date / Time No Known Allergies Allergy Verified 07/15/19 14:06 Home Medications: Ambulatory Orders Acamprosate Calcium [Campral -] 333 mg PO BID 08/27/18 Amantadine HCl [Amantadine] 100 mg PO QID 08/27/18 Buspirone HCl 15 mg PO HS 08/27/18 Cyproheptadine [Periactin -] 4 mg PO Q12H 08/27/18 Doxazosin Mesylate [Cardura -] 2 mg PO HS 08/27/18 Ferrous Sulfate [Feosol] 325 mg PO TID 08/27/18 Folic Acid 1 mg PO DAILY 08/27/18 Lamotrigine [LaMICtal -] 100 mg PO HS 08/27/18 Lamotrigine [Lamictal -] 50 mg PO BID 08/27/18 Ranitidine [Zantac -] 150 mg PO DAILY 08/27/18 Venlafaxine HCl [Effexor -] 225 mg PO DAILY 08/27/18 Amlodipine Besylate [Norvasc -] 5 mg PO DAILY 07/15/19 Cyclobenzaprine HCl 10 mg PO BID PRN 07/15/19 Lipase/Protease/Amylase [Erika Woods 36,000 Units Capsule] 108,000 units PO TID Zolpidem Tartrate 10 mg PO HS PRN 07/15/19 Anemia: Yes Asthma: No Cancer: No Cardiac Disorders: No CVA: No COPD: No CHF: No Dementia: No Diabetes: No GI Disorders: Yes (Ch pancreatitis, GERD) Disorders: No HTN: No Hypercholesterolemia: No Liver Disease: No Psychiatric Problems: Yes (DEPRESSION,BIPOLAR) Seizures: Yes (silent) Thyroid Disease: No - Surgical History Abdominal Surgery: No Appendectomy: No Cardiac Surgery: No Cholecystectomy: Yes (2003) GI Surgery: Yes (metal stent pancreas 06/03 (at [facility])) Lung Surgery: No Neurologic Surgery: No Orthopedic Surgery: No - Immunization History Immunization Up to Date: Yes - Psycho Social/Smoking Cessation Hx Smoking History: Never smoked Have you smoked in the past 12 months: No Hx Alcohol Use: Yes (6 pack beer daily) Drug/Substance Use Hx: No Substance Use Type: Alcohol Hx Substance Use Treatment: No Review of Systems - Review of Systems Able to Perform ROS?: Yes Is the patient limited Faroese proficient: No Constitutional: Yes: Loss of Appetite, Malaise. No: Chills, Diaphoresis, Fever , Night Sweats, Weakness HEENTM: No: Eye Pain, Blurred Vision, Recent change in vision, Nose Pain, Throat Pain Respiratory: No: Cough, Orthopnea, Shortness of Breath Cardiac (ROS): No: Chest Pain, Irregular Heart Rate, Palpitations, Syncope ABD/GI: Yes: Other (epigastric and RUQ abdominal pain). No: Abdominal Distended : No: Burning, Dysuria Musculoskeletal: No: Back Pain, Muscle Weakness Integumentary: No: Bruising, Rash Neurological: No: Headache, Numbness, Tingling Endocrine: No: Flushing, Intolerance to Cold, Intolerance to Heat All Other Systems: Reviewed and Negative *Physical Exam - Vital Signs Last Vital Signs Temp Pulse Resp BP Pulse Ox 98.5 F 102 H 18 149/96 98 07/15/19 14:02 07/15/19 14:02 07/15/19 14:02 07/15/19 14:02 07/15/19 14:02 - Physical Exam General Appearance: Yes: Nourished, Appropriately Dressed. No: Apparent Distress HEENT: positive: EOMI, MARK, Normal ENT Inspection Neck: positive: Trachea midline, Supple. negative: Tender Respiratory/Chest: positive: Lungs Clear, Normal Breath Sounds. negative: Chest Tender, Respiratory Distress Cardiovascular: positive: Regular Rhythm, Regular Rate, S1, S2. negative: JVD, Murmur Gastrointestinal/Abdominal: positive: Normal Bowel Sounds, Tender, Soft, Guarding Musculoskeletal: positive: Normal Inspection. negative: CVA Tenderness Extremity: positive: Normal Capillary Refill, Normal Inspection, Normal Range of Motion Integumentary: positive: Normal Color, Dry Neurologic: positive: roofer metal II-XII NML intact, Fully Oriented, Alert, Normal Mood/ Affect, Motor Strength 12/19 ED Treatment Course - LABORATORY CBC & Chemistry Diagram: 07/15/19 15:00 07/15/19 15:00 - ADDITIONAL ORDERS Additional order review: Laboratory Results 07/15/19 07/15/19 07/15/19 15:00 15:00 15:00 Sodium 137 Potassium 4.2 Chloride 104 Carbon Dioxide 25 Anion Gap 7 L BUN 8.2 Creatinine 0.9 Est GFR (CKD-EPI)AfAm 111.83 Est GFR (CKD-EPI)NonAf 96.49 Random Glucose 86 Calcium 9.4 Total Bilirubin 0.4 AST 17 ALT 14 Alkaline Phosphatase 46 Total Protein 8.0 Albumin 4.1 Lipase 325 Urine Color Yellow Urine Appearance Clear Urine pH 5.5 D Ur Specific Rogers 1.004 L Urine Protein Negative Urine Glucose (UA) Negative Urine Ketones Negative Urine Blood Negative Urine Nitrite Negative Urine Bilirubin Negative Urine Urobilinogen 0.2 Ur Leukocyte Esterase Negative 07/15/19 15:00 RBC 4.91 MCV 83.2 MCHC 33.0 RDW 15.7 MPV 7.3 L D Neutrophils % 76.2 Lymphocytes % 15.7 D Monocytes % 7.1 Eosinophils % 0.5 D Basophils % 0.5 D - Medications Given in the ED: ED Medications Discontinued Medications Generic Name Dose Route Start Last Admin Trade Name Freq PRN Reason Stop Dose Admin Al Hydroxide/Mg Hydroxide 30 ml 07/15/19 15:20 07/15/19 16:22 Mylanta Oral Suspension - PO 07/15/19 15:21 30 ml ONCE ONE Administration Sodium Chloride 1,000 mls @ 1,000 mls/hr 07/15/19 14:10 07/15/19 15:00 Normal Saline - IV 07/15/19 15:09 1,000 mls/hr ASDIR STA Administration Famotidine/Sodium Chloride 20 mg in 50 mls @ 100 mls/hr 07/15/19 15:20 16:23 Pepcid 20 Mg Premixed Ivpb - IVPB 07/15/19 15:49 100 mls/hr ONCE ONE Administration Morphine Sulfate 4 mg 07/15/19 15:32 07/15/19 16:23 Morphine Injection - IVPUSH 07/15/19 15:33 4 mg ONCE ONE Administration Ondansetron HCl 4 mg 07/15/19 15:32 07/15/19 16:23 Zofran Injection IVPUSH 07/15/19 15:33 4 mg ONCE ONE Administration Medical Decision Making - Medical Decision Making 07/15/19 17:11 Mr. Norwood is a 53 y/o man with a pmhx of alcohol abuse, pseudogout, bipolar disorder, depression, cerebellar ataxia, seizure disorder, peripheral neuropathy , Wernicke korsikoff, GERD and chronic pancreatitis who presents to the ED today complaining of epigastric and RUQ abdominal pain. Sx likely due to acute pancreatitis, will order basic labs including lipase and abdominal CT - NPO - morphine for pain Discharge - Discharge Information Clinical Impression/Diagnosis: Abdominal pain - Follow up/Referral Referrals: Danny Lam [Primary Care Provider] - - Patient Discharge Instructions - Post Discharge Activity
--- NOTE | 2019-07-15 18:58 | HP ---
<Ray Gilliam - Last Filed: 07/15/19 20:36> CHIEF COMPLAINT: Right sided abdominal pain. PCP: Dr Lam-[facility] HISTORY OF PRESENT ILLNESS: 53 y/o man with a pmhx of alcohol abuse, HTNm pseudogout, bipolar disorder, depression, cerebellar ataxia, seizure disorder, peripheral neuropathy, Wernicke korsikoff, GERD and chronic pancreatitis who presented to [facility] for acute right sided abdominal pain. Pt endorses pain began abruptly 3 days ago. Pain is located along his right abdomen and is intermittent in nature. Describes pain as a "little stabbing sensation" and can range to a 10/10 in pain severity. Pain began after consuming Thanksgiving dinner. Pt states he had an Oxycodone prescription left over from a previous Pancreatitis attack and took 1 pill while he was in pain; this mitigated his pain. However, once medication wore off, pt decided to come to Emergency Department. Pt states he has had numerous stents placed in his pancreas to open his ducts and prevent blockage from stones. Currently, he is stent free. These were performed at [facility]. Denies chest pain, LOC, vomiting, lightheadedness. Endorses SOB and Nausea. ER course was notable for: (1) CTAP--> Acute/Subacute pancreatitis (2) (3) PAST MEDICAL HISTORY: as above PAST SURGICAL HISTORY: Multiple pancreatic stents, cholecystectomy Social History: Smoking: Denies Alcohol: denies Drugs: denies Allergies No Known Allergies Allergy (Verified 07/15/19 14:06) HOME MEDICATIONS: Home Medications Medication Instructions Recorded Acamprosate Calcium [Campral -] 333 mg PO BID 08/27/18 Amantadine HCl [Amantadine] 100 mg PO QID 08/27/18 Buspirone HCl 15 mg PO HS 08/27/18 Cyproheptadine [Periactin -] 4 mg PO Q12H 08/27/18 Doxazosin Mesylate [Cardura -] 2 mg PO HS 08/27/18 Ferrous Sulfate [Feosol] 325 mg PO TID 08/27/18 Folic Acid 1 mg PO DAILY 08/27/18 Lamotrigine [LaMICtal -] 100 mg PO HS 08/27/18 Lamotrigine [Lamictal -] 50 mg PO BID 08/27/18 Ranitidine [Zantac -] 150 mg PO DAILY 08/27/18 Venlafaxine HCl [Effexor -] 225 mg PO DAILY 08/27/18 Amlodipine Besylate [Norvasc -] 5 mg PO DAILY 07/15/19 Cyclobenzaprine HCl 10 mg PO BID PRN 07/15/19 Lipase/Protease/Amylase [Jennyon Dr 108,000 units PO TID 07/15/19 36,000 Units Capsule] Zolpidem Tartrate 10 mg PO HS PRN 07/15/19 REVIEW OF SYSTEMS CONSTITUTIONAL: Absent: fever, chills, diaphoresis, generalized weakness, malaise, loss of appetite, weight change HEENT: Absent: rhinorrhea, nasal congestion, throat pain, throat swelling, difficulty swallowing, mouth swelling, ear pain, eye pain, visual changes CARDIOVASCULAR: Absent: chest pain, syncope, palpitations, irregular heart rate, lightheadedness , peripheral edema RESPIRATORY: Absent: cough, shortness of breath, dyspnea with exertion, orthopnea, wheezing, stridor, hemoptysis GASTROINTESTINAL: present abdominal pain, nausea GENITOURINARY: Absent: dysuria, frequency, urgency, hesitancy, hematuria, flank pain, genital pain MUSCULOSKELETAL: Absent: myalgia, arthralgia, joint swelling, back pain, neck pain SKIN: Absent: rash, itching, pallor HEMATOLOGIC/IMMUNOLOGIC: Absent: easy bleeding, easy bruising, lymphadenopathy, frequent infections ENDOCRINE: Absent: unexplained weight gain, unexplained weight loss, heat intolerance, cold intolerance NEUROLOGIC: Absent: headache, focal weakness or paresthesias, dizziness, unsteady gait, seizure, mental status changes, bladder or bowel incontinence PSYCHIATRIC: Absent: anxiety, depression, suicidal or homicidal ideation, hallucinations. PHYSICAL EXAMINATION Vital Signs - 24 hr 07/15/19 07/15/19 14:02 15:00 Temperature 98.5 F 98 F Pulse Rate 102 H Pulse Rate [ 70 Left Radial] Respiratory 18 18 Rate Blood Pressure 149/96 Blood Pressure 120/88 [Left Arm] O2 Sat by Pulse 98 100 Oximetry (%) GENERAL: NAD HEAD: Normal with no signs of trauma. EYES: No scleral icterus, EOMI. EARS, NOSE, THROAT: MMM. NECK: Supple LUNGS: CTA b/l HEART: RRR S1S2 ABDOMEN: Tenderness to palpation right abdomen. + bowel sounds. No guarding or rigidity. MUSCULOSKELETAL: FROM throughout UPPER EXTREMITIES: 2+ pulses, warm, well-perfused. No cyanosis. No clubbing. No peripheral edema. LOWER EXTREMITIES: No CCE NEUROLOGICAL: Cranial nerves II-XII intact. Normal speech. PSYCHIATRIC: Cooperative. Good eye contact. Appropriate mood and affect. SKIN: Laboratory Results - last 24 hr 07/15/19 07/15/19 07/15/19 15:00 15:00 15:00 WBC 11.2 H RBC 4.91 Hgb 13.5 Hct 40.9 MCV 83.2 MCH 27.5 MCHC 33.0 RDW 15.7 Plt Count 297 D MPV 7.3 L D Absolute Neuts (auto) 8.5 H Neutrophils % 76.2 Lymphocytes % 15.7 D Monocytes % 7.1 Eosinophils % 0.5 D Basophils % 0.5 D Nucleated RBC % 0 Sodium 137 Potassium 4.2 Chloride 104 Carbon Dioxide 25 Anion Gap 7 L BUN 8.2 Creatinine 0.9 Est GFR (CKD-EPI)AfAm 111.83 Est GFR (CKD-EPI)NonAf 96.49 Random Glucose 86 Calcium 9.4 Total Bilirubin 0.4 AST 17 ALT 14 Alkaline Phosphatase 46 Total Protein 8.0 Albumin 4.1 Lipase 325 Urine Color Urine Appearance Urine pH Ur Specific Rudolph Urine Protein Urine Glucose (UA) Urine Ketones Urine Blood Urine Nitrite Urine Bilirubin Urine Urobilinogen Ur Leukocyte Esterase 07/15/19 15:00 WBC RBC Hgb Hct MCV MCH MCHC RDW Plt Count MPV Absolute Neuts (auto) Neutrophils % Lymphocytes % Monocytes % Eosinophils % Basophils % Nucleated RBC % Sodium Potassium Chloride Carbon Dioxide Anion Gap BUN Creatinine Est GFR (CKD-EPI)AfAm Est GFR (CKD-EPI)NonAf Random Glucose Calcium Total Bilirubin AST ALT Alkaline Phosphatase Total Protein Albumin Lipase Urine Color Yellow Urine Appearance Clear Urine pH 5.5 D Ur Specific Rudolph 1.004 L Urine Protein Negative Urine Glucose (UA) Negative Urine Ketones Negative Urine Blood Negative Urine Nitrite Negative Urine Bilirubin Negative Urine Urobilinogen 0.2 Ur Leukocyte Esterase Negative ASSESSMENT/PLAN: 53 y/o man with a pmhx of alcohol abuse, HTN, pseudogout, bipolar disorder, depression, cerebellar ataxia, seizure disorder, peripheral neuropathy, Wernicke korsikoff, GERD and chronic pancreatitis who presented to [facility] for acute right sided abdominal pain. # Acute Pancreatitis -U/s abdomen -Dilaudid 1mg q2 prn -LR at 125 npo -hold off on psych -GI Consult -US abdomen # Bipolar Disorder -Continue home meds Lamotrigene #Chronic Depression -Will hold off on psych meds as may cause nausea #HTN -C/w Amlodipine 5 daily N: <Ayden Keyes - Last Filed: 07/16/19 12:36> CHIEF COMPLAINT: PCP: HISTORY OF PRESENT ILLNESS: ER course was notable for: (1) (2) (3) Recent Travel: PAST MEDICAL HISTORY: PAST SURGICAL HISTORY: Social History: Smoking: Alcohol: Drugs: Allergies No Known Allergies Allergy (Verified 07/15/19 14:06) HOME MEDICATIONS: Home Medications Medication Instructions Recorded Acamprosate Calcium [Campral -] 333 mg PO BID 08/27/18 Amantadine HCl [Amantadine] 100 mg PO QID 08/27/18 Buspirone HCl 15 mg PO HS 08/27/18 Cyproheptadine [Periactin -] 4 mg PO Q12H 08/27/18 Doxazosin Mesylate [Cardura -] 2 mg PO HS 08/27/18 Ferrous Sulfate [Feosol] 325 mg PO TID 08/27/18 Folic Acid 1 mg PO DAILY 08/27/18 Lamotrigine [LaMICtal -] 100 mg PO HS 08/27/18 Lamotrigine [Lamictal -] 50 mg PO BID 08/27/18 Ranitidine [Zantac -] 150 mg PO DAILY 08/27/18 Venlafaxine HCl [Effexor -] 225 mg PO DAILY 08/27/18 Amlodipine Besylate [Norvasc -] 5 mg PO DAILY 07/15/19 Cyclobenzaprine HCl 10 mg PO BID PRN 07/15/19 Lipase/Protease/Amylase [Creon Dr 108,000 units PO TID 07/15/19 36,000 Units Capsule] Zolpidem Tartrate 10 mg PO HS PRN 07/15/19 REVIEW OF SYSTEMS CONSTITUTIONAL: Absent: fever, chills, diaphoresis, generalized weakness, malaise, loss of appetite, weight change HEENT: Absent: rhinorrhea, nasal congestion, throat pain, throat swelling, difficulty swallowing, mouth swelling, ear pain, eye pain, visual changes CARDIOVASCULAR: Absent: chest pain, syncope, palpitations, irregular heart rate, lightheadedness , peripheral edema RESPIRATORY: Absent: cough, shortness of breath, dyspnea with exertion, orthopnea, wheezing, stridor, hemoptysis GASTROINTESTINAL: Absent: abdominal pain, abdominal distension, nausea, vomiting, diarrhea, constipation, melena, hematochezia GENITOURINARY: Absent: dysuria, frequency, urgency, hesitancy, hematuria, flank pain, genital pain MUSCULOSKELETAL: Absent: myalgia, arthralgia, joint swelling, back pain, neck pain SKIN: Absent: rash, itching, pallor HEMATOLOGIC/IMMUNOLOGIC: Absent: easy bleeding, easy bruising, lymphadenopathy, frequent infections ENDOCRINE: Absent: unexplained weight gain, unexplained weight loss, heat intolerance, cold intolerance NEUROLOGIC: Absent: headache, focal weakness or paresthesias, dizziness, unsteady gait, seizure, mental status changes, bladder or bowel incontinence PSYCHIATRIC: Absent: anxiety, depression, suicidal or homicidal ideation, hallucinations. PHYSICAL EXAMINATION Vital Signs - 24 hr 07/15/19 07/15/19 07/15/19 14:02 15:00 17:49 Temperature 98.5 F 98 F 98.5 F Pulse Rate 102 H 85 Pulse Rate [ 70 Left Radial] Respiratory 18 18 18 Rate Blood Pressure 149/96 146/95 Blood Pressure 120/88 [Left Arm] O2 Sat by Pulse 98 100 100 Oximetry (%) 07/15/19 07/16/19 07/16/19 20:11 05:52 10:00 Temperature 98 F 97.9 F 98.4 F Pulse Rate 79 70 Pulse Rate [ 77 Left Radial] Respiratory 18 16 20 Rate Blood Pressure 125/85 128/79 Blood Pressure 131/77 [Left Arm] O2 Sat by Pulse 98 Oximetry (%) GENERAL: Awake, alert, and fully oriented, in no acute distress. HEAD: Normal with no signs of trauma. EYES: Pupils equal, round and reactive to light, extraocular movements intact, sclera anicteric, conjunctiva clear. No lid lag. EARS, NOSE, THROAT: Ears normal, nares patent, oropharynx clear without exudates. Moist mucous membranes. NECK: Normal range of motion, supple without lymphadenopathy, JVD, or masses. LUNGS: Breath sounds equal, clear to auscultation bilaterally. No wheezes, and no crackles. No accessory muscle use. HEART: Regular rate and rhythm, normal S1 and S2 without murmur, rub or gallop. ABDOMEN: Soft, nontender, not distended, normoactive bowel sounds, no guarding, no rebound, no masses. No hepatomegaly or splenomegaly. MUSCULOSKELETAL: Normal range of motion at all joints. No bony deformities or tenderness. No CVA tenderness. UPPER EXTREMITIES: 2+ pulses, warm, well-perfused. No cyanosis. No clubbing. No peripheral edema. LOWER EXTREMITIES: 2+ pulses, warm, well-perfused. No calf tenderness. No peripheral edema. NEUROLOGICAL: Cranial nerves II-XII intact. Normal speech. Normal gait. PSYCHIATRIC: Cooperative. Good eye contact. Appropriate mood and affect. SKIN: Warm, dry, normal turgor, no rashes or lesions noted, normal capillary refill. Laboratory Results - last 24 hr 07/15/19 07/15/19 07/15/19 15:00 15:00 15:00 WBC 11.2 H RBC 4.91 Hgb 13.5 Hct 40.9 MCV 83.2 MCH 27.5 MCHC 33.0 RDW 15.7 Plt Count 297 D MPV 7.3 L D Absolute Neuts (auto) 8.5 H Neutrophils % 76.2 Lymphocytes % 15.7 D Monocytes % 7.1 Eosinophils % 0.5 D Basophils % 0.5 D Nucleated RBC % 0 PT with INR INR PTT (Actin FS) Sodium 137 Potassium 4.2 Chloride 104 Carbon Dioxide 25 Anion Gap 7 L BUN 8.2 Creatinine 0.9 Est GFR (CKD-EPI)AfAm 111.83 Est GFR (CKD-EPI)NonAf 96.49 Random Glucose 86 Calcium 9.4 Phosphorus Magnesium Total Bilirubin 0.4 AST 17 ALT 14 Alkaline Phosphatase 46 Total Protein 8.0 Albumin 4.1 Triglycerides Lipase 325 Urine Color Urine Appearance Urine pH Ur Specific Rudolph Urine Protein Urine Glucose (UA) Urine Ketones Urine Blood Urine Nitrite Urine Bilirubin Urine Urobilinogen Ur Leukocyte Esterase 07/15/19 07/15/19 07/15/19 15:00 21:35 21:35 WBC RBC Hgb Hct MCV MCH MCHC RDW Plt Count MPV Absolute Neuts (auto) Neutrophils % Lymphocytes % Monocytes % Eosinophils % Basophils % Nucleated RBC % PT with INR INR PTT (Actin FS) Sodium Potassium Chloride Carbon Dioxide Anion Gap BUN Creatinine Est GFR (CKD-EPI)AfAm Est GFR (CKD-EPI)NonAf Random Glucose Calcium 9.2 Phosphorus Magnesium Total Bilirubin AST ALT Alkaline Phosphatase Total Protein Albumin Triglycerides 77 Lipase Urine Color Yellow Urine Appearance Clear Urine pH 5.5 D Ur Specific Rudolph 1.004 L Urine Protein Negative Urine Glucose (UA) Negative Urine Ketones Negative Urine Blood Negative Urine Nitrite Negative Urine Bilirubin Negative Urine Urobilinogen 0.2 Ur Leukocyte Esterase Negative 07/16/19 07/16/19 07/16/19 08:20 08:20 08:20 WBC 13.1 H RBC 4.42 Hgb 12.0 Hct 36.7 MCV 83.0 MCH 27.2 MCHC 32.8 RDW 15.6 Plt Count 290 MPV 7.3 L Absolute Neuts (auto) 9.9 H Neutrophils % 75.3 Lymphocytes % 15.5 Monocytes % 8.2 Eosinophils % 0.5 Basophils % 0.5 Nucleated RBC % 0 PT with INR 14.30 H INR 1.21 H PTT (Actin FS) 33.7 Sodium 138 Potassium 4.0 Chloride 106 Carbon Dioxide 25 Anion Gap 7 L BUN 9.2 Creatinine 0.9 Est GFR (CKD-EPI)AfAm 111.83 Est GFR (CKD-EPI)NonAf 96.49 Random Glucose 85 Calcium 9.1 Phosphorus 3.4 Magnesium 2.2 Total Bilirubin 0.6 AST 12 L ALT 15 Alkaline Phosphatase 39 L Total Protein 7.2 Albumin 3.5 Triglycerides Lipase Urine Color Urine Appearance Urine pH Ur Specific Rudolph Urine Protein Urine Glucose (UA) Urine Ketones Urine Blood Urine Nitrite Urine Bilirubin Urine Urobilinogen Ur Leukocyte Esterase ASSESSMENT/PLAN: ATTENDING PHYSICIAN STATEMENT I saw and evaluated the patient. I reviewed the resident's note and discussed the case with the resident. I agree with the resident's findings and plan as documented. SUBJECTIVE: OBJECTIVE: ASSESSMENT AND PLAN:
[2019-07-15] MEDS: HYDROmorphone HCl 2 MG/ML VIAL IVPUSH PRN (21:40)
[2019-07-15] MEDS: LACTATED RINGERS SOLUTION 1,000 ML/1,000 ML INFUS.BAG IV SCH (22:00)
[2019-07-15 22:55] VITALS: BMI 29.2
[2019-07-16] MEDS: HYDROmorphone HCl 2 MG/ML VIAL IVPUSH PRN ×5 (02:39→13:33)
--- NOTE | 2019-07-16 08:50 | CON.GI ---
Consult Consult Specialty:: coverage for Dr German - History of Present Illness History of Present Illness: The patient is a 53 year old male with a past medical history significant for etoh abuse, Cerebellar ataxia, peripheral neuropathy, Chronic pancreatitis, Wernicke Korsakoff syndrome, depression (f/u with Psychiatrist), silent seizures who presents to the emergency department with 3 days of RUQ and epigastric abdominal pain. The patient describes his abdominal pain as intermittent, sharp, pressure like sensation, associated with nausea, worsened with PO intake and exacerbated yesterday while eating Thanksgiving food. Patient reports his pain initially lasted 30 minutes before self resolving, however, since 3pm today the pain has been lasting 1hr before resolving then recurring again after 5 minutes. Patient notes he took Tylenol with no relief of symptoms. Patient reports no etoh abuse recently. 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[employer]: Yes: Peripheral Neuropathy, Seizure, Other (Cerebellar ataxia) Cardio/Vascular: Yes: HTN Gastrointestinal: Yes: GERD, Pancreatitis (acute and chronic alcoholic pancreatitis, s/p multiple PD stenting) Psych: Yes: Addictions (alcohol), Bipolar, Depression - Past Surgical History Past Surgical History: Yes: Cholecystectomy (laparoscopic), Colonoscopy, Upper Endoscopy - Alcohol/Substance Use Hx Alcohol Use: Yes (6 pack beer daily) History of Substance Use: reports: None - Smoking History Smoking history: Never smoked Have you smoked in the past 12 months: No - Social History Usual Living Arrangement: Alone ADL: Independent 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 History of Recent Travel: No Home Medications - Allergies Allergies/Adverse Reactions: Allergies Allergy/AdvReac Type Severity Reaction Status Date / Time No Known Allergies Allergy Verified 07/15/19 14:06 - Home Medications Home Medications: Ambulatory Orders Acamprosate Calcium [Campral -] 333 mg PO BID 08/27/18 Amantadine HCl [Amantadine] 100 mg PO QID 08/27/18 Buspirone HCl 15 mg PO HS 08/27/18 Cyproheptadine [Periactin -] 4 mg PO Q12H 08/27/18 Doxazosin Mesylate [Cardura -] 2 mg PO HS 08/27/18 Ferrous Sulfate [Feosol] 325 mg PO TID 08/27/18 Folic Acid 1 mg PO DAILY 08/27/18 Lamotrigine [LaMICtal -] 100 mg PO HS 08/27/18 Lamotrigine [Lamictal -] 50 mg PO BID 08/27/18 Ranitidine [Zantac -] 150 mg PO DAILY 08/27/18 Venlafaxine HCl [Effexor -] 225 mg PO DAILY 08/27/18 Amlodipine Besylate [Norvasc -] 5 mg PO DAILY 07/15/19 Cyclobenzaprine HCl 10 mg PO BID PRN 07/15/19 Lipase/Protease/Amylase [Erika Woods 36,000 Units Capsule] 108,000 units PO TID Zolpidem Tartrate 10 mg PO HS PRN 07/15/19 Physical Exam-GI Vital Signs: Vital Signs Temperature 97.9 F 07/16/19 05:52 Pulse Rate 79 07/16/19 05:52 Respiratory Rate 16 07/16/19 05:52 Blood Pressure 125/85 07/16/19 05:52 O2 Sat by Pulse Oximetry (%) 98 07/15/19 20:11 Labs: CBC, BMP 07/15/19 15:00 07/15/19 15:00 Problem List - Problems (1) Chronic alcoholic pancreatitis Assessment/Plan: history of chornic Pancreatitis secondary to alcohol abuse admitted with abdominal pain and new ctascan findings inflamed head of the ounces dilated CBD 1.2 cm (post cholecystectomyomy) dilated pancreatic duct associated with normal amylase and lipase rule out ampullary stenoses R>IV hydration IV Pantoprazole MRI of the pancreas with contrast and MRCP r/o pancreatic mass CeA ca19-9 Dr German will resume care Thursday Code(s): K86.0 - ALCOHOL-INDUCED CHRONIC PANCREATITIS
[2019-07-16 09:01] LABS: BASO % 0.5 % (0-2.0); EOS % 0.5 % (0-4.5); HEMATOCRIT 36.7 % (35.4-49); LYMPH % 15.5 % (8-40); MCH 27.2 pg (25.7-33.7); MCHC 32.8 g/dl (32.0-35.9); MEAN PLT VOLUME 7.3 fl (7.5-11.1); MONO % 8.2 % (3.8-10.2); NEUT % 75.3 % (42.8-82.8); PLATELET COUNT 290 K/MM3 (134-434); RBC 4.42 M/mm3 (4.00-5.60); RDW 15.6 % (11.9-15.9); WHITE BLOOD COUNT 13.1 K/mm3 (4.0-10.0)
[2019-07-16 09:09] LABS: INR 1.21 (0.83-1.09); PROTHROMBIN TIME (PATIENT) 14.3 SEC (9.7-13.0)
[2019-07-16 09:12] LABS: ACTIVATED PTT 33.7 SECONDS (25.2-36.5)
[2019-07-16 09:34] LABS: ALBUMIN 3.5 g/dl (3.4-5.0); BILIRUBIN,TOTAL 0.6 mg/dL (0.2-1); BLOOD UREA NITROGEN 9.2 mg/dL (7-18); CALCIUM 9.1 mg/dL (8.5-10.1); CREATININE 0.9 mg/dL (0.55-1.3); MAGNESIUM 2.2 mg/dL (1.8-2.4); PHOSPHOROUS 3.4 mg/dL (2.5-4.9); TOT PROT 7.2 g/dl (6.4-8.2)
[2019-07-16 10:50] VITALS: BP 128/79; PULSE 70; TEMP 98.4
[2019-07-16] MEDS: LACTATED RINGERS SOLUTION 1,000 ML/1,000 ML INFUS.BAG IV SCH (11:20)
--- NOTE | 2019-07-16 12:39 | PN ---
Physical Exam: SUBJECTIVE: Patient seen and examined. The patient has no new complaints, he is hemodynamically stable and afebrile. Abdominal pain and nausea persist, but there are no red flag symptoms noted. Discussed with Dr. Ervin and he is accepted to the hepatic biliary service. 10 item review of systems done; is negative aside from HPI OBJECTIVE: Vital Signs Period Temp Pulse Resp BP Sys/Barfield Pulse Ox Last 24 Hr 97.9 F-98.5 F 70-102 16-20 120-149/77-96 98-100 GENERAL: The patient is awake, alert, and fully oriented, in no acute distress. HEAD: Normal with no signs of trauma. EYES: PERRL, extraocular movements intact, sclera anicteric, conjunctiva clear. No ptosis. ENT: Ears normal, nares patent, oropharynx clear without exudates, NECK: Trachea midline, full range of motion, supple. LUNGS: Breath sounds equal, clear to auscultation bilaterally HEART: Regular rate and rhythm, S1, S2 without murmur, rub or gallop. ABDOMEN: Soft, tender throughout but no rebound or tenderness. EXTREMITIES: 2+ pulses, warm, well-perfused, no edema. NEUROLOGICAL: Cranial nerves II through XII grossly intact. No FNDs. PSYCH: Normal mood, normal affect. SKIN: Warm, dry, normal turgor, no rashes or lesions noted Laboratory Results - last 24 hr 07/15/19 07/15/19 07/15/19 15:00 15:00 15:00 WBC 11.2 H RBC 4.91 Hgb 13.5 Hct 40.9 MCV 83.2 MCH 27.5 MCHC 33.0 RDW 15.7 Plt Count 297 D MPV 7.3 L D Absolute Neuts (auto) 8.5 H Neutrophils % 76.2 Lymphocytes % 15.7 D Monocytes % 7.1 Eosinophils % 0.5 D Basophils % 0.5 D Nucleated RBC % 0 PT with INR INR PTT (Actin FS) Sodium 137 Potassium 4.2 Chloride 104 Carbon Dioxide 25 Anion Gap 7 L BUN 8.2 Creatinine 0.9 Est GFR (CKD-EPI)AfAm 111.83 Est GFR (CKD-EPI)NonAf 96.49 Random Glucose 86 Calcium 9.4 Phosphorus Magnesium Total Bilirubin 0.4 AST 17 ALT 14 Alkaline Phosphatase 46 Total Protein 8.0 Albumin 4.1 Triglycerides Lipase 325 Urine Color Urine Appearance Urine pH Ur Specific [place] Urine Protein Urine Glucose (UA) Urine Ketones Urine Blood Urine Nitrite Urine Bilirubin Urine Urobilinogen Ur Leukocyte Esterase 07/15/19 07/15/19 07/15/19 15:00 21:35 21:35 WBC RBC Hgb Hct MCV MCH MCHC RDW Plt Count MPV Absolute Neuts (auto) Neutrophils % Lymphocytes % Monocytes % Eosinophils % Basophils % Nucleated RBC % PT with INR INR PTT (Actin FS) Sodium Potassium Chloride Carbon Dioxide Anion Gap BUN Creatinine Est GFR (CKD-EPI)AfAm Est GFR (CKD-EPI)NonAf Random Glucose Calcium 9.2 Phosphorus Magnesium Total Bilirubin AST ALT Alkaline Phosphatase Total Protein Albumin Triglycerides 77 Lipase Urine Color Yellow Urine Appearance Clear Urine pH 5.5 D Ur Specific [place] 1.004 L Urine Protein Negative Urine Glucose (UA) Negative Urine Ketones Negative Urine Blood Negative Urine Nitrite Negative Urine Bilirubin Negative Urine Urobilinogen 0.2 Ur Leukocyte Esterase Negative 07/16/19 07/16/19 07/16/19 08:20 08:20 08:20 WBC 13.1 H RBC 4.42 Hgb 12.0 Hct 36.7 MCV 83.0 MCH 27.2 MCHC 32.8 RDW 15.6 Plt Count 290 MPV 7.3 L Absolute Neuts (auto) 9.9 H Neutrophils % 75.3 Lymphocytes % 15.5 Monocytes % 8.2 Eosinophils % 0.5 Basophils % 0.5 Nucleated RBC % 0 PT with INR 14.30 H INR 1.21 H PTT (Actin FS) 33.7 Sodium 138 Potassium 4.0 Chloride 106 Carbon Dioxide 25 Anion Gap 7 L BUN 9.2 Creatinine 0.9 Est GFR (CKD-EPI)AfAm 111.83 Est GFR (CKD-EPI)NonAf 96.49 Random Glucose 85 Calcium 9.1 Phosphorus 3.4 Magnesium 2.2 Total Bilirubin 0.6 AST 12 L ALT 15 Alkaline Phosphatase 39 L Total Protein 7.2 Albumin 3.5 Triglycerides Lipase Urine Color Urine Appearance Urine pH Ur Specific [place] Urine Protein Urine Glucose (UA) Urine Ketones Urine Blood Urine Nitrite Urine Bilirubin Urine Urobilinogen Ur Leukocyte Esterase Active Medications Generic Name Dose Route Start Last Admin Trade Name Freq PRN Reason Stop Dose Admin Hydromorphone HCl 1 mg 07/15/19 20:03 07/16/19 11:19 Dilaudid Vial - IVPUSH 1 mg Q2H PRN Administration PAIN LEVEL 6-10 Lactated Ringer's 1,000 ml in 1,000 mls @ 125 mls/hr 07/15/19 20:15 07/16/19 11:20 Lactated Ringers Solution IV 125 mls/hr ASDIR JUNE Administration ASSESSMENT/PLAN: Presents with acute pancreatitis; this is a patient of Dr. Ervin at [facility] and has had prior stenting etc. He has increased CBD dilation and dilation of the main pancreatic duct. The duct is currently at 1.2 cm. He is status post cholecystectomy. I spoke with Dr. Ervin at [facility] and he is willing to accept the patient to his service. Paperwork will be faxed to [phone]. Problems include: Acute pancreatitis (On scan with questionable features but negative lipase. NPO , PPI for GI ppx. Ring is noted and shows an ultrasound of dilation of the main duct and CBD with prominence of the pancreatic head compared to the May 12, 2019 scan that is consistent with acute to subacute pancreatitis. CT shows new CBD dilation to 1.2 compared to 1.0 in April with decreased pneumobilia and improved hepatic steatosis. IVF with isotonic fluids and monitor on floor) Pancreatic Head Increased size, r/o mass Pneumobilia (improved) Hx Stenting Celebellar Ataxia hx EtOH abuse hx (Claims remission, started on IV thiamine, folate) Wernicke-Korsakoff Syndrome Overweight (BMI=29) MRCP, CA 199, CEA ordered. We will follow-up with GI recommendations in the interim, but patient will need transfer to [facility] for definitive management. He may require EUS which is a service not available at the current institution. Given his complicated procedural history involving prior stenting , he will be best served by management on the hepatobiliary service at tertiary [facility]. Full Code Visit type - Emergency Visit Emergency Visit: Yes ED Registration Date: 07/15/19 Care time: The patient presented to the Emergency Department on the above date and was hospitalized for further evaluation of their emergent condition. - New Patient This patient is new to me today: No - Critical Care Critical Care patient: No
[2019-07-16] MEDS ORDERED: FOLIC ACID 5 MG/1 ML SQ ONE (12:42)
[2019-07-16] MEDS ORDERED: THIAMINE HCL 200 MG/2 ML VIAL IVPB SCH (12:45)
[2019-07-16] MEDS ORDERED: PANTOPRAZOLE SODIUM 40 MG VIAL IVPUSH SCH (12:45)
--- NOTE | 2019-07-16 12:55 | DS ---
Physical Exam: SUBJECTIVE: Patient seen and examined OBJECTIVE: Vital Signs Period Temp Pulse Resp BP Sys/Barfield Pulse Ox Last 24 Hr 97.9 F-98.5 F 70-102 16-20 120-149/77-96 98-100 PHYSICAL EXAM GENERAL: The patient is awake, alert, and fully oriented, in no acute distress. HEAD: Normal with no signs of trauma. EYES: PERRL, extraocular movements intact, sclera anicteric, conjunctiva clear. ENT: Ears normal, nares patent, oropharynx clear without exudates, moist mucous membranes. NECK: Trachea midline, full range of motion, supple. LUNGS: Breath sounds equal, clear to auscultation bilaterally, no wheezes, no crackles, no accessory muscle use. HEART: Regular rate and rhythm, S1, S2 without murmur, rub or gallop. ABDOMEN: Soft, nontender, nondistended, normoactive bowel sounds, no guarding, no rebound, no hepatosplenomegaly, no masses. EXTREMITIES: 2+ pulses, warm, well-perfused, no edema. NEUROLOGICAL: Cranial nerves II through XII grossly intact. Normal speech, gait not observed. PSYCH: Normal mood, normal affect. SKIN: Warm, dry, normal turgor, no rashes or lesions noted. LABS Laboratory Results - last 24 hr 07/15/19 07/15/19 07/15/19 15:00 15:00 15:00 WBC 11.2 H RBC 4.91 Hgb 13.5 Hct 40.9 MCV 83.2 MCH 27.5 MCHC 33.0 RDW 15.7 Plt Count 297 D MPV 7.3 L D Absolute Neuts (auto) 8.5 H Neutrophils % 76.2 Lymphocytes % 15.7 D Monocytes % 7.1 Eosinophils % 0.5 D Basophils % 0.5 D Nucleated RBC % 0 PT with INR INR PTT (Actin FS) Sodium 137 Potassium 4.2 Chloride 104 Carbon Dioxide 25 Anion Gap 7 L BUN 8.2 Creatinine 0.9 Est GFR (CKD-EPI)AfAm 111.83 Est GFR (CKD-EPI)NonAf 96.49 Random Glucose 86 Calcium 9.4 Phosphorus Magnesium Total Bilirubin 0.4 AST 17 ALT 14 Alkaline Phosphatase 46 Total Protein 8.0 Albumin 4.1 Triglycerides Lipase 325 Urine Color Urine Appearance Urine pH Ur Specific [place] Urine Protein Urine Glucose (UA) Urine Ketones Urine Blood Urine Nitrite Urine Bilirubin Urine Urobilinogen Ur Leukocyte Esterase 07/15/19 07/15/19 07/15/19 15:00 21:35 21:35 WBC RBC Hgb Hct MCV MCH MCHC RDW Plt Count MPV Absolute Neuts (auto) Neutrophils % Lymphocytes % Monocytes % Eosinophils % Basophils % Nucleated RBC % PT with INR INR PTT (Actin FS) Sodium Potassium Chloride Carbon Dioxide Anion Gap BUN Creatinine Est GFR (CKD-EPI)AfAm Est GFR (CKD-EPI)NonAf Random Glucose Calcium 9.2 Phosphorus Magnesium Total Bilirubin AST ALT Alkaline Phosphatase Total Protein Albumin Triglycerides 77 Lipase Urine Color Yellow Urine Appearance Clear Urine pH 5.5 D Ur Specific [place] 1.004 L Urine Protein Negative Urine Glucose (UA) Negative Urine Ketones Negative Urine Blood Negative Urine Nitrite Negative Urine Bilirubin Negative Urine Urobilinogen 0.2 Ur Leukocyte Esterase Negative 07/16/19 07/16/19 07/16/19 08:20 08:20 08:20 WBC 13.1 H RBC 4.42 Hgb 12.0 Hct 36.7 MCV 83.0 MCH 27.2 MCHC 32.8 RDW 15.6 Plt Count 290 MPV 7.3 L Absolute Neuts (auto) 9.9 H Neutrophils % 75.3 Lymphocytes % 15.5 Monocytes % 8.2 Eosinophils % 0.5 Basophils % 0.5 Nucleated RBC % 0 PT with INR 14.30 H INR 1.21 H PTT (Actin FS) 33.7 Sodium 138 Potassium 4.0 Chloride 106 Carbon Dioxide 25 Anion Gap 7 L BUN 9.2 Creatinine 0.9 Est GFR (CKD-EPI)AfAm 111.83 Est GFR (CKD-EPI)NonAf 96.49 Random Glucose 85 Calcium 9.1 Phosphorus 3.4 Magnesium 2.2 Total Bilirubin 0.6 AST 12 L ALT 15 Alkaline Phosphatase 39 L Total Protein 7.2 Albumin 3.5 Triglycerides Lipase Urine Color Urine Appearance Urine pH Ur Specific [place] Urine Protein Urine Glucose (UA) Urine Ketones Urine Blood Urine Nitrite Urine Bilirubin Urine Urobilinogen Ur Leukocyte Esterase HOSPITAL COURSE: Date of Admission:07/15/19 Date of Discharge: 07/16/19 Discharge Summary Reason For Visit: ACUTE PANCREATITIS Current Active Problems Abdominal pain (Acute) - Instructions Referrals: Danny Lam [Primary Care Provider] - - Home Medications Comprehensive Discharge Medication List: Ambulatory Orders Acamprosate Calcium [Campral -] 333 mg PO BID 08/27/18 Amantadine HCl [Amantadine] 100 mg PO QID 08/27/18 Buspirone HCl 15 mg PO HS 08/27/18 Cyproheptadine [Periactin -] 4 mg PO Q12H 08/27/18 Doxazosin Mesylate [Cardura -] 2 mg PO HS 08/27/18 Ferrous Sulfate [Feosol] 325 mg PO TID 08/27/18 Folic Acid 1 mg PO DAILY 08/27/18 Lamotrigine [LaMICtal -] 100 mg PO HS 08/27/18 Lamotrigine [Lamictal -] 50 mg PO BID 08/27/18 Ranitidine [Zantac -] 150 mg PO DAILY 08/27/18 Venlafaxine HCl [Effexor -] 225 mg PO DAILY 08/27/18 Amlodipine Besylate [Norvasc -] 5 mg PO DAILY 07/15/19 Cyclobenzaprine HCl 10 mg PO BID PRN 07/15/19 Lipase/Protease/Amylase [Erika Woods 36,000 Units Capsule] 108,000 units PO TID Zolpidem Tartrate 10 mg PO HS PRN 07/15/19
--- NOTE | 2019-07-18 11:35 | EKG ---
Test Reason : Blood Pressure : / mmHG Vent. Rate : 075 BPM Atrial Rate : 075 BPM P-R Int : 138 ms QRS Dur : 072 ms QT Int : 378 ms P-R-T Axes : 022 006 022 degrees QTc Int : 422 ms NORMAL SINUS RHYTHM NORMAL ECG WHEN COMPARED WITH ECG OF 12-MAY-2019 16:27, NO SIGNIFICANT CHANGE WAS FOUND Confirmed by KM BARROW MD ([id number]) on 07/18/2019 11:35:36 AM Referred By: Confirmed By:KM BARROW MD
== END 2019-07-16 16:30 | disposition short-term general hospital (02) | DRG 282 ==
LOC: JER 13:52 → JERBED 17:49 → J6S 21:16
PROVIDERS: ATTEND Internal Medicine
DX: K85.20 Alcohol induced acute pancreatitis without necrosis or infection (principal); G62.9 Polyneuropathy, unspecified; K21.9 Gastro-esophageal reflux disease without esophagitis; I10 Essential (primary) hypertension; F31.9 Bipolar disorder, unspecified; G11.9 Hereditary ataxia, unspecified; F04 Amnestic disorder due to known physiological condition; K86.0 Alcohol-induced chronic pancreatitis; F10.21 Alcohol dependence, in remission; G40.909 Epilepsy, unspecified, not intractable, without status epilepticus; K76.0 Fatty (change of) liver, not elsewhere classified; R10.11 Right upper quadrant pain; K82.8 Other specified diseases of gallbladder; E66.3 Overweight; Z68.29 Body mass index [BMI] 29.0-29.9, adult
CPT/HCPCS: 36415; 74177-TC; 76705-TC; 80053; 81003; 82310; 83690; 83735; 84100; 84478; 85025; 85610; 85730; 87086; 93005; 93010; 99284-25; J7030

== ENCOUNTER 2019-08-23 12:39 | Inpatient (IN) | payer OTHER ==
[2019-08-23] MEDS ORDERED: SODIUM CHLORIDE 0.9% 500 ML INFUS.BAG IV ONE ×4 (13:47→20:33)
[2019-08-23] MEDS ORDERED: morphine CARPU-JECT 4 MG/1 ML DISP.SYRIN IVPUSH ONE ×2 (13:48→17:14)
[2019-08-23] MEDS ORDERED: morphine SULFATE 4 MG/ML VIAL ONE ×2 (14:11→17:32)
[2019-08-23 14:58] LABS: BASO % 0.1 % (0-2.0); HEMATOCRIT 43.5 % (35.4-49); HEMOGLOBIN 14.6 GM/dL (11.7-16.9); LYMPH % 9.6 % (8-40); MCH 28.3 pg (25.7-33.7); MCHC 33.5 g/dl (32.0-35.9); MEAN CELL VOLUME 84.5 fl (80-96); MEAN PLT VOLUME 8.2 fl (7.5-11.1); NEUT % 83.3 % (42.8-82.8); PLATELET COUNT 118 K/MM3 (134-434); RBC 5.16 M/mm3 (4.00-5.60); RDW 15.8 % (11.9-15.9); WHITE BLOOD COUNT 9.9 K/mm3 (4.0-10.0)
[2019-08-23 15:11] LABS: INR 1.07 (0.83-1.09); PROTHROMBIN TIME (PATIENT) 12.6 SEC (9.7-13.0)
[2019-08-23] MEDS ORDERED: ONDANSETRON 4 MG/2 ML VIAL IVPUSH ONE (15:20)
--- NOTE | 2019-08-23 15:28 | EKG ---
Test Reason : Blood Pressure : / mmHG Vent. Rate : 107 BPM Atrial Rate : 107 BPM P-R Int : 142 ms QRS Dur : 080 ms QT Int : 352 ms P-R-T Axes : 046 054 056 degrees QTc Int : 469 ms SINUS TACHYCARDIA OTHERWISE NORMAL ECG WHEN COMPARED WITH ECG OF 15-JUL-2019 19:59, QT HAS LENGTHENED Confirmed by Abdelrahman Cordova ([id number]) on 08/23/2019 3:28:35 PM Referred By: Confirmed By:Abdelrahman Cordova
[2019-08-23 15:31] LABS: ALBUMIN 3.8 g/dl (3.4-5.0); ALK PHOS 34 U/L (45-117); AMYLASE 519 U/L (25-115); ANION GAP 20 MMOL/L (8-16); BILIRUBIN,TOTAL 0.6 mg/dL (0.2-1); BLOOD UREA NITROGEN 18.1 mg/dL (7-18); CALCIUM 8.1 mg/dL (8.5-10.1); CHLORIDE 94 mmol/L (98-107); CO2 19 mmol/L (21-32); CREATININE 0.8 mg/dL (0.55-1.3); GLUCOSE,RANDOM 102 mg/dL (74-106); LIPASE 1231 U/L (73-393); POTASSIUM 3.8 mmol/L (3.5-5.1); SGOT/AST 63 U/L (15-37); SGPT/ALT 56 U/L (13-61); SODIUM 133 mmol/L (136-145); TOT PROT 7.6 g/dl (6.4-8.2)
--- NOTE | 2019-08-23 15:39 | PDOC ---
History of Present Illness - General Chief Complaint: Nausea/Vomiting Stated Complaint: VOMITING/NAUSEA Time Seen by Provider: 08/23/19 15:03 History Source: Patient Exam Limitations: No Limitations - History of Present Illness Initial Comments: 53 M, pmh alcohol abuse, pseudogout, bipolar disorder, depression, cerebellar ataxia, seizure disorder, peripheral neuropathy, Wernicke korsikoff, GERD and chronic pancreatitis presents to the ED c/o of severe abdominal pain of 4 day duration that began while he was intoxicated and has since worsened, accompanied by nausea and nbnb vomiting. Pt reports he has vomited multiple times with 3 episodes today and unable to eat or tolerate liquid. Pt states that his last drink was 2 days ago and his symptoms have worsened since. Pt was admitted in June for similar symptoms which was dx as chronic pancreatitis and was transferred out to [facility]. Denies f/c/chest pain, sob, numbness or tingling, hematochezia, melena. 08/23/19 15:40 08/23/19 15:45 Associated Symptoms: reports: denies symptoms, nausea/vomiting. denies: chest pain, cough, fever/chills, shortness of breath Past History - Past Medical History Allergies/Adverse Reactions: Allergies Allergy/AdvReac Type Severity Reaction Status Date / Time No Known Allergies Allergy Verified 08/23/19 12:44 Home Medications: Ambulatory Orders Acamprosate Calcium [Campral -] 333 mg PO BID 08/27/18 Amantadine HCl [Amantadine] 100 mg PO QID 08/27/18 Buspirone HCl 15 mg PO HS 08/27/18 Cyproheptadine [Periactin -] 4 mg PO Q12H 08/27/18 Doxazosin Mesylate [Cardura -] 2 mg PO HS 08/27/18 Ferrous Sulfate [Feosol] 325 mg PO TID 08/27/18 Folic Acid 1 mg PO DAILY 08/27/18 Lamotrigine [LaMICtal -] 100 mg PO HS 08/27/18 Lamotrigine [Lamictal -] 50 mg PO BID 08/27/18 Ranitidine [Zantac -] 150 mg PO DAILY 08/27/18 Venlafaxine HCl [Effexor -] 225 mg PO DAILY 08/27/18 Amlodipine Besylate [Norvasc -] 5 mg PO DAILY 07/15/19 Cyclobenzaprine HCl 10 mg PO BID PRN 07/15/19 Lipase/Protease/Amylase [Erika Woods 36,000 Units Capsule] 108,000 units PO TID Zolpidem Tartrate 10 mg PO HS PRN 07/15/19 Anemia: Yes Asthma: No Cancer: No Cardiac Disorders: No CVA: No COPD: No CHF: No Dementia: No Diabetes: No GI Disorders: Yes (Ch pancreatitis, GERD) Disorders: No HTN: Yes Hypercholesterolemia: No Liver Disease: No Psychiatric Problems: Yes (DEPRESSION,BIPOLAR) Seizures: Yes (silent) Thyroid Disease: No - Surgical History Abdominal Surgery: No Appendectomy: No Cardiac Surgery: No Cholecystectomy: Yes (2003) GI Surgery: Yes (metal stent pancreas 06/03 (at [facility] Lung Surgery: No Neurologic Surgery: No Orthopedic Surgery: No - Immunization History Immunization Up to Date: Yes - Psycho Social/Smoking Cessation Hx Smoking History: Never smoked Have you smoked in the past 12 months: No Hx Alcohol Use: Yes (6 pack beer daily) Drug/Substance Use Hx: No Substance Use Type: Alcohol Hx Substance Use Treatment: No Review of Systems - Review of Systems Able to Perform ROS?: Yes Is the patient limited Japanese proficient: No Constitutional: Yes: Symptoms Reported, Weight Stable. No: Chills, Fever HEENTM: Yes: Symptoms Reported. No: Cataracts, Ear Pain Respiratory: Yes: Symptoms reported. No: Cough, Shortness of Breath, Wheezing Cardiac (ROS): Yes: Symptoms Reported. No: Chest Pain, Chest Tightness ABD/GI: Yes: Symptoms Reported, Abdominal Distended, Abd. Pain w/ defecation, Diarrhea, Nausea, Vomiting Neurological: Yes: Symptoms reported. No: Headache, Numbness *Physical Exam - Vital Signs Last Vital Signs Temp Pulse Resp BP Pulse Ox 98 F 122 H 18 129/94 98 08/23/19 12:41 08/23/19 12:41 08/23/19 12:41 08/23/19 12:41 08/23/19 12:41 - Physical Exam General Appearance: Yes: Nourished, Appropriately Dressed HEENT: positive: EOMI, MARK, Normal ENT Inspection, Pharynx Normal Neck: positive: Trachea midline, Normal Thyroid, Supple Respiratory/Chest: positive: Lungs Clear, Normal Breath Sounds. negative: Crackles, Wheezing Cardiovascular: positive: Regular Rhythm, Regular Rate, S1, S2. negative: Murmur, Gallop/S3, Gallop/S4 Vascular Pulses: Dorsalis-Pedis (R): 2+, Doralis-Pedis (L): 2+ Gastrointestinal/Abdominal: positive: Normal Bowel Sounds, Tender, Organomegaly (hepatomegaly palpated ), Distended, Guarding, Rebound, Tenderness, Hepatomegaly Neurologic: positive: Fully Oriented, Alert, Normal Mood/Affect ED Treatment Course - LABORATORY CBC & Chemistry Diagram: 08/24/19 05:30 08/24/19 05:30 - ADDITIONAL ORDERS Additional order review: Laboratory Results 08/23/19 08/23/19 14:18 14:18 PT with INR 12.60 INR 1.07 Sodium 133 L Potassium 3.8 Chloride 94 L Carbon Dioxide 19 L Anion Gap 20 H BUN 18.1 H Creatinine 0.8 Est GFR (CKD-EPI)AfAm 117.38 Est GFR (CKD-EPI)NonAf 101.27 Random Glucose 102 Calcium 8.1 L Total Bilirubin 0.6 AST 63 H ALT 56 Alkaline Phosphatase 34 L Creatine Kinase 96 Troponin I < 0.02 Total Protein 7.6 Albumin 3.8 Total Amylase 519 H Lipase 1231 H 08/23/19 14:18 RBC 5.16 MCV 84.5 MCHC 33.5 RDW 15.8 MPV 8.2 D Neutrophils % 83.3 H Lymphocytes % 9.6 D Monocytes % 7.0 Eosinophils % 0.0 D Basophils % 0.1 - RADIOLOGY Radiology Studies Ordered: Category Date Time Status ABDOMEN CT WITH CONTRAST* [CT] Stat CT Scan 08/23/19 13:35 Ordered - Medications Given in the ED: ED Medications Discontinued Medications Generic Name Dose Route Start Last Admin Trade Name Freq PRN Reason Stop Dose Admin Morphine Sulfate 4 mg 08/23/19 13:48 08/23/19 14:29 Morphine Injection - IVPUSH 08/23/19 13:49 4 mg ONCE ONE Administration Sodium Chloride 1,000 ml 08/23/19 13:47 08/23/19 14:29 Normal Saline - IV 08/23/19 13:48 1,000 ml ONCE ONE Administration Medical Decision Making - Medical Decision Making 53 M, pmh alcohol abuse, pseudogout, bipolar disorder, depression, cerebellar ataxia, seizure disorder, peripheral neuropathy, Wernicke korsikoff, GERD and chronic pancreatitis presents to the ED c/o of severe abdominal pain of 4 day duration that began while he was intoxicated and has since worsened, accompanied by nausea and nbnb vomiting #Abdominal pain likely 2/2 to chronic pancreatitis hx of chronic pancreatitis, PE consistent with Chronic pancreatitis CBC, CMP, lipase, amylase, lactic acid IVF NPO Zofran, morphine 4mg CT a/p w/ Contrast 08/23/19 15:47 08/23/19 15:49 Discharge - Discharge Information Problems reviewed: Yes Clinical Impression/Diagnosis: Chronic pancreatitis Qualifiers: Pancreatitis type: unspecified pancreatitis type Qualified Code(s): K86.1 - Other chronic pancreatitis Condition: Stable - Admission Yes - Follow up/Referral - Patient Discharge Instructions - Post Discharge Activity
[2019-08-23] MEDS ORDERED: ONDANSETRON 4 MG/2 ML VIAL ONE (16:52)
[2019-08-23] MEDS ORDERED: ACETAMINOPHEN 1000 MG/100 ML VIAL (NON FORMULARY) IVPB ONE (17:13)
--- NOTE | 2019-08-23 17:59 | PDOC ---
Documentation entered by Hawk Yadav SCRIBE, acting as scribe for Teja Henriquez MD. Teja Henriquez MD: This documentation has been prepared by the Leif suarez Daniel, SCRIBE, under my direction and personally reviewed by me in its entirety. I confirm that the documentation accurately reflects all work, treatment, procedures, and medical decision making performed by me. Attending Attestation - Resident Resident Name: Mikhail Ojeda - ED Attending Attestation I have performed the following: I have examined & evaluated the patient, The case was reviewed & discussed with the resident, I agree w/resident's findings & plan, Exceptions are as noted - HPI HPI: 08/23/19 16:23 The patient is a 53 year old male with a past medical history of alcohol abuse, pseudogout, bipolar disorder, depression, cerebellar ataxia, seizure disorder, peripheral neuropathy, Wernicke korsikoff, GERD and chronic pancreatitis here today for evaluation of abdominal pain. The patient reports that his abdominal pain began 4 days ago while he was intoxicated and notes several episodes of nbnb vomiting since then with poor PO intake. Denies drug use. Patient denies headache, lightheadedness, focal weakness/numbness. Denies fever , chills. Denies chest pain, shortness of breath. Denies diarrhea, urinary sxs, dark stools. Allergies: NKA PCP: Danny Lam - Physicial Exam PE: 08/23/19 16:23 GENERAL: Awake, alert, and fully oriented, in no acute distress HEAD: No signs of trauma EYES: PERRLA, EOMI, sclera anicteric, conjunctiva clear ENT: Oropharynx clear without exudates. Mildly dry mucosa NECK: Normal ROM, supple, no lymphadenopathy, JVD, or masses LUNGS: Breath sounds equal, clear to auscultation bilaterally. No wheezes, and no crackles HEART: Regular rate and rhythm, normal S1 and S2, no murmurs, rubs or gallops ABDOMEN: Soft, +epigastric ttp, no other ttp. Normoactive bowel sounds. No guarding, no rebound. No masses EXTREMITIES: Normal range of motion, no edema. No clubbing or cyanosis. No cords , erythema, or tenderness. 2+ peripheral pulses. WWP. BACK: No midline spinal tenderness in cervical/thoracic/lumbar region NEUROLOGICAL: Normal speech, cranial nerves intact, equals strength and sensation b/l SKIN: Warm, Dry, normal turgor, no rashes or lesions noted. - Medical Decision Making 08/23/19 17:57 53yo M hx etoh abuse, chronic pancreatitis presents to the ED with epigastric pain a/w N/V. Emesis NBNB Vitals with mild tachycardia likely 2/2 pain Exam with epigastric ttp Labs consistent with acute on chronic pancreatitis Plan for CTAP to r/o necrosis, pseudocyst, collections, also sxs control, fluids Anticipate admission Heart Score/ECG Review #1 08/23/19 17:57 EKG read and int by me: Sinus tachycardia, rate 107, normal axis and intervals. No TANYA or TWI.
--- NOTE | 2019-08-23 19:26 | PN ---
Teaching Attending Note Name of Resident: Ada Matute ATTENDING PHYSICIAN STATEMENT I saw and evaluated the patient. I reviewed the resident's note and discussed the case with the resident. I agree with the resident's findings and plan as documented. SUBJECTIVE: Patient is a 53 year old man with a PMH of Alcohol abuse, Pseudogout, Bipolar disorder, Depression, Cerebellar ataxia, Seizure disorder (insists it is not related to alcohol), Peripheral neuropathy, Wernicke korsikoff, GERD and Chronic pancreatitis who presents to the ER with complaint of severe abdominal pain of 4 days duration. It began while he was intoxicated and has since worsened, accompanied by nausea and vomiting. He has vomited multiple times with 3 episodes today and unable to eat or tolerate liquids. His last drink was 2 days ago and his symptoms have worsened since. He was admitted in June for similar symptoms which was diagnosed as chronic pancreatitis and he was transferred out to [facility]. Denies fever, chills, chest pain, SOB, numbness or tingling, hematochezia, melena, or dysuria. Patient is adopted so FH not available. OBJECTIVE: Alert Vital Signs Period Temp Pulse Resp BP Sys/Barfield Pulse Ox Last 24 Hr 98 F 122 18 129/94 98 HEENT: No Jaundice, eye redness or discharge, PERRLA, EOMI. Normocephalic, atraumatic. External ears are normal and hearing is grossly intact. No nasal discharge. Neck: Supple, nontender. No palpable adenopathy or thyromegaly. No JVD Chest: Good effort. Clear to auscultation and percussion. Heart: Regular. No S3, rub or murmur Abdomen: Not distended, soft, epigastric tenderness and no HSM. No rebound or guarding. Normal bowel sounds. Ext: Peripheral pulses intact. No leg edema. Skin: Warm and dry. No petechiae, rash or ecchymosis. Neuro: Alert. Oriented x3. CN 2-12 grossly intact. Sensation grossly intact in all four extremities and DTR are symmetric. Psych: Appropriate mood and affect. Good insight. Home Medications Medication Instructions Recorded Acamprosate Calcium [Campral -] 333 mg PO BID 08/27/18 Amantadine HCl [Amantadine] 100 mg PO QID 08/27/18 Buspirone HCl 15 mg PO HS 08/27/18 Cyproheptadine [Periactin -] 4 mg PO Q12H 08/27/18 Doxazosin Mesylate [Cardura -] 2 mg PO HS 08/27/18 Ferrous Sulfate [Feosol] 325 mg PO TID 08/27/18 Folic Acid 1 mg PO DAILY 08/27/18 Lamotrigine [LaMICtal -] 100 mg PO HS 08/27/18 Lamotrigine [Lamictal -] 50 mg PO BID 08/27/18 Ranitidine [Zantac -] 150 mg PO DAILY 08/27/18 Venlafaxine HCl [Effexor -] 225 mg PO DAILY 08/27/18 Amlodipine Besylate [Norvasc -] 5 mg PO DAILY 07/15/19 Cyclobenzaprine HCl 10 mg PO BID PRN 07/15/19 Lipase/Protease/Amylase [Creon Dr 108,000 units PO TID 07/15/19 36,000 Units Capsule] Zolpidem Tartrate 10 mg PO HS PRN 07/15/19 Abnormal Lab Results 08/23/19 08/23/19 08/23/19 14:18 14:18 16:15 Plt Count 118 L D Absolute Neuts (auto) 8.2 H Neutrophils % 83.3 H Sodium 133 L Chloride 94 L Carbon Dioxide 19 L Anion Gap 20 H BUN 18.1 H Lactic Acid 5.8 H* Calcium 8.1 L AST 63 H Alkaline Phosphatase 34 L Total Amylase 519 H Lipase 1231 H ASSESSMENT AND PLAN: 1. Chhronic pancreatitis - CT scan of abdomen/pelvis with IV contrast shows acute pancreatitis and fatty liver. Started on IV morphine, zofran and IV LR in the ER. Will continue on IV LR at 200 ml/hour, trend lactic acid and use IV morphine and oxycodone for pain control. Lactic acidosis likely type B - no other evidence of acute bacterial infection. Low platelets likely due to alcohol abuse - will monitor daily. UA and CXR pending. EKG shows sinus tachycardia at 106/minute and prolonged QTc, but no ST-T wave changes. Will avoid zofran and treat with IV protonix 40 mg bid since he may heave a component of alcoholic gastritis. Will continue comprehensive care for all of patients comorbid conditions including Lamictal for seizures. 2. Alcohol abuse - Implement [facility] alcohol withdrawal protocol and do neurochecks. Implement seizure, fall and aspiration precautions. Treat with thiamine and folic acid and monitor electrolytes (Ca,Mg,K,P). Counseled patient about abstaining from alcohol. Will consult computer security specialist and refer to alcohol detox upon discharge. 3. Hypertension - Restart suitable outpatient antihypertensive drugs when clinically appropriate. Revise regimen to ensure [id number] excellent BP control and public relations counselor patient on the injurious effects of uncontrolled hypertension. Nonpharmacologic measures to control hypertension like weight loss , salt restriction and exercise discussed. Importance of adherence to treatment regimen and attainment of normotension emphasized. 4. DVT prophylaxis - Lovenox 40 mg SQ q 24 hours. 5. Advance directives - Full code
[2019-08-23] MEDS ORDERED: LACTATED RINGERS SOLUTION 1,000 ML/1,000 ML INFUS.BAG IV SCH (19:30)
--- NOTE | 2019-08-23 19:49 | HP ---
CHIEF COMPLAINT: Severe abdominal pain PCP: Dr. Danny Lam HISTORY OF PRESENT ILLNESS: 53 year old man with a PMH of Alcohol abuse, Pseudogout, Bipolar disorder, HTN, Cerebellar ataxia, Seizure disorder, Peripheral neuropathy, Wernicke korsikoff, GERD and Chronic pancreatitis who presents to the ER with complaint of severe abdominal pain of 4 day duration. The pain is 10/10, diffuse and sharp but more severe in the epigastric and RUQ region. It is associated with multiple episodes of NBNB vomiting, nausea, loss of appetite secondary to sever pain . Despite the symptoms, pt admits to drinking 2-3 24oz beer cans 2 days ago. That was his last drink and his symptoms have worsened since. He denies any fever, chills, SOB, chest pain, change in urination. He had one episode of NB watery diarrhea yesterday. He has not taken his pancreatic enzyme supplements or any of his other medication due to his excessive vomiting. He was admitted in June for similar symptoms which was diagnosed as chronic pancreatitis and he was transferred out to [facility]. ER course was notable for: (1)VS with tachycardia 122, CBC thrombocytopenia 118, CMP with hyponatremia 133 , lactic acid 5.8, Ca 8.1, AST 63, ALT 56, ALP 34, Amylase 519, lipase 1231 (2) EKG Sinus tachy no ST or T wave abnormalities, trop neg, CT A/P acute pancreatitis and diffuse fatty liver changes (3) NS and LR, Morphine, orfimev, zofran Recent Travel: none PAST MEDICAL HISTORY: as above PAST SURGICAL HISTORY: cholecystectomy Social History: Smoking:denies Alcohol: active heavy drinker Drugs: denies Allergies No Known Allergies Allergy (Verified 08/23/19 12:44) HOME MEDICATIONS: Home Medications Medication Instructions Recorded Acamprosate Calcium [Campral -] 333 mg PO BID 08/27/18 Amantadine HCl [Amantadine] 100 mg PO QID 08/27/18 Buspirone HCl 15 mg PO HS 08/27/18 Cyproheptadine [Periactin -] 4 mg PO Q12H 08/27/18 Doxazosin Mesylate [Cardura -] 2 mg PO HS 08/27/18 Ferrous Sulfate [Feosol] 325 mg PO TID 08/27/18 Folic Acid 1 mg PO DAILY 08/27/18 Lamotrigine [LaMICtal -] 100 mg PO HS 08/27/18 Lamotrigine [Lamictal -] 50 mg PO BID 08/27/18 Ranitidine [Zantac -] 150 mg PO DAILY 08/27/18 Venlafaxine HCl [Effexor -] 225 mg PO DAILY 08/27/18 Amlodipine Besylate [Norvasc -] 5 mg PO DAILY 07/15/19 Cyclobenzaprine HCl 10 mg PO BID PRN 07/15/19 Lipase/Protease/Amylase [Creon Dr 108,000 units PO TID 07/15/19 36,000 Units Capsule] Zolpidem Tartrate 10 mg PO HS PRN 07/15/19 REVIEW OF SYSTEMS CONSTITUTIONAL: loss of appetite Absent: fever, chills, diaphoresis, generalized weakness, malaise, weight change HEENT: Absent: rhinorrhea, nasal congestion, throat pain, throat swelling, difficulty swallowing, mouth swelling, ear pain, eye pain, visual changes CARDIOVASCULAR: Absent: chest pain, syncope, palpitations, irregular heart rate, lightheadedness , peripheral edema RESPIRATORY: Absent: cough, shortness of breath, dyspnea with exertion, orthopnea, wheezing, stridor, hemoptysis GASTROINTESTINAL:abdominal pain, nausea, vomiting, diarrhea, Absent: constipation, melena, hematochezia GENITOURINARY: Absent: dysuria, frequency, urgency, hesitancy, hematuria, flank pain, genital pain MUSCULOSKELETAL: Absent: myalgia, arthralgia, joint swelling, back pain, neck pain SKIN: Absent: rash, itching, pallor HEMATOLOGIC/IMMUNOLOGIC: Absent: easy bleeding, easy bruising, lymphadenopathy, frequent infections ENDOCRINE: Absent: unexplained weight gain, unexplained weight loss, heat intolerance, cold intolerance NEUROLOGIC: Absent: headache, focal weakness or paresthesias, dizziness, unsteady gait, seizure, mental status changes, bladder or bowel incontinence PSYCHIATRIC: Absent: anxiety, depression, suicidal or homicidal ideation, hallucinations. PHYSICAL EXAMINATION Vital Signs - 24 hr 08/23/19 12:41 Temperature 98 F Pulse Rate 122 H Respiratory 18 Rate Blood Pressure 129/94 O2 Sat by Pulse 98 Oximetry (%) GENERAL: Awake, alert, and fully oriented, in mod distress. HEAD: Normal with no signs of trauma. EYES: Pupils equal, round and reactive to light, extraocular movements intact, sclera anicteric, conjunctiva clear. No lid lag. EARS, NOSE, THROAT: oropharynx clear without exudates. Moist mucous membranes. NECK: Normal range of motion, supple without lymphadenopathy, JVD, or masses. LUNGS: Breath sounds equal, clear to auscultation bilaterally. No wheezes, and no crackles. No accessory muscle use. HEART:tachy Regular rate and rhythm, normal S1 and S2 without murmur, rub or gallop. ABDOMEN: Soft, diffuse tenderness but more severe in epigastric region and RUQ, not distended, normoactive bowel sounds, no guarding, no rebound, no masses. No hepatomegaly or splenomegaly. MUSCULOSKELETAL: Normal range of motion at all joints. No bony deformities or tenderness. No CVA tenderness. UPPER EXTREMITIES: 2+ pulses, warm, well-perfused. No cyanosis. No clubbing. No peripheral edema. LOWER EXTREMITIES: 2+ pulses, warm, well-perfused. No calf tenderness. No peripheral edema. PSYCHIATRIC: Cooperative. Good eye contact. Appropriate mood and affect. SKIN: Warm, dry, normal turgor, no rashes or lesions noted, normal capillary refill. Laboratory Results - last 24 hr 08/23/19 08/23/19 08/23/19 14:18 14:18 14:18 WBC 9.9 RBC 5.16 Hgb 14.6 Hct 43.5 D MCV 84.5 MCH 28.3 MCHC 33.5 RDW 15.8 Plt Count 118 L D MPV 8.2 D Absolute Neuts (auto) 8.2 H Neutrophils % 83.3 H Lymphocytes % 9.6 D Monocytes % 7.0 Eosinophils % 0.0 D Basophils % 0.1 Nucleated RBC % 0 PT with INR 12.60 INR 1.07 Sodium 133 L Potassium 3.8 Chloride 94 L Carbon Dioxide 19 L Anion Gap 20 H BUN 18.1 H Creatinine 0.8 Est GFR (CKD-EPI)AfAm 117.38 Est GFR (CKD-EPI)NonAf 101.27 Random Glucose 102 Lactic Acid Calcium 8.1 L Total Bilirubin 0.6 AST 63 H ALT 56 Alkaline Phosphatase 34 L Creatine Kinase 96 Troponin I < 0.02 Total Protein 7.6 Albumin 3.8 Total Amylase 519 H Lipase 1231 H 08/23/19 16:15 WBC RBC Hgb Hct MCV MCH MCHC RDW Plt Count MPV Absolute Neuts (auto) Neutrophils % Lymphocytes % Monocytes % Eosinophils % Basophils % Nucleated RBC % PT with INR INR Sodium Potassium Chloride Carbon Dioxide Anion Gap BUN Creatinine Est GFR (CKD-EPI)AfAm Est GFR (CKD-EPI)NonAf Random Glucose Lactic Acid 5.8 H* Calcium Total Bilirubin AST ALT Alkaline Phosphatase Creatine Kinase Troponin I Total Protein Albumin Total Amylase Lipase ASSESSMENT/PLAN: 53 year old man with a PMH of Alcohol abuse, Pseudogout, Bipolar disorder, HTN, Cerebellar ataxia, Seizure disorder, Peripheral neuropathy, Wernicke korsikoff, GERD and Chronic pancreatitis who presents to the ER with complaint of severe abdominal pain of 4 day duration associated with N/V/diarrhea Acute pancreatitis on chronic pancreatitis 2/2 heavy alcohol abuse severe abdominal pain with N/V/D, amylase and lipase 519 & 1231, elevated AST and ALT 63 &56, Lactic Acid 5.8 CT with e/o acute pancreatitis and fatty liver changes CXR no acute pathology Deena's criteria 0 severe pancreatitis unlikely Started on IV morphine, zofran and IV NS in the ER Will continue on IV LR at 200 cc/h trend lactic acid until normal will continue pain control with morphine 2mg Q4h zofran 2mg Q6h in the setting of QTC of 469 f/u labs closely NPO except meds. advance diet as tolerated Pancreatic enzyme supplements? AUD with evidence of alcohol withdrawal CIWA 15 ativan protocol with abnormal LFTs banana bag once will give MTV, thiamine and folate Addiction medicine Dr Machado consulted fall and seizure precautions neurochecks Thrombocytopenia most like due to acute and chronic alcohol abuse plts 118 will monitor with daily CBC Lactic acidosis -resolved initial 5.8 -> 3.2 -> 1.2 most likely type B- in the setting of alcohol intoxication no other evidence of acute bacterial infection received 2 bags of NS in ED started on LR @ 200 cc/h Hypertension currently normotensive amlodipine 5mg daily once able to tolerate PO if becomes hypertensive consider give norvasc 5 if tolerating PO Seizure and bipolar disorder cont with lamotrigine and venlafaxine once able tolerate PO GERD with possible acute alcohol gastritis in the setting of severe epigastric pain IV protonix 40 daily DVT ppx Lovenox daily admit to med surge Visit type - Emergency Visit Emergency Visit: Yes ED Registration Date: 08/23/19 Care time: The patient presented to the Emergency Department on the above date and was hospitalized for further evaluation of their emergent condition. - New Patient This patient is new to me today: No - Critical Care Critical Care patient: No ATTENDING PHYSICIAN STATEMENT I saw and evaluated the patient. I reviewed the resident's note and discussed the case with the resident. I agree with the resident's findings and plan as documented. SUBJECTIVE: OBJECTIVE: ASSESSMENT AND PLAN:
[2019-08-23] MEDS ORDERED: ONDANSETRON 4 MG/2 ML VIAL IVPUSH PRN (20:31)
[2019-08-23] MEDS ORDERED: LORazepam 1 MG TABLET PO PRN (20:40)
[2019-08-23] MEDS ORDERED: LORazepam 2 MG/ML SDV VIAL ONE (20:42)
[2019-08-23] MEDS ORDERED: FAMOTIDINE 20 MG/50 ML IVPB 20 MG/50 ML MG IVPB ONE (21:48)
[2019-08-23] MEDS ORDERED: FOLIC ACID INJECTION - 1 MG, THIAMINE HCL 100 MG, MULTIVIT INJECTION ADULT 10 ML in SOD... IVPB ONE (21:48)
[2019-08-23] MEDS ORDERED: FOLIC ACID 1 MG TABLET (FP) PO ONE (21:49)
[2019-08-23] MEDS ORDERED: FAMOTIDINE 20 MG/50 ML IVPB 20 MG/50 ML MG IVPB SCH (22:00)
[2019-08-23] MEDS ORDERED: LORazepam 0.5 MG TABLET ONE (23:41)
[2019-08-23] MEDS ORDERED: PANTOPRAZOLE SODIUM 40 MG VIAL ONE (23:42)
[2019-08-23] MEDS ORDERED: FOLIC ACID 1 MG TABLET (FP) ONE (23:42)
[2019-08-23] MEDS: LORazepam 2 MG TABLET PO SCH (23:50)
[2019-08-23] MEDS: PANTOPRAZOLE SODIUM 40 MG VIAL IVPUSH SCH (23:50)
[2019-08-24] MEDS ORDERED: MORPHINE SULFATE 2 MG/ML VIAL ONE ×4 (00:35→16:37)
[2019-08-24] MEDS: MORPHINE SULFATE 2 MG/ML VIAL IVPUSH PRN ×3 (00:45→13:21)
[2019-08-24] MEDS ORDERED: LORazepam 0.5 MG TABLET ONE ×3 (04:51→17:56)
[2019-08-24] MEDS: LORazepam 2 MG TABLET PO SCH ×3 (05:00→18:02)
[2019-08-24 05:53] LABS: BASO % 0.4 % (0-2.0); EOS % 0.2 % (0-4.5); HEMATOCRIT 33.7 % (35.4-49); HEMOGLOBIN 11.3 GM/dL (11.7-16.9); LYMPH % 18.1 % (8-40); MCH 28.3 pg (25.7-33.7); MCHC 33.5 g/dl (32.0-35.9); MEAN CELL VOLUME 84.4 fl (80-96); MEAN PLT VOLUME 7.8 fl (7.5-11.1); MONO % 10.3 % (3.8-10.2); PLATELET COUNT 69 K/MM3 (134-434); RDW 15.7 % (11.9-15.9); WHITE BLOOD COUNT 5.5 K/mm3 (4.0-10.0)
[2019-08-24 06:48] LABS: BILIRUBIN,TOTAL 0.8 mg/dL (0.2-1); BLOOD UREA NITROGEN 9.6 mg/dL (7-18); CREATININE 0.5 mg/dL (0.55-1.3); PHOSPHOROUS 1.5 mg/dL (2.5-4.9); POTASSIUM 3.2 mmol/L (3.5-5.1); TOT PROT 5.8 g/dl (6.4-8.2)
[2019-08-24 06:51] LABS: CALCIUM 6.7 mg/dL (8.5-10.1)
[2019-08-24] MEDS ORDERED: ONDANSETRON 4 MG/2 ML VIAL ONE (08:00)
[2019-08-24] MEDS ORDERED: POTASSIUM PHOSPHATE 30 MM in SODIUM CHLORIDE 500 ML IVPB ONE (08:08)
[2019-08-24] MEDS: ONDANSETRON 4 MG/2 ML VIAL IVPUSH PRN ×2 (08:11→22:13)
--- NOTE | 2019-08-24 08:16 | PN ---
Progress Note (short form) - Note Progress Note: Patient is feeling better c/o having abdominal pain but morphine is helping, he stated that he goes into Binge drinking and he has hx of chronic pancreatitis, goes into severe attack. states that he will stop drinking, since the pain is getting to him. Vital Signs Temperature 98.1 F 08/24/19 02:42 Pulse Rate 84 08/24/19 02:42 Respiratory Rate 16 08/24/19 02:42 Blood Pressure 146/88 08/24/19 02:42 O2 Sat by Pulse Oximetry (%) 95 08/24/19 02:42 GENERAL: The patient is awake, alert, and fully oriented, in no acute distress. HEAD: Normal with no signs of trauma. EYES: PERRL, extraocular movements intact, sclera anicteric, conjunctiva clear. ENT: Ears normal, oropharynx clear without exudates, moist mucous membranes. NECK: Trachea midline, full range of motion, supple. LUNGS: Breath sounds equal, clear to auscultation bilaterally, no wheezes, no crackles, no accessory muscle use. HEART: Regular rate and rhythm, S1, S2 without murmur, rub or gallop. ABDOMEN: Soft, midepigastric tenderness, mild distention, normoactive bowel sounds, no guarding, no rebound, no masses appreciated. EXTREMITIES: 2+ pulses, warm, well-perfused, no edema. NEUROLOGICAL: Cranial nerves II through XII grossly intact. Normal speech, gait not observed. PSYCH: Normal mood, normal affect. SKIN: Warm, dry, normal turgor, no rashes or lesions noted CBCD WBC 5.5 K/mm3 (4.0-10.0) 08/24/19 05:30 RBC 4.00 M/mm3 (4.00-5.60) 08/24/19 05:30 Hgb 11.3 GM/dL (11.7-16.9) L 08/24/19 05:30 Hct 33.7 % (35.4-49) L D 08/24/19 05:30 MCV 84.4 fl (80-96) 08/24/19 05:30 MCHC 33.5 g/dl (32.0-35.9) 08/24/19 05:30 RDW 15.7 % (11.9-15.9) 08/24/19 05:30 Plt Count 69 K/MM3 (134-434) L D 08/24/19 05:30 MPV 7.8 fl (7.5-11.1) 08/24/19 05:30 CMP Sodium 136 mmol/L (136-145) 08/24/19 05:30 Potassium 3.2 mmol/L (3.5-5.1) L 08/24/19 05:30 Chloride 102 mmol/L (98-107) 08/24/19 05:30 Carbon Dioxide 24 mmol/L (21-32) 08/24/19 05:30 Anion Gap 11 MMOL/L (8-16) 08/24/19 05:30 BUN 9.6 mg/dL (7-18) 08/24/19 05:30 Creatinine 0.5 mg/dL (0.55-1.3) L 08/24/19 05:30 Random Glucose 99 mg/dL (74-106) 08/24/19 05:30 Calcium 6.7 mg/dL (8.5-10.1) L* 08/24/19 05:30 Total Bilirubin 0.8 mg/dL (0.2-1) 08/24/19 05:30 AST 33 U/L (15-37) 08/24/19 05:30 ALT 37 U/L (13-61) 08/24/19 05:30 Alkaline Phosphatase 24 U/L (45-117) L 08/24/19 05:30 Total Protein 5.8 g/dl (6.4-8.2) L 08/24/19 05:30 Albumin 3.0 g/dl (3.4-5.0) L 08/24/19 05:30 CARDIAC ENZYMES Creatine Kinase 96 U/L (26-308) 08/23/19 14:18 Troponin I < 0.02 ng/ml (0.00-0.05) 08/23/19 14:18 Current Medications Generic Name Dose Route Start Last Admin Trade Name Freq PRN Reason Stop Dose Admin Acamprosate 333 mg 08/24/19 10:00 Campral - PO BID [facility] Amantadine HCl 100 mg 08/24/19 10:00 Symmetrel - PO QID JUNE Amlodipine Besylate 5 mg 08/24/19 10:00 Norvasc - PO DAILY JUNE Doxazosin Mesylate 2 mg 08/24/19 22:00 Cardura - PO HS JUNE Enoxaparin Sodium 40 mg 08/24/19 10:00 Lovenox - SQ DAILY JUNE Lactated Ringer's 1,000 ml in 1,000 mls @ 100 mls/hr 08/24/19 06:36 Lactated Ringers Solution IV ASDIR JUNE Potassium Phosphate 30 mm/ 510 mls @ 62.5 mls/hr 08/24/19 08:08 Sodium Chloride IVPB 08/24/19 16:17 ONCE ONE Lamotrigine 50 mg 08/24/19 10:00 Lamictal - PO BID JUNE Lamotrigine 100 mg 08/24/19 22:00 Lamictal - PO HS JUNE Lorazepam 2 mg 08/23/19 23:00 08/24/19 05:00 Ativan PO 08/24/19 23:01 2 mg 0500,1100,1700,2300 JUNE Administration Lorazepam 0.5 mg 08/26/19 05:00 Ativan - PO 08/26/19 23:01 Q6H JUNE Lorazepam 0.5 mg 08/26/19 00:00 Ativan - PO 08/26/19 23:59 Q4H PRN Symptoms of Withdrawal Lorazepam 0.5 mg 08/27/19 05:00 Ativan - PO 08/27/19 05:01 ONCE ONE Lorazepam 1 mg 08/25/19 05:00 Ativan - PO 08/25/19 23:01 0500,1100,1700,2300 JUNE Lorazepam 1 mg 08/23/19 20:40 Ativan - PO 08/25/19 23:59 Q4H PRN Symptoms of Withdrawal Morphine Sulfate 2 mg 08/23/19 20:31 08/24/19 04:48 Morphine Sulfate IVPUSH 2 mg Q4H PRN Administration PAIN LEVEL 6-10 Multivitamins/Minerals/Vitamin C 1 tab 08/24/19 10:00 Tab-A-Vit - PO DAILY [facility] Ondansetron HCl 2 mg 08/23/19 21:46 08/24/19 08:11 Zofran Injection IVPUSH 2 mg Q6H PRN Administration NAUSEA Pancrelipase 3 cap 08/24/19 08:00 Erika Woods 36,000 Units Capsule PO TIDCM [facility] Pantoprazole Sodium 40 mg 08/23/19 21:48 08/23/19 23:50 Protonix Iv IVPUSH 40 mg DAILY [facility] Administration Thiamine HCl 200 mg 08/24/19 10:00 Vitamin B1 - PO DAILY [facility] Venlafaxine HCl 225 mg 08/24/19 10:00 Effexor - PO DAILY [facility] Home Medications Medication Instructions Recorded Acamprosate Calcium [Campral -] 333 mg PO BID 08/27/18 Amantadine HCl [Amantadine] 100 mg PO QID 08/27/18 Buspirone HCl 15 mg PO HS 08/27/18 Cyproheptadine [Periactin -] 4 mg PO Q12H 08/27/18 Doxazosin Mesylate [Cardura -] 2 mg PO HS 08/27/18 Ferrous Sulfate [Feosol] 325 mg PO TID 08/27/18 Folic Acid 1 mg PO DAILY 08/27/18 Lamotrigine [LaMICtal -] 100 mg PO HS 08/27/18 Lamotrigine [Lamictal -] 50 mg PO BID 08/27/18 Ranitidine [Zantac -] 150 mg PO DAILY 08/27/18 Venlafaxine HCl [Effexor -] 225 mg PO DAILY 08/27/18 Amlodipine Besylate [Norvasc -] 5 mg PO DAILY 07/15/19 Cyclobenzaprine HCl 10 mg PO BID PRN 07/15/19 Lipase/Protease/Amylase [Creon Dr 108,000 units PO TID 07/15/19 36,000 Units Capsule] Zolpidem Tartrate 10 mg PO HS PRN 07/15/19 CXR: No acute pathology Ct abdomen and pelvis: decreased dilatation of the main pancreatic duct from , now 3.8mm previously 7mm decreased common bile duct dilataion with a current diameter of 1cm previously 1.2cm s/p cholecystectomy small amount of intrahepatic pneumobilia ; postprocedure in nature, marked diffuse hepatic steatosis Assessment and plan: Patient is a 53yom with a PMHx of Alcohol dependency, Pseudogout, Bipolar disorder, HTN, Cerebellar ataxia, Seizure disorder, Peripheral neuropathy, Wernicke korsikoff, GERD and Chronic pancreatitis who presents to the ER ,c/o severe abdominal pain x 4 day duration associated with N/V/diarrhea #Acute pancreatitis on chronic pancreatitis due to alcohol dependency on LR continue, morphine for pain and low dose zofran for nausea that he gets it with morphine, increased the interval of morphine to 2mg every 3 hrs. since he is becoming nauseas with morphine , the higher the dose the worse the nausea. GI consulted. #QTc is 463 today, will check the EKG in am , orderded. #Alcohol dependency r/o DTs on ativan protocol , consult addiction , on thimaine 200mg iv bid #Hx of cerebellar ataxia: due to etoh , PT , CT of head if needed #Thrombocytopenia 69k due to alcohol dependency, continue to monitor, hold lovenox ac for px #Lactic acidosis -resolved; initial 5.8 -> 3.2 -> 1.2, on IVF #Hx of HTN on amlodipine 5mg daily once able to tolerate PO # Hx of Seizure and bipolar disorder: cont with lamotrigine and venlafaxine once able tolerate PO #GERD due to alcohol dependency # severe epigastric pain due to alcohol use ,on IV protonix 40 daily DVT ppx : no AC since platelets are 69K , monitor admit to med surge Visit type - Emergency Visit Emergency Visit: Yes ED Registration Date: 08/23/19 Care time: The patient presented to the Emergency Department on the above date and was hospitalized for further evaluation of their emergent condition. - New Patient This patient is new to me today: Yes Date on this admission: 08/24/19 - Critical Care Critical Care patient: No - Discharge Referral Referred to [facility] Med [facility] No
[2019-08-24] MEDS: LIPASE/PROTEASE/AMYLASE 36,000 UNIT CAPSULE PO SCH ×3 (08:30→18:02)
[2019-08-24] MEDS ORDERED: ENOXAPARIN NA (PORCINE) 40 MG/0.4 ML DISP.SYRIN SQ SCH (10:00)
[2019-08-24] MEDS ORDERED: THIAMINE HCL 100 MG TABLET (FP) PO SCH (10:00)
[2019-08-24] MEDS: PANTOPRAZOLE SODIUM 40 MG VIAL IVPUSH SCH (10:55)
[2019-08-24] MEDS: ACAMPROSATE CALCIUM 333 MG TABLET.DR PO SCH ×2 (10:55→22:15)
[2019-08-24] MEDS: VENLAFAXINE HCL 75 MG TABLET PO SCH (10:55)
[2019-08-24] MEDS: lamoTRIgine 25 MG TABLET PO SCH ×2 (10:55→22:14)
[2019-08-24] MEDS: amLODIPine BESYLATE 5 MG TABLET (FP) PO SCH (10:55)
[2019-08-24] MEDS: MULTIVITAMINS (DAILY MVI) TABLET (FP) PO SCH (10:55)
[2019-08-24] MEDS: AMANTADINE HCL 100 MG TABLET PO SCH ×4 (10:55→22:16)
[2019-08-24] MEDS: THIAMINE HCL 200 MG/2 ML VIAL IVPB SCH ×2 (10:55→22:13)
[2019-08-24] MEDS ORDERED: THIAMINE HCL 200 MG/2 ML VIAL ONE (11:53)
[2019-08-24] MEDS: LACTATED RINGERS SOLUTION 1,000 ML/1,000 ML INFUS.BAG IV SCH (19:42)
[2019-08-24] MEDS ORDERED: LORazepam 1 MG TABLET PO SCH (20:58)
[2019-08-24] MEDS: lamoTRIgine 100 MG TABLET (FP) PO SCH (22:14)
[2019-08-24] MEDS: DOXAZOSIN MESYLATE 2 MG TABLET (FP) PO SCH (22:15)
[2019-08-24] MEDS ORDERED: MELATONIN 5 MG TABLETS PO ONE (23:01)
[2019-08-25] MEDS: MORPHINE SULFATE 2 MG/ML VIAL IVPUSH PRN ×5 (00:05→22:02)
[2019-08-25] MEDS: LACTATED RINGERS SOLUTION 1,000 ML/1,000 ML INFUS.BAG IV SCH ×2 (00:07→09:32)
[2019-08-25] MEDS: LORazepam 1 MG TABLET PO SCH ×3 (05:58→17:01)
--- NOTE | 2019-08-25 06:55 | EKG ---
Test Reason : Blood Pressure : / mmHG Vent. Rate : 086 BPM Atrial Rate : 086 BPM P-R Int : 142 ms QRS Dur : 078 ms QT Int : 416 ms P-R-T Axes : 042 042 043 degrees QTc Int : 497 ms POOR DATA QUALITY, INTERPRETATION MAY BE ADVERSELY AFFECTED NORMAL SINUS RHYTHM CANNOT RULE OUT ANTERIOR INFARCT , AGE UNDETERMINED ABNORMAL ECG WHEN COMPARED WITH ECG OF 23-AUG-2019 14:46, NO SIGNIFICANT CHANGE WAS FOUND Confirmed by SCOTTY RENDON MD ([id number]) on 08/24/2019 3:58:15 PM Referred By: Confirmed By:SCOTTY RENDON MD
[2019-08-25 08:54] LABS: EPI CELLS 1.1 /HPF (0-5/HPF); HYALINE CASTS 4 /lpf (0-8); PH,URINE 7.5 (5.0-8.0); URINE APPEARANCE CLEAR; URINE BACTERIA 8.4 /hpf (NEGATIVE); URINE BILIRUBIN NEGATIVE (NEGATIVE); URINE COLOR YELLOW; URINE GLUCOSE (UA) NEGATIVE (NEGATIVE); URINE KETONE 3+ (NEGATIVE); URINE LEUK ESTERASE NEGATIVE (NEGATIVE); URINE NITRITE NEGATIVE (NEGATIVE); URINE PROTEIN 1+ (NEGATIVE); URINE RBC 21 /hpf (0-4); URINE WBC 1 /hpf (0-5)
[2019-08-25] MEDS: LIPASE/PROTEASE/AMYLASE 36,000 UNIT CAPSULE PO SCH ×3 (09:32→17:59)
[2019-08-25] MEDS: THIAMINE HCL 200 MG/2 ML VIAL IVPB SCH ×2 (09:33→23:03)
[2019-08-25] MEDS: MULTIVITAMINS (DAILY MVI) TABLET (FP) PO SCH (09:34)
[2019-08-25] MEDS: amLODIPine BESYLATE 5 MG TABLET (FP) PO SCH (09:34)
[2019-08-25] MEDS: PANTOPRAZOLE SODIUM 40 MG VIAL IVPUSH SCH (09:34)
[2019-08-25] MEDS: ACAMPROSATE CALCIUM 333 MG TABLET.DR PO SCH ×2 (09:38→22:13)
[2019-08-25] MEDS: VENLAFAXINE HCL 75 MG TABLET PO SCH (09:38)
[2019-08-25] MEDS: AMANTADINE HCL 100 MG TABLET PO SCH ×4 (09:38→23:03)
[2019-08-25] MEDS: lamoTRIgine 25 MG TABLET PO SCH ×2 (09:39→22:13)
[2019-08-25 10:41] LABS: ALBUMIN 3.1 g/dl (3.4-5.0); BILIRUBIN,TOTAL 0.7 mg/dL (0.2-1); BLOOD UREA NITROGEN 8.7 mg/dL (7-18); CALCIUM 7.8 mg/dL (8.5-10.1); CREATININE 0.5 mg/dL (0.55-1.3); TOT PROT 6.2 g/dl (6.4-8.2)
[2019-08-25 11:21] LABS: POTASSIUM 2.7 mmol/L (3.5-5.1)
--- NOTE | 2019-08-25 12:45 | CONSULT ---
Consult Detox [facility] Reason for Current Admission/Consult: Patient has multiple medical problems and also alcohol dependence on Campral. Referred by:: Ada Matute - History History of Present Illness: 53 year old man with a PMH of Alcohol abuse, Pseudogout, Bipolar disorder, HTN, Cerebellar ataxia, Seizure disorder, Peripheral neuropathy, Wernicke korsikoff, GERD and Chronic pancreatitis who presents to the ER with complaint of severe abdominal pain of 4 day duration. The pain is 10/10, diffuse and sharp but more severe in the epigastric and RUQ region. It is associated with multiple episodes of NBNB vomiting, nausea, loss of appetite secondary to sever pain . Despite the symptoms, pt admits to drinking 2-3 24oz beer cans 2 days ago. That was his last drink and his symptoms have worsened since. He denies any fever, chills, SOB, chest pain, change in urination. He had one episode of NB watery diarrhea yesterday. He has not taken his pancreatic enzyme supplements or any of his other medication due to his excessive vomiting. He was admitted in June for similar symptoms which was diagnosed as chronic pancreatitis and he was transferred out to [facility]. Prior to this admission he admits that he was binging for 6 days up to 3.5 pints of tequila daily. The day before admission he was vomitting and nauseous. ER course was notable for: (1)VS with tachycardia 122, CBC thrombocytopenia 118, CMP with hyponatremia 133 , lactic acid 5.8, Ca 8.1, AST 63, ALT 56, ALP 34, Amylase 519, lipase 1231 (2) EKG Sinus tachy no ST or T wave abnormalities, trop neg, CT A/P acute pancreatitis and diffuse fatty liver changes (3) NS and LR, Morphine, orfimev, zofran - History Source History Provided By: Patient, Medical Record Limitations to Obtaining History: No Limitations - Alcohol/Substance Use Hx Alcohol Use: Yes (3.5 pints of tequila daily for 6 days prior to admission) Hx Substance Use: No Hx Substance Use Treatment: Yes (has had detox and rehab and has been on MAT in [place] in past) - Past Medical History [employer]: Yes: Peripheral Neuropathy, Seizure, Other (Cerebellar ataxia) Cardio/Vascular: Yes: HTN Gastrointestinal: Yes: GERD, Pancreatitis (acute and chronic alcoholic pancreatitis, s/p multiple PD stenting) Psych: Yes: Addictions (alcohol), Bipolar, Depression - Past Surgical History Past Surgical History: Yes: Cholecystectomy (laparoscopic), Colonoscopy, Upper Endoscopy - Significant Medical Findings: Patient was seen in bed and is currently NPO, but receiving IV fluids. He is still having abdominal pains but no vomitting or nausea at the present time. GENERAL: The patient is awake, alert, and fully oriented, in no acute distress. HEAD: Normal with no signs of trauma. EYES: PERRL, extraocular movements intact, sclera anicteric, conjunctiva clear. ENT: Ears normal, oropharynx clear without exudates, moist mucous membranes. NECK: Trachea midline, full range of motion, supple. LUNGS: Breath sounds equal, clear to auscultation bilaterally, no wheezes, no crackles, no accessory muscle use. HEART: Regular rate and rhythm, S1, S2 without murmur, rub or gallop. ABDOMEN: Soft, midepigastric tenderness, mild distention, normoactive bowel sounds, no guarding, no rebound, no masses appreciated. EXTREMITIES: 2+ pulses, warm, well-perfused, no edema. NEUROLOGICAL: Cranial nerves II through XII grossly intact. Normal speech, gait not observed. PSYCH: Normal mood, normal affect. SKIN: Warm, dry, normal turgor, no rashes or lesions noted CIWA Score - CIWA Score Nausea/Vomitin-No Nausea/No Vomiting Muscle Tremors: None Anxiety: 1-Mildly Anxious Agitation: 1-Slight > Activity Paroxysmal Sweats: No Perspiration Orientation: 0-Oriented Tacttile Disturbances: 0-None Auditory Disturbances: 0-None Visual Disturbances: 0-None Headache: 0-None Present CIWA-Ar Total Score: 2 Assessment Plan - Plan Plan: 1. Alcohol Dependence: Patient had acute bout of acute pancreatitis on top of chronic pancreatitis. This obviously was exacerbated by binge of alcohol. He admits that campral for his alcohol dependence has not helped absolutely. However, if and when he stops it, it does lead to further drinking of alcohol. He was once in [place] at [facility] receiving outpatient counseling and services for relapse prevention. After long discussion with patient, he is willing to consider re-entry into [place] and possibly trying Vivitrol as MAT. This might be a better option as he has tried other avenues of treatment. At this time he has declined detox services at [facility]. In any case, he is getting an Ativan detox protocol which should continue to completion. However, he can avail himself of detox and rehab services in the future, or upon discharge explore [facility] and [facility] MAT. I have educated and discussed this with him. He feels that his medical and psychiatric issues are more pressing at this time. Dr. Machado - Medication Detox Regimen/Protocol: Ativan (continue detox using Ativan to completion.)
[2019-08-25 13:59] VITALS: BMI 27.2
--- NOTE | 2019-08-25 15:54 | PN ---
Teaching Attending Note Name of Resident: Ana Castillo ATTENDING PHYSICIAN STATEMENT I saw and evaluated the patient. SUBJECTIVE: Seen and examined at bedside. Patient feeling weak and tremulous. No nausea or vomiting, no abdominal pain. hungry OBJECTIVE: Vital Signs - 24 hr 08/24/19 08/24/19 08/24/19 18:12 19:45 22:24 Temperature 98.6 F 98.5 F Pulse Rate 91 H Pulse Rate [ 94 H 93 H Left Radial] Respiratory 18 18 Rate Blood Pressure 144/82 Blood Pressure 138/83 143/87 [Right Arm] O2 Sat by Pulse 96 95 Oximetry (%) 08/25/19 08/25/19 08/25/19 02:11 05:16 06:04 Temperature 98.5 F 97.9 F Pulse Rate 111 H 100 H Pulse Rate [ Left Radial] Respiratory 18 18 Rate Blood Pressure 124/76 131/82 Blood Pressure [Right Arm] O2 Sat by Pulse 95 Oximetry (%) 08/25/19 08/25/19 09:00 10:00 Temperature 98.7 F Pulse Rate 91 H Pulse Rate [ Left Radial] Respiratory 17 17 Rate Blood Pressure 120/76 Blood Pressure [Right Arm] O2 Sat by Pulse 96 Oximetry (%) PE: Gen: The patient is awake, alert, and fully oriented, in no acute distress. LUNGS: clear to auscultation bilaterally, no wheezes, no crackles, unlabored HEART: RRR, S1, S2 without murmur, rub or gallop. ABDOMEN: Soft, NT/ND, normoactive bowel sounds, no guarding, no rebound, no masses appreciated. EXTREMITIES: 2+ pulses, warm, well-perfused, no edema. NEUROLOGICAL: Cranial nerves II through XII grossly intact. tremulous Current Medications Acamprosate (Campral -) 333 mg PO BID [facility] Last Admin: 08/25/19 09:38 Dose: 333 mg Amantadine HCl (Symmetrel -) 100 mg PO QID [facility] Last Admin: 08/25/19 13:53 Dose: 100 mg Amlodipine Besylate (Norvasc -) 5 mg PO DAILY [facility] Last Admin: 08/25/19 09:34 Dose: 5 mg Doxazosin Mesylate (Cardura -) 2 mg PO HS [facility] Last Admin: 08/24/19 22:15 Dose: 2 mg Potassium Chloride (Potassium Chloride 10 Meq Premix Ivpb -) 10 meq in 100 mls @ 100 mls/hr IVPB Q60M [facility] Stop: 08/25/19 18:59 Sodium Chloride (Normal Saline -) 1,000 mls @ 100 mls/hr IV ASDIR [facility] Lamotrigine (Lamictal -) 50 mg PO BID [facility] Last Admin: 08/25/19 09:39 Dose: 50 mg Lamotrigine (Lamictal -) 100 mg PO HS [facility] Last Admin: 08/24/19 22:14 Dose: 100 mg Lorazepam (Ativan -) 0.5 mg PO Q6H [facility] Stop: 08/26/19 23:01 Lorazepam (Ativan -) 0.5 mg PO Q4H PRN PRN Reason: Symptoms of Withdrawal Stop: 08/26/19 23:59 Lorazepam (Ativan -) 0.5 mg PO ONCE ONE Stop: 08/27/19 05:01 Lorazepam (Ativan -) 1 mg PO 0500,1100,1700,2300 [facility] Stop: 08/25/19 23:01 Last Admin: 08/25/19 12:26 Dose: 1 mg Lorazepam (Ativan -) 1 mg PO Q4H PRN PRN Reason: Symptoms of Withdrawal Stop: 08/25/19 23:59 Morphine Sulfate (Morphine Sulfate) 2 mg IVPUSH Q3H PRN PRN Reason: PAIN LEVEL 6-10 Last Admin: 08/25/19 13:52 Dose: 2 mg Multivitamins/Minerals/Vitamin C (Tab-A-Vit -) 1 tab PO DAILY [facility] Last Admin: 08/25/19 09:34 Dose: 1 tab Ondansetron HCl (Zofran Injection) 2 mg IVPUSH Q6H PRN PRN Reason: NAUSEA Last Admin: 08/24/19 22:13 Dose: 2 mg Pancrelipase (Creon Dr 36,000 Units Capsule) 3 cap PO TIDCM [facility] Last Admin: 08/25/19 12:27 Dose: Not Given Pantoprazole Sodium (Protonix Iv) 40 mg IVPUSH DAILY [facility] Last Admin: 08/25/19 09:34 Dose: 40 mg Potassium Phos/Sodium Phos (Phos-Nak Packet -) 1 packet PO BID [facility] Thiamine HCl (Vitamin B1 Injection -) 200 mg IVPB BID [facility] Last Admin: 08/25/19 09:33 Dose: 200 mg Venlafaxine HCl (Effexor -) 225 mg PO DAILY [facility] Last Admin: 08/25/19 09:38 Dose: 225 mg Laboratory Results - last 24 hr 08/25/19 08/25/19 08:00 08:45 Sodium 134 L Potassium 2.7 L* Chloride 95 L Carbon Dioxide 27 Anion Gap 12 BUN 8.7 Creatinine 0.5 L Est GFR (CKD-EPI)AfAm 142.39 Est GFR (CKD-EPI)NonAf 122.86 Random Glucose 77 Calcium 7.8 L Phosphorus 2.0 L Magnesium 2.0 Total Bilirubin 0.7 AST 29 ALT 32 Alkaline Phosphatase 25 L Total Protein 6.2 L Albumin 3.1 L Urine Color Yellow Urine Appearance Clear Urine pH 7.5 D Ur Specific Mertens 1.017 Urine Protein 1+ H Urine Glucose (UA) Negative Urine Ketones 3+ H Urine Blood 1+ H Urine Nitrite Negative Urine Bilirubin Negative Urine Urobilinogen 1.0 Ur Leukocyte Esterase Negative Urine WBC (Auto) 1 Urine RBC (Auto) 21 Urine Casts (Auto) 4 U Epithel Cells (Auto) 1.1 Urine Bacteria (Auto) 8.4 All imaging reports reviewed ASSESSMENT AND PLAN: 53 year old male with a PMHx of Alcohol dependency, Pseudogout, Bipolar disorder , HTN, Cerebellar ataxia, Seizure disorder, Peripheral neuropathy, Wernicke korsikoff, GERD and Chronic pancreatitis who presents to the ER ,c/o severe abdominal pain x 4 day duration associated with N/V/diarrhea 1) Acute on chronic pancreatitis secondary to ETOH abuse -IVF-NS @ 100cc/hr -pain control, wean off opioids -antiemetics with caution, watch qtc -detox protocol, drug regulatory affairs specialist following 2) Electrolyte disturbances-hypokalemia, hypophosphotemia, hypocalcemia, and hyponatremia -started on IVF -IV Kphos given -started on PO calcium -give NaphosK packet BID -check lytes tonight at 10 PM and replete as needed -c/w thiamine and folic acid -Hx of cerebellar ataxia -TCP due to ETOH abuse -Lactic acidosis -resolved -Hx of HTN-resume PO meds once tolerating PO -Hx of Seizure and bipolar disorder: cont with lamotrigine and venlafaxine once able tolerate PO -GERD on PPI DVT ppx : TCP, SCDs
[2019-08-25] MEDS: KCL 10 MEQ IVPB 10 MEQ/100 ML INFUS.BAG IVPB SCH ×3 (17:02→22:07)
[2019-08-25] MEDS: SODIUM CHLORIDE 1,000 ML IV SCH (17:11)
[2019-08-25] MEDS: lamoTRIgine 100 MG TABLET (FP) PO SCH (22:14)
[2019-08-25] MEDS: NAPH,MB-DB/K PH,MBDB POWDER PACKET PO SCH (22:14)
[2019-08-25] MEDS: DOXAZOSIN MESYLATE 2 MG TABLET (FP) PO SCH (23:02)
[2019-08-26] MEDS ORDERED: LORazepam 0.5 MG TABLET PO PRN
[2019-08-26] MEDS: LORazepam 1 MG TABLET PO SCH (00:35)
[2019-08-26 02:07] LABS: BILIRUBIN,TOTAL 0.7 mg/dL (0.2-1); BLOOD UREA NITROGEN 9.1 mg/dL (7-18); CALCIUM 7.6 mg/dL (8.5-10.1); CREATININE 0.4 mg/dL (0.55-1.3); TOT PROT 6.1 g/dl (6.4-8.2)
[2019-08-26] MEDS ORDERED: POTASSIUM CHLORIDE TABS 20 MEQ TABLET.ER (FP) PO ONE ×2 (03:31→06:00)
[2019-08-26] MEDS ORDERED: POTASSIUM CHLORIDE ORAL LIQUID 20 MEQ/15 ML PO ONE (04:10)
[2019-08-26] MEDS ORDERED: NAPH,MB-DB/K PH,MBDB POWDER PACKET PO ONE (04:11)
[2019-08-26] MEDS: SODIUM CHLORIDE 1,000 ML IV SCH (05:00)
[2019-08-26] MEDS: LORazepam 0.5 MG TABLET PO SCH ×2 (05:03→10:59)
[2019-08-26] MEDS: LIPASE/PROTEASE/AMYLASE 36,000 UNIT CAPSULE PO SCH ×2 (08:32→12:29)
--- NOTE | 2019-08-26 09:53 | DS ---
Physical Exam: SUBJECTIVE: Patient seen and examined He has no pain he tolerated the full really well no nausea vomiting fever chills diarrhea. OBJECTIVE: Vital Signs Period Temp Pulse Resp BP Sys/Barfield Pulse Ox Last 24 Hr 97.6 F-98.7 F 86-92 17-18 120-140/73-87 96 PHYSICAL EXAM GENERAL: The patient is awake, alert, and fully oriented, in no acute distress. HEAD: Normal with no signs of trauma. EYES: PERRL, extraocular movements intact, sclera anicteric, conjunctiva clear. ENT: Ears normal, nares patent, oropharynx clear without exudates, moist mucous membranes. NECK: Trachea midline, full range of motion, supple. LUNGS: Breath sounds equal, clear to auscultation bilaterally, no wheezes, no crackles, no accessory muscle use. HEART: Regular rate and rhythm, S1, S2 without murmur, rub or gallop. ABDOMEN: Soft, nontender, nondistended, normoactive bowel sounds, no guarding, no rebound, no hepatosplenomegaly, no masses. EXTREMITIES: 2+ pulses, warm, well-perfused, no edema. NEUROLOGICAL: Cranial nerves II through XII grossly intact. Normal speech, gait not observed. PSYCH: Normal mood, normal affect. SKIN: Warm, dry, normal turgor, no rashes or lesions noted. LABS Laboratory Results - last 24 hr 08/25/19 08/26/19 08:45 01:15 Sodium 134 L 134 L Potassium 2.7 L* 3.0 L Chloride 95 L 97 L Carbon Dioxide 27 25 Anion Gap 12 12 BUN 8.7 9.1 Creatinine 0.5 L 0.4 L Est GFR (CKD-EPI)AfAm 142.39 156.07 Est GFR (CKD-EPI)NonAf 122.86 134.66 Random Glucose 77 62 L Calcium 7.8 L 7.6 L Phosphorus 2.0 L 2.0 L Magnesium 2.0 Total Bilirubin 0.7 0.7 AST 29 32 ALT 32 33 Alkaline Phosphatase 25 L 26 L Total Protein 6.2 L 6.1 L Albumin 3.1 L 3.0 L HOSPITAL COURSE: He was admitted to the hospital with alcohol pancreatitis. He was started on IV fluids and n.p.o. he is much improved now he has no stomach tenderness he is hungry he is eating food comfortably is going to go home on his home medication advised him to stop drinking alcohol follow-up with his primary care doctor next week. Date of Admission:08/23/19 Date of Discharge: 08/26/19 Minutes to complete discharge: 30 Discharge Summary Problems reviewed: Yes Reason For Visit: PANCREATITIS Current Active Problems Pancreatitis, chronic (Acute) Condition: Improved - Instructions Diet, Activity, Other Instructions: He goes back on regular diet he is going to follow-up with his primary care doctor discussed with him to stop drinking alcohol because it can keep causing him pancreatitis. Referrals: Danny Lam [Primary Care Provider] - Disposition: HOME - Home Medications Comprehensive Discharge Medication List: Ambulatory Orders Acamprosate Calcium [Campral -] 333 mg PO BID 08/27/18 Amantadine HCl [Amantadine] 100 mg PO QID 08/27/18 Cyproheptadine [Periactin -] 4 mg PO Q12H 08/27/18 Doxazosin Mesylate [Cardura -] 2 mg PO HS 08/27/18 Ferrous Sulfate [Feosol] 325 mg PO TID 08/27/18 Folic Acid 1 mg PO DAILY 08/27/18 Lamotrigine [LaMICtal -] 100 mg PO HS 08/27/18 Lamotrigine [Lamictal -] 50 mg PO BID 08/27/18 Ranitidine [Zantac -] 150 mg PO DAILY 08/27/18 Amlodipine Besylate [Norvasc -] 5 mg PO DAILY 07/15/19 Zolpidem Tartrate 10 mg PO HS PRN 07/15/19 Amantadine HCl [Symmetrel -] 100 mg PO QID tab 08/26/19 Buspirone HCl 15 mg PO HS #30 tablet 08/26/19 Cyclobenzaprine HCl 10 mg PO BID PRN #60 tablet 08/26/19 Lipase/Protease/Amylase [Erika Woods 36,000 Units Capsule] 108,000 units PO TID # 90 capsule. 08/26/19 Venlafaxine HCl [Effexor -] 225 mg PO DAILY #30 tablet 08/26/19 - Discharge Referral Referred to [facility] No
[2019-08-26] MEDS ORDERED: POTASSIUM CHLORIDE TABS 20 MEQ TABLET.ER (FP) PO SCH (10:00)
[2019-08-26] MEDS ORDERED: PT OWN MED DRAWER 7, Y5N ONE (10:04)
[2019-08-26 10:15] VITALS: BP 143/79; PULSE 86; TEMP 98.1
[2019-08-26] MEDS: THIAMINE HCL 200 MG/2 ML VIAL IVPB SCH (10:18)
[2019-08-26] MEDS: NAPH,MB-DB/K PH,MBDB POWDER PACKET PO SCH (10:19)
[2019-08-26] MEDS: ACAMPROSATE CALCIUM 333 MG TABLET.DR PO SCH (10:21)
[2019-08-26] MEDS: amLODIPine BESYLATE 5 MG TABLET (FP) PO SCH (10:21)
[2019-08-26] MEDS: MULTIVITAMINS (DAILY MVI) TABLET (FP) PO SCH (10:21)
[2019-08-26] MEDS: lamoTRIgine 25 MG TABLET PO SCH (10:22)
[2019-08-26] MEDS: VENLAFAXINE HCL 75 MG TABLET PO SCH (10:23)
[2019-08-26] MEDS: AMANTADINE HCL 100 MG TABLET PO SCH ×2 (10:23→13:44)
[2019-08-26] MEDS: PANTOPRAZOLE SODIUM 40 MG VIAL IVPUSH SCH (10:58)
[2019-08-27] MEDS ORDERED: LORazepam 0.5 MG TABLET PO ONE (05:00)
== END 2019-08-26 14:54 | disposition home or self-care (01) | DRG 282 ==
LOC: JER 12:39 → JERBED 17:01 → J5S 08-24 20:27
PROVIDERS: ADMIT Internal Medicine; ATTEND Internal Medicine
DX: K85.20 Alcohol induced acute pancreatitis without necrosis or infection (principal); G11.9 Hereditary ataxia, unspecified; G40.909 Epilepsy, unspecified, not intractable, without status epilepticus; M10.9 Gout, unspecified; G62.9 Polyneuropathy, unspecified; F04 Amnestic disorder due to known physiological condition; K21.9 Gastro-esophageal reflux disease without esophagitis; K86.1 Other chronic pancreatitis; F31.9 Bipolar disorder, unspecified; K76.0 Fatty (change of) liver, not elsewhere classified; E87.2 Acidosis; D69.6 Thrombocytopenia, unspecified; R00.0 Tachycardia, unspecified; E87.1 Hypo-osmolality and hyponatremia; K29.20 Alcoholic gastritis without bleeding; F10.230 Alcohol dependence with withdrawal, uncomplicated; E87.6 Hypokalemia; E83.39 Other disorders of phosphorus metabolism; E83.51 Hypocalcemia
CPT/HCPCS: 36415; 71045-TC-FY; 74178-TC; 80053; 81003; 82150; 82550; 83605; 83690; 83735; 84100; 84484; 85025; 85610; 93005; 93010; 97116-GP; 97161-GP; 99285-25; J7030; Q9967

== ENCOUNTER 2019-09-09 22:41 | Inpatient (IN) | payer OTHER ==
--- NOTE | 2019-09-09 23:02 | PDOC ---
History of Present Illness - General Stated Complaint: NAUSEA,ABDOMINAL PAIN Time Seen by Provider: 09/09/19 22:59 - History of Present Illness Initial Comments: 09/09/19 23:37 53 y/o M hx of cerebellar ataxia, chronic pancreatitis (on enzyme supplementation), bipolar disorder, depression, alcohol dependence. Recently admitted 08/23/2019 for pancretitis flare secondary to alcohol use, presents to the ER with 6 hours of abdominal pain. pain is epigastric, stabbing in nature and radiates to his back. it is 10/10 in severity. Exacerbated by lying down flat. Pain differs from that on last admission and was faster in onset and progression at this visit. He endorses nausea,chills. He denies bloody stools, bright red blood per rectum, emesis. His last BM was this a.m. Past History - Past Medical History Allergies/Adverse Reactions: Allergies Allergy/AdvReac Type Severity Reaction Status Date / Time No Known Allergies Allergy Verified 08/23/19 12:44 Home Medications: Ambulatory Orders Acamprosate Calcium [Campral -] 333 mg PO BID 08/27/18 Amantadine HCl [Amantadine] 100 mg PO QID 08/27/18 Cyproheptadine [Periactin -] 4 mg PO Q12H 08/27/18 Doxazosin Mesylate [Cardura -] 2 mg PO HS 08/27/18 Ferrous Sulfate [Feosol] 325 mg PO TID 08/27/18 Folic Acid 1 mg PO DAILY 08/27/18 Lamotrigine [LaMICtal -] 100 mg PO HS 08/27/18 Lamotrigine [Lamictal -] 50 mg PO BID 08/27/18 Ranitidine [Zantac -] 150 mg PO DAILY 08/27/18 Amlodipine Besylate [Norvasc -] 5 mg PO DAILY 07/15/19 Zolpidem Tartrate 10 mg PO HS PRN 07/15/19 Amantadine HCl [Symmetrel -] 100 mg PO QID tab 08/26/19 Buspirone HCl 15 mg PO HS #30 tablet 08/26/19 Cyclobenzaprine HCl 10 mg PO BID PRN #60 tablet 08/26/19 Lipase/Protease/Amylase [Erika Woods 36,000 Units Capsule] 108,000 units PO TID # 90 capsule. 08/26/19 Venlafaxine HCl [Effexor -] 225 mg PO DAILY #30 tablet 08/26/19 Anemia: Yes Asthma: No Cancer: No Cardiac Disorders: No CVA: (cerebellar ataxia) COPD: No CHF: No Dementia: No Diabetes: No GI Disorders: Yes (pancreatitis, GERD) Disorders: No HTN: Yes Hypercholesterolemia: No Liver Disease: No Psychiatric Problems: Yes (DEPRESSION,BIPOLAR) Seizures: Yes (silent) Thyroid Disease: No - Surgical History Abdominal Surgery: No Appendectomy: No Cardiac Surgery: No Cholecystectomy: Yes (2003) GI Surgery: Yes (metal stent pancreas 06/03 (at [facility])) Lung Surgery: No Neurologic Surgery: No Orthopedic Surgery: No - Immunization History Immunization Up to Date: Yes - Psycho Social/Smoking Cessation Hx Smoking History: Never smoked Have you smoked in the past 12 months: No Hx Alcohol Use: Yes (3.5 pints of tequila daily for 6 days prior to admission) Drug/Substance Use Hx: No Substance Use Type: Alcohol Hx Substance Use Treatment: Yes (has had detox and rehab and has been on MAT in [place] in past) Review of Systems - Review of Systems Constitutional: Yes: Chills. No: Fever HEENTM: No: Eye Pain, Blurred Vision Respiratory: No: Cough, Shortness of Breath Cardiac (ROS): No: Chest Pain, Palpitations ABD/GI: Yes: Nausea. No: Vomiting : No: Burning, Dysuria, Hematuria Musculoskeletal: Yes: Back Pain Neurological: No: Headache, Numbness *Physical Exam - Physical Exam 09/09/19 23:34 GENERAL: Awake, alert, and fully oriented, uncomfortable HEAD: No signs of trauma, normocephalic, atraumatic EYES: PERRLA, EOMI, sclera anicteric, conjunctiva clear ENT: Auricles normal inspection, hearing grossly normal, nares patent, oropharynx clear without exudates. Moist mucosa NECK: Normal ROM, supple, no lymphadenopathy, JVD, or masses LUNGS: No distress, speaks full sentences, clear to auscultation bilaterally HEART: Regular rate and rhythm, normal S1 and S2, no murmurs, rubs or gallops, peripheral pulses normal and equal bilaterally. ABDOMEN: Soft, tenderness and guarding (RUQ,LUQ, epigastric) no rebound or CVA tenderness. EXTREMITIES : Normal inspection, Normal range of motion, no edema. No clubbing or cyanosis NEUROLOGICAL: Cranial nerves II through XII grossly intact. Normal speech,no focal sensorimotor deficits SKIN: Warm, Dry, normal turgor, no rashes or lesions noted 09/09/19 23:35 ED Treatment Course - LABORATORY CBC & Chemistry Diagram: 09/10/19 00:05 09/10/19 00:05 Medical Decision Making - Medical Decision Making 09/09/19 23:45 53 y/o M hx of cerebellar ataxia, chronic pancreatitis (on enzyme supplementation), bipolar disorder, depression, alcohol dependence. Recently admitted 08/23/2019 for pancretitis flare secondary to alcohol use, presents to the ER with 6 hours of abdominal pain. workup cbc, cmp, ua, urine culture, lactic acid, ekg cardiac profile. Meds: normal saline, tylenol IV, 09/10/19 00:04 EKG normal sinus rhythm, abnormal EKG, anterior infarct age undetermined. CT scan shows mild acute pancreatitis with evidence of previous pancreatitis Mild secondary duodenal inflammation and presumably reactive adenopathy Pt to be transferred to [facility] as his doctors are there 09/23/19 17:37 Discharge - Discharge Information Problems reviewed: Yes Clinical Impression/Diagnosis: Pancreatitis Qualifiers: Chronicity: chronic Pancreatitis type: other Qualified Code(s): K86.1 - Other chronic pancreatitis Disposition: TRANSFER ACUTE CARE/OTHER HOSP - Follow up/Referral - Patient Discharge Instructions - Post Discharge Activity
[2019-09-09] MEDS ORDERED: SODIUM CHLORIDE 0.9% 500 ML INFUS.BAG IV ONE (23:24)
[2019-09-09 23:28] VITALS: BMI 60.5
[2019-09-09] MEDS ORDERED: ACETAMINOPHEN 1000 MG/100 ML VIAL (NON FORMULARY) IVPB ONE (23:34)
[2019-09-09] MEDS ORDERED: ONDANSETRON 4 MG/2 ML VIAL IVPUSH ONE (23:34)
[2019-09-10] MEDS ORDERED: ACETAMINOPHEN INJECTION 100 ML IVPB ONE (00:35)
[2019-09-10] MEDS ORDERED: ONDANSETRON 4 MG/2 ML VIAL ONE (00:36)
--- NOTE | 2019-09-10 00:38 | PDOC ---
Documentation entered by Kristen Schaeffer SCRIBE, acting as scribe for Valeri Bauer MD. Valeri Bauer MD: This documentation has been prepared by the Maksim suarez Brenda, SCRIBE, under my direction and personally reviewed by me in its entirety. I confirm that the documentation accurately reflects all work, treatment, procedures, and medical decision making performed by me. Attending Attestation - Resident Resident Name: Sasha Rowell - ED Attending Attestation I have performed the following: I have examined & evaluated the patient, The case was reviewed & discussed with the resident, I agree w/resident's findings & plan, Exceptions are as noted - HPI HPI: 09/09/19 23:57 Mr. Norwood is a 53 year old male with a medical history of cerebellar ataxia , chronic pancreatitis (last admission 2 weeks ago due to pancreatitis secondary to alcohol use, on enzyme supplementation), bipolar disorder/ depression who presents to the ED for severe upper abdominal pain Pt states he ate dinner at approximately 4pm (rice and boiled chicken). At approximately 5pm he developed severe, stabbing epigastric abdominal pain which radiates to his back. Pain is 10/10 pain severity, no alleviating factors Pt has these episodes intermittently, he makes himself NPO and eventually the pain passes HOWEVER today, the pain escalated rapidly and THIS is what concerned this patient He has had nausea The patient denies chest pain, shortness of breath, headache and dizziness. Denies nausea, diarrhea and constipation. Denies dysuria, frequency, urgency and hematuria. Allergies: NKA Social history: No reported hx of tobacco use, alcohol use or illicit drug use. 09/10/19 00:22 - Physicial Exam PE: 09/09/19 23:39 GENERAL: The patient is in severe pain. ENT: Ears normal, nares patent, oropharynx clear without exudates. Moist mucous membranes. NECK: Normal range of motion, supple, no nuchal rigidity LUNGS: Breath sounds equal, clear to auscultation bilaterally. No wheezes, and no crackles. HEART: Regular rate and rhythm, normal S1 and S2 without murmur, rub or gallop. ABDOMEN: Soft, protruberant, upper abdominal tenderness, no involuntary guarding or rebound EXTREMITIES: Normal range of motion, no edema. NEUROLOGICAL: Cranial nerves II through XII grossly intact. Normal speech. No focal neurological deficits. SKIN: Warm, Dry, normal turgor, no rashes or lesions noted. 09/10/19 00:32 - Medical Decision Making 09/10/19 00:33 53 yo M with a h/o chronic pancreatitis presenting with upper abdominal pain, nausea, no fevers or chills Will do: labs EKG IVF Pepcid EKG: NSR rate of 91 bpm, axis nml, intervals nml, no st elevation or depression, t wave upright 09/10/19 18:[address] pending Pt signed out to Dr. Hill Clinical impression: pancreatitis, initial presentation
[2019-09-10 01:18] LABS: BASO % 0.2 % (0-2.0); EOS % 0.1 % (0-4.5); HEMATOCRIT 37.9 % (35.4-49); HEMOGLOBIN 12.4 GM/dL (11.7-16.9); MCH 28.4 pg (25.7-33.7); MCHC 32.6 g/dl (32.0-35.9); MEAN PLT VOLUME 7.4 fl (7.5-11.1); NEUT % 82.7 % (42.8-82.8); PLATELET COUNT 413 K/MM3 (134-434); RBC 4.36 M/mm3 (4.00-5.60); RDW 16.5 % (11.9-15.9); WHITE BLOOD COUNT 17.8 K/mm3 (4.0-10.0)
[2019-09-10] MEDS ORDERED: morphine CARPU-JECT 4 MG/1 ML DISP.SYRIN IVPUSH ONE ×2 (01:52→06:06)
[2019-09-10] MEDS ORDERED: morphine SULFATE 4 MG/ML VIAL ONE ×2 (01:59→06:33)
[2019-09-10 02:06] LABS: ALBUMIN 3.4 g/dl (3.4-5.0); ALK PHOS 65 U/L (45-117); ANION GAP 6 MMOL/L (8-16); BILIRUBIN,TOTAL 0.4 mg/dL (0.2-1); BLOOD UREA NITROGEN 9.9 mg/dL (7-18); CALCIUM 9.3 mg/dL (8.5-10.1); CHLORIDE 104 mmol/L (98-107); CO2 27 mmol/L (21-32); GLUCOSE,RANDOM 110 mg/dL (74-106); LIPASE > 30000 U/L (73-393); POTASSIUM 4.1 mmol/L (3.5-5.1); SGOT/AST 19 U/L (15-37); SGPT/ALT 30 U/L (13-61); SODIUM 137 mmol/L (136-145); TOT PROT 7.1 g/dl (6.4-8.2)
[2019-09-10 02:11] LABS: EPI CELLS 0.2 /HPF (0-5/HPF); HYALINE CASTS 0 /lpf (0-8); URINE APPEARANCE CLEAR; URINE BACTERIA 0.7 /hpf (NEGATIVE); URINE BILIRUBIN NEGATIVE (NEGATIVE); URINE COLOR YELLOW; URINE GLUCOSE (UA) NEGATIVE (NEGATIVE); URINE KETONE NEGATIVE (NEGATIVE); URINE LEUK ESTERASE NEGATIVE (NEGATIVE); URINE NITRITE NEGATIVE (NEGATIVE); URINE PROTEIN NEGATIVE (NEGATIVE); URINE RBC 1 /hpf (0-4); URINE UROBILINOGEN 0.2 mg/dL (0.2-1.0); URINE WBC 1 /hpf (0-5)
[2019-09-10] MEDS ORDERED: LACTATED RINGERS SOLUTION 1,000 ML/1,000 ML INFUS.BAG IV STA (03:04)
[2019-09-10 04:47] LABS: CHOLESTEROL 192 mg/dL (50-200); HDL CHOLESTEROL 63 mg/dL (40-60); LDL CHOLESTEROL (ONLY SJRH) 113 mg/dL (5-100); TRIGLYCERIDES 103 mg/dL (0-150)
--- NOTE | 2019-09-10 05:27 | PDOC ---
*Physical Exam - Vital Signs Last Vital Signs Temp Pulse Resp BP Pulse Ox 98.3 F 98 H 22 H 153/95 98 09/09/19 23:25 09/09/19 23:25 09/09/19 23:25 09/09/19 23:25 09/09/19 23:25 ED Treatment Course - LABORATORY CBC & Chemistry Diagram: 09/10/19 00:05 09/10/19 00:05 - ADDITIONAL ORDERS Additional order review: Laboratory Results 09/10/19 09/10/19 09/09/19 01:25 00:05 23:40 Sodium 137 Potassium 4.1 Chloride 104 Carbon Dioxide 27 Anion Gap 6 L BUN 9.9 Creatinine 1.0 Est GFR (CKD-EPI)AfAm 98.46 Est GFR (CKD-EPI)NonAf 84.95 Random Glucose 110 H Lactic Acid 1.5 Calcium 9.3 Total Bilirubin 0.4 AST 19 ALT 30 Alkaline Phosphatase 65 Total Protein 7.1 Albumin 3.4 Triglycerides 103 Cholesterol 192 Total LDL Cholesterol 113 H HDL Cholesterol 63 H Lipase > 51855 H Urine Color Yellow Urine Appearance Clear Urine pH 5.0 D Ur Specific [place] 1.014 Urine Protein Negative Urine Glucose (UA) Negative Urine Ketones Negative Urine Blood Trace Urine Nitrite Negative Urine Bilirubin Negative Urine Urobilinogen 0.2 Ur Leukocyte Esterase Negative Urine WBC (Auto) 1 Urine RBC (Auto) 1 Urine Casts (Auto) 0 U Epithel Cells (Auto) 0.2 Urine Bacteria (Auto) 0.7 09/10/19 00:05 RBC 4.36 MCV 87.0 MCHC 32.6 RDW 16.5 H MPV 7.4 L Neutrophils % 82.7 Lymphocytes % 9.0 D Monocytes % 8.0 Eosinophils % 0.1 Basophils % 0.2 - Medications Given in the ED: ED Medications Discontinued Medications Generic Name Dose Route Start Last Admin Trade Name Freq PRN Reason Stop Dose Admin Acetaminophen 1,000 mg 09/09/19 23:34 09/10/19 00:41 Ofirmev Injection - IVPB 09/09/19 23:35 1,000 mg ONCE ONE Administration Lactated Ringer's 1,000 ml in 1,000 mls @ 1,000 mls/hr 09/10/19 03:04 03:17 Lactated Ringers Solution IV 09/10/19 04:03 1,000 mls/hr ONCE STA Administration Morphine Sulfate 4 mg 09/10/19 01:52 09/10/19 02:05 Morphine Injection - IVPUSH 09/10/19 01:53 4 mg ONCE ONE Administration Ondansetron HCl 4 mg 09/09/19 23:34 09/10/19 00:42 Zofran Injection IVPUSH 09/09/19 23:35 4 mg ONCE ONE Administration Sodium Chloride 1,000 ml 09/09/19 23:24 09/10/19 00:41 Normal Saline - IV 09/09/19 23:25 1,000 ml ONCE ONE Administration Medical Decision Making - Medical Decision Making 09/10/19 05:26 Patient Name: LEELA TRUONG THIS IS A PRELIMINARY REPORT FROM [facility]AGING [facility]TE DELIVERY [facility]PER[facility] DATE OF SERVICE: 2019-09-10 02:10:28 IMAGES: [id number] EXAM: ABDOMEN \T\ PELVIS CT WITH CONTR HISTORY: Abdominal pain COMPARISON: None. FINDINGS: Mild dependent atelectasis is noted. The visualized cardiac chambers are normal size and configuration. Status post cholecystectomy with mild pneumobilia. There is mild peripancreatic inflammation indicating acute pancreatitis in the pancreatic duct is dilated and irregular, likely reflecting prior hypertensive though there are no pancreatic calcifications. There is mild duodenal inflammation presumably secondary phenomena. No other secondary complications for pancreatitis identified. Normal spleen, adrenal glands and kidneys. The stomach and abdominal large bowel are normal. There is no aortic aneurysm. There is mild adenopathy adjacent to the pancreas and duodenum, presumably reactive to pancreatitis. The pelvic small and large bowel are normal. Appendix normal. The urinary bladder and prostate gland are normal. No pelvic free fluid is identified. There is no significant pelvic lymphadenopathy. IMPRESSION: Mild acute pancreatitis, with evidence of previous pancreatitis. Mild secondary duodenal inflammation and presumably reactive adenopathy. Hospitalist will not admit the patient, as he has GI docs at [facility], Dr. Carlin WALLACE. We will TRY TO TRANSFER THE PATIENT THERE 09/10/19 06:47 Dr. Faye will be the accepting hospitalist at [facility], once a bed opens up [facility] understand that pt's GI doc is Carlin Wallace I spoke to Dr. Santamaria, who took all of iker's information. 09/10/19 06:57 Day team will make sure pt is transferred to [facility]. Discharge - Discharge Information Problems reviewed: Yes Clinical Impression/Diagnosis: Pancreatitis Disposition: TRANSFER ACUTE CARE/OTHER HOSP - Follow up/Referral - Patient Discharge Instructions - Post Discharge Activity
[2019-09-10 06:35] VITALS: PULSE 79
[2019-09-10 08:22] VITALS: BP 104/61; TEMP 98.7
--- NOTE | 2019-09-10 10:49 | EKG ---
Test Reason : Blood Pressure : / mmHG Vent. Rate : 091 BPM Atrial Rate : 091 BPM P-R Int : 140 ms QRS Dur : 072 ms QT Int : 340 ms P-R-T Axes : 021 004 018 degrees QTc Int : 418 ms NORMAL SINUS RHYTHM ABNORMAL ECG WHEN COMPARED WITH ECG OF 24-AUG-2019 09:54, QT HAS SHORTENED Confirmed by JOANNA HURTADO MD ([id number]) on 09/10/2019 10:48:56 AM Referred By: Confirmed By:JOANNA HURTADO MD
== END 2019-09-10 08:00 | disposition short-term general hospital (02) | DRG 282 ==
LOC: JER 22:41 → JERBED 09-10 03:45
PROVIDERS: ADMIT Internal Medicine; ATTEND Internal Medicine
DX: K85.20 Alcohol induced acute pancreatitis without necrosis or infection (principal); G11.8 Other hereditary ataxias; F31.9 Bipolar disorder, unspecified; K21.9 Gastro-esophageal reflux disease without esophagitis; J98.11 Atelectasis; F10.20 Alcohol dependence, uncomplicated; R59.9 Enlarged lymph nodes, unspecified
CPT/HCPCS: 36415; 74177-TC; 80053; 80061; 81003; 83605; 83690; 83721; 85025; 87086; 93005; 93010; 99285-25; J0131; Q9967

== ENCOUNTER 2020-09-03 12:07 | Inpatient (IN) | payer OTHER ==
[2020-09-03] MEDS ORDERED: diazePAM CARPU-JECT 10 MG/2 ML DISP.SYRIN IVPUSH ONE ×2 (12:49→14:22)
[2020-09-03] MEDS ORDERED: ONDANSETRON 4 MG/2 ML VIAL IVPUSH ONE ×2 (12:49→14:22)
[2020-09-03] MEDS ORDERED: ACETAMINOPHEN 1000 MG/100 ML VIAL (NON FORMULARY) IVPB ONE (12:49)
[2020-09-03] MEDS ORDERED: SODIUM CHLORIDE 1,000 ML IV STA ×2 (12:51→14:02)
[2020-09-03] MEDS ORDERED: diazePAM CARPU-JECT 10 MG/2 ML DISP.SYRIN ONE ×2 (13:01→14:22)
[2020-09-03] MEDS ORDERED: ACETAMINOPHEN INJECTION 100 ML IVPB ONE ×2 (13:02→21:12)
[2020-09-03 13:15] LABS: BASO % 0.3 % (0-2.0); HEMOGLOBIN 15.6 GM/dL (11.7-16.9); LYMPH % 4.4 % (8-40); MCH 29.5 pg (25.7-33.7); MCHC 33.3 g/dl (32.0-35.9); MEAN CELL VOLUME 88.7 fl (80-96); MEAN PLT VOLUME 7.7 fl (7.5-11.1); MONO % 4.2 % (3.8-10.2); NEUT % 91.1 % (42.8-82.8); PLATELET COUNT 192 K/MM3 (134-434); RBC 5.29 M/mm3 (4.00-5.60); RDW 14.2 % (11.9-15.9); WHITE BLOOD COUNT 14.7 K/mm3 (4.0-10.0)
[2020-09-03 13:25] LABS: INR 1.05 (0.83-1.09); PROTHROMBIN TIME (PATIENT) 12.9 SEC (9.7-13.0)
[2020-09-03 13:32] LABS: CHLORIDE 97 mmol/L (98-107); POTASSIUM 3.5 mmol/L (3.5-5.1); SODIUM 134 mmol/L (136-145)
[2020-09-03 13:34] LABS: ALBUMIN 4.1 g/dl (3.4-5.0); ANION GAP 15 MMOL/L (8-16); BLOOD UREA NITROGEN 14.8 mg/dL (7-18); CALCIUM 9.1 mg/dL (8.5-10.1); CO2 22 mmol/L (21-32); LIPASE 84 U/L (73-393)
[2020-09-03 13:35] LABS: GLUCOSE,RANDOM 187 mg/dL (74-106)
[2020-09-03 13:37] LABS: SGOT/AST 60 U/L (15-37); SGPT/ALT 61 U/L (13-61)
[2020-09-03 13:39] LABS: BILIRUBIN,TOTAL 0.8 mg/dL (0.2-1); TOT PROT 8.1 g/dl (6.4-8.2)
[2020-09-03 13:40] LABS: ALK PHOS 50 U/L (45-117)
[2020-09-03] MEDS ORDERED: ONDANSETRON 4 MG/2 ML VIAL ONE (14:23)
[2020-09-03 14:39] LABS: TRIGLYCERIDES 98 mg/dL (0-150)
[2020-09-03 15:43] LABS: ANISOCYTOSIS 0; MACROCYTOSIS 0; PLATELET ESTIMATE NORMAL
[2020-09-03] MEDS ORDERED: chlordiazePOXIDE HCL 25 MG CAPSULE PO ONE (15:50)
[2020-09-03] MEDS ORDERED: LORazepam 2 MG/ML SDV VIAL IVPUSH ONE (15:50)
[2020-09-03] MEDS ORDERED: LORazepam 2 MG/ML SDV VIAL ONE (15:50)
[2020-09-03] MEDS ORDERED: chlordiazePOXIDE HCL 25 MG CAPSULE ONE (15:52)
[2020-09-03 17:52] LABS: ARTERIAL BLD GAS O2 SATURATION 97.2 mmHg (95-98); ARTERIAL BLOOD GAS BASE EXCESS -0.2 mmol/L (-2-2); ARTERIAL BLOOD GAS PO2 88.7 mmHg (80-100); ARTERIAL BLOOD GAS pH 7.448 (7.350-7.450)
[2020-09-03 17:56] LABS: ALLENS TEST POSITIVE
[2020-09-03 18:13] LABS: URINE COLOR YELLOW
[2020-09-03 18:14] LABS: URINE APPEARANCE CLOUDY; URINE BILIRUBIN NEGATIVE (NEGATIVE); URINE GLUCOSE (UA) 100 (NEGATIVE); URINE KETONE 15 mg/dl (NEGATIVE)
[2020-09-03 18:15] LABS: URINE LEUK ESTERASE NEGATIVE (NEGATIVE); URINE NITRITE NEGATIVE (NEGATIVE); URINE PROTEIN NEGATIVE (NEGATIVE)
[2020-09-03] MEDS ORDERED: ACETAMINOPHEN 325 MG TABLET (FP) PO PRN (21:00)
[2020-09-03] MEDS ORDERED: FOLIC ACID INJECTION - 1 MG, THIAMINE HCL 100 MG, MULTIVIT INJECTION ADULT 10 ML in SOD... IVPB ONE ×2 (21:05→21:12)
[2020-09-03] MEDS ORDERED: PANTOPRAZOLE 40 MG TABLET ONE (21:44)
[2020-09-03] MEDS ORDERED: THIAMINE HCL 200 MG/2 ML VIAL ONE (21:44)
[2020-09-03] MEDS ORDERED: ENOXAPARIN NA (PORCINE) 40 MG/0.4 ML DISP.SYRIN SQ ONE (21:44)
[2020-09-03] MEDS: THIAMINE HCL 200 MG/2 ML VIAL IVPB SCH (21:47)
[2020-09-03] MEDS ORDERED: CYCLOBENZAPRINE HCL 10 MG TABLET (FP) PO PRN (21:47)
[2020-09-03] MEDS: PANTOPRAZOLE 40 MG TABLET PO SCH (21:47)
[2020-09-03] MEDS: ENOXAPARIN NA (PORCINE) 40 MG/0.4 ML DISP.SYRIN SQ SCH (21:58)
[2020-09-03] MEDS ORDERED: AMANTADINE HCL 100 MG TABLET PO SCH (22:00)
[2020-09-03] MEDS ORDERED: busPIRone HCL 5 MG TABLET PO SCH (22:00)
[2020-09-03] MEDS ORDERED: amLODIPine BESYLATE 5 MG TABLET (FP) PO SCH (22:00)
[2020-09-03] MEDS ORDERED: CYPROHEPTADINE HCL 4 MG TABLET PO SCH (22:00)
[2020-09-03] MEDS ORDERED: FERROUS SO4 325 MG TABLET (FP) PO SCH (22:00)
[2020-09-03] MEDS ORDERED: ACAMPROSATE CALCIUM 333 MG TABLET.DR PO SCH (22:00)
[2020-09-03] MEDS ORDERED: LACTATED RINGERS SOLUTION 1,000 ML IV SCH (22:00)
[2020-09-03] MEDS ORDERED: NYSTATIN 500,000 UNITS/5 ML SUSPENSION PO ONE (23:56)
[2020-09-03] MEDS: INSULIN SLIDING SCALE (NOVOLOG) 1 VIAL SQ SCH (23:59)
[2020-09-04] MEDS ORDERED: chlordiazePOXIDE HCL 25 MG CAPSULE ONE (00:10)
[2020-09-04] MEDS ORDERED: lamoTRIgine 100 MG TABLET ONE (00:11)
[2020-09-04] MEDS: chlordiazePOXIDE HCL 25 MG CAPSULE PO SCH ×4 (00:16→17:10)
[2020-09-04] MEDS: lamoTRIgine 100 MG TABLET PO SCH ×2 (00:16→22:00)
[2020-09-04] MEDS: chlordiazePOXIDE HCL 25 MG CAPSULE PO PRN ×2 (02:14→20:36)
[2020-09-04 03:43] VITALS: BMI 26.1
[2020-09-04] MEDS: FERROUS SO4 325 MG TABLET (FP) PO SCH ×3 (05:59→21:59)
[2020-09-04] MEDS: lamoTRIgine 25 MG TABLET PO SCH ×2 (06:18→13:26)
[2020-09-04] MEDS: ACAMPROSATE CALCIUM 333 MG TABLET.DR PO SCH ×2 (06:18→22:00)
[2020-09-04] MEDS: INSULIN SLIDING SCALE (NOVOLOG) 1 VIAL SQ SCH ×4 (06:54→22:08)
[2020-09-04] MEDS: VENLAFAXINE HCL 75 MG E.R. CAPSULES PO SCH (09:49)
[2020-09-04 09:50] LABS: BASO % 0.4 % (0-2.0); EOS % 0.9 % (0-4.5); HEMATOCRIT 41.1 % (35.4-49); HEMOGLOBIN 13.9 GM/dL (11.7-16.9); LYMPH % 23.9 % (8-40); MCH 30.2 pg (25.7-33.7); MCHC 33.8 g/dl (32.0-35.9); MEAN CELL VOLUME 89.1 fl (80-96); MEAN PLT VOLUME 8.4 fl (7.5-11.1); NEUT % 66.8 % (42.8-82.8); PLATELET COUNT 132 K/MM3 (134-434); RBC 4.61 M/mm3 (4.00-5.60); RDW 14.1 % (11.9-15.9)
[2020-09-04] MEDS: ENOXAPARIN NA (PORCINE) 40 MG/0.4 ML DISP.SYRIN SQ SCH (09:50)
[2020-09-04] MEDS: AMANTADINE HCL 100 MG TABLET PO SCH ×4 (09:50→22:00)
[2020-09-04] MEDS: FOLIC ACID 1 MG TABLET (FP) PO SCH (09:50)
[2020-09-04] MEDS: amLODIPine BESYLATE 5 MG TABLET (FP) PO SCH (09:50)
[2020-09-04] MEDS: PANTOPRAZOLE 40 MG TABLET PO SCH (09:50)
[2020-09-04] MEDS: LIPASE/PROTEASE/AMYLASE 36,000 UNIT CAPSULE PO SCH ×3 (09:51→17:09)
[2020-09-04] MEDS: CYPROHEPTADINE HCL 4 MG TABLET PO SCH ×2 (09:52→22:02)
[2020-09-04] MEDS: ONDANSETRON 4 MG/2 ML VIAL IVPUSH PRN ×2 (09:52→20:37)
[2020-09-04] MEDS: THIAMINE HCL 200 MG/2 ML VIAL IVPB SCH (09:52)
[2020-09-04] MEDS ORDERED: VENLAFAXINE HCL 100 MG TABLET PO SCH (10:00)
[2020-09-04] MEDS ORDERED: CYCLOBENZAPRINE HCL 10 MG TABLET (FP) PO PRN (10:00)
[2020-09-04 10:42] LABS: ALBUMIN 3.3 g/dl (3.4-5.0); BLOOD UREA NITROGEN 7.1 mg/dL (7-18); CALCIUM 8.3 mg/dL (8.5-10.1); MAGNESIUM 1.9 mg/dL (1.8-2.4)
[2020-09-04 10:45] LABS: CREATININE 0.6 mg/dL (0.55-1.3); PHOSPHOROUS 2.5 mg/dL (2.5-4.9)
[2020-09-04 10:46] LABS: BILIRUBIN,TOTAL 1.2 mg/dL (0.2-1); TOT PROT 6.4 g/dl (6.4-8.2)
[2020-09-04] MEDS: busPIRone HCL 5 MG TABLET PO SCH ×2 (20:37→21:35)
[2020-09-05] MEDS: chlordiazePOXIDE HCL 25 MG CAPSULE PO SCH ×5 (00:06→23:22)
[2020-09-05] MEDS: chlordiazePOXIDE HCL 25 MG CAPSULE PO PRN (02:51)
[2020-09-05] MEDS: FERROUS SO4 325 MG TABLET (FP) PO SCH ×3 (06:28→22:03)
[2020-09-05] MEDS: lamoTRIgine 25 MG TABLET PO SCH ×2 (06:28→13:53)
[2020-09-05] MEDS: INSULIN SLIDING SCALE (NOVOLOG) 1 VIAL SQ SCH ×4 (06:33→22:08)
[2020-09-05] MEDS ORDERED: PT OWN MED DRAWER 7, Y5N ONE ×5 (06:59→21:06)
[2020-09-05] MEDS ORDERED: POTASSIUM CHLORIDE ORAL LIQUID 20 MEQ/15 ML PO ONE ×2 (08:42→09:13)
[2020-09-05 09:08] LABS: BASO % 0.3 % (0-2.0); EOS % 1.9 % (0-4.5); HEMATOCRIT 39.7 % (35.4-49); HEMOGLOBIN 13.5 GM/dL (11.7-16.9); LYMPH % 29.2 % (8-40); MCH 30.2 pg (25.7-33.7); MCHC 34.1 g/dl (32.0-35.9); MEAN CELL VOLUME 88.6 fl (80-96); MEAN PLT VOLUME 8.4 fl (7.5-11.1); MONO % 8.7 % (3.8-10.2); NEUT % 59.9 % (42.8-82.8); PLATELET COUNT 120 K/MM3 (134-434); RBC 4.48 M/mm3 (4.00-5.60); WHITE BLOOD COUNT 5.4 K/mm3 (4.0-10.0)
[2020-09-05 09:41] LABS: BILIRUBIN,TOTAL 0.8 mg/dL (0.2-1); TOT PROT 6.6 g/dl (6.4-8.2)
[2020-09-05 09:48] LABS: ALBUMIN 3.3 g/dl (3.4-5.0); BLOOD UREA NITROGEN 6.1 mg/dL (7-18)
[2020-09-05 09:50] LABS: CALCIUM 8.5 mg/dL (8.5-10.1); CREATININE 0.7 mg/dL (0.55-1.3)
[2020-09-05 09:51] LABS: MAGNESIUM 1.8 mg/dL (1.8-2.4)
[2020-09-05 10:03] LABS: POTASSIUM 2.7 mmol/L (3.5-5.1)
[2020-09-05] MEDS: LIPASE/PROTEASE/AMYLASE 36,000 UNIT CAPSULE PO SCH ×3 (10:37→16:57)
[2020-09-05] MEDS: AMANTADINE HCL 100 MG TABLET PO SCH (10:38)
[2020-09-05] MEDS: FOLIC ACID 1 MG TABLET (FP) PO SCH (10:38)
[2020-09-05] MEDS: amLODIPine BESYLATE 5 MG TABLET (FP) PO SCH (10:38)
[2020-09-05] MEDS: THIAMINE HCL 200 MG/2 ML VIAL IVPB SCH (10:38)
[2020-09-05] MEDS: ENOXAPARIN NA (PORCINE) 40 MG/0.4 ML DISP.SYRIN SQ SCH (10:38)
[2020-09-05] MEDS: PANTOPRAZOLE 40 MG TABLET PO SCH (10:38)
[2020-09-05] MEDS: CYPROHEPTADINE HCL 4 MG TABLET PO SCH ×2 (10:38→22:52)
[2020-09-05] MEDS: VENLAFAXINE HCL 75 MG E.R. CAPSULES PO SCH (12:03)
[2020-09-05] MEDS: ACAMPROSATE CALCIUM 333 MG TABLET.DR PO SCH ×2 (12:03→22:52)
[2020-09-05] MEDS ORDERED: POTASSIUM CHLORIDE TABS 20 MEQ TABLET.ER (FP) PO ONE (18:15)
[2020-09-05 21:21] LABS: POTASSIUM 3.3 mmol/L (3.5-5.1)
[2020-09-05 21:23] LABS: BLOOD UREA NITROGEN 8.5 mg/dL (7-18)
[2020-09-05 21:26] LABS: CREATININE 0.9 mg/dL (0.55-1.3)
[2020-09-05] MEDS: busPIRone HCL 5 MG TABLET PO SCH (22:03)
[2020-09-05] MEDS: lamoTRIgine 100 MG TABLET PO SCH (22:52)
[2020-09-06] MEDS ORDERED: chlordiazePOXIDE HCL 10 MG CAPSULE PO PRN
[2020-09-06] MEDS: lamoTRIgine 25 MG TABLET PO SCH ×2 (06:29→13:50)
[2020-09-06] MEDS: FERROUS SO4 325 MG TABLET (FP) PO SCH ×3 (06:29→22:26)
[2020-09-06] MEDS: INSULIN SLIDING SCALE (NOVOLOG) 1 VIAL SQ SCH ×4 (06:30→22:26)
[2020-09-06] MEDS: chlordiazePOXIDE HCL 10 MG CAPSULE PO SCH ×4 (06:30→23:45)
[2020-09-06] MEDS ORDERED: PT OWN MED DRAWER 7, Y5N ONE ×7 (08:31→21:49)
[2020-09-06] MEDS: LIPASE/PROTEASE/AMYLASE 36,000 UNIT CAPSULE PO SCH ×3 (08:32→16:53)
[2020-09-06 08:56] LABS: POTASSIUM 3.9 mmol/L (3.5-5.1)
[2020-09-06 09:04] LABS: ALBUMIN 3.6 g/dl (3.4-5.0); BLOOD UREA NITROGEN 11.4 mg/dL (7-18); CALCIUM 9.1 mg/dL (8.5-10.1); PHOSPHOROUS 2.2 mg/dL (2.5-4.9)
[2020-09-06 09:06] LABS: BILIRUBIN,TOTAL 0.7 mg/dL (0.2-1)
[2020-09-06 09:07] LABS: CREATININE 0.8 mg/dL (0.55-1.3); MAGNESIUM 1.8 mg/dL (1.8-2.4)
[2020-09-06 09:11] LABS: BASO % 0.8 % (0-2.0); EOS % 0.9 % (0-4.5); HEMATOCRIT 42.1 % (35.4-49); HEMOGLOBIN 14.4 GM/dL (11.7-16.9); LYMPH % 16.4 % (8-40); MCH 30.4 pg (25.7-33.7); MCHC 34.3 g/dl (32.0-35.9); MEAN CELL VOLUME 88.5 fl (80-96); MEAN PLT VOLUME 9.1 fl (7.5-11.1); NEUT % 74.9 % (42.8-82.8); PLATELET COUNT 131 K/MM3 (134-434); RBC 4.76 M/mm3 (4.00-5.60); RDW 14.1 % (11.9-15.9); WHITE BLOOD COUNT 10.4 K/mm3 (4.0-10.0)
[2020-09-06] MEDS: THIAMINE HCL 100 MG TABLET (FP) PO SCH ×2 (09:20→22:26)
[2020-09-06] MEDS: FOLIC ACID 1 MG TABLET (FP) PO SCH (09:20)
[2020-09-06] MEDS: amLODIPine BESYLATE 5 MG TABLET (FP) PO SCH (09:20)
[2020-09-06] MEDS: VENLAFAXINE HCL 75 MG E.R. CAPSULES PO SCH (09:20)
[2020-09-06] MEDS: PANTOPRAZOLE 40 MG TABLET PO SCH (09:20)
[2020-09-06] MEDS: ENOXAPARIN NA (PORCINE) 40 MG/0.4 ML DISP.SYRIN SQ SCH (09:20)
[2020-09-06] MEDS: CYPROHEPTADINE HCL 4 MG TABLET PO SCH ×2 (09:21→22:26)
[2020-09-06 10:38] LABS: PLATELET ESTIMATE DECREASED
[2020-09-06] MEDS: ACAMPROSATE CALCIUM 333 MG TABLET.DR PO SCH ×2 (11:18→22:24)
[2020-09-06] MEDS ORDERED: LIDOCAINE 5% TOPICAL PATCH TP ONE (13:53)
[2020-09-06] MEDS ORDERED: POTASSIUM PHOSPHATE 15 MM in SODIUM CHLORIDE 250 ML IVPB ONE (17:43)
[2020-09-06] MEDS ORDERED: LIDOCAINE PATCH REMOVAL MC ONE (22:00)
[2020-09-06] MEDS: busPIRone HCL 5 MG TABLET PO SCH (22:24)
[2020-09-06] MEDS: lamoTRIgine 100 MG TABLET PO SCH (22:25)
[2020-09-07] MEDS ORDERED: chlordiazePOXIDE HCL 10 MG CAPSULE PO SCH (05:00)
[2020-09-07] MEDS: FERROUS SO4 325 MG TABLET (FP) PO SCH (06:41)
[2020-09-07] MEDS: lamoTRIgine 25 MG TABLET PO SCH (06:41)
[2020-09-07] MEDS: INSULIN SLIDING SCALE (NOVOLOG) 1 VIAL SQ SCH ×2 (06:47→13:08)
[2020-09-07 07:47] VITALS: TEMP 97.5
[2020-09-07] MEDS ORDERED: PT OWN MED DRAWER 7, Y5N ONE ×2 (09:09→10:38)
[2020-09-07] MEDS: LIPASE/PROTEASE/AMYLASE 36,000 UNIT CAPSULE PO SCH ×2 (09:10→12:36)
[2020-09-07 09:33] LABS: BASO % 0.4 % (0-2.0); EOS % 2.5 % (0-4.5); HEMATOCRIT 40.7 % (35.4-49); HEMOGLOBIN 13.6 GM/dL (11.7-16.9); LYMPH % 23.7 % (8-40); MCH 30.2 pg (25.7-33.7); MCHC 33.6 g/dl (32.0-35.9); MEAN CELL VOLUME 89.8 fl (80-96); MEAN PLT VOLUME 8.3 fl (7.5-11.1); MONO % 9.6 % (3.8-10.2); NEUT % 63.8 % (42.8-82.8); PLATELET COUNT 125 K/MM3 (134-434); RBC 4.53 M/mm3 (4.00-5.60); RDW 14.2 % (11.9-15.9); WHITE BLOOD COUNT 6.9 K/mm3 (4.0-10.0)
[2020-09-07 10:00] LABS: POTASSIUM 3.4 mmol/L (3.5-5.1)
[2020-09-07 10:16] VITALS: BP 110/60; PULSE 75
[2020-09-07 10:16] LABS: CALCIUM 8.8 mg/dL (8.5-10.1)
[2020-09-07 10:17] LABS: ALBUMIN 3.3 g/dl (3.4-5.0); BLOOD UREA NITROGEN 11.2 mg/dL (7-18)
[2020-09-07 10:20] LABS: CREATININE 0.7 mg/dL (0.55-1.3); PHOSPHOROUS 3.3 mg/dL (2.5-4.9)
[2020-09-07 10:21] LABS: BILIRUBIN,TOTAL 0.5 mg/dL (0.2-1); TOT PROT 6.4 g/dl (6.4-8.2)
[2020-09-07] MEDS ORDERED: POTASSIUM CHLORIDE TABS 20 MEQ TABLET.ER (FP) PO ONE (10:43)
[2020-09-07] MEDS: VENLAFAXINE HCL 75 MG E.R. CAPSULES PO SCH (11:11)
[2020-09-07] MEDS: PANTOPRAZOLE 40 MG TABLET PO SCH (11:11)
[2020-09-07] MEDS: CYPROHEPTADINE HCL 4 MG TABLET PO SCH (11:11)
[2020-09-07] MEDS: amLODIPine BESYLATE 5 MG TABLET (FP) PO SCH (11:11)
[2020-09-07] MEDS: THIAMINE HCL 100 MG TABLET (FP) PO SCH (11:12)
[2020-09-07] MEDS: ACAMPROSATE CALCIUM 333 MG TABLET.DR PO SCH (11:12)
[2020-09-07] MEDS: FOLIC ACID 1 MG TABLET (FP) PO SCH (11:12)
[2020-09-07] MEDS: ENOXAPARIN NA (PORCINE) 40 MG/0.4 ML DISP.SYRIN SQ SCH (12:35)
[2020-09-07] MEDS ORDERED: PCA PUMP NR ONE (14:17)
[2020-09-08] MEDS ORDERED: chlordiazePOXIDE HCL 10 MG CAPSULE PO ONE (05:00)
== END 2020-09-07 13:41 | disposition home or self-care (01) | DRG 775 ==
LOC: JER 12:07 → JERBED 19:57 → J6S 09-04 01:56
PROVIDERS: ADMIT Internal Medicine; ATTEND Student in an Organized Health Care Education/Training Program
PROC: HZ2ZZZZ Detoxification Services for Substance Abuse Treatment (ICD-10-PCS; principal; 2020-09-03)
DX: F10.232 Alcohol dependence with withdrawal with perceptual disturbance (principal); G40.909 Epilepsy, unspecified, not intractable, without status epilepticus; K86.0 Alcohol-induced chronic pancreatitis; K86.81 Exocrine pancreatic insufficiency; E87.2 Acidosis; E87.6 Hypokalemia; R10.9 Unspecified abdominal pain; F04 Amnestic disorder due to known physiological condition; K21.9 Gastro-esophageal reflux disease without esophagitis; G62.9 Polyneuropathy, unspecified; M11.20 Other chondrocalcinosis, unspecified site; R11.2 Nausea with vomiting, unspecified; G11.9 Hereditary ataxia, unspecified; R00.0 Tachycardia, unspecified; K76.0 Fatty (change of) liver, not elsewhere classified; K44.9 Diaphragmatic hernia without obstruction or gangrene; F32.9 Major depressive disorder, single episode, unspecified; F31.9 Bipolar disorder, unspecified; R65.10 Systemic inflammatory response syndrome (SIRS) of non-infectious origin without acute organ dysfunction; K86.89 Other specified diseases of pancreas
CPT/HCPCS: 36415; 36600; 71045-TC-FY; 73523-TC-FY; 74177-TC; 80048; 80053; 80307; 81003; 82010; 82550; 82607; 82746; 82803; 82962; 83605; 83690; 83735; 84100; 84478; 84484; 85025; 85610; 85730; 87086; 93005; 93010; 97116-GP; 97161-GP; 99285-25; C9803; J0131; Q9967; U0003

== ENCOUNTER 2020-09-22 12:23 | Emergency (ER) | payer OTHER ==
[2020-09-22 12:56] VITALS: BP 118/78; PULSE 97; TEMP 98.6; BMI 27.4
[2020-09-22 15:12] LABS: BASO % 0.9 % (0-2.0); EOS % 0.5 % (0-4.5); HEMATOCRIT 41.7 % (35.4-49); HEMOGLOBIN 14.3 GM/dL (11.7-16.9); LYMPH % 16.6 % (8-40); MCH 30.7 pg (25.7-33.7); MCHC 34.2 g/dl (32.0-35.9); MEAN CELL VOLUME 89.7 fl (80-96); MEAN PLT VOLUME 7.1 fl (7.5-11.1); MONO % 4.4 % (3.8-10.2); NEUT % 77.6 % (42.8-82.8); PLATELET COUNT 365 K/MM3 (134-434); RBC 4.65 M/mm3 (4.00-5.60); RDW 14.8 % (11.9-15.9)
[2020-09-22 15:16] LABS: INR 1.03 (0.83-1.09); PROTHROMBIN TIME (PATIENT) 12.5 SEC (9.7-13.0)
[2020-09-22 15:33] LABS: POTASSIUM 3.9 mmol/L (3.5-5.1)
[2020-09-22 15:35] LABS: CALCIUM 9.6 mg/dL (8.5-10.1)
[2020-09-22 15:36] LABS: ALBUMIN 3.9 g/dl (3.4-5.0); BLOOD UREA NITROGEN 6.4 mg/dL (7-18)
[2020-09-22 15:40] LABS: BILIRUBIN,TOTAL 0.4 mg/dL (0.2-1); TOT PROT 7.7 g/dl (6.4-8.2)
[2020-09-22 16:32] LABS: HIV INTERPRETATION NEGATIVE (NEGATIVE)
== END 2020-09-22 17:29 | disposition home or self-care (01) ==
LOC: JERFT 12:23 → JER 12:23
DX: R21 Rash and other nonspecific skin eruption (principal)
CPT/HCPCS: 36415; 80053; 85025; 85610; 87389; 99283-25; C9803; U0003

== ENCOUNTER 2020-10-26 09:37 | Emergency (ER) | payer OTHER ==
[2020-10-26 09:51] VITALS: BMI 27.7
[2020-10-26] MEDS ORDERED: ACETAMINOPHEN 325 MG TABLET (FP) PO ONE (10:19)
[2020-10-26] MEDS ORDERED: ACETAMINOPHEN 325 MG TABLET (FP) ONE (10:30)
[2020-10-26] MEDS ORDERED: METOCLOPRAMIDE HCL INJECTION 10 MG/2 ML VIAL IVPUSH ONE (10:31)
[2020-10-26] MEDS ORDERED: ACETAMINOPHEN 1000 MG/100 ML VIAL (NON FORMULARY) IVPB ONE (10:31)
[2020-10-26] MEDS ORDERED: SODIUM CHLORIDE 1,000 ML IV STA (10:32)
[2020-10-26] MEDS ORDERED: METOCLOPRAMIDE HCL INJECTION 10 MG/2 ML VIAL ONE (10:45)
[2020-10-26 10:56] LABS: BASO % 0.9 % (0-2.0); EOS % 0.3 % (0-4.5); HEMATOCRIT 42.6 % (35.4-49); HEMOGLOBIN 14.4 GM/dL (11.7-16.9); LYMPH % 21.4 % (8-40); MCHC 33.8 g/dl (32.0-35.9); MEAN CELL VOLUME 88.8 fl (80-96); MEAN PLT VOLUME 7.8 fl (7.5-11.1); MONO % 5.8 % (3.8-10.2); NEUT % 71.6 % (42.8-82.8); PLATELET COUNT 280 K/MM3 (134-434); RDW 13.9 % (11.9-15.9); WHITE BLOOD COUNT 8.3 K/mm3 (4.0-10.0)
[2020-10-26 11:42] LABS: ALBUMIN 3.5 g/dl (3.4-5.0); BILIRUBIN,TOTAL 1.5 mg/dL (0.2-1); CALCIUM 9.7 mg/dL (8.5-10.1); CREATININE 0.9 mg/dL (0.55-1.3); TOT PROT 7.8 g/dl (6.4-8.2)
[2020-10-26 13:42] VITALS: BP 120/86; PULSE 86; TEMP 98.7
== END 2020-10-26 13:42 | disposition home or self-care (01) ==
LOC: JER 09:37
PROC: 3E033NZ Introduction of Analgesics, Hypnotics, Sedatives into Peripheral Vein, Percutaneous Approach (ICD-10-PCS; principal; 2020-10-26)
PROC: 3E033GC Introduction of Other Therapeutic Substance into Peripheral Vein, Percutaneous Approach (ICD-10-PCS; 2020-10-26)
PROC: 3E0337Z Introduction of Electrolytic and Water Balance Substance into Peripheral Vein, Percutaneous Approach (ICD-10-PCS; 2020-10-26)
DX: R51.9 Headache, unspecified (principal)
CPT/HCPCS: 36415; 70450-TC; 80053; 80175; 85025; 93005; 93010; 99285-25

== ENCOUNTER 2020-12-17 16:03 | Inpatient (IN) | payer OTHER ==
[2020-12-17 18:30] LABS: BASO % 0.2 % (0-2.0); EOS % 0.1 % (0-4.5); HEMATOCRIT 43.6 % (35.4-49); HEMOGLOBIN 14.8 GM/dL (11.7-16.9); LYMPH % 26.2 % (8-40); MCH 30.1 pg (25.7-33.7); MCHC 33.9 g/dl (32.0-35.9); MEAN CELL VOLUME 88.7 fl (80-96); MONO % 5.3 % (3.8-10.2); NEUT % 68.2 % (42.8-82.8); RBC 4.91 M/mm3 (4.00-5.60); RDW 13.2 % (11.9-15.9); WHITE BLOOD COUNT 5.8 K/mm3 (4.0-10.0)
[2020-12-17 18:37] LABS: INR 0.94 (0.83-1.09); PROTHROMBIN TIME (PATIENT) 11.4 SEC (9.7-13.0)
[2020-12-17 18:39] LABS: ACTIVATED PTT 28.4 SECONDS (25.2-36.5)
[2020-12-17 18:44] LABS: CHLORIDE 97 mmol/L (98-107); SODIUM 133 mmol/L (136-145)
[2020-12-17 18:46] LABS: CALCIUM 8.3 mg/dL (8.5-10.1)
[2020-12-17 18:47] LABS: ALBUMIN 4.1 g/dl (3.4-5.0); ANION GAP 14 MMOL/L (8-16); CO2 22 mmol/L (21-32); GLUCOSE,RANDOM 89 mg/dL (74-106); LIPASE 313 U/L (73-393)
[2020-12-17 18:49] LABS: SGOT/AST 94 U/L (15-37); SGPT/ALT 74 U/L (13-61)
[2020-12-17 18:50] LABS: CREATININE 0.7 mg/dL (0.55-1.3)
[2020-12-17 18:51] LABS: BILIRUBIN,TOTAL 0.6 mg/dL (0.2-1); TOT PROT 7.4 g/dl (6.4-8.2)
[2020-12-17 18:52] LABS: ALK PHOS 42 U/L (45-117)
[2020-12-17] MEDS ORDERED: PANTOPRAZOLE SODIUM 40 MG VIAL IVPUSH ONE (18:54)
[2020-12-17] MEDS ORDERED: SODIUM CHLORIDE 0.9% 1000 ML INFUS.BAG IV ONE (18:55)
[2020-12-17 19:18] LABS: MEAN PLT VOLUME 7.9 fl (7.5-11.1)
[2020-12-17 19:20] LABS: PLATELET COUNT 99 K/MM3 (134-434)
[2020-12-17] MEDS ORDERED: LIDOCAINE VISCOUS 2% ORAL/TOP 20 ML UNIT-DOSE CUP MM ONE (19:25)
[2020-12-17] MEDS ORDERED: MAG HYDROX/AL HYDROX/SIMETH -MYLANTA- ORAL SUSPENSION PO ONE (19:25)
[2020-12-17] MEDS ORDERED: PANTOPRAZOLE SODIUM 40 MG VIAL ONE (19:43)
[2020-12-17] MEDS ORDERED: MAG HYDROX/AL HYDROX/SIMETH 30 ML UNIT-DOSE CUP ONE (19:43)
[2020-12-17] MEDS ORDERED: LIDOCAINE VISCOUS 2% ORAL/TOP 20 ML UNIT-DOSE CUP ONE (19:43)
[2020-12-17] MEDS ORDERED: METOCLOPRAMIDE HCL INJECTION 10 MG/2 ML VIAL IVPB ONE (19:51)
[2020-12-17] MEDS ORDERED: ACETAMINOPHEN 1000 MG/100 ML VIAL (NON FORMULARY) IVPB ONE (19:51)
[2020-12-17] MEDS ORDERED: METOCLOPRAMIDE HCL INJECTION 10 MG/2 ML VIAL ONE (20:07)
[2020-12-17] MEDS ORDERED: ACETAMINOPHEN INJECTION 100 ML IVPB ONE (20:07)
[2020-12-17] MEDS ORDERED: morphine CARPU-JECT 2 MG/1 ML DISP.SYRIN IVPUSH ONE (21:23)
[2020-12-17] MEDS ORDERED: MORPHINE SULFATE 2 MG/ML VIAL ONE (22:01)
[2020-12-17 22:54] LABS: PH,URINE 6.5 (5.0-8.0); URINE APPEARANCE CLEAR; URINE BILIRUBIN NEGATIVE (NEGATIVE); URINE COLOR YELLOW; URINE GLUCOSE (UA) NEGATIVE (NEGATIVE); URINE KETONE NEGATIVE (NEGATIVE); URINE LEUK ESTERASE NEGATIVE (NEGATIVE); URINE NITRITE NEGATIVE (NEGATIVE); URINE PROTEIN NEGATIVE (NEGATIVE); URINE UROBILINOGEN 0.2 mg/dL (0.2-1.0)
[2020-12-17] MEDS ORDERED: FOLIC ACID IVPB ONE (23:54)
[2020-12-17] MEDS ORDERED: THIAMINE HCL IVPB ONE (23:54)
[2020-12-17] MEDS ORDERED: [UNRECOGNIZED DRUG - OTHER] IVPB ONE (23:54)
[2020-12-17] MEDS ORDERED: MULTIVIT IVPB ONE (23:54)
[2020-12-18] MEDS ORDERED: FAMOTIDINE 20 MG TABLET PO ONE (00:15)
[2020-12-18] MEDS ORDERED: POTASSIUM CHLORIDE TABS 20 MEQ TABLET.ER (FP) PO ONE ×2 (00:15→00:31)
[2020-12-18] MEDS ORDERED: FAMOTIDINE 20 MG TABLET ONE (00:31)
[2020-12-18] MEDS: LACTATED RINGERS SOLUTION 1,000 ML/1,000 ML INFUS.BAG IV SCH ×3 (00:36→23:51)
[2020-12-18] MEDS ORDERED: LORazepam 1 MG TABLET ONE (00:58)
[2020-12-18] MEDS ORDERED: ACETAMINOPHEN 1000 MG/100 ML VIAL (NON FORMULARY) IVPB ONE ×2 (01:17→21:36)
[2020-12-18] MEDS ORDERED: ACETAMINOPHEN INJECTION 100 ML IVPB ONE (01:42)
[2020-12-18] MEDS ORDERED: POTASSIUM CHLORIDE ORAL LIQUID 20 MEQ/15 ML ONE (01:43)
[2020-12-18] MEDS: LORazepam 1 MG TABLET PO PRN ×3 (01:50→13:20)
[2020-12-18 08:52] LABS: HEMATOCRIT 40.6 % (35.4-49); HEMOGLOBIN 13.8 GM/dL (11.7-16.9); MCH 30.2 pg (25.7-33.7); MCHC 33.9 g/dl (32.0-35.9); MEAN CELL VOLUME 89.2 fl (80-96); MEAN PLT VOLUME 7.8 fl (7.5-11.1); PLATELET COUNT 82 K/MM3 (134-434); RBC 4.55 M/mm3 (4.00-5.60); RDW 13.4 % (11.9-15.9)
[2020-12-18 09:17] LABS: MAGNESIUM 2.1 mg/dL (1.8-2.4)
[2020-12-18 09:21] LABS: PHOSPHOROUS 3.3 mg/dL (2.5-4.9)
[2020-12-18] MEDS: THIAMINE HCL 100 MG TABLET (FP) PO SCH (09:56)
[2020-12-18] MEDS: FAMOTIDINE 20 MG TABLET PO SCH (09:56)
[2020-12-18] MEDS: FOLIC ACID 1 MG TABLET (FP) PO SCH (09:56)
[2020-12-18] MEDS: ENOXAPARIN NA (PORCINE) 40 MG/0.4 ML DISP.SYRIN SQ SCH (09:59)
[2020-12-18] MEDS: LORazepam 1 MG TABLET PO SCH ×3 (09:59→22:01)
[2020-12-18] MEDS ORDERED: CYCLOBENZAPRINE HCL 10 MG TABLET (FP) PO PRN (16:13)
[2020-12-18] MEDS: MAG HYDROX/AL HYDROX/SIMETH 30 ML UNIT-DOSE CUP PO PRN ×2 (16:52→23:35)
[2020-12-18] MEDS: LIPASE/PROTEASE/AMYLASE 36,000 UNIT CAPSULE PO SCH (18:21)
[2020-12-18] MEDS ORDERED: PT OWN MED DRAWER 7, Y5N ONE ×2 (18:58→21:12)
[2020-12-18] MEDS: busPIRone HCL 5 MG TABLET PO SCH (21:18)
[2020-12-18] MEDS: DOXAZOSIN MESYLATE 2 MG TABLET PO SCH (21:18)
[2020-12-18] MEDS: FERROUS SO4 325 MG TABLET (FP) PO SCH (21:19)
[2020-12-18] MEDS: lamoTRIgine 100 MG TABLET PO SCH (21:19)
[2020-12-18] MEDS ORDERED: MELATONIN 5 MG TABLETS PO ONE (23:21)
[2020-12-19] MEDS: LORazepam 1 MG TABLET PO PRN ×2 (02:45→19:13)
[2020-12-19] MEDS: LORazepam 1 MG TABLET PO SCH ×4 (05:47→23:45)
[2020-12-19] MEDS: FERROUS SO4 325 MG TABLET (FP) PO SCH ×3 (05:48→21:25)
[2020-12-19] MEDS: lamoTRIgine 25 MG TABLET PO SCH ×2 (05:48→15:29)
[2020-12-19] MEDS ORDERED: PT OWN MED DRAWER 7, Y5N ONE ×4 (08:27→13:09)
[2020-12-19 09:01] LABS: CHLORIDE 92 mmol/L (98-107); SODIUM 129 mmol/L (136-145)
[2020-12-19 09:22] LABS: ALBUMIN 3.6 g/dl (3.4-5.0); ALK PHOS 36 U/L (45-117); CO2 26 mmol/L (21-32); CREATININE 0.6 mg/dL (0.55-1.3); GLUCOSE,RANDOM 84 mg/dL (74-106); SGOT/AST 41 U/L (15-37); SGPT/ALT 49 U/L (13-61)
[2020-12-19 09:23] LABS: TOT PROT 6.4 g/dl (6.4-8.2)
[2020-12-19 09:45] LABS: ANION GAP 11 MMOL/L (8-16)
[2020-12-19] MEDS ORDERED: VENLAFAXINE HCL 100 MG TABLET PO SCH (10:00)
[2020-12-19] MEDS: VENLAFAXINE HCL 75 MG E.R. CAPSULES PO SCH (10:49)
[2020-12-19] MEDS: FOLIC ACID 1 MG TABLET (FP) PO SCH (10:49)
[2020-12-19] MEDS: THIAMINE HCL 100 MG TABLET (FP) PO SCH (10:49)
[2020-12-19] MEDS: LIPASE/PROTEASE/AMYLASE 36,000 UNIT CAPSULE PO SCH ×3 (10:50→17:55)
[2020-12-19] MEDS: amLODIPine BESYLATE 5 MG TABLET (FP) PO SCH (10:50)
[2020-12-19] MEDS: FAMOTIDINE 20 MG TABLET PO SCH (10:51)
[2020-12-19] MEDS: ENOXAPARIN NA (PORCINE) 40 MG/0.4 ML DISP.SYRIN SQ SCH (10:52)
[2020-12-19] MEDS ORDERED: POTASSIUM PHOSPHATE 30 MM in DEXTROSE 5%-WATER - 500 ML IVPB ONE (11:06)
[2020-12-19] MEDS ORDERED: TRIMETHOBENZAMIDE HCL 200MG/2ML INJ IM PRN (11:06)
[2020-12-19 14:53] VITALS: BMI 26.8
[2020-12-19] MEDS: MORPHINE SULFATE 2 MG/ML VIAL IVPUSH PRN (15:28)
[2020-12-19 15:45] LABS: CREATININE 0.7 mg/dL (0.55-1.3)
[2020-12-19] MEDS: LACTATED RINGERS SOLUTION 1,000 ML/1,000 ML INFUS.BAG IV SCH (17:26)
[2020-12-19 19:26] LABS: MAGNESIUM 2.4 mg/dL (1.8-2.4)
[2020-12-19 19:30] LABS: PHOSPHOROUS 2.6 mg/dL (2.5-4.9)
[2020-12-19] MEDS ORDERED: ACETAMINOPHEN 325 MG TABLET (FP) PO PRN (21:18)
[2020-12-19] MEDS: lamoTRIgine 100 MG TABLET PO SCH (21:26)
[2020-12-19] MEDS: busPIRone HCL 5 MG TABLET PO SCH (21:26)
[2020-12-19] MEDS: DOXAZOSIN MESYLATE 2 MG TABLET PO SCH (21:27)
[2020-12-20 01:35] LABS: BLOOD UREA NITROGEN 8.4 mg/dL (7-18); CALCIUM 7.3 mg/dL (8.5-10.1)
[2020-12-20 01:38] LABS: CREATININE 1.2 mg/dL (0.55-1.3)
[2020-12-20] MEDS: LACTATED RINGERS SOLUTION 1,000 ML/1,000 ML INFUS.BAG IV SCH ×3 (03:03→13:44)
[2020-12-20] MEDS: LORazepam 1 MG TABLET PO SCH ×4 (04:40→22:48)
[2020-12-20 05:49] LABS: EPI CELLS >36 /uL (0-25.1); HYALINE CASTS 43 /uL (0-3.1); URINE APPEARANCE CLOUDY; URINE BILIRUBIN 2+ (NEGATIVE); URINE COLOR ORANGE; URINE GLUCOSE (UA) 2+ (NEGATIVE); URINE KETONE TRACE (NEGATIVE); URINE LEUK ESTERASE TRACE (NEGATIVE); URINE NITRITE POSITIVE (NEGATIVE); URINE PROTEIN 2+ (NEGATIVE); URINE RBC 95 /uL (0-23.9); URINE WBC 24 /uL (0-25.8)
[2020-12-20] MEDS: lamoTRIgine 25 MG TABLET PO SCH ×2 (07:12→13:43)
[2020-12-20] MEDS: FERROUS SO4 325 MG TABLET (FP) PO SCH ×3 (07:12→21:16)
[2020-12-20 08:33] LABS: BASO % 0.1 % (0-2.0); EOS % 0.1 % (0-4.5); HEMATOCRIT 35.1 % (35.4-49); HEMOGLOBIN 12.1 GM/dL (11.7-16.9); LYMPH % 5.3 % (8-40); MCH 30.6 pg (25.7-33.7); MCHC 34.5 g/dl (32.0-35.9); MEAN CELL VOLUME 88.6 fl (80-96); MEAN PLT VOLUME 9.4 fl (7.5-11.1); MONO % 4.2 % (3.8-10.2); NEUT % 90.3 % (42.8-82.8); PLATELET COUNT 54 K/MM3 (134-434); RBC 3.96 M/mm3 (4.00-5.60); RDW 13.5 % (11.9-15.9); WHITE BLOOD COUNT 12.7 K/mm3 (4.0-10.0)
[2020-12-20 09:00] LABS: BLOOD UREA NITROGEN 11.2 mg/dL (7-18); CALCIUM 7.2 mg/dL (8.5-10.1)
[2020-12-20 09:01] LABS: BILIRUBIN,TOTAL 0.8 mg/dL (0.2-1)
[2020-12-20 09:03] LABS: BILIRUBIN,DIRECT 0.3 mg/dL (0.0-0.2)
[2020-12-20 09:04] LABS: TOT PROT 5.4 g/dl (6.4-8.2)
[2020-12-20 09:12] LABS: URINE BACTERIA 54.4 /uL (0-1359)
[2020-12-20] MEDS: MORPHINE SULFATE 2 MG/ML VIAL IVPUSH PRN ×3 (10:30→21:17)
[2020-12-20] MEDS: FOLIC ACID 1 MG TABLET (FP) PO SCH (10:34)
[2020-12-20] MEDS: LIPASE/PROTEASE/AMYLASE 36,000 UNIT CAPSULE PO SCH ×3 (10:34→17:01)
[2020-12-20] MEDS: THIAMINE HCL 100 MG TABLET (FP) PO SCH (10:35)
[2020-12-20] MEDS: VENLAFAXINE HCL 75 MG E.R. CAPSULES PO SCH (10:35)
[2020-12-20] MEDS: amLODIPine BESYLATE 5 MG TABLET (FP) PO SCH (10:35)
[2020-12-20] MEDS: FAMOTIDINE 20 MG TABLET PO SCH (10:35)
[2020-12-20] MEDS ORDERED: MORPHINE SULFATE 2 MG/ML VIAL IVPUSH ONE ×2 (13:30)
[2020-12-20] MEDS: SODIUM CHLORIDE 1,000 ML IV SCH ×2 (17:00→23:44)
[2020-12-20] MEDS: KCL 10 MEQ IVPB 10 MEQ/100 ML INFUS.BAG IVPB SCH ×2 (17:01→21:12)
[2020-12-20 18:31] LABS: EPI CELLS 28 /uL (0-25.1); HYALINE CASTS 3 /uL (0-3.1); URINE APPEARANCE CLOUDY; URINE BACTERIA >9,000 /uL (0-1359); URINE BILIRUBIN NEGATIVE (NEGATIVE); URINE COLOR DK YELLOW; URINE GLUCOSE (UA) TRACE (NEGATIVE); URINE KETONE TRACE (NEGATIVE); URINE LEUK ESTERASE NEGATIVE (NEGATIVE); URINE NITRITE NEGATIVE (NEGATIVE); URINE PROTEIN 2+ (NEGATIVE); URINE RBC 68 /uL (0-23.9); URINE WBC 36 /uL (0-25.8)
[2020-12-20] MEDS ORDERED: PT OWN MED DRAWER 7, Y5N ONE ×2 (21:09→21:10)
[2020-12-20] MEDS ORDERED: KCL 10 MEQ IVPB 10 MEQ/100 ML INFUS.BAG IVPB SCH (21:15)
[2020-12-20] MEDS: lamoTRIgine 100 MG TABLET PO SCH (21:16)
[2020-12-20] MEDS: DOXAZOSIN MESYLATE 2 MG TABLET PO SCH (21:17)
[2020-12-20] MEDS: busPIRone HCL 5 MG TABLET PO SCH (21:17)
[2020-12-20 23:34] LABS: BLOOD UREA NITROGEN 9.4 mg/dL (7-18)
[2020-12-20 23:37] LABS: CREATININE 0.6 mg/dL (0.55-1.3)
[2020-12-21] MEDS ORDERED: LORazepam 0.5 MG TABLET PO PRN
[2020-12-21] MEDS ORDERED: SODIUM CHLORIDE 500 ML IV STA (01:07)
[2020-12-21] MEDS: MORPHINE SULFATE 2 MG/ML VIAL IVPUSH PRN ×4 (01:31→22:04)
[2020-12-21] MEDS: SODIUM CHLORIDE 1,000 ML IV SCH ×2 (02:54→06:44)
[2020-12-21] MEDS ORDERED: PT OWN MED DRAWER 7, Y5N ONE ×4 (05:54→14:04)
[2020-12-21] MEDS: lamoTRIgine 25 MG TABLET PO SCH ×2 (05:58→14:08)
[2020-12-21] MEDS: LORazepam 0.5 MG TABLET PO SCH ×4 (05:59→23:37)
[2020-12-21] MEDS: FERROUS SO4 325 MG TABLET (FP) PO SCH ×3 (05:59→22:06)
[2020-12-21 08:14] LABS: BASO % 0.1 % (0-2.0); EOS % 0.6 % (0-4.5); HEMATOCRIT 33.1 % (35.4-49); HEMOGLOBIN 11.6 GM/dL (11.7-16.9); LYMPH % 7.7 % (8-40); MCH 30.8 pg (25.7-33.7); MEAN CELL VOLUME 88.1 fl (80-96); MEAN PLT VOLUME 8.5 fl (7.5-11.1); MONO % 8.3 % (3.8-10.2); NEUT % 83.3 % (42.8-82.8); PLATELET COUNT 54 K/MM3 (134-434); RBC 3.76 M/mm3 (4.00-5.60); RDW 13.1 % (11.9-15.9); WHITE BLOOD COUNT 10.6 K/mm3 (4.0-10.0)
[2020-12-21 08:25] LABS: CHLORIDE 96 mmol/L (98-107); SODIUM 127 mmol/L (136-145)
[2020-12-21 08:33] LABS: ALBUMIN 2.5 g/dl (3.4-5.0); ANION GAP 7 MMOL/L (8-16); BLOOD UREA NITROGEN 8.6 mg/dL (7-18); CO2 24 mmol/L (21-32); GLUCOSE,RANDOM 68 mg/dL (74-106)
[2020-12-21 08:36] LABS: BILIRUBIN,DIRECT 0.3 mg/dL (0.0-0.2); CREATININE 0.5 mg/dL (0.55-1.3); SGOT/AST 91 U/L (15-37); SGPT/ALT 69 U/L (13-61)
[2020-12-21 08:38] LABS: TOT PROT 4.8 g/dl (6.4-8.2)
[2020-12-21 08:39] LABS: ALK PHOS 28 U/L (45-117); BILIRUBIN,TOTAL 0.6 mg/dL (0.2-1)
[2020-12-21 08:40] LABS: CALCIUM 6.8 mg/dL (8.5-10.1)
[2020-12-21] MEDS ORDERED: FLU VACCINE (FLULAVAL) PF 60 MCG/0.5 ML SYRINGE 2020-2021 IM ONE (10:00)
[2020-12-21] MEDS: LIPASE/PROTEASE/AMYLASE 36,000 UNIT CAPSULE PO SCH ×3 (10:15→17:25)
[2020-12-21] MEDS: THIAMINE HCL 100 MG TABLET (FP) PO SCH (10:16)
[2020-12-21] MEDS: amLODIPine BESYLATE 5 MG TABLET (FP) PO SCH (10:16)
[2020-12-21] MEDS: FOLIC ACID 1 MG TABLET (FP) PO SCH (10:16)
[2020-12-21] MEDS: FAMOTIDINE 20 MG TABLET PO SCH (10:16)
[2020-12-21] MEDS: VENLAFAXINE HCL 75 MG E.R. CAPSULES PO SCH (10:17)
[2020-12-21] MEDS ORDERED: CALCIUM GLUCONATE IN NACL 1 GM/50 ML BAG IVPB ONE (14:35)
[2020-12-21] MEDS ORDERED: POTASSIUM CHLORIDE ORAL LIQUID 20 MEQ/15 ML PO ONE (14:39)
[2020-12-21 15:01] LABS: MAGNESIUM 1.9 mg/dL (1.8-2.4)
[2020-12-21 15:04] LABS: PHOSPHOROUS 1.8 mg/dL (2.5-4.9)
[2020-12-21] MEDS: POTASSIUM PHOSPHATE IVPB SCH (18:37)
[2020-12-21] MEDS: SODIUM CHLORIDE IVPB SCH (18:37)
[2020-12-21] MEDS: lamoTRIgine 100 MG TABLET PO SCH (22:06)
[2020-12-21] MEDS: busPIRone HCL 5 MG TABLET PO SCH (22:06)
[2020-12-21] MEDS: DOXAZOSIN MESYLATE 2 MG TABLET PO SCH (22:12)
[2020-12-22] MEDS: POTASSIUM PHOSPHATE IVPB SCH ×4 (03:12→15:48)
[2020-12-22] MEDS: SODIUM CHLORIDE IVPB SCH ×4 (03:12→15:48)
[2020-12-22] MEDS: MORPHINE SULFATE 2 MG/ML VIAL IVPUSH PRN ×4 (03:26→18:41)
[2020-12-22] MEDS ORDERED: LORazepam 0.5 MG TABLET PO ONE (05:00)
[2020-12-22] MEDS: lamoTRIgine 25 MG TABLET PO SCH ×2 (05:12→14:41)
[2020-12-22] MEDS: FERROUS SO4 325 MG TABLET (FP) PO SCH ×3 (05:12→21:27)
[2020-12-22] MEDS ORDERED: PT OWN MED DRAWER 7, Y5N ONE ×3 (08:03→14:38)
[2020-12-22] MEDS: LIPASE/PROTEASE/AMYLASE 36,000 UNIT CAPSULE PO SCH ×3 (08:10→16:54)
[2020-12-22 09:59] LABS: BASO % 0.3 % (0-2.0); EOS % 0.4 % (0-4.5); LYMPH % 9.7 % (8-40); MCH 30.3 pg (25.7-33.7); MCHC 34.3 g/dl (32.0-35.9); MEAN CELL VOLUME 88.2 fl (80-96); MEAN PLT VOLUME 8.3 fl (7.5-11.1); NEUT % 76.6 % (42.8-82.8); PLATELET COUNT 76 K/MM3 (134-434); RBC 3.97 M/mm3 (4.00-5.60); RDW 13.3 % (11.9-15.9); WHITE BLOOD COUNT 9.1 K/mm3 (4.0-10.0)
[2020-12-22 10:15] LABS: ALBUMIN 2.6 g/dl (3.4-5.0); BLOOD UREA NITROGEN 5.7 mg/dL (7-18); CALCIUM 7.5 mg/dL (8.5-10.1)
[2020-12-22 10:18] LABS: CREATININE 0.4 mg/dL (0.55-1.3)
[2020-12-22 10:20] LABS: BILIRUBIN,TOTAL 0.7 mg/dL (0.2-1); TOT PROT 5.5 g/dl (6.4-8.2)
[2020-12-22] MEDS: FOLIC ACID 1 MG TABLET (FP) PO SCH (10:47)
[2020-12-22] MEDS: amLODIPine BESYLATE 5 MG TABLET (FP) PO SCH (10:47)
[2020-12-22] MEDS: THIAMINE HCL 100 MG TABLET (FP) PO SCH (10:47)
[2020-12-22] MEDS: FAMOTIDINE 20 MG TABLET PO SCH (10:47)
[2020-12-22] MEDS: VENLAFAXINE HCL 75 MG E.R. CAPSULES PO SCH (11:50)
[2020-12-22] MEDS ORDERED: POTASSIUM PHOSPHATE 30 MM in SODIUM CHLORIDE 500 ML IVPB ONE (12:29)
[2020-12-22 13:01] LABS: PHOSPHOROUS 2.2 mg/dL (2.5-4.9)
[2020-12-22] MEDS: lamoTRIgine 100 MG TABLET PO SCH (21:27)
[2020-12-22] MEDS: busPIRone HCL 5 MG TABLET PO SCH (21:27)
[2020-12-22] MEDS: DOXAZOSIN MESYLATE 2 MG TABLET PO SCH (21:27)
[2020-12-23] MEDS: MORPHINE SULFATE 2 MG/ML VIAL IVPUSH PRN ×4 (01:40→21:08)
[2020-12-23] MEDS: SODIUM CHLORIDE IVPB SCH ×5 (01:41→18:50)
[2020-12-23] MEDS: POTASSIUM PHOSPHATE IVPB SCH ×5 (01:41→18:50)
[2020-12-23] MEDS: lamoTRIgine 25 MG TABLET PO SCH ×2 (06:21→14:21)
[2020-12-23] MEDS: FERROUS SO4 325 MG TABLET (FP) PO SCH ×3 (06:21→21:07)
[2020-12-23] MEDS ORDERED: PT OWN MED DRAWER 7, Y5N ONE ×4 (08:11→23:06)
[2020-12-23] MEDS: LIPASE/PROTEASE/AMYLASE 36,000 UNIT CAPSULE PO SCH ×3 (08:28→17:35)
[2020-12-23 09:08] LABS: BASO % 0.2 % (0-2.0); EOS % 0.9 % (0-4.5); HEMATOCRIT 34.1 % (35.4-49); HEMOGLOBIN 12.2 GM/dL (11.7-16.9); LYMPH % 13.2 % (8-40); MCH 30.7 pg (25.7-33.7); MCHC 35.8 g/dl (32.0-35.9); MEAN CELL VOLUME 85.7 fl (80-96); MEAN PLT VOLUME 7.4 fl (7.5-11.1); MONO % 20.6 % (3.8-10.2); NEUT % 65.1 % (42.8-82.8); PLATELET COUNT 115 K/MM3 (134-434); RBC 3.97 M/mm3 (4.00-5.60); WHITE BLOOD COUNT 8.1 K/mm3 (4.0-10.0)
[2020-12-23 09:30] LABS: CALCIUM 7.8 mg/dL (8.5-10.1)
[2020-12-23 09:32] LABS: BLOOD UREA NITROGEN 5.5 mg/dL (7-18); MAGNESIUM 1.7 mg/dL (1.8-2.4)
[2020-12-23 09:33] LABS: ALBUMIN 2.4 g/dl (3.4-5.0)
[2020-12-23 09:35] LABS: CREATININE 0.5 mg/dL (0.55-1.3); PHOSPHOROUS 2.8 mg/dL (2.5-4.9)
[2020-12-23 09:37] LABS: BILIRUBIN,TOTAL 0.7 mg/dL (0.2-1)
[2020-12-23 09:38] LABS: TOT PROT 5.6 g/dl (6.4-8.2)
[2020-12-23 10:34] LABS: ANISOCYTOSIS 0; MACROCYTOSIS 0; PLATELET ESTIMATE DECREASED
[2020-12-23] MEDS: amLODIPine BESYLATE 5 MG TABLET (FP) PO SCH (11:02)
[2020-12-23] MEDS: VENLAFAXINE HCL 75 MG E.R. CAPSULES PO SCH (11:03)
[2020-12-23] MEDS: FAMOTIDINE 20 MG TABLET PO SCH (11:03)
[2020-12-23] MEDS: FOLIC ACID 1 MG TABLET (FP) PO SCH (11:03)
[2020-12-23] MEDS: THIAMINE HCL 100 MG TABLET (FP) PO SCH (11:03)
[2020-12-23] MEDS ORDERED: POTASSIUM CHLORIDE ORAL LIQUID 20 MEQ/15 ML PO ONE (11:04)
[2020-12-23] MEDS ORDERED: MAGNESIUM SULF 50% (8.12 MEQ/2 ML-1 GM VIAL) IVPB ONE (11:04)
[2020-12-23] MEDS: MAG HYDROX/AL HYDROX/SIMETH 30 ML UNIT-DOSE CUP PO PRN (15:11)
[2020-12-23] MEDS: busPIRone HCL 5 MG TABLET PO SCH (21:07)
[2020-12-23] MEDS: lamoTRIgine 100 MG TABLET PO SCH (21:07)
[2020-12-23] MEDS: DOXAZOSIN MESYLATE 2 MG TABLET PO SCH (21:08)
[2020-12-24] MEDS: MORPHINE SULFATE 2 MG/ML VIAL IVPUSH PRN ×5 (02:08→21:50)
[2020-12-24] MEDS: POTASSIUM PHOSPHATE IVPB SCH ×4 (02:13→21:46)
[2020-12-24] MEDS: SODIUM CHLORIDE IVPB SCH ×4 (02:13→21:46)
[2020-12-24] MEDS ORDERED: PT OWN MED DRAWER 7, Y5N ONE ×7 (05:40→21:20)
[2020-12-24] MEDS: FERROUS SO4 325 MG TABLET (FP) PO SCH ×3 (05:58→21:45)
[2020-12-24] MEDS: lamoTRIgine 25 MG TABLET PO SCH ×2 (05:59→14:39)
[2020-12-24 09:00] LABS: BASO % 0.3 % (0-2.0); EOS % 0.9 % (0-4.5); HEMATOCRIT 34.2 % (35.4-49); HEMOGLOBIN 12.3 GM/dL (11.7-16.9); LYMPH % 15.6 % (8-40); MCH 30.9 pg (25.7-33.7); MCHC 35.9 g/dl (32.0-35.9); MEAN CELL VOLUME 86.1 fl (80-96); MEAN PLT VOLUME 7.5 fl (7.5-11.1); MONO % 25.5 % (3.8-10.2); NEUT % 57.7 % (42.8-82.8); PLATELET COUNT 163 K/MM3 (134-434); RBC 3.97 M/mm3 (4.00-5.60); RDW 13.3 % (11.9-15.9)
[2020-12-24 09:24] LABS: CREATININE 0.4 mg/dL (0.55-1.3)
[2020-12-24 09:26] LABS: TOT PROT 5.7 g/dl (6.4-8.2)
[2020-12-24 09:27] LABS: CALCIUM 7.6 mg/dL (8.5-10.1)
[2020-12-24 09:28] LABS: ALBUMIN 2.4 g/dl (3.4-5.0); BLOOD UREA NITROGEN 4.3 mg/dL (7-18)
[2020-12-24 09:30] LABS: PHOSPHOROUS 2.9 mg/dL (2.5-4.9)
[2020-12-24 09:31] LABS: BILIRUBIN,TOTAL 0.4 mg/dL (0.2-1)
[2020-12-24 10:12] LABS: ANISOCYTOSIS 0; MACROCYTOSIS 0; PLATELET ESTIMATE NORMAL
[2020-12-24] MEDS: LIPASE/PROTEASE/AMYLASE 36,000 UNIT CAPSULE PO SCH ×3 (10:48→19:32)
[2020-12-24] MEDS: THIAMINE HCL 100 MG TABLET (FP) PO SCH (10:49)
[2020-12-24] MEDS: FAMOTIDINE 20 MG TABLET PO SCH (10:49)
[2020-12-24] MEDS: FOLIC ACID 1 MG TABLET (FP) PO SCH (10:49)
[2020-12-24] MEDS: amLODIPine BESYLATE 5 MG TABLET (FP) PO SCH (10:49)
[2020-12-24] MEDS: VENLAFAXINE HCL 75 MG E.R. CAPSULES PO SCH (10:50)
[2020-12-24] MEDS ORDERED: POTASSIUM CHLORIDE ORAL LIQUID 20 MEQ/15 ML PO ONE (14:00)
[2020-12-24] MEDS: busPIRone HCL 5 MG TABLET PO SCH (21:45)
[2020-12-24] MEDS: lamoTRIgine 100 MG TABLET PO SCH (21:45)
[2020-12-24] MEDS: DOXAZOSIN MESYLATE 2 MG TABLET PO SCH (21:46)
[2020-12-25] MEDS: MORPHINE SULFATE 2 MG/ML VIAL IVPUSH PRN ×2 (02:01→06:23)
[2020-12-25] MEDS: SODIUM CHLORIDE IVPB SCH ×3 (04:32→10:25)
[2020-12-25] MEDS: POTASSIUM PHOSPHATE IVPB SCH ×3 (04:32→10:25)
[2020-12-25] MEDS ORDERED: PT OWN MED DRAWER 7, Y5N ONE ×3 (05:23→10:07)
[2020-12-25] MEDS: lamoTRIgine 25 MG TABLET PO SCH (06:23)
[2020-12-25] MEDS: FERROUS SO4 325 MG TABLET (FP) PO SCH (06:23)
[2020-12-25 08:19] LABS: HEMATOCRIT 36.1 % (35.4-49); HEMOGLOBIN 12.9 GM/dL (11.7-16.9); MCH 30.6 pg (25.7-33.7); MCHC 35.6 g/dl (32.0-35.9); MEAN PLT VOLUME 6.8 fl (7.5-11.1); PLATELET COUNT 259 K/MM3 (134-434); RDW 13.4 % (11.9-15.9); WHITE BLOOD COUNT 7.1 K/mm3 (4.0-10.0)
[2020-12-25 08:43] LABS: CALCIUM 7.8 mg/dL (8.5-10.1)
[2020-12-25 08:44] LABS: ALBUMIN 2.5 g/dl (3.4-5.0); BLOOD UREA NITROGEN 3.9 mg/dL (7-18); MAGNESIUM 1.9 mg/dL (1.8-2.4)
[2020-12-25 08:45] LABS: CREATININE 0.5 mg/dL (0.55-1.3)
[2020-12-25 08:46] LABS: BILIRUBIN,TOTAL 0.7 mg/dL (0.2-1)
[2020-12-25 08:47] LABS: PHOSPHOROUS 3.2 mg/dL (2.5-4.9); TOT PROT 5.9 g/dl (6.4-8.2)
[2020-12-25] MEDS: LIPASE/PROTEASE/AMYLASE 36,000 UNIT CAPSULE PO SCH ×2 (09:01→14:17)
[2020-12-25] MEDS: THIAMINE HCL 100 MG TABLET (FP) PO SCH (10:23)
[2020-12-25] MEDS: FAMOTIDINE 20 MG TABLET PO SCH (10:23)
[2020-12-25] MEDS: FOLIC ACID 1 MG TABLET (FP) PO SCH (10:23)
[2020-12-25] MEDS: amLODIPine BESYLATE 5 MG TABLET (FP) PO SCH (10:24)
[2020-12-25] MEDS: VENLAFAXINE HCL 75 MG E.R. CAPSULES PO SCH (10:24)
[2020-12-25] MEDS ORDERED: MAGNESIUM SULF 50% (8.12 MEQ/2 ML-1 GM VIAL) IVPB ONE (10:46)
[2020-12-25 13:29] VITALS: BP 117/61; PULSE 80; TEMP 98.2
== END 2020-12-25 13:58 | disposition left against medical advice (07) | DRG 282 ==
LOC: JER 16:03 → JERBED 21:28 → J5S 12-18 05:17 → OBSVTOIN 12-19 11:36
PROVIDERS: ADMIT Hospitalist
PROC: HZ2ZZZZ Detoxification Services for Substance Abuse Treatment (ICD-10-PCS; principal; 2020-12-19)
DX: K85.90 Acute pancreatitis without necrosis or infection, unspecified (principal); F10.129 Alcohol abuse with intoxication, unspecified; E87.1 Hypo-osmolality and hyponatremia; F10.139 Alcohol abuse with withdrawal, unspecified; F32.9 Major depressive disorder, single episode, unspecified; G11.9 Hereditary ataxia, unspecified; R74.8 Abnormal levels of other serum enzymes; E83.51 Hypocalcemia; E87.6 Hypokalemia; E83.39 Other disorders of phosphorus metabolism; R82.2 Biliuria; D69.6 Thrombocytopenia, unspecified; G62.9 Polyneuropathy, unspecified; N17.9 Acute kidney failure, unspecified; I10 Essential (primary) hypertension; K21.9 Gastro-esophageal reflux disease without esophagitis
CPT/HCPCS: 36415; 71045-TC-FY; 71046-TC-FY; 74177-TC; 74183-TC; 80048; 80053; 80076; 80307; 81003; 82010; 82140; 82150; 82248; 82436; 82530; 82550; 82553; 83690; 83735; 83930; 83935; 84100; 84133; 84300; 84443; 84484; 85025; 85027; 85610; 85730; 86140; 87040; 87086; 93005; 93010; 94010; 97116-GP; 97161-GP; 99285-25; A9579; C9803; G0378; J0131; Q9967; U0003; U0005

== ENCOUNTER 2021-07-01 16:33 | Inpatient (IN) | payer OTHER ==
[2021-07-01] MEDS ORDERED: chlordiazePOXIDE HCL 25 MG CAPSULE PO ONE (18:52)
[2021-07-01] MEDS ORDERED: PANTOPRAZOLE SODIUM 40 MG VIAL IVPB ONE (18:53)
[2021-07-01] MEDS ORDERED: ONDANSETRON 4 MG/2 ML VIAL IVPB ONE (18:53)
[2021-07-01] MEDS ORDERED: FOLIC ACID INJECTION - 1 MG, THIAMINE HCL 100 MG, MULTIVIT INJECTION ADULT 10 ML in SOD... IVPB ONE (18:53)
[2021-07-01] MEDS ORDERED: SODIUM CHLORIDE 1,000 ML IV STA (18:53)
[2021-07-01 19:12] LABS: BASO % 0.1 % (0-2.0); HEMATOCRIT 43.1 % (35.4-49); HEMOGLOBIN 15.2 GM/dL (11.7-16.9); LYMPH % 8.8 % (8-40); MCH 30.4 pg (25.7-33.7); MCHC 35.2 g/dl (32.0-35.9); MEAN CELL VOLUME 86.4 fl (80-96); MEAN PLT VOLUME 7.3 fl (7.5-11.1); MONO % 10.7 % (3.8-10.2); NEUT % 80.4 % (42.8-82.8); PLATELET COUNT 122 10^3/uL (134-434); RBC 4.99 M/mm3 (4.00-5.60); RDW 14.4 % (11.9-15.9); WHITE BLOOD COUNT 10.2 K/mm3 (4.0-10.0)
[2021-07-01] MEDS ORDERED: MULTIVITAMINS (DAILY MVI) TABLET (FP) PO ONE (19:14)
[2021-07-01] MEDS ORDERED: ONDANSETRON 4 MG/2 ML VIAL ONE (19:21)
[2021-07-01] MEDS ORDERED: PANTOPRAZOLE SODIUM 40 MG/100 ML BAG IVPB ONE (19:21)
[2021-07-01 19:23] LABS: CHLORIDE 92 mmol/L (98-107); SODIUM 129 mmol/L (136-145)
[2021-07-01] MEDS ORDERED: LORazepam 1 MG TABLET PO ONE (19:24)
[2021-07-01] MEDS ORDERED: FOLIC ACID INJECTION - 1 MG, THIAMINE HCL 100 MG in SODIUM CHLORIDE 998.8 ML IVPB ONE (19:24)
[2021-07-01] MEDS ORDERED: POTASSIUM CHLORIDE ORAL LIQUID 20 MEQ/15 ML PO ONE (19:25)
[2021-07-01 19:26] LABS: ANION GAP 13 MMOL/L (8-16); BLOOD UREA NITROGEN 7.2 mg/dL (7-18); CALCIUM 8.7 mg/dL (8.5-10.1); CO2 24 mmol/L (21-32); GLUCOSE,RANDOM 135 mg/dL (74-106); LIPASE 111 U/L (73-393)
[2021-07-01 19:29] LABS: CREATININE 0.6 mg/dL (0.55-1.3); SGOT/AST 40 U/L (15-37); SGPT/ALT 37 U/L (13-61)
[2021-07-01 19:31] LABS: TOT PROT 7.8 g/dl (6.4-8.2)
[2021-07-01 19:32] LABS: ALK PHOS 41 U/L (45-117)
[2021-07-01] MEDS ORDERED: MULTIVITAMINS (DAILY MVI) TABLET (FP) ONE (19:46)
[2021-07-01] MEDS ORDERED: LORazepam 1 MG TABLET ONE (19:46)
[2021-07-01] MEDS ORDERED: POTASSIUM CHLORIDE ORAL LIQUID 20 MEQ/15 ML ONE (19:47)
[2021-07-01 19:53] LABS: INR 1.04 (0.83-1.09); PROTHROMBIN TIME (PATIENT) 12.2 SEC (9.7-13.0)
[2021-07-01 23:02] LABS: PH,URINE 7.5 (5.0-8.0); URINE APPEARANCE CLEAR; URINE BILIRUBIN NEGATIVE (NEGATIVE); URINE COLOR YELLOW; URINE GLUCOSE (UA) NEGATIVE (NEGATIVE); URINE KETONE NEGATIVE (NEGATIVE); URINE LEUK ESTERASE NEGATIVE (NEGATIVE); URINE NITRITE NEGATIVE (NEGATIVE); URINE PROTEIN NEGATIVE (NEGATIVE)
[2021-07-01] MEDS ORDERED: METOCLOPRAMIDE HCL INJECTION 10 MG/2 ML VIAL IVPB ONE (23:41)
[2021-07-01] MEDS ORDERED: METOCLOPRAMIDE HCL INJECTION 10 MG/2 ML VIAL ONE (23:46)
[2021-07-01] MEDS ORDERED: morphine CARPU-JECT 4 MG/1 ML DISP.SYRIN IVPUSH ONE (23:49)
[2021-07-01] MEDS ORDERED: morphine SULFATE 4 MG/ML VIAL ONE (23:53)
[2021-07-02] MEDS ORDERED: diazePAM 5 MG TABLET PO PRN (01:21)
[2021-07-02] MEDS ORDERED: SODIUM CHLORIDE 1,000 ML IV SCH (01:30)
[2021-07-02] MEDS ORDERED: HEPARIN NA (PORCINE) 5,000 UNITS/ML 1ML VIAL SQ SCH (02:00)
[2021-07-02] MEDS: morphine SULFATE 4 MG/ML VIAL IVPUSH PRN ×2 (02:20→06:26)
[2021-07-02] MEDS: ONDANSETRON 4 MG/2 ML VIAL IVPUSH PRN ×2 (02:46→09:28)
[2021-07-02 03:27] VITALS: BMI 27.6
[2021-07-02] MEDS ORDERED: LACTATED RINGERS SOLUTION 1,000 ML/1,000 ML INFUS.BAG IV SCH (05:30)
[2021-07-02] MEDS: FOLIC ACID 1 MG TABLET (FP) PO SCH (09:27)
[2021-07-02] MEDS: CYANOCOBALAMIN (VITAMIN B-12) 100 MCG TABLET PO SCH (09:27)
[2021-07-02] MEDS: THIAMINE HCL 100 MG TABLET (FP) PO SCH (09:27)
[2021-07-02] MEDS: PANTOPRAZOLE 40 MG TABLET PO SCH (09:27)
[2021-07-02] MEDS: ENOXAPARIN NA (PORCINE) 40 MG/0.4 ML DISP.SYRIN SQ SCH (09:28)
[2021-07-02] MEDS: METOCLOPRAMIDE HCL INJECTION 10 MG/2 ML VIAL IVPUSH SCH ×2 (14:13→17:12)
[2021-07-02 14:33] LABS: BASO % 0.1 % (0-2.0); EOS % 0.2 % (0-4.5); HEMATOCRIT 39.9 % (35.4-49); HEMOGLOBIN 13.8 GM/dL (11.7-16.9); LYMPH % 10.2 % (8-40); MCH 29.8 pg (25.7-33.7); MCHC 34.6 g/dl (32.0-35.9); MEAN PLT VOLUME 7.7 fl (7.5-11.1); MONO % 9.7 % (3.8-10.2); NEUT % 79.8 % (42.8-82.8); PLATELET COUNT 106 10^3/uL (134-434); RBC 4.64 M/mm3 (4.00-5.60); RDW 14.4 % (11.9-15.9); WHITE BLOOD COUNT 9.1 K/mm3 (4.0-10.0)
[2021-07-02 14:49] LABS: CHLORIDE 98 mmol/L (98-107); SODIUM 134 mmol/L (136-145)
[2021-07-02 14:51] LABS: ALBUMIN 3.4 g/dl (3.4-5.0); CALCIUM 8.4 mg/dL (8.5-10.1)
[2021-07-02 14:52] LABS: BLOOD UREA NITROGEN 6.8 mg/dL (7-18); CO2 28 mmol/L (21-32); GLUCOSE,RANDOM 156 mg/dL (74-106); MAGNESIUM 2.1 mg/dL (1.8-2.4)
[2021-07-02 14:55] LABS: CREATININE 0.8 mg/dL (0.55-1.3); PHOSPHOROUS 2.1 mg/dL (2.5-4.9); SGOT/AST 39 U/L (15-37); SGPT/ALT 37 U/L (13-61)
[2021-07-02 14:56] LABS: BILIRUBIN,TOTAL 0.9 mg/dL (0.2-1); TOT PROT 6.8 g/dl (6.4-8.2)
[2021-07-02 14:57] LABS: ALK PHOS 36 U/L (45-117)
[2021-07-02 15:06] LABS: ANION GAP 8 MMOL/L (8-16)
[2021-07-02] MEDS ORDERED: POTASSIUM CHLORIDE TABS 10 MEQ TABLET.ER (FP) PO ONE (15:28)
[2021-07-02] MEDS: KCL 10 MEQ IVPB 10 MEQ/100 ML INFUS.BAG IVPB SCH ×3 (15:40→18:05)
[2021-07-02] MEDS: SODIUM CHLORIDE 0.9%/KCL 20 MEQ/1,000 ML INFUS.BAG IV SCH (18:04)
[2021-07-02] MEDS ORDERED: ONDANSETRON 4 MG/2 ML VIAL IVPB ONE (22:28)
[2021-07-03] MEDS: SODIUM CHLORIDE 0.9%/KCL 20 MEQ/1,000 ML INFUS.BAG IV SCH ×2 (04:15→15:03)
[2021-07-03] MEDS ORDERED: METOCLOPRAMIDE HCL INJECTION 10 MG/2 ML VIAL IVPUSH ONE (05:24)
[2021-07-03 08:33] LABS: BASO % 0.3 % (0-2.0); EOS % 0.3 % (0-4.5); HEMATOCRIT 39.5 % (35.4-49); HEMOGLOBIN 13.7 GM/dL (11.7-16.9); LYMPH % 15.6 % (8-40); MCH 30.3 pg (25.7-33.7); MCHC 34.7 g/dl (32.0-35.9); MEAN CELL VOLUME 87.3 fl (80-96); MEAN PLT VOLUME 7.7 fl (7.5-11.1); MONO % 9.9 % (3.8-10.2); NEUT % 73.9 % (42.8-82.8); PLATELET COUNT 95 10^3/uL (134-434); RBC 4.52 M/mm3 (4.00-5.60); RDW 14.4 % (11.9-15.9); WHITE BLOOD COUNT 7.3 K/mm3 (4.0-10.0)
[2021-07-03] MEDS: PANTOPRAZOLE 40 MG TABLET PO SCH (09:03)
[2021-07-03] MEDS: CYANOCOBALAMIN (VITAMIN B-12) 100 MCG TABLET PO SCH (09:03)
[2021-07-03] MEDS: THIAMINE HCL 100 MG TABLET (FP) PO SCH (09:03)
[2021-07-03] MEDS: ENOXAPARIN NA (PORCINE) 40 MG/0.4 ML DISP.SYRIN SQ SCH (09:03)
[2021-07-03] MEDS: FOLIC ACID 1 MG TABLET (FP) PO SCH (09:03)
[2021-07-03 09:24] LABS: BLOOD UREA NITROGEN 5.2 mg/dL (7-18)
[2021-07-03 09:25] LABS: ALBUMIN 3.4 g/dl (3.4-5.0); CALCIUM 8.3 mg/dL (8.5-10.1)
[2021-07-03 09:27] LABS: CREATININE 0.7 mg/dL (0.55-1.3)
[2021-07-03 09:29] LABS: TOT PROT 6.7 g/dl (6.4-8.2)
[2021-07-03] MEDS ORDERED: POTASSIUM CHLORIDE ORAL LIQUID 20 MEQ/15 ML PO ONE (09:45)
[2021-07-03] MEDS ORDERED: VENLAFAXINE HCL 75 MG TABLET PO SCH (10:00)
[2021-07-03] MEDS ORDERED: lamoTRIgine 25 MG TABLET PO SCH (10:00)
[2021-07-03] MEDS ORDERED: amLODIPine BESYLATE 5 MG TABLET (FP) PO SCH (10:00)
[2021-07-03] MEDS: METOCLOPRAMIDE HCL INJECTION 10 MG/2 ML VIAL IVPUSH SCH ×2 (11:30→17:42)
[2021-07-03 15:20] VITALS: BP 129/76; PULSE 84; TEMP 98.8
[2021-07-03 16:51] LABS: CALCIUM 8.4 mg/dL (8.5-10.1)
[2021-07-03 16:52] LABS: BLOOD UREA NITROGEN 6.7 mg/dL (7-18)
[2021-07-03 16:55] LABS: CREATININE 0.7 mg/dL (0.55-1.3)
[2021-07-03] MEDS ORDERED: lamoTRIgine 100 MG TABLET PO SCH (22:00)
== END 2021-07-03 18:15 | disposition home or self-care (01) | DRG 282 ==
LOC: JER 16:33 → JERBED 23:09 → J7W 07-02 01:57
PROVIDERS: ATTEND Internal Medicine
PROC: HZ2ZZZZ Detoxification Services for Substance Abuse Treatment (ICD-10-PCS; principal; 2021-07-01)
DX: K85.20 Alcohol induced acute pancreatitis without necrosis or infection (principal); F33.9 Major depressive disorder, recurrent, unspecified; G31.2 Degeneration of nervous system due to alcohol; G62.9 Polyneuropathy, unspecified; E87.1 Hypo-osmolality and hyponatremia; E87.6 Hypokalemia; F10.239 Alcohol dependence with withdrawal, unspecified; F31.9 Bipolar disorder, unspecified; I10 Essential (primary) hypertension; K29.20 Alcoholic gastritis without bleeding; K86.0 Alcohol-induced chronic pancreatitis; K21.9 Gastro-esophageal reflux disease without esophagitis
CPT/HCPCS: 36415; 74177-TC; 80048; 80053; 81003; 82150; 83690; 83735; 84100; 84484; 85025; 85610; 85730; 86140; 86301; 93005; 93010; 99285-25; C9803; Q9967; U0003; U0005

== ENCOUNTER 2021-08-24 13:26 | Inpatient (IN) | payer OTHER ==
[2021-08-24 13:46] VITALS: BMI 27.6
[2021-08-24] MEDS ORDERED: LACTATED RINGERS SOLUTION 1000 ML INFUS.BAG IV ONE (15:06)
[2021-08-24] MEDS ORDERED: FAMOTIDINE 20 MG/50 ML IVPB 20 MG/50 ML MG IVPB ONE ×2 (15:06→15:34)
[2021-08-24] MEDS ORDERED: ACETAMINOPHEN 1000 MG/100 ML BAG IVPB ONE (15:06)
[2021-08-24] MEDS ORDERED: ONDANSETRON 4 MG/2 ML VIAL IVPUSH ONE ×2 (15:06→18:07)
[2021-08-24] MEDS ORDERED: LORazepam 2 MG/ML SDV VIAL IM ONE (15:12)
[2021-08-24] MEDS ORDERED: ACETAMINOPHEN INJECTION 100 ML IVPB ONE (15:34)
[2021-08-24] MEDS ORDERED: LORazepam 2 MG/ML SDV VIAL ONE (15:34)
[2021-08-24] MEDS ORDERED: ONDANSETRON 4 MG/2 ML VIAL ONE ×2 (15:34→21:24)
[2021-08-24 16:19] LABS: BASO % 0.4 % (0-2.0); HEMATOCRIT 45.7 % (35.4-49); HEMOGLOBIN 15.7 GM/dL (11.7-16.9); LYMPH % 12.1 % (8-40); MCH 29.6 pg (25.7-33.7); MCHC 34.3 g/dl (32.0-35.9); MEAN CELL VOLUME 86.3 fl (80-96); MEAN PLT VOLUME 7.5 fl (7.5-11.1); MONO % 8.6 % (3.8-10.2); NEUT % 78.9 % (42.8-82.8); PLATELET COUNT 233 10^3/uL (134-434); RBC 5.29 M/mm3 (4.00-5.60); RDW 13.9 % (11.9-15.9); WHITE BLOOD COUNT 11.7 K/mm3 (4.0-10.0)
[2021-08-24 16:20] LABS: CHLORIDE 99 mmol/L (98-107); SODIUM 135 mmol/L (136-145)
[2021-08-24 16:22] LABS: CALCIUM 9.6 mg/dL (8.5-10.1)
[2021-08-24 16:23] LABS: ALBUMIN 4.1 g/dl (3.4-5.0); ANION GAP 12 MMOL/L (8-16); BLOOD UREA NITROGEN 14.3 mg/dL (7-18); CO2 24 mmol/L (21-32); GLUCOSE,RANDOM 123 mg/dL (74-106); LIPASE 104 U/L (73-393); MAGNESIUM 2.5 mg/dL (1.8-2.4)
[2021-08-24 16:25] LABS: SGPT/ALT 28 U/L (13-61)
[2021-08-24 16:26] LABS: CREATININE 0.8 mg/dL (0.55-1.3); SGOT/AST 35 U/L (15-37)
[2021-08-24 16:27] LABS: TOT PROT 7.8 g/dl (6.4-8.2)
[2021-08-24 16:29] LABS: ALK PHOS 42 U/L (45-117)
[2021-08-24] MEDS ORDERED: morphine CARPU-JECT 2 MG/1 ML DISP.SYRIN IVPUSH ONE (18:07)
[2021-08-24] MEDS ORDERED: MAG HYDROX/AL HYDROX/SIMETH 30 ML UNIT-DOSE CUP PO ONE (18:07)
[2021-08-24] MEDS ORDERED: FOLIC ACID INJECTION - 1 MG, THIAMINE HCL 100 MG, MULTIVIT INJECTION ADULT 10 ML in SOD... IVPB ONE (18:07)
[2021-08-24] MEDS ORDERED: MAG HYDROX/AL HYDROX/SIMETH 30 ML UNIT-DOSE CUP ONE (18:41)
[2021-08-24] MEDS ORDERED: morphine SULFATE 4 MG/ML VIAL ONE (18:42)
[2021-08-24] MEDS ORDERED: ACETAMINOPHEN 325 MG TABLET (FP) PO PRN (23:36)
[2021-08-24] MEDS ORDERED: LACTATED RINGERS SOLUTION 1,000 ML IV SCH (23:45)
[2021-08-25] MEDS ORDERED: LORazepam 2 MG TABLET PO ONE
[2021-08-25] MEDS ORDERED: ONDANSETRON 4 MG TABLET PO ONE
[2021-08-25] MEDS ORDERED: LORazepam 1 MG TABLET PO PRN (00:01)
[2021-08-25] MEDS ORDERED: ONDANSETRON *ODT* 4 MG TABLET ONE (00:12)
[2021-08-25] MEDS ORDERED: LORazepam 1 MG TABLET ONE ×3 (00:13→10:49)
[2021-08-25] MEDS: LORazepam 2 MG TABLET PO SCH ×4 (00:16→17:45)
[2021-08-25 00:42] LABS: EPI CELLS 7 /uL (0-25.1); HYALINE CASTS 1 /uL (0-3.1); PH,URINE 6.5 (5.0-8.0); URINE APPEARANCE CLEAR; URINE BACTERIA 6 /uL (0-1359); URINE BILIRUBIN NEGATIVE (NEGATIVE); URINE COLOR YELLOW; URINE GLUCOSE (UA) 1+ (NEGATIVE); URINE KETONE 3+ (NEGATIVE); URINE LEUK ESTERASE NEGATIVE (NEGATIVE); URINE NITRITE NEGATIVE (NEGATIVE); URINE PROTEIN 2+ (NEGATIVE); URINE RBC 29 /uL (0-23.9); URINE WBC 7 /uL (0-25.8)
[2021-08-25] MEDS ORDERED: LACTATED RINGERS SOLUTION 1,000 ML IV SCH ×2 (02:24→02:30)
[2021-08-25] MEDS ORDERED: THIAMINE HCL 100 MG TABLET (FP) PO ONE (02:29)
[2021-08-25 08:37] LABS: BASO % 0.4 % (0-2.0); EOS % 0.4 % (0-4.5); HEMATOCRIT 40.4 % (35.4-49); HEMOGLOBIN 13.5 GM/dL (11.7-16.9); LYMPH % 18.2 % (8-40); MCH 29.2 pg (25.7-33.7); MCHC 33.3 g/dl (32.0-35.9); MEAN CELL VOLUME 87.6 fl (80-96); MONO % 6.9 % (3.8-10.2); NEUT % 74.1 % (42.8-82.8); PLATELET COUNT 159 10^3/uL (134-434); RBC 4.62 M/mm3 (4.00-5.60); RDW 13.7 % (11.9-15.9); WHITE BLOOD COUNT 6.3 K/mm3 (4.0-10.0)
[2021-08-25 08:43] LABS: INR 1.05 (0.83-1.09); PROTHROMBIN TIME (PATIENT) 12.1 SEC (9.7-13.0)
[2021-08-25 08:53] LABS: CO2 25 mmol/L (21-32); GLUCOSE,RANDOM 108 mg/dL (74-106)
[2021-08-25 08:55] LABS: CREATININE 0.6 mg/dL (0.55-1.3)
[2021-08-25 08:56] LABS: PHOSPHOROUS 1.4 mg/dL (2.5-4.9); SGOT/AST 31 U/L (15-37); SGPT/ALT 23 U/L (13-61)
[2021-08-25 08:58] LABS: ALK PHOS 29 U/L (45-117)
[2021-08-25 09:05] LABS: ALBUMIN 3.2 g/dl (3.4-5.0); CALCIUM 8.1 mg/dL (8.5-10.1)
[2021-08-25 09:22] LABS: ANION GAP 11 MMOL/L (8-16); CHLORIDE 103 mmol/L (98-107); SODIUM 139 mmol/L (136-145)
[2021-08-25] MEDS ORDERED: MULTIVITAMINS (DAILY MVI) TABLET (FP) ONE (09:30)
[2021-08-25] MEDS ORDERED: THIAMINE HCL 100 MG TABLET (FP) ONE (09:30)
[2021-08-25] MEDS ORDERED: PANTOPRAZOLE 40 MG TABLET ONE (09:30)
[2021-08-25] MEDS ORDERED: ENOXAPARIN NA (PORCINE) 40 MG/0.4 ML DISP.SYRIN SQ ONE (09:31)
[2021-08-25] MEDS ORDERED: ENOXAPARIN NA (PORCINE) 40 MG/0.4 ML DISP.SYRIN SQ SCH (10:00)
[2021-08-25] MEDS ORDERED: THIAMINE HCL 100 MG TABLET (FP) PO SCH (10:00)
[2021-08-25] MEDS ORDERED: PANTOPRAZOLE 40 MG TABLET PO SCH (10:00)
[2021-08-25] MEDS ORDERED: MULTIVITAMINS (DAILY MVI) TABLET (FP) PO SCH (10:00)
[2021-08-25 15:40] VITALS: PULSE 97
[2021-08-25 16:55] VITALS: BP 162/89; TEMP 98.2
[2021-08-26] MEDS ORDERED: LORazepam 1 MG TABLET PO SCH (05:00)
[2021-08-27] MEDS ORDERED: LORazepam 0.5 MG TABLET PO SCH (05:00)
[2021-08-28] MEDS ORDERED: LORazepam 0.5 MG TABLET PO PRN
[2021-08-28] MEDS ORDERED: LORazepam 0.5 MG TABLET PO ONE (05:00)
== END 2021-08-25 17:10 | disposition left against medical advice (07) | DRG 241 ==
LOC: JER 13:26 → JERBED 18:59
PROVIDERS: ADMIT Hospitalist; ATTEND Nurse Practitioner Family
DX: K29.20 Alcoholic gastritis without bleeding (principal); F10.230 Alcohol dependence with withdrawal, uncomplicated; I10 Essential (primary) hypertension; F31.9 Bipolar disorder, unspecified; G62.9 Polyneuropathy, unspecified; K86.0 Alcohol-induced chronic pancreatitis; G11.9 Hereditary ataxia, unspecified; R00.0 Tachycardia, unspecified; E87.1 Hypo-osmolality and hyponatremia; E83.41 Hypermagnesemia; E86.0 Dehydration; E87.6 Hypokalemia
CPT/HCPCS: 36415; 71046-TC-FY; 74177-TC; 80053; 81003; 83690; 83735; 84100; 84484; 85025; 85610; 93005; 93010; 99285-25; C9803-CS; U0003; U0005

== ENCOUNTER 2021-08-26 19:27 | Emergency (ER) | payer OTHER ==
[2021-08-26 19:53] VITALS: BP 149/82; PULSE 92; TEMP 98.2; BMI 27.6
[2021-08-27] MEDS ORDERED: ONDANSETRON *ODT* 4 MG TABLET SL ONE (00:14)
[2021-08-27] MEDS ORDERED: ACETAMINOPHEN 500 MG TABLET (FP) PO ONE (00:14)
[2021-08-27] MEDS ORDERED: FOLIC ACID INJECTION - 1 MG, THIAMINE HCL 100 MG, MULTIVIT INJECTION ADULT 10 ML in SOD... IVPB ONE (00:50)
[2021-08-27] MEDS ORDERED: ACETAMINOPHEN 325 MG TABLET (FP) ONE (00:52)
[2021-08-27] MEDS ORDERED: ONDANSETRON *ODT* 4 MG TABLET ONE (00:52)
[2021-08-27 00:57] LABS: HEMATOCRIT 41.4 % (35.4-49); HEMOGLOBIN 14.2 GM/dL (11.7-16.9); MCH 30.1 pg (25.7-33.7); MCHC 34.4 g/dl (32.0-35.9); MEAN CELL VOLUME 87.6 fl (80-96); MEAN PLT VOLUME 8.7 fl (7.5-11.1); PLATELET COUNT 84 10^3/uL (134-434); RBC 4.72 M/mm3 (4.00-5.60); RDW 13.6 % (11.9-15.9)
[2021-08-27 01:12] LABS: CHLORIDE 104 mmol/L (98-107); SODIUM 139 mmol/L (136-145)
[2021-08-27 01:14] LABS: ALBUMIN 3.7 g/dl (3.4-5.0); ANION GAP 7 MMOL/L (8-16); BLOOD UREA NITROGEN 5.5 mg/dL (7-18); CALCIUM 9.1 mg/dL (8.5-10.1); CO2 29 mmol/L (21-32); MAGNESIUM 2.3 mg/dL (1.8-2.4)
[2021-08-27 01:15] LABS: GLUCOSE,RANDOM 105 mg/dL (74-106); LIPASE 64 U/L (73-393)
[2021-08-27 01:17] LABS: CREATININE 0.6 mg/dL (0.55-1.3); SGOT/AST 74 U/L (15-37)
[2021-08-27 01:18] LABS: PHOSPHOROUS 3.1 mg/dL (2.5-4.9); SGPT/ALT 47 U/L (13-61)
[2021-08-27 01:19] LABS: BILIRUBIN,TOTAL 0.7 mg/dL (0.2-1); TOT PROT 6.6 g/dl (6.4-8.2)
[2021-08-27 01:20] LABS: ALK PHOS 43 U/L (45-117)
[2021-08-27 03:26] LABS: ANISOCYTOSIS 1+; MACROCYTOSIS 0; PLATELET ESTIMATE DECREASED
[2021-08-27] MEDS ORDERED: THIAMINE HCL 200 MG/2 ML VIAL IVPB SCH (10:00)
[2021-08-27] MEDS ORDERED: MULTIVITAMINS (DAILY MVI) TABLET (FP) PO SCH (10:00)
== END 2021-08-27 02:37 | disposition home or self-care (01) ==
LOC: JER 19:27
DX: R10.10 Upper abdominal pain, unspecified (principal); K29.20 Alcoholic gastritis without bleeding
CPT/HCPCS: 36415; 80053; 80307; 83690; 83735; 84100; 85025; 99284-25; Q0162

== ENCOUNTER 2021-11-14 17:14 | Emergency (ER) | payer OTHER ==
[2021-11-14 17:31] VITALS: BP 162/89; PULSE 110; TEMP 98.6; BMI 29.0
[2021-11-14 18:56] LABS: BASO % 0.6 % (0-2.0); EOS % 0.1 % (0-4.5); HEMATOCRIT 44.9 % (35.4-49); LYMPH % 6.8 % (8-40); MCH 29.5 pg (25.7-33.7); MCHC 33.4 g/dl (32.0-35.9); MEAN CELL VOLUME 88.4 fl (80-96); MEAN PLT VOLUME 7.7 fl (7.5-11.1); MONO % 14.4 % (3.8-10.2); NEUT % 78.1 % (42.8-82.8); PLATELET COUNT 114 10^3/uL (134-434); RBC 5.08 M/mm3 (4.00-5.60); RDW 14.7 % (11.9-15.9); WHITE BLOOD COUNT 6.3 K/mm3 (4.0-10.0)
[2021-11-14 19:21] LABS: CALCIUM 9.5 mg/dL (8.5-10.1)
[2021-11-14 19:25] LABS: CREATININE 0.9 mg/dL (0.55-1.3)
[2021-11-14 19:27] LABS: BILIRUBIN,TOTAL 0.9 mg/dL (0.2-1)
== END 2021-11-14 22:27 | disposition home or self-care (01) ==
LOC: JER 17:14
DX: M79.661 Pain in right lower leg (principal); M79.662 Pain in left lower leg; R25.2 Cramp and spasm
CPT/HCPCS: 36415; 80053; 85025; 93970-TC; 99284-25

== ENCOUNTER 2022-04-01 12:09 | Emergency (ER) | payer OTHER ==
[2022-04-01 12:13] VITALS: TEMP 97.4; BMI 28.2
[2022-04-01] MEDS ORDERED: diazePAM CARPU-JECT 10 MG/2 ML DISP.SYRIN IVPUSH ONE ×2 (14:00→17:52)
[2022-04-01] MEDS ORDERED: LACTATED RINGERS SOLUTION 1000 ML INFUS.BAG IV ONE (14:00)
[2022-04-01] MEDS ORDERED: diazePAM CARPU-JECT 10 MG/2 ML DISP.SYRIN ONE ×2 (14:05→17:56)
[2022-04-01 14:45] LABS: HEMATOCRIT 51.4 % (35.4-49); HEMOGLOBIN 17.2 GM/dL (11.7-16.9); MCH 29.8 pg (25.7-33.7); MCHC 33.4 g/dl (32.0-35.9); MEAN CELL VOLUME 89.2 fl (80-96); MEAN PLT VOLUME 8.1 fl (7.5-11.1); PLATELET COUNT 216 10^3/uL (134-434); RBC 5.76 M/mm3 (4.00-5.60); WHITE BLOOD COUNT 16.6 K/mm3 (4.0-10.0)
[2022-04-01 15:12] LABS: ALBUMIN 3.5 g/dl (3.4-5.0); BLOOD UREA NITROGEN 26.4 mg/dL (7-18); CALCIUM 8.8 mg/dL (8.5-10.1); MAGNESIUM 2.5 mg/dL (1.8-2.4)
[2022-04-01 15:14] LABS: CREATININE 0.9 mg/dL (0.55-1.3)
[2022-04-01 15:17] LABS: TOT PROT 7.1 g/dl (6.4-8.2)
[2022-04-01 15:21] LABS: ANISOCYTOSIS 0; HELMET CELLS 0; HOWELL-JOLLY BODIES 0; MACROCYTOSIS 0; OVALOCYTE 0; ROULEAU 0; SICKELED CELLS 0; TARGET CELLS 0; TEAR DROP CELLS 0; TOXIC GRANULATION 0
[2022-04-01 15:23] LABS: LACTIC ACID 8.4 mmol/L (0.4-2.0)
[2022-04-01] MEDS ORDERED: THIAMINE HCL 200 MG/2 ML VIAL IVPB ONE (15:27)
[2022-04-01] MEDS ORDERED: SODIUM CHLORIDE 0.9% 500 ML INFUS.BAG IV ONE (15:28)
[2022-04-01] MEDS ORDERED: morphine CARPU-JECT 4 MG/1 ML DISP.SYRIN IVPUSH ONE ×3 (15:51→20:23)
[2022-04-01] MEDS ORDERED: morphine SULFATE 4 MG/ML VIAL ONE ×3 (15:55→20:25)
[2022-04-01] MEDS ORDERED: WATER IVPB ONE (16:00)
[2022-04-01] MEDS ORDERED: THIAMINE HCL IVPB ONE (16:00)
[2022-04-01] MEDS ORDERED: DEXTROSE 5% IVPB ONE (16:00)
[2022-04-01 17:35] LABS: VENOUS BASE EXCESS -12.4 mmol/L (-2-2); VENOUS O2 SATURATION 94.2 % (70-80); VENOUS PCO2 29.7 mmHg (38-52); VENOUS PH 7.261 (7.310-7.410)
[2022-04-01] MEDS ORDERED: DEXTROSE 5%-WATER - 1,000 ML IV SCH (17:45)
[2022-04-01] MEDS ORDERED: ONDANSETRON 4 MG/2 ML VIAL IVPUSH ONE (17:52)
[2022-04-01] MEDS ORDERED: ONDANSETRON 4 MG/2 ML VIAL ONE (17:57)
[2022-04-01 18:12] LABS: LACTIC ACID 7.9 mmol/L (0.4-2.0)
[2022-04-01] MEDS ORDERED: METOCLOPRAMIDE HCL INJECTION 10 MG/2 ML VIAL IVPUSH ONE (20:29)
[2022-04-01] MEDS ORDERED: METOCLOPRAMIDE HCL INJECTION 10 MG/2 ML VIAL ONE (20:29)
[2022-04-01 20:59] LABS: INR 1.03 (0.83-1.09); PROTHROMBIN TIME (PATIENT) 11.8 SEC (9.7-13.0)
[2022-04-01 21:02] LABS: ACTIVATED PTT 23.3 SECONDS (25.2-36.5)
[2022-04-01] MEDS ORDERED: HEPARIN NA (PORCINE) 5,000 UNITS/ML 1ML VIAL IVPUSH ONE (21:09)
[2022-04-01] MEDS ORDERED: HEPARIN NA (PORCINE) 5,000 UNITS/ML 1ML VIAL IVPUSH PRN ×2 (21:10)
[2022-04-01] MEDS ORDERED: HEPARIN INFUSION - 25,000 UNITS/500 ML INFUS.BAG IVPB SCH (21:15)
[2022-04-01] MEDS ORDERED: LORazepam 2 MG/ML SDV VIAL IVPUSH ONE (21:31)
[2022-04-01] MEDS ORDERED: HEPARIN NA (PORCINE) 5,000 UNITS/ML 1ML VIAL ONE (21:49)
[2022-04-01] MEDS ORDERED: HEPARIN INFUSION - 25,000 UNITS/500 ML INFUS.BAG IVPB ONE (21:49)
[2022-04-01 22:38] VITALS: BP 161/94; PULSE 121; RESP 18
== END 2022-04-01 22:39 | disposition short-term general hospital (02) ==
LOC: JER 12:09
DX: K55.069 Acute infarction of intestine, part and extent unspecified (principal)
CPT/HCPCS: 36415; 71045-TC-FY; 74174-TC; 80053; 82803; 83605; 83690; 83735; 85025; 85610; 85730; 86850; 86900; 86901; 93005; 93010; 99285-25; C9803-CS; J1644; Q9967; U0003; U0005